=== PATIENT | female | born 1935 | race Caucasian/White ===

== ENCOUNTER 2017-12-02 09:12 | Outpatient (CLI) | payer MEDICARE, OTHER, SELFPAY ==
[2017-12-02 11:06] LABS: Hemoglobin A1C 6.8 % (4.5-6.2)
[2017-12-02 12:35] LABS: ALT 23 U/L (12-78); AST 19 U/L (15-37); Albumin 3.2 g/dL (3.4-5.0); Alkaline Phosphatase 71 U/L (46-116); Anion Gap 9.2 mmol/L (3-11); BUN 17 mg/dL (7-18); Bilirubin, Total 0.3 mg/dL (0.2-1.0); CO2 28.8 mmol/L (21.0-32.0); CREATININE 1.04 mg/dL (0.55-1.02); Calcium 8.6 mg/dL (8.5-10.1); Chloride 105 mmol/L (98-107); Estimated GFR 50.86 (mL/min/1.73m2); Glucose 140 mg/dL (70-100); Potassium 3.8 mmol/L (3.5-5.1); Sodium 143 mmol/L (136-145); Total Protein 6.9 g/dL (6.4-8.2)
== END 2017-12-02 09:32 ==
PROVIDERS: PCP Internal Medicine; Visit Provider Internal Medicine
DX: E11.9 Type 2 diabetes mellitus without complications (principal); I10 Essential (primary) hypertension
CPT/HCPCS: 36415; 80053; 83036

== ENCOUNTER 2020-01-12 02:52 | Outpatient (CLI) | payer MEDICARE, OTHER, SELFPAY ==
[2020-01-12 13:29] LABS: CREATININE 1.27 mg/dL (0.55-1.02); Estimated GFR 40.19 (mL/min/1.73m2); Potassium 4.1 mmol/L (3.5-5.1)
[2020-01-12 13:41] LABS: Hemoglobin A1C 6.8 % (<5.7)
== END 2020-01-12 03:12 ==
PROVIDERS: Internal Medicine; PCP Nurse Practitioner; Visit Provider Nurse Practitioner
DX: E11.9 Type 2 diabetes mellitus without complications (principal); I10 Essential (primary) hypertension
CPT/HCPCS: 82565; 83036; 84132

== ENCOUNTER 2020-02-22 08:15 | Day surgery (SDC) | payer MEDICARE, OTHER, SELFPAY ==
[2020-02-22 08:00] VITALS: BP 143/83; PULSE 67; RESP 24; TEMP 36.1; O2SAT 97
[2020-02-22] MEDS: Tropicam./Phenyleph. (1/2.5%) 5 ML BTL OD ×3 (08:40→08:47)
--- NOTE | 2020-02-22 09:56 | W.PM.DSUDISC ---
Discharge Plan Disposition Patient Disposition: HOME Discharge Details Attending Provider: Ke Chadwick Primary Care Provider: Odalys Summers Home Meds and New Rx's Prescriptions: No Action meclizine 12.5 mg tablet 12.5 - 25 mg PO BID-TID PRN (Reason: dizziness) Qty: 60 RF: 1 (DME) OneTouch Verio test strips Strip 1 ea Miscellaneous DAILY Qty: 90 RF: 3 (DME) lancets [OneTouch UltraSoft Lancets] Misc 1 ea Miscellaneous DAILY Qty: 90 RF: 3 potassium citrate 5 mEq (540 mg) tablet extended release 5 meq PO DAILY Qty: 90 RF: 3 metformin 500 mg tablet 500 mg PO DAILY Qty: 90 RF: 3 aspirin [Aspir-81] 81 MG tablet,delayed release (DR/EC) 1 tab PO DAILY RF: 0 (DME) blood-glucose meter [OneTouch Verio Meter] 1 EACH misc Miscellaneous DAILY Qty: 1 RF: 2 cholecalciferol (vitamin D3) 5,000 UNIT capsule 5,000 unit PO DAILY RF: 0 omega 4-xpd-sdr-fish oil 1 EACH capsule 1 ea PO DAILY RF: 0 atenolol 50 mg tablet 50 mg PO DAILY Qty: 90 RF: 4 hydrochlorothiazide 25 mg tablet 25 mg PO DAILY Qty: 90 RF: 4 Discharge Instructions Stand Alone Forms: Post-op Topical Cataract, Alessandra Rodriguez (DSU) Discharge Orders Discharge Orders: Discharge Order (Routine); Ordered 02/22/20 Ordered By: Ke Chadwick DS: Diagnosis Discharge Diagnosis (1) Nuclear sclerotic cataract of right eye: Status: Resolved (2) Cortical cataract of right eye: Status: Resolved
[2020-02-22] MEDS: Tetracaine 0.5% 4 ML BTL OD (10:07)
[2020-02-22] MEDS: Lidocaine 2% Jelly 6 ML SYR (10:08)
[2020-02-22] MEDS: Povidone-Iodine Ophth 30 ML BTL (10:08)
[2020-02-22] MEDS: Lidocaine 1% Pres-Free 5 ML VIAL (10:12)
[2020-02-22] MEDS: Balanced Salt Soln.-PLUS 500 ML BAG (10:13)
[2020-02-22] MEDS: Duovisc Viscoelastic System EACH 1 EACH (10:14)
[2020-02-22] MEDS: Moxifloxacin-PF 1 MG/ML VIAL (10:16)
--- NOTE | 2020-02-22 10:37 | W.PM.OP ---
Date of service: 02/22/20 Time of Service: 10:37 Operative Note Operative Note DATE OF PROCEDURE: 02/22/20 PRE-OP DIAGNOSIS: Nuclear cataract, right eye POST-OP DIAGNOSIS: same PROCEDURE: Cataract extraction using phacoemulsification with intraocular lens implant, right eye SURGEON: Ke Chadwick ANESTHESIA: MAC and local (sub-tenon's anesthetic infiltration) ESTIMATED BLOOD LOSS: 0 PATHOLOGY: none sent COMPLICATIONS: None Patient was transported to: same day Patient's condition: stable Implants: [employer] / [employer] Tecnis ZCB00 intraocular lens Indications: Progressive decreased vision due to cataract, right eye Procedure Description: CATARACT SURGERY OPERATIVE REPORT PREOPERATIVE DIAGNOSIS: Nuclear cataract, right eye POSTOPERATIVE DIAGNOSIS: Same OPERATION: Cataract extraction using phacoemulsification with posterior chamber intraocular lens implant, right eye. IOL: IOL Mobile Sales Technician/Model: [employer] Vision / ESTELLA Tecnis ZCB00 IOL Power: + 21.50 diopters IOL Serial Number: [id number] Optic Diameter: 6.0mm Haptic/Overall Diameter: 13.0mm PHACO INFO: Estuardo [employer] Vision System with OZil and Active Fluidics Cumulative Dispersed Energy (CDE): 14.58 seconds SURGEON: Nuclear and cortical cataract. The option of cataract surgery was offered to the patient and she felt she was symptomatic enough that she wished to proceed. Ke Chadwick MD, JOLIE ANESTHESIA: Monitored Anesthesia Care (MAC), with local sub-tenon's anesthetic infiltration COMPLICATIONS: None SPECIMENS: None INDICATIONS FOR PROCEDURE: The patient is an 84-year-old lady with history of diminished visual acuity in her right eye. She is noted to have a moderate nuclear and cortical cataract. She felt she was symptomatic enough that she wished to proceed. PROCEDURE: The correct surgical eye was identified and marked as the right eye and the pupil was dilated in the preoperative area using mydriatics and cycloplegics. The dilated pupil size was 7.0 mm. No oral sedation was given. The patient was brought to the operating room where cardiopulmonary monitoring was instituted and surgical time-out was performed, confirming the correct operative eye and IOL power. Topical anesthesia was administered and ophthalmic povidone-iodine 5% was instilled into the conjunctival fornices. Lidocaine gel was applied to the cornea and the rasheed-ocular area was prepped with Betadine 10% solution and draped in the usual sterile fashion for intraocular surgery, including an aperture drape. A Tegaderm transparent film dressing was cut in half and used to cover the lashes and lid margins. Care was taken to sequester the lashes and lid margins under the Tegaderm dressing. A lid speculum was placed between the lids of the operative eye and the Shari-Kris operating microscope was maneuvered into position. Carol scissors were then used to make a conjunctival buttonhole approximately 6mm posterior to the limbus in the inferonasal quadrant. Blunt dissection was carried out to expose bare sclera, and a blunt-tipped sub-tenon?s anesthesia cannula was introduced and passed posteriorly along the globe where non-preserved plain lidocaine was injected into posterior sub-Tenon?s space. A sideport knife was used to make a paracentesis port inferiortemporally. Intraocular phenylephrine/lidocaine was injected into the anterior chamber. The anterior chamber was then filled with viscoelastic. A 2.4mm keratome knife was used to create a half-thickness groove at the limbus and then to construct a three-plane near-clear corneal tunnel extending 2.0mm into clear cornea in the superiortemporal position. . A flap was raised on the anterior capsule and capsulorhexis forceps were used to complete a continuous curvilinear capsulorhexis of 5.0 mm. Balanced salt solution was then used to perform cortical cleaving hydrodissection and nuclear hydrodelineation until the lens could be freely rotated within the capsular bag. The lens nucleus was then disassembled and removed within the capsular bag and iris plane using phacoemulsification. Residual cortical material was removed using the I/A handpiece. The posterior capsule was carefully polished to remove as much residual lens epithelial cells as safely possible. The capsular bag was then inflated and the anterior chamber deepened with viscoelastic. The lens implant described above was inserted into the capsular bag using the ESTELLA [place] Injector. A Kuglen hook was used to dial the IOL into position. Residual viscoelastic was then removed first from posterior to the IOL, then from the anterior chamber using the I/A handpiece. The lens implant was noted to center nicely within the capsular bag. The incisions were stromally hydrated, and the anterior chamber was reformed using BSS. Then 0.5cc of moxifloxacin 1.0mg/ml were injected into the capsular bag and anterior chamber. The incisions were checked with a Weck spear and found to be secure. Several drops of ophthalmic povidone-iodine 5% were then applied to the eye followed by two drops of Imprimis combination prednisolone/moxifloxacin/nepafenac solution. The drapes were removed and a clear plastic protective eye shield was placed over the eye. The patient was then returned to [facility] in stable condition.
== END 2020-02-22 11:06 | disposition home or self-care (01) ==
PROVIDERS: PCP Nurse Practitioner; Visit Provider Ophthalmology
PROC: (CPT 66984; principal; 2020-02-22 09:45)
DX: H25.11 Age-related nuclear cataract, right eye (principal); H25.011 Cortical age-related cataract, right eye; E11.9 Type 2 diabetes mellitus without complications; Z79.84 Long term (current) use of oral hypoglycemic drugs; I10 Essential (primary) hypertension
CPT/HCPCS: 66984; V2632

== ENCOUNTER 2020-03-07 07:30 | Day surgery (SDC) | payer MEDICARE, OTHER, SELFPAY ==
[2020-03-07 07:45] VITALS: BP 160/84; PULSE 67; RESP 18; TEMP 36.2; O2SAT 96
[2020-03-07] MEDS: Tropicam./Phenyleph. (1/2.5%) 5 ML BTL OS ×3 (08:00→08:13)
[2020-03-07] MEDS: Lidocaine 2% Jelly 6 ML SYR (09:05)
[2020-03-07] MEDS: Trypan Blue 0.06% 0.5 ML SYR (09:05)
[2020-03-07] MEDS: Tetracaine 0.5% 4 ML BTL OS (09:05)
[2020-03-07] MEDS: Povidone-Iodine Ophth 30 ML BTL (09:05)
[2020-03-07] MEDS: Lidocaine 1% Pres-Free 5 ML VIAL (09:05)
[2020-03-07] MEDS: Balanced Salt Soln.-PLUS 500 ML BAG (09:05)
--- NOTE | 2020-03-07 09:22 | W.PM.DSUDISC ---
Discharge Plan Disposition Patient Disposition: HOME Condition: Good Discharge Details Attending Provider: Ke Chadwick Primary Care Provider: Odalys Summers Home Meds and New Rx's Prescriptions: No Action meclizine 12.5 mg tablet 12.5 - 25 mg PO BID-TID PRN (Reason: dizziness) Qty: 60 RF: 1 (DME) OneTouch Verio test strips Strip 1 ea Miscellaneous DAILY Qty: 90 RF: 3 (DME) lancets [OneTouch UltraSoft Lancets] Misc 1 ea Miscellaneous DAILY Qty: 90 RF: 3 potassium citrate 5 mEq (540 mg) tablet extended release 5 meq PO DAILY Qty: 90 RF: 3 metformin 500 mg tablet 500 mg PO DAILY Qty: 90 RF: 3 aspirin [Aspir-81] 81 MG tablet,delayed release (DR/EC) 1 tab PO DAILY RF: 0 (DME) blood-glucose meter [OneTouch Verio Meter] 1 EACH misc Miscellaneous DAILY Qty: 1 RF: 2 cholecalciferol (vitamin D3) 5,000 UNIT capsule 5,000 unit PO DAILY RF: 0 omega 7-mnv-ktp-fish oil 1 EACH capsule 1 ea PO DAILY RF: 0 atenolol 50 mg tablet 50 mg PO DAILY Qty: 90 RF: 4 hydrochlorothiazide 25 mg tablet 25 mg PO DAILY Qty: 90 RF: 4 Discharge Instructions Stand Alone Forms: Post-op Block Cataract, Post-op Topical Cataract, Press Ganey (DSU) Discharge Orders Discharge Orders: Discharge Order (Routine); Ordered 03/07/20 Ordered By: Ke Chadwick DS: Diagnosis Discharge Diagnosis (1) Cortical cataract of left eye: Status: Resolved (2) Nuclear sclerotic cataract of left eye: Status: Resolved
--- NOTE | 2020-03-07 09:23 | W.PM.OP ---
Date of service: 03/07/20 Time of Service: 09:23 Operative Note Operative Note DATE OF PROCEDURE: 03/07/20 PRE-OP DIAGNOSIS: Nuclear/cortical cataract, left eye POST-OP DIAGNOSIS: same PROCEDURE: Cataract extraction using phacoemulsification with intraocular lens implant, left eye, using capsular staining with Vision Blue SURGEON: Ke Chadwick ANESTHESIA: MAC (with local sub-tenon's anesthetic injection) COMPLICATIONS: None Patient was transported to: same day Patient's condition: stable Implants: [employer] / [employer] Tecnis [id number] Indications: Progressive decreased vision due to cataract, left eye, with poor red reflex Procedure Description: CATARACT SURGERY OPERATIVE REPORT PREOPERATIVE DIAGNOSIS: 1. Nuclear/cortical cataract, left eye 2. Poor red reflex secondary to #1 POSTOPERATIVE DIAGNOSIS: Same OPERATION: 1. Cataract extraction using phacoemulsification with posterior chamber intraocular lens implant, left eye. 2. Capsular staining with Vision Blue IOL: IOL Bagel Maker/Model: [employer] Abraham / ESTELLA Tecnis ZCB00 IOL Power: + 22.0 diopters IOL Serial Number: [id number] Optic Diameter: 6.0 mm Haptic/Overall Diameter: 13.0 mm PHACO INFO: Estuardo [employer] Vision System with OZil and Active Fluidics Cumulative Dispersed Energy (CDE): 8.21 seconds SURGEON: Ke Chadwick MD, JOLIE [facility]ESTHESIA: [facility] ([facility]), with local sub-tenon's anesthetic infiltration COMPLICATIONS: None SPECIMENS: None INDICATIONS FOR PROCEDURE: The patient is an 84-year-old lady with history of diminished visual acuity in both eyes secondary to the development of bilateral nuclear and cortical cataract. She has already undergone cataract surgery in her right eye and is doing well postoperatively. She now presents for cataract surgery in the left eye. PROCEDURE: The correct surgical eye was identified and marked as the left eye and the pupil was dilated in the preoperative area using mydriatics and cycloplegics. The dilated pupil size was 7.0 mm. The patient elected to proceed without sedation. The patient was brought to the operating room where cardiopulmonary monitoring was instituted and surgical time-out was performed, confirming the correct operative eye and IOL power. Topical anesthesia was administered and ophthalmic povidone-iodine 5% was instilled into the conjunctival fornices. Lidocaine gel was applied to the cornea and the rasheed-ocular area was prepped with Betadine 10% solution and draped in the usual sterile fashion for intraocular surgery, including an aperture drape. A Tegaderm transparent film dressing was cut in half and used to cover the lashes and lid margins. Care was taken to sequester the lashes and lid margins under the Tegaderm dressing. A lid speculum was placed between the lids of the operative eye and the Shari-Kris operating microscope was maneuvered into position. Carol scissors were then used to make a conjunctival buttonhole approximately 6mm posterior to the limbus in the inferonasal quadrant. Blunt dissection was carried out to expose bare sclera, and a blunt-tipped sub-tenon?s anesthesia cannula was introduced and passed posteriorly along the globe where non-preserved plain lidocaine was injected into posterior sub-Tenon?s space. A sideport knife was used to make a paracentesis port superiorly/superiortemporally. Intraocular phenylephrine/lidocaine was injected int the anterior chamber.. Air was then injected into the anterior chamber, followed by Vision Blue, which was painted over the anterior capsule and then irrigated out using BSS. The anterior chamber was filled with viscoelastic. A 2.4mm keratome knife was used to create a half-thickness groove at the limbus and then to construct a three-plane near-clear corneal tunnel extending 2.0mm into clear cornea at the 3:00 position. A flap was raised on the anterior capsule and capsulorhexis forceps were used to complete a continuous curvilinear capsulorhexis of 5.0 mm. Balanced salt solution was then used to perform cortical cleaving hydrodissection and nuclear hydrodelineation until the lens could be freely rotated within the capsular bag. The lens nucleus was then disassembled and removed within the capsular bag and iris plane using phacoemulsification. Residual cortical material was removed using the 45-degree angled silicone I/A tip with 0.3mm port. The posterior capsule was carefully polished to remove as much residual lens epithelial cells as safely possible. The capsular bag was then inflated and the anterior chamber deepened with viscoelastic. The lens implant described above was inserted into the capsular bag using the ESTELLA [place] Injector. A Kuglen hook was used to dial the IOL into position. Residual viscoelastic was then removed first from posterior to the IOL, then from the anterior chamber using the I/A handpiece. The lens implant was noted to center nicely within the capsular bag. The incisions were stromally hydrated, and the anterior chamber was reformed using BSS. Then 0.5cc of moxifloxacin 1.0mg/ml were injected into the capsular bag and anterior chamber. The incisions were checked with a Weck spear and found to be secure. Several drops of ophthalmic povidone-iodine 5% were then applied to the eye followed by two drops of Imprimis combination prednisolone/moxifloxacin/nepafenac solution. The drapes were removed and a clear plastic protective eye shield was placed over the eye. The patient was then returned to Same Day Surgery in stable condition.
== END 2020-03-07 09:53 | disposition home or self-care (01) ==
PROVIDERS: PCP Nurse Practitioner; Visit Provider Ophthalmology
PROC: (CPT 66982; principal; 2020-03-07 09:00)
DX: H25.012 Cortical age-related cataract, left eye (principal); H25.12 Age-related nuclear cataract, left eye; H57.09 Other anomalies of pupillary function; Z98.41 Cataract extraction status, right eye; Z96.1 Presence of intraocular lens; I10 Essential (primary) hypertension; E11.9 Type 2 diabetes mellitus without complications
CPT/HCPCS: 66982; V2632

== ENCOUNTER 2020-04-18 20:08 | Emergency (ER) | payer MEDICARE, OTHER, SELFPAY ==
[2020-04-18] VITALS (36 sets, daily range): BP systolic 128–158; BP diastolic 55–70; PULSE 74–88; RESP 16–30; TEMP 36.2; O2SAT 87–97
--- NOTE | 2020-04-18 19:59 | ED.GENADUL_ITS ---
Discharge Plan Disposition Patient Disposition: HOME Condition: Improving Discharge Details Clinical Impression: Vertigo, Hypomagnesemia, Hypokalemia Primary Care Provider: Odalys Summers ED Provider: Remedios Ogden Home Meds and New Rx's Prescriptions: Continued meclizine 12.5 mg tablet 12.5 - 25 mg PO BID-TID PRN (Reason: dizziness) Qty: 60 RF: 1 (DME) OneTouch Verio test strips Strip 1 ea Miscellaneous DAILY Qty: 90 RF: 3 (DME) lancets [OneTouch UltraSoft Lancets] Misc 1 ea Miscellaneous DAILY Qty: 90 RF: 3 potassium citrate 5 mEq (540 mg) tablet extended release 5 meq PO DAILY Qty: 90 RF: 3 metformin 500 mg tablet 500 mg PO DAILY Qty: 90 RF: 3 aspirin [Aspir-81] 81 MG tablet,delayed release (DR/EC) 1 tab PO DAILY RF: 0 (DME) blood-glucose meter [OneTouch Verio Meter] 1 EACH misc Miscellaneous DAILY Qty: 1 RF: 2 cholecalciferol (vitamin D3) 5,000 UNIT capsule 5,000 unit PO DAILY RF: 0 omega 0-lln-[id number]-fish oil 1 EACH capsule 1 ea PO DAILY RF: 0 atenolol 50 mg tablet 50 mg PO DAILY Qty: 90 RF: 4 hydrochlorothiazide 25 mg tablet 25 mg PO DAILY Qty: 90 RF: 4 Discharge Instructions Instructions: Vertigo (ED), Hypokalemia (ED), Hypomagnesemia (ED) Additional Instructions: Please encourage water intake. You may continue with the meclizine if you have any recurrence of your symptoms. Please contact your primary care tomorrow to schedule follow-up appointment in the next week. If you develop any headaches, fevers, return of symptoms or other new/worsening symptoms please seek care urgently once again. Referrals: Odalys Summers, HEALTH INFORMATION DIRECTOR [Primary Care Provider] - Discharge Data Discharge Date/Time-TO BE ENTERED AT DEPARTURE: 04/19/20 00:10 Medical Decision Making Patient is a pleasant 84-year-old female brought in via EMS with chief complaint of vertigo. Patient's been diagnosed with vertigo historically. She was admitted here in 2016 for the same. States that symptoms began today approximately 2 hours prior to arrival. She reports she was sitting in her chair at the time of the onset. States that typically she is able to manage this at home with her meclizine. However, the vertigo caused nausea or vomiting shortly after the onset today. She is unable to keep down the meclizine. She otherwise feels that is baseline for her vertigo as compared to previous episodes. She denies any headache. No visual change. Denies any chest pain or shortness of breath. Was feeling well prior to the onset of symptoms. On exam, patient does appear uncomfortable and begins dry heaving with small movements of her head. She does have horizontal nystagmus with eyes deviated to the left. This is unilateral. Test of skew shows normal vertical alignment. Head impulse test does show dolls eyes consistent with a peripheral lesion. This also did induce further nausea and vomiting. Neurologic exam otherwise without evidence of weakness or focal abnormality. Cognition is intact. Normal cardiac exam, lungs are clear, pulse of equal in all extremities. Patient's exam is consistent with her history of vertigo. Her exam is not consistent with a central cause. Patient did receive Zofran prior to arrival continues to have episodes of emesis. We will augment this with Reglan. We will also give her meclizine once nausea is under control. Patient is resting comfortably. Hold off on imaging at this time. Is likely not warranted no further movement with only induced more episodes of vomiting. Patient feeling improved. She is able to move her head around, is tolerating sips of fluids. Mild leukocytosis iwth WBC of 12.97, she was elevated when she had vertigo historically. Potassium 3.2, will replenish IV as she will likely not tolerate PO. Anion gap of 13.2, she is likely dehydrated with geovanna vomiting she has had tonight. Creatinine 1.2 whichi s baseline for th epatient.n Glucose is baseline at 223 which is baseline. Mag 1.6, we will replenish while here. Initial troponin <0.05. TSH 5. Spoke with the patient's daughters. They are concerned that this seemed to come on faster than her vertigo has in the past. They are also concerned that her symptoms were stronger. The patient had reported that this feels similar to when she has had vertigo historically. It is also comparable to what she described in 2016. However, with their concerns and patient's age, I do feel that repeat troponin would be appropriate. Free T4 WNL. Repeat ECG reviewed by Dr. Jacobson with no changes from initial. Discussed these findings with the patient. Repeat troponin remains within normal range. Patient says that she is ready for discharge. Her vertigo is completely subsided. She does have meclizine at home that she can use if she has any recurrence of her symptoms. I did encourage the patient to follow-up closely with her primary care. Strict return precautions were discussed. Also questions and concerns were addressed and she is in agreement this plan. HPI General Mode of arrival: EMS . Date/Time Provider Initiated Documentation: 04/18/20 20:17 . Limitations to Documentation: no limitations . Information obtained by: patient, EMS, RN notes reviewed and old records reviewed . History of Present Illness 84 year old F presents to the emergency department with the chief complaint of dizziness and vomiting, described as severe and similar to prior episodes (hx of vertigo), Quality is described as other (denies any pain), Patient started experiencing this hour(s) (2) and it has been constant. Immobilization improves symptom(s), Movement worsens symptoms . Patient notes nausea/vomiting; denies chest pain, cough, diaphoresis, fever/chills, headaches, shortness of breath, syncope and weakness. Patient did receive the following treatments prior to arrival, other (received zofran from EMS) Related Data Home Medications Medication Instructions Recorded Confirmed aspirin [Aspir-81] 1 tab PO DAILY tab-cap 07/18/12 04/18/20 blood-glucose meter [OneTouch #1 10/03/16 04/18/20 Verio Meter] cholecalciferol (vitamin D3) 5,000 unit PO DAILY 06/03/17 04/18/20 omega 6-dxq-xth-fish oil 1 ea PO DAILY 06/03/17 04/18/20 meclizine 12.5 mg tablet 12.5 - 25 mg PO BID-TID PRN #60 tab 09/01/18 04/18/20 atenolol 50 mg tablet 50 mg PO DAILY #90 tab-cap 11/26/19 04/18/20 hydrochlorothiazide 25 mg tablet 25 mg PO DAILY #90 tab-cap 12/03/19 04/18/20 blood sugar diagnostic #90 strip 12/11/19 04/18/20 lancets #90 ea 12/11/19 04/18/20 metformin 500 mg tablet 500 mg PO DAILY #90 tab 12/11/19 04/18/20 potassium citrate 5 mEq (540 mg) 5 meq PO DAILY #90 tab 12/11/19 04/18/20 tablet,extended release Previous Rx's Medication Instructions Recorded meclizine 12.5 mg tablet 12.5 - 25 mg PO BID-TID PRN #60 tab 09/01/18 atenolol 50 mg tablet 50 mg PO DAILY #90 tab-cap 11/26/19 hydrochlorothiazide 25 mg tablet 25 mg PO DAILY #90 tab-cap 12/03/19 blood sugar diagnostic #90 strip 12/11/19 lancets #90 ea 12/11/19 metformin 500 mg tablet 500 mg PO DAILY #90 tab 12/11/19 potassium citrate 5 mEq (540 mg) 5 meq PO DAILY #90 tab 12/11/19 tablet,extended release Allergies Allergy/AdvReac Type Severity Reaction Status Date / Time No Known Allergies Allergy Unverified 04/18/20 20:12 Review of Systems Constitutional Constitutional: Reports as per HPI, Denies chills, Denies fatigue, Denies fever(s), Denies frequent falls, Denies headache(s), Denies snoring and Denies weakness Eyes Eyes: Reports as per HPI, Denies blurry vision and Denies change in vision ENT Ears, Nose, Mouth, and Throat: Reports vertigo, Reports dizziness, Denies otalgia, Denies headache(s) and Denies neck pain Cardiovascular Cardiovascular: Reports as per HPI, Denies chest pain, Denies lightheadedness, Denies radiating jaw, neck or arm pain, Denies dyspnea and Denies dyspnea on exertion Respiratory Respiratory: Reports as per HPI, Denies chest congestion, Denies cough, Denies dyspnea, Denies dyspnea on exertion, Denies snoring, Denies stridor and Denies wheezing Gastrointestinal Gastrointestinal: Reports as per HPI, Denies abdominal pain, Denies change in bowel habits, Reports nausea and Reports vomiting Musculoskeletal Musculoskeletal: Reports as per HPI, Denies back pain, Denies myalgias, Denies muscle cramps, Denies neck pain and Denies numbness Integumentary/Breasts Skin/Breast: Reports as per HPI and Denies rash Neurologic Neurologic: Reports as per HPI, Denies abnormal movements, Denies abnormal speech, Denies behavioral changes, Denies confusion, Reports vertigo, Reports dizziness, Denies frequent falls, Denies headache(s), Denies localized weakness, Denies numbness, Denies sensory deficit and Denies weakness Psychiatric Psychiatric: Denies behavioral changes and Denies confusion Endocrine Endocrine: Denies fatigue Allergic/Immunologic Allergic/Immunologic: Denies wheezing [facility] Medical History Diabetes mellitus (01/23/13) Essential hypertension Osteoarthritis (01/23/13) right knee Surgical History Hx of cataract extraction Family History Mother , age 78 Heart disease Alzheimer disease Father , age 58 Throat cancer Sister Heart disease Brother Alcohol abuse Brother Alcohol abuse Son Heart disease Daughter No problems noted. Daughter No problems noted. Social History Smoking/Tobacco Use Status: Never Smoking risk assessment performed?: Yes Alcohol Intake: never Drug use: Never Substance use type: does not use Do you feel safe at home: Yes Do you feel safe in your relationship?: Yes Exam Const General: cooperative, healthy appearing, uncomfortable, no acute distress, well developed and well groomed Nutritional Appearance: well nourished and obese Orientation: alert, awake and oriented x3 HENMT Head: normal to inspection, no palpable skull fracture, normocephalic and atraumatic Ears: hearing grossly normal bilaterally, external ears normal and TM's normal bilaterally General nose exam: external nose normal Mouth: oral mucosae normal and moist mucous membranes Throat: posterior oropharynx normal Eyes General: appearance normal, both eyes and all related structures Alignment and Position: alignment normal Periorbital: periorbital findings normal Eyelids: eyelids normal Sclera: sclerae normal Cornea: corneas normal Pupils: PERRL EOM: nystagmus (horizontal to the left) Neck Neck: normal visual inspection, full ROM, no lymphadenopathy and no meningeal signs Resp Effort & Inspection: normal respiratory effort, able to speak in complete sentences and no respiratory distress Auscultation: clear to auscultation bilaterally, no rales, no rhonchi and no wheezes Cardio Rate: regular rate Rhythm: regular rhythm Heart Sounds: S1 normal and S2 normal GI Inspection: normal to inspection and non-distended Palpation: soft, no hepatosplenomegaly, not firm, no guarding, not rigid and nontender Percussion: normal to percussion Auscultation: normal bowel sounds Back/Spine/Pelvis Cervical Spine: normal cervical lordosis and cervical ROM normal Skin General skin exam: no rashes or lesions noted Neuro General: patient alert, patient awake and patient oriented x3 Cranial Nerves: CN's II-XI intact bilaterally and nystagmus (horizontal to the left) Cognition: normal cognition Speech: speech normal Motor: muscle tone normal throughout, strength 5/5 throughout, no pronator drift, no movement abnormalities noted and no fasciculations Sensory Exam: no sensory deficits noted Coordination: [id number] test normal Extrem General: normal to inspection, capillary refill normal, no pedal edema and no calf tenderness Psych Appearance: grossly normal and well kempt Mental Status: mental status grossly normal Speech and Movement: speech and movement normal
--- NOTE | 2020-04-18 20:00 | RT.EKG_ITS ---
APPROVED REPORT Exam: Resting ECG Patient Location: E HR:83 bpm ECG Measurements Heart Rate 83 AXIS KS 80 P 0 QRSd 90 QRS -13 QT 398 T 21 QTc 469 Conclusion Sinus rhythm...normal P axis, V-rate 60- 99 I have reviewed and interpreted ECG and agree with software generated interpretation.
[2020-04-18] MEDS: Metoclopramide 10 MG/2 ML VIAL 5 MG IVP (20:28)
[2020-04-18 20:29] LABS: Abs Immature Grans 0.07 10^3/uL (0.0-0.06); Absolute Lymphocyte Count 2.74 10^3/uL (1.2-3.4); Absolute Monocyte Count 0.58 10^3/uL (0.1-0.8); Basophils % 0.5; Eosinophils % 0.8; HCT 39.7 % (36.0-46.0); HGB 12.7 g/dL (11.2-15.7); Immature Grans % 0.5; Lymphocytes % 21.1; MCH 28.6 pg (27.0-33.0); MCV 89.4 fL (80-95); MPV 9.2 fL (8.0-11.0); Monocytes % 4.5; Neutrophils % 72.6; Nucleated RBC 0 %; Platelet Count 364 10^3/uL (130-400); RBC 4.44 10^6/uL (3.93-5.22); RDW 13.5 % (11.7-14.6); RDW-SD 44.5 fL; WBC 12.97 10^3/uL (4.4-10.8)
[2020-04-18 20:31] LABS: Absolute Basophil Count 0.06 10^3/uL (0.0-0.2); Absolute Neutrophil Count 9.42 10^3/uL (1.2-6.7)
[2020-04-18 20:42] LABS: INR 1.1 (0.9-1.1); PTT Activated 21.1 sec (21.0-27.5); Prothrombin Time 10.6 sec (9.3-11.0)
[2020-04-18 20:50] LABS: ALT 17 U/L (14-59); AST 12 U/L (15-37); Albumin 3.3 g/dL (3.4-5.0); Alkaline Phosphatase 75 U/L (46-116); Anion Gap 13.2 mmol/L (3-11); BUN 13 mg/dL (7-18); Bilirubin, Total 0.4 mg/dL (0.2-1.0); CO2 23.8 mmol/L (21.0-32.0); CREATININE 1.2 mg/dL (0.55-1.02); Chloride 102 mmol/L (98-107); Glucose 223 mg/dL (74-106); Magnesium 1.6 mg/dL (1.8-2.4); Potassium 3.2 mmol/L (3.5-5.1); Sodium 139 mmol/L (136-145)
[2020-04-18] MEDS: Meclizine 25 MG TAB PO (20:56)
[2020-04-18 20:57] LABS: Troponin I < 0.05 ng/mL (<0.06)
[2020-04-18 21:25] LABS: FREE T4 1.12 ng/dL (0.76-1.46)
[2020-04-18] MEDS: MAGNESIUM SULFATE 1 GM/100 ML BAG IVPB (21:41)
[2020-04-18] MEDS: Normal Saline 1,000 ML 150 ML IV (21:41)
[2020-04-18] MEDS: POTASSIUM CHLORIDE 20 MEQ/100 ML BAG 50 MEQ IVPB (21:41)
--- NOTE | 2020-04-18 23:00 | RT.EKG_ITS ---
APPROVED REPORT Exam: Resting ECG Patient Location: E HR:85 bpm ECG Measurements Heart Rate 85 AXIS NC 241 P 39 QRSd 80 QRS -9 QT 386 T 24 QTc 459 Conclusion Sinus rhythm...normal P axis, V-rate 60- 99 Prolonged NC interval...NC >220, V-rate 50- 90 Physician: no stemi, no change from prior ekg today. inverted T wave in V1 unchanged. no new st depre ssion
[2020-04-18 23:51] LABS: Troponin I < 0.05 ng/mL (<0.06)
--- NOTE | 2020-04-19 00:08 | NUR.NOTE ---
multiple calls to both daughters listed phone numbers straight to voicemail. Called home phones, got voicemail and 1 disconnected number.
== END 2020-04-19 00:10 | disposition home or self-care (01) ==
PROVIDERS: Emergency Provider Physician Assistant; PCP Nurse Practitioner
DX: E87.6 Hypokalemia (principal); E83.42 Hypomagnesemia; R42 Dizziness and giddiness
CPT/HCPCS: 36415; 36416; 80053; 82962; 93005; 96361; 96365; 96368; 96375; 99285; 83735; 84439; 84443; 84484; 85025; 85610; 85730; 93010; 99284; J2765; J3475; J3480

== ENCOUNTER 2020-12-13 09:09 | Outpatient (CLI) | payer MEDICARE, OTHER, SELFPAY ==
[2020-12-13 13:14] LABS: CREATININE 1.2 mg/dL (0.55-1.02); Potassium 3.9 mmol/L (3.5-5.1)
[2020-12-13 13:26] LABS: Hemoglobin A1C 7.8 % (<5.7)
[2020-12-13 14:03] LABS: COMMENT (LAB VIEW ONLY) 165.99 mg/dL; Microalb ug/mg Crea 58.6 ug/mg Cr
== END 2020-12-13 09:10 | disposition home or self-care (01) ==
LOC: LOS 09:20
PROVIDERS: PCP Nurse Practitioner; Visit Provider Nurse Practitioner
DX: I10 Essential (primary) hypertension (principal); E11.9 Type 2 diabetes mellitus without complications
CPT/HCPCS: 36415; 82043; 82565; 82570; 83036; 84132

== ENCOUNTER 2021-05-11 01:39 | Inpatient (IN) | payer MEDICARE, OTHER, SELFPAY ==
[2021-05-11] VITALS (10 sets, daily range): BP systolic 125–198; BP diastolic 65–95; PULSE 64–89; RESP 14–18; TEMP 36.3–38.6; O2SAT 91–98
--- NOTE | 2021-05-11 02:00 | RT.EKG_ITS ---
APPROVED REPORT Exam: Resting ECG Reason for Exam: epigastric pain Patient Location: E HR:65 bpm ECG Measurements Heart Rate 65 AXIS CA 85 P 31 QRSd 82 QRS -4 QT 424 T 29 QTc 442 Conclusion Sinus rhythm...normal P axis, V-rate 60- 99 Physician: no stemi
--- NOTE | 2021-05-11 02:02 | ED.GENADUL_ITS ---
Discharge Plan Disposition Patient Disposition: [facility] INPATIENT Condition: Stable Discharge Details Clinical Impression: Gallstones, Nausea & vomiting Primary Care Provider: Odalys Summers ED Provider: Frandy Jacobson Home Meds and New Rx's Prescriptions: No Action (DME) OneTouch Verio test strips Strip 1 ea Miscellaneous DAILY Qty: 90 3RF Rx Instructions: daily (DME) lancets [OneTouch UltraSoft Lancets] Misc 1 ea Miscellaneous DAILY Qty: 90 3RF Rx Instructions: Daily magnesium oxide 400 mg (241.3 mg magnesium) tablet 400 mg PO DAILY 0RF lisinopril 10 mg tablet 10 mg PO DAILY Qty: 90 4RF aspirin [Aspir-81] 81 MG tablet,delayed release (DR/EC) 1 tab PO DAILY 0RF (DME) blood-glucose meter [OneTouch Verio Meter] 1 EACH misc Miscellaneous DAILY Qty: 1 2RF cholecalciferol (vitamin D3) 5,000 UNIT capsule 5,000 unit PO DAILY 0RF omega 8-pdv-dcf-fish oil 1 EACH capsule 1 ea PO DAILY 0RF atenolol 50 mg tablet 50 mg PO DAILY Qty: 90 4RF hydrochlorothiazide 25 mg tablet 25 mg PO DAILY Qty: 90 4RF metformin 500 mg tablet 500 mg PO DAILY Qty: 90 3RF potassium citrate 5 mEq (540 mg) tablet extended release 5 meq PO DAILY Qty: 90 3RF Medical Decision Making 85-year-old female with past medical history of diabetes, hypertension, no previous abdominal surgeries presents today for 4 hours of abdominal pressure. Patient states that at about 10 PM she developed what she describes as a ton of bricks in her epigastric region. She has been nauseous and has been vomiting up sputum. She denies any diarrhea. She denies any abdominal pain. She denies any chest pain, arm pain, neck pain or shoulder pain. She denies any fever or chills. She denies having symptoms like this before. She denies any exertional discomfort. She denies any numbness tingling or weakness. She states she ate pork chops for dinner without any abnormality or pain. No other complaints at this time. No other modifying factors. She denies any other sick contacts at home. Physical exam demonstrate mild bloating but no distention. Mild epigastric a chiness but no pain. Differential includes ileus or obstruction, pathology, pancreatitis. Potential gastroenteritis is also on the differential. We will gently rehydrate, give antiemetics, get a CT scan of her abdomen, evaluate for less likely cardiac etiology, monitor closely and reassess. 5:08 AM Laboratory work-up is returned, no significant white count or bandemia. Bilirubin stable, transaminases stable. Troponin and EKG are benign. Urinalysis negative. CAT scan does show evidence of a large 2 x 4 cm gallstone in the gallbladder neck with moderate gallbladder distention. Follow-up ultrasound shows no evidence of gallbladder wall thickening but does demonstrate a large nonmobile stone in the gallbladder neck. Patient does have persistent nausea and vomiting in spite of antiemetics. I do feel this is likely secondary to the gallbladder. Although she does not show any gallbladder wall thickening or symptoms suggestive of acute cholecystitis, I do feel that her persistent biliary colic is likely secondary to the large stone. I do feel that with her age and risk factors she would benefit from continued IV fluids, antiemetics, and admission with surgical evaluation in the morning. Will discuss the case with Dr. Biggs for hospital admission. 6:30 AM Discussed the case with Dr. Biggs, he agrees with the assessment and plan. Patient at this time shows symptoms of biliary colic but no symptoms of acute cholecystitis or ascending cholangitis or choledocholithiasis. No indication for emergent surgical management. However with the stone being large and in the neck of the gallbladder and not mobile I do suspect that she will eventually have problems down the road. I did contact Dr. Vega and discussed the case with her informing her of the nonemergent inpatient consult, as well as the patient's current stable clinical status. Patient will be admitted to the floor. I have extensively reviewed the treatment plan with the patient. I have addressed all patient concerns at this time. I have also discussed the plan with the admitting physician and they agree with the current assessment and plan and have agreed to assume responsibility for the patient. All parties demonstrate verbal understanding and agreement with our assessment and plan at this time. The documentation in this chart was dictated using [employer] dictation software. Please excuse any dictation errors. FINDINGS: Lungs: Streaky and dependent atelectasis at the lung bases. Liver: Normal appearing liver. Gallbladder and bile ducts: Moderate gallbladder distension. 2.2 cm x 3.8 cm gallstone in the gallbladder neck. No biliary dilatation. Pancreas: Grossly unremarkable unenhanced pancreas. Spleen: Grossly unremarkable unenhanced spleen. Adrenal glands: Normal appearing adrenal glands. Kidneys and ureters: Grossly unremarkable unenhanced kidneys. No radiopaque urinary tract stones, hydronephrosis, or evidence of recent stone passage. Stomach and bowel: Stomach moderately distended with ingested material. 2.1 cm x 3.1 cm proximal duodenal diverticulum on image 33 of series 2. No small bowel dilatation to suggest obstruction. Normal-appearing colon. No evidence of diverticulitis or colitis. Normal-appearing rectum, moderately distended with fecal material. Appendix: Normal appendix. Intraperitoneal space: No gross ascites or free air. Vasculature: Normal caliber abdominal aorta. Lymph nodes: No pathologically enlarged mesenteric, retroperitoneal, or pelvic sidewall lymph nodes. Urinary bladder: Normal appearing urinary bladder. Reproductive: Anteverted uterus, normal in size. Small focus of gas in the vagina, nonspecific. Normal-sized ovaries. Suggestion of a 7 mm left ovarian cyst. Bones/joints: No acute fracture seen among the bones of the abdomen or pelvis. Spinal degenerative change with discogenic degeneration, Schmorl's nodes, vacuum disc deformities, anterior osteophytes, and facet arthrosis at several levels. Soft tissues: No significant ventral or inguinal hernia. IMPRESSION: 2.2 cm x 3.8 cm gallstone in the gallbladder neck with moderate gallbladder distention. Clinical correlation is recommended to assess the possibility of acute cholecystitis. No biliary dilatation. Thank you for allowing us to participate in the care of your patient. Dictated and Authenticated by: Rex Nazario MD 05/11/2021 3:46 AM Eastern Time ([place] & [place]) FINDINGS: Limitations: The examination is technically limited. Acoustic penetration is suboptimal. Liver: The liver appears diffusely echogenic suggesting fatty infiltration; however, density measurements on the comparison CT exam argue against fatty infiltration. Correlation with liver function testing is recommended. The liver measures 20 cm oblique craniocaudal dimension in the right lobe on the ultrasound exam; however, the liver measures 15 cm craniocaudal dimension in the midclavicular line on the comparison CT exam arguing against hepatomegaly. Gallbladder: The gallbladder is moderately distended. There is a large nonmobile shadowing echogenic gallstone in the gallbladder neck measuring 1.6 cm x 2.5 cm. There is no gallbladder wall thickening or pericholecystic fluid. The whiskey proof reader reports that Issa's sign was not elicited during scanning. Common bile duct: The common bile duct measures 5.8 mm. Pancreas: No focal abnormality is seen through the visualized portion of the pancreas. The pancreatic head and tail are partially obscured. Right kidney: The right kidney measures 9.0 cm. Within the limits of visualization, no mass or hydronephrosis is demonstrated. Portal venous: Portal venous flow is hepatopetal in the main portal vein is Intraperitoneal space: No right upper quadrant fluid or fluid collection is seen. IMPRESSION: 1. Prominent gallbladder distension. Large nonmobile shadowing echogenic gallstone in the gallbladder neck measuring approximately 1.6 cm x 2.5 cm. No gallbladder wall thickening or pericholecystic fluid. The whiskey proof reader reports that Issa's sign was not el icited during scanning. 2. Please see comments above regarding the liver. Thank you for allowing us to participate in the care of your patient. Dictated and Authenticated by: Rex Nazario MD 05/11/2021 4:45 AM Eastern Time ([place] & [place]) Basilar gallbladder with pretty okay if I catch HPI General Date/Time Provider Initiated Documentation: 05/11/21 01:44 . HPI Narrative: 85-year-old female with past medical history of diabetes, hypertension, no previous abdominal surgeries presents today for 4 hours of abdominal pressure. Patient states that at about 10 PM she developed what she describes as a ton of bricks in her epigastric region. She has been nauseous and has been vomiting up sputum. She denies any diarrhea. She denies any abdominal pain. She denies any chest pain, arm pain, neck pain or shoulder pain. She denies any fever or chills. She denies having symptoms like this before. She denies any exertional discomfort. She denies any numbness tingling or weakness. She states she ate pork chops for dinner without any abnormality or pain. No other complaints at this time. No other modifying factors. She denies any other sick contacts at home. Related Data Home Medications Medication Instructions Recorded Confirmed aspirin 81 mg tablet,delayed 1 tab PO DAILY tab-cap 07/18/12 05/11/21 release (Aspir-) blood-glucose meter ([employer] Beacon SystemsTouch #1 10/03/16 03/23/21 Verio Meter) cholecalciferol (vitamin D3) 125 5,000 unit PO DAILY 06/03/17 05/11/21 mcg (5,000 unit) capsule omega 5-aqn-hgm-fish oil 500 mg 1 ea PO DAILY 06/03/17 05/11/21 (200mg-300mg)-1,000 mg capsule blood sugar diagnostic (OneTouch #90 strip 12/11/19 03/23/21 Verio test strips) lancets (OneTouch UltraSoft #90 ea 12/11/19 03/23/21 Lancets) magnesium oxide 400 mg (241.3 mg 400 mg PO DAILY 06/16/20 05/11/21 magnesium) tablet atenolol 50 mg tablet 50 mg PO DAILY #90 tab-cap 12/23/20 05/11/21 hydrochlorothiazide 25 mg tablet 25 mg PO DAILY #90 tab-cap 12/23/20 05/11/21 metformin 500 mg tablet 500 mg PO DAILY #90 tab 12/23/20 05/11/21 potassium citrate 5 mEq (540 mg) 5 meq PO DAILY #90 tab 12/23/20 05/11/21 tablet,extended release lisinopril 10 mg tablet 10 mg PO DAILY #90 tab 03/23/21 05/11/21 Previous Rx's Medication Instructions Recorded blood sugar diagnostic (OneTouch #90 strip 12/11/19 Verio test strips) lancets (OneTouch UltraSoft #90 ea 12/11/19 Lancets) atenolol 50 mg tablet 50 mg PO DAILY #90 tab-cap 12/23/20 hydrochlorothiazide 25 mg tablet 25 mg PO DAILY #90 tab-cap 12/23/20 metformin 500 mg tablet 500 mg PO DAILY #90 tab 12/23/20 potassium citrate 5 mEq (540 mg) 5 meq PO DAILY #90 tab 12/23/20 tablet,extended release lisinopril 10 mg tablet 10 mg PO DAILY #90 tab 03/23/21 Allergies Allergy/AdvReac Type Severity Reaction Status Date / Time No Known Allergies Allergy Unverified 05/11/21 02:04 General ELSA: 3 Review of Systems All systems reviewed & are unremarkable except as noted in HPI and below PFSH All Active Problems (Updated 05/11/21 @ 05:40 by Chuckie Biggs MD) Cholelithiasis (Acute) Gallstones (Acute) Nausea & vomiting (Acute) Balance problem (Acute) Essential hypertension (Chronic) 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 Daughter No problems noted. Social History Smoking/Tobacco Use Status: Never Second Hand Exposure: Yes Smoking risk assessment performed?: Yes Alcohol Intake: never Drug use: Never Substance use type: does not use Household members: none Do you need help understanding health information?: Never Pets and animals: No Sexually active: No Do you think of yourself as: straight/heterosexual Current gender identity: female What is your relationship status?: How often do you talk on the phone with friends or family?: three or more times per week How often do you get together with friends or relatives?: once per week How often do you attend congregation or church services?: 1-3 times per year Do you belong to any clubs or organized social groups?: no Panel score (0-1 are the most socially isolated patients): 1 Seatbelt use: always Drive intox or ride w/intox local bulk driver: No Do you feel safe at home: Yes Do you feel safe in your relationship?: Yes Exam Narrative Exam Narrative: 1.Const: Well-nourished, Well-developed, appearing stated age 2.Eyes: PERRL, no conjunctival injection, and symmetrical lids. 3.ENT: Atraumatic external nose and ears. Moist MM. Neck: Symmetric, trachea midline, No thyromegaly. 4.CVS: +S1/S2, No murmurs or gallops. Peripheral pulses 2+ and equal in all extremities. Brisk capillary refill in all extremities. 5.RESP: Unlabored respiratory effort. Clear to auscultation bilaterally. No wheezes rales or rhonchi 6.GI: Soft, Nontender/Nondistended, No hepatosplenomegaly. No guarding or rebound. Diminished bowel sounds are noted. No significant epigastric pain, mild epigastric achiness. 7.MSK: Normocephalic/Atraumatic, Extremities w/o deformity or ttp No cyanosis or clubbing, Normal movement of all extremities 8.Skin: Warm, Dry. No rashes or lesions. 9.Neuro: international sales representative II-XII grossly intact. Sensation grossly intact, no focal neurologic deficits. 10.Psych: (AAO) x3. Appropriate mood and affect
[2021-05-11 02:26] LABS: Abs Immature Grans 0.04 10^3/uL (0.0-0.06); Absolute Basophil Count 0.06 10^3/uL (0.0-0.2); Absolute Eosinophil Count 0.11 10^3/uL (0.0-0.7); Absolute Lymphocyte Count 1.86 10^3/uL (1.2-3.4); Absolute Monocyte Count 0.55 10^3/uL (0.1-0.8); Absolute Neutrophil Count 9.08 10^3/uL (1.2-6.7); Basophils % 0.5; Eosinophils % 0.9; HCT 39.6 % (36.0-46.0); HGB 12.6 g/dL (11.2-15.7); Immature Grans % 0.3; Lymphocytes % 15.9; MCH 28.1 pg (27.0-33.0); MCHC 31.8 % (32.0-36.0); MCV 88.4 fL (80-95); MPV 9.1 fL (8.0-11.0); Monocytes % 4.7; Neutrophils % 77.7; Nucleated RBC 0 %; Platelet Count 364 10^3/uL (130-400); RBC 4.48 10^6/uL (3.93-5.22); RDW 13.6 % (11.7-14.6); RDW-SD 44.1 fL; WBC 11.69 10^3/uL (4.4-10.8)
[2021-05-11 02:29] LABS: Lactate 2.3 mmol/L (0.6-1.4)
[2021-05-11] MEDS: Normal Saline 1,000 ML 1000 ML IV (02:33)
[2021-05-11] MEDS: Ondansetron 4 MG/2 ML VIAL IVP (02:33)
[2021-05-11] MEDS: ACETAMINOPHEN 1,000 MG/100 ML BTL 400 MG IVPB ×3 (02:40→23:38)
[2021-05-11 02:44] LABS: ALT 21 U/L (14-59); AST 19 U/L (15-37); Albumin 3.3 g/dL (3.4-5.0); Alkaline Phosphatase 73 U/L (46-116); Anion Gap 11.3 mmol/L (3-11); BUN 17 mg/dL (7-18); Bilirubin, Total 0.3 mg/dL (0.2-1.0); CO2 24.7 mmol/L (21.0-32.0); CREATININE 1.4 mg/dL (0.55-1.02); Calcium 9.2 mg/dL (8.5-10.1); Chloride 101 mmol/L (98-107); Estimated GFR 35.82 (mL/min/1.73m2); Glucose 237 mg/dL (74-106); Lipase 156 U/L (73-393); Potassium 3.7 mmol/L (3.5-5.1); Sodium 137 mmol/L (136-145); Total Protein 7.8 g/dL (6.4-8.2); Troponin I < 50 ng/L (<or=60)
--- NOTE | 2021-05-11 02:45 | DI.CT_ITS ---
Exam(s) CT ABDOMEN PELVIS WO EXAM: CT ABDOMEN PELVIS WO CLINICAL HISTORY: vomiting, epigastric discomfort. TECHNIQUE: Imaging Protocol: Axial computed tomography images with coronal and sagittal reformatted images were created and reviewed CONTRAST MATERIAL: Intravenous: none Oral: None COMPARISON: No exams were available for comparison FINDINGS: VISUALIZED LUNG BASES: There are mild increased markings in the right lung base posterior basal segme nt right lower lobe. There are no pleural effusions.. ABDOMEN: There is no ascites. LIVER: There are no obvious focal hepatic lesions evident of this noninfused study. GALLBLADDER/BILIARY: There is a large gallstone in the gallbladder neck surrounded with sludge and th ere is some distension of the gallbladder lumen. The there is no gallbladder wall edema nor perichol ecystic fluid. CBD is not dilated. PANCREAS: No evidence of pancreatic mass nor dilatation of the pancreatic duct. SPLEEN: Spleen is not enlarged. No obvious intrasplenic lesions. ADRENALS: Small nodular thickening at the genu of the right adrenal gland measuring approximately 1 c m. Possible adenoma. Left adrenal gland is unremarkable. KIDNEYS:No cysts evident. No solid renal masses. No calculi nor hydronephrosis. . ABDOMINAL AORTA: Abdominal aorta is not enlarged. LYMPH NODES: There is no retroperitoneal nor paraaortic adenopathy. ABDOMINAL WALL: No evidence of significant anterior abdominal wall nor inguinal hernia. GI: There is no evidence of bowel obstruction, free air, nor abscess. PELVIS: LYMPH NODES: There is no intrapelvic nor inguinal adenopathy. GI: No evidence of appendicitis.No evidence of sigmoid diverticulitis. URINARY BLADDER: No calculi nor obvious masses evident REPRODUCTIVE: Uterus and adnexal regions unremarkable. OSSEOUS: No significant osseous lesions. IMPRESSION: 1. There is a large calcified gallstone in the gallbladder neck with surrounding sludge. The gallbla dder is somewhat distended but not edematous and there is no pericholecystic fluid. CBD is not dilat ed. 2. There is a small nodule in the right adrenal gland genu which may be a 1 cm adenoma. Opposite-lef t adrenal gland is unremarkable 3. There is no ascites. RADIATION DOSE DELIVERED: 934.05mGy.cm Total DLP DATA REPOSITORY: All CT scans at this facility are submitted to the National Radiology Data Registry (NRDR) Dose Index Registry (DIR) with the [employer] (ACR). RADIATION OPTIMIZATION: All CT scans at this facility use at least one of these dose optimization te chniques: automated exposure control; mA and/or kV adjustment per patient size (includes targeted exa ms where dose is matched to clinical indication); or iterative reconstruction.
--- NOTE | 2021-05-11 03:45 | DI.US_ITS ---
Exam(s) US ABDOMEN LIMITED EXAM: US ABDOMEN LIMITED CLINICAL HISTORY: eval GB for GB wall thickening, cholecystitis TECHNIQUE: Ultrasound abdomen performed using standard protocol. COMPARISON: No exams were available for comparison FINDINGS: There is no ascites evident. LIVER: No focal hepatic lesions. GALLBLADDER/BILIARY: There is a 2.5 cm non mobile calculus in the region of the neck of the gallbladd er. The gallbladder lumen is mildly distended. Gallbladder wall is not edematous and there is no pe richolecystic fluid. The common hepatic duct isnot dilated, measuring 6mm at the level of jasen hepatis. PANCREAS: There is no evidence of pancreatic mass nor dilatation of the pancreatic duct. RIGHT KIDNEY:No evidence of solid mass, calculus, nor hydronephrosis. No cortical cysts evident. IMPRESSION: 1. Cholelithiasis. There is a 2.5 cm gallstone in the gallbladder neck. Gallbladder wall does not appear edematous. CBD is not dilated. 2. No other significant ultrasound findings in the right upper quadrant. 3. There is no ascites. DATA REPOSITORY:
--- NOTE | 2021-05-11 03:47 | DI.VRAD_ITS ---
PROCEDURE INFORMATION: Exam: CT Abdomen And Pelvis Without Contrast Exam date and time: 05/11/2021 2:53 AM Age: 85 years old Clinical indication: Other: Vomiting, epigastric pain TECHNIQUE: Imaging protocol: Computed tomography of the abdomen and pelvis without contrast. Radiation optimization: All CT scans at this facility use at least one of these dose optimization techniques: automated exposure control; mA and/or kV adjustment per patient size (includes targeted exams where dose is matched to clinical indication); or iterative reconstruction. COMPARISON: No relevant prior studies available. FINDINGS: Lungs: Streaky and dependent atelectasis at the lung bases. Liver: Normal appearing liver. Gallbladder and bile ducts: Moderate gallbladder distension. 2.2 cm x 3.8 cm gallstone in the gallbladder neck. No biliary dilatation. Pancreas: Grossly unremarkable unenhanced pancreas. Spleen: Grossly unremarkable unenhanced spleen. Adrenal glands: Normal appearing adrenal glands. Kidneys and ureters: Grossly unremarkable unenhanced kidneys. No radiopaque urinary tract stones, hydronephrosis, or evidence of recent stone passage. Stomach and bowel: Stomach moderately distended with ingested material. 2.1 cm x 3.1 cm proximal duodenal diverticulum on image 33 of series 2. No small bowel dilatation to suggest obstruction. Normal-appearing colon. No evidence of diverticulitis or colitis. Normal-appearing rectum, moderately distended with fecal material. Appendix: Normal appendix. Intraperitoneal space: No gross ascites or free air. Vasculature: Normal caliber abdominal aorta. Lymph nodes: No pathologically enlarged mesenteric, retroperitoneal, or pelvic sidewall lymph nodes. Urinary bladder: Normal appearing urinary bladder. Reproductive: Anteverted uterus, normal in size. Small focus of gas in the vagina, nonspecific. Normal-sized ovaries. Suggestion of a 7 mm left ovarian cyst. Bones/joints: No acute fracture seen among the bones of the abdomen or pelvis. Spinal degenerative change with discogenic degeneration, Schmorl's nodes, vacuum disc deformities, anterior osteophytes, and facet arthrosis at several levels. Soft tissues: No significant ventral or inguinal hernia. IMPRESSION: 2.2 cm x 3.8 cm gallstone in the gallbladder neck with moderate gallbladder distention. Clinical correlation is recommended to assess the possibility of acute cholecystitis. No biliary dilatation. Dictated and Authenticated by: Rex Nazario MD. Ordering:JENNIFER Wise MD
[2021-05-11 03:50] LABS: Bilirubin Negative (Negative); Blood Negative (Negative); Clarity Clear (Clear); Glucose 100 mg/dL (Negative); Ketones Negative (Negative); Leukocyte Esterase Negative (Negative); Nitrite Negative (Negative); Urobilinogen 0.2 EU/dL (Up TO 0.2); pH 7.5 (5-8)
[2021-05-11 04:03] LABS: Bacteria Rare HPF (Negative); C & S Indicated? No; Casts Negative LPF (Negative); Crystals Negative HPF (Negative); Epithelial Cells Rare HPF (Negative); Mucus Negative (Negative); RBC 0-2 HPF (0-2); WBC 0-2 HPF (0-5)
--- NOTE | 2021-05-11 04:46 | DI.VRAD_ITS ---
PROCEDURE INFORMATION: Exam: US Abdomen, Limited; Right Upper Quadrant Exam date and time: 05/11/2021 3:54 AM Age: 85 years old Clinical indication: Other: Eval gb for wall thickening, cholecystitis TECHNIQUE: Imaging protocol: US abdomen. Real time ultrasound with image documentation. Limited exam focused on the right upper quadrant. COMPARISON: CT ABDOMEN PELVIS WO 05/11/2021 3:04 AM FINDINGS: Limitations: The examination is technically limited. Acoustic penetration is suboptimal. Liver: The liver appears diffusely echogenic suggesting fatty infiltration; however, density measurements on the comparison CT exam argue against fatty infiltration. Correlation with liver function testing is recommended. The liver measures 20 cm oblique craniocaudal dimension in the right lobe on the ultrasound exam; however, the liver measures 15 cm craniocaudal dimension in the midclavicular line on the comparison CT exam arguing against hepatomegaly. Gallbladder: The gallbladder is moderately distended. There is a large nonmobile shadowing echogenic gallstone in the gallbladder neck measuring 1.6 cm x 2.5 cm. There is no gallbladder wall thickening or pericholecystic fluid. The director and professor reports that Issa's sign was not elicited during scanning. Common bile duct: The common bile duct measures 5.8 mm. Pancreas: No focal abnormality is seen through the visualized portion of the pancreas. The pancreatic head and tail are partially obscured. Right kidney: The right kidney measures 9.0 cm. Within the limits of visualization, no mass or hydronephrosis is demonstrated. Portal venous: Portal venous flow is hepatopetal in the main portal vein. Intraperitoneal space: No right upper quadrant fluid or fluid collection is seen. IMPRESSION: 1. Prominent gallbladder distension. Large nonmobile shadowing echogenic gallstone in the gallbladder neck measuring approximately 1.6 cm x 2.5 cm. No gallbladder wall thickening or pericholecystic fluid. The director and professor reports that Issa's sign was not elicited during scanning. 2. Please see comments above regarding the liver. Dictated and Authenticated by: Rex Nazario MD. Ordering:JENNIFER Wise MD
[2021-05-11] MEDS: Ondansetron 4 MG/2 ML VIAL (05:01)
--- NOTE | 2021-05-11 05:29 | W.PM.HP.N ---
Date of service: 05/11/21 Time of Service: 05:30 Assessment and Plan Assessment and plan (1) Cholelithiasis: Status: Acute Assessment and plan: Symptomatic cholelithiasis. No signs cholecystitis at present. Will continue supportive measures with IVF and prn antiemetics (will trial Phenergan since Zofran has had only limited effect). Will also trial Toradol for the pain but, as mentioned, this is a lesser component of her symptomatology. Will consult surgery, but does not require urgent intervention at this point. Would mention that consideration was given to possible atypical ACS given symptomatology, but EKG and trop negative and imaging studies are definitive. I am confident this is biliary. Reviewed ADs, requests Full Code, though does not want to be on life support longer term. History of Present Illness History of Present Illness Chief Complaint: abdominal pain, nausea Narrative: 85 female here with fairly sudden onset epigastric discomfort approx 9 hours ago, woke her from sleep. Pain is described as a heavy feeling, non-radiating, along with nausea and vomiting. No diarrhea. No SOB. In ER findings of note for absence of fever; white count 11; normal electrolytes and LFTs; negative troponon and EKG; and CT showing 2.2x3.8 cm stone in neck of gallbladder. CBD non-dilated at 5.8mm. Findings confirmed with U/S, no pericholic fluid and negative sonographic Issa's. I was asked to evaluate for admission. Patient has received IVF and Zofran x2. Reports continued nausea. States pain is not a concern for her, the nausea is what is bothersome. Alludes to possible prior minor such episodes but is quite vague on this point, but nothing sustained or debilitating such as present spell. Review of Systems Narrative: per HPI PFSH All Active Problems (Updated 05/11/21 @ 05:40 by Chuckie Biggs MD) Cholelithiasis (Acute) Gallstones (Acute) Nausea & vomiting (Acute) Balance problem (Acute) Essential hypertension (Chronic) 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 Daughter No problems noted. Social History Smoking/Tobacco Use Status: Never Second Hand Exposure: Yes Smoking risk assessment performed?: Yes Alcohol Intake: never Drug use: Never Substance use type: does not use Household members: none Do you need help understanding health information?: Never Pets and animals: No Sexually active: No Do you think of yourself as: straight/heterosexual Current gender identity: female What is your relationship status?: How often do you talk on the phone with friends or family?: three or more times per week How often do you get together with friends or relatives?: once per week How often do you attend worship or jehovah's witness services?: 1-3 times per year Do you belong to any clubs or organized social groups?: no Panel score (0-1 are the most socially isolated patients): 1 Seatbelt use: always Drive intox or ride w/intox race car driver: No Do you feel safe at home: Yes Do you feel safe in your relationship?: Yes Meds Allergies and Home Medications Allergies Allergy/AdvReac Type Severity Reaction Status Date / Time No Known Allergies Allergy Unverified 05/11/21 02:04 Home Medications Medication Instructions Recorded Confirmed Type aspirin 81 mg tablet,delayed 1 tab PO DAILY tab-cap 07/18/12 05/11/21 History release (Aspir-) blood-glucose meter (OneTouch #1 10/03/16 03/23/21 History Verio Meter) cholecalciferol (vitamin D3) 125 5,000 unit PO DAILY 06/03/17 05/11/21 History mcg (5,000 unit) capsule omega 4-xrj-[id number]-fish oil 500 mg 1 ea PO DAILY 06/03/17 05/11/21 History (200mg-300mg)-1,000 mg capsule blood sugar diagnostic (OneTouch #90 strip 12/11/19 03/23/21 Rx Verio test strips) lancets (OneTouch UltraSoft #90 ea 12/11/19 03/23/21 Rx Lancets) magnesium oxide 400 mg (241.3 mg 400 mg PO DAILY 06/16/20 05/11/21 History magnesium) tablet atenolol 50 mg tablet 50 mg PO DAILY #90 tab-cap 12/23/20 05/11/21 Rx hydrochlorothiazide 25 mg tablet 25 mg PO DAILY #90 tab-cap 12/23/20 05/11/21 Rx metformin 500 mg tablet 500 mg PO DAILY #90 tab 12/23/20 05/11/21 Rx potassium citrate 5 mEq (540 mg) 5 meq PO DAILY #90 tab 12/23/20 05/11/21 Rx tablet,extended release lisinopril 10 mg tablet 10 mg PO DAILY #90 tab 03/23/21 05/11/21 Rx Exam Narrative Exam Narrative: 198/95, 76, 36.3, 18, 98% RA. Retching frequently. HEENT no scleral icterus; neck supple; lungs clear; heart distant but RRR; abdomen +BS, soft, minimal discomfort epigastrum and RUG, negative Issa's; rectal deferred; extremities w/o edema; neuro Ox3, lucid, moves all 4s Results Labs Result diagrams: 05/11/21 02:20 05/11/21 02:20 Labs: Laboratory Results - last 24 hr 05/11/21 05/11/21 05/11/21 02:20 02:20 02:20 WBC 11.69 H RBC 4.48 Hgb 12.6 Hct 39.6 MCV 88.4 MCH 28.1 MCHC 31.8 L RDW 13.6 Plt Count 364 MPV 9.1 Immature Gran % 0.3 Neutrophils % 77.7 Lymphocytes % 15.9 Monocytes % 4.7 Eosinophils % 0.9 Basophils % 0.5 Nucleated RBC % 0 Absolute Neutrophils 9.08 H Absolute Lymphocytes 1.86 Absolute Monocytes 0.55 Absolute Eosinophils 0.11 Absolute Basophils 0.06 VBG Lactate 2.3 H* Sodium 137 Potassium 3.7 Chloride 101 Carbon Dioxide 24.7 Anion Gap 11.3 H BUN 17 Creatinine 1.4 H Estimated GFR/1.73 m2 35.82 Glucose 237 H Calcium 9.2 Total Bilirubin 0.3 AST 19 ALT 21 Alkaline Phosphatase 73 Troponin I < 50 Total Protein 7.8 Albumin 3.3 L Lipase 156 Urine Color Urine Clarity Urine pH Ur Specific [place] Urine Protein Urine Ketones Urine Blood Urine Nitrite Urine Bilirubin Urine Urobilinogen Ur Leukocyte Esterase Urine RBC Urine WBC Ur Epithelial Cells Urine Crystals Urine Bacteria Urine Casts Urine Mucus Ur Culture Indicated? Urine Glucose 05/11/21 03:45 WBC RBC Hgb Hct MCV MCH MCHC RDW Plt Count MPV Immature Gran % Neutrophils % Lymphocytes % Monocytes % Eosinophils % Basophils % Nucleated RBC % Absolute Neutrophils Absolute Lymphocytes Absolute Monocytes Absolute Eosinophils Absolute Basophils VBG Lactate Sodium Potassium Chloride Carbon Dioxide Anion Gap BUN Creatinine Estimated GFR/1.73 m2 Glucose Calcium Total Bilirubin AST ALT Alkaline Phosphatase Troponin I Total Protein Albumin Lipase Urine Color Yellow Urine Clarity Clear Urine pH 7.5 Ur Specific [place] 1.020 Urine Protein Trace H Urine Ketones Negative Urine Blood Negative Urine Nitrite Negative Urine Bilirubin Negative Urine Urobilinogen 0.2 Ur Leukocyte Esterase Negative Urine RBC 0-2 Urine WBC 0-2 Ur Epithelial Cells Rare Urine Crystals Negative Urine Bacteria Rare Urine Casts Negative Urine Mucus Negative Ur Culture Indicated? No Urine Glucose 100 Last Vital Signs Temp 36.3 C L 05/11/21 01:45 Pulse 76 05/11/21 01:45 Resp 18 05/11/21 01:45 BP 198/95 H 05/11/21 01:45 Pulse Ox 98 05/11/21 01:45
[2021-05-11 05:44] LABS: Lactate 2.6 mmol/L (0.6-1.4)
[2021-05-11] MEDS: Normal Saline Flush 10 ML SYR IVP ×5 (07:41→23:42)
[2021-05-11 07:47] LABS: Source Nasal/Nares
[2021-05-11 08:26] LABS: COVID-19 PCR Negative (Negative)
--- NOTE | 2021-05-11 09:31 | W.INDIABCONS ---
Date of service: 05/11/21 Time of Service: 09:31 Diabetes Inpatient Consult Reason for Visit: diabetes DESCRIPTION/ASSESSMENT: 85 year old female admitted with abdominal pain with cholelithiasis with hx of DM. Most recent A1C:(02/24/21) 7.2% indicates excellent glycemic management. Home Dm meds: 500 mg metformin bid. No Dm education needed at this time. Will continue to follow and support as needed. Time Spent in Nutritional Counseling and Treatment: 0
[2021-05-11] MEDS: Aspirin E.C. 81 MG TABEC PO (09:35)
[2021-05-11] MEDS: Enoxaparin 30 MG/0.3 ML SYR SC (09:35)
[2021-05-11] MEDS: Atenolol 50 MG TAB PO (09:35)
[2021-05-11] MEDS: Lisinopril 10 MG TAB PO (09:35)
[2021-05-11] MEDS: Ketorolac 15 MG/ML VIAL 7.5 MG IVP (09:38)
--- NOTE | 2021-05-11 10:17 | PDOC.CMIN ---
- If Service Date Differs Date of service: 05/11/21 Time of Service: 10:17 Care Management Initial Assess REASON FOR HOSPITALIZATION:: Bilary Colic PAST MEDICAL HISTORY/PAST SURGICAL HISTORY:: adenocarcinoma of cecum, hospice care patient, liver metastases, renal cell carcinoma. Cholelithiasis (Acute). Gallstones (Acute). Nausea & vomiting (Acute). Balance problem (Acute). Essential hypertension (Chronic). Osteoarthritis (Chronic 01/23/13). right knee. Diabetes mellitus (Chronic 01/23/13). Surgical History . Hx of cataract extraction PREVIOUS FUNCTIONAL STATUS/SOCIAL/FAMILY SUPPORTS:: Karine resides alone in senior housing in [facility]. She has three adult children who reside locally and are very supportive. CURRENT FUNCTIONAL STATUS:: Karine was visiting with her two daughters, requested updated HIPPA which was completed to add daughter's to document at patient's request. ADVANCE DIRECTIVES:: None on file. Has patient been provided with info about the portal/API?: Yes Did the patient sign up for the portal?: No CODE STATUS:: DNR/DNI INSURANCE COVERAGE / FINANCIAL ISSUES:: [id number]. Medicare CURRENT HOME/COMMUNITY SERVICES/EQUIPMENT:: raised toilet seat, grab bars and an emergency call system in her bed/bathroom, patient is independent with ADLs, does not use any assistive equipment for mobility and does not have any services in place. She does live in a senior housing apartment which is equipped with a raised toilet seat, grab bars, and emergency call system in the bed/bathroom. PRIMARY CARE PHYSICIAN:: Odalys Summers POTENTIAL DISCHARGE NEEDS:: Surgical consult, HIDA scan, DM consult. PATIENT/FAMILY EDUCATION NEEDS:: Review of discharge instructions, discuss Ask Me Three. ANTICIPATED BARRIERS TO DISCHARGE:: None identified. TRANSPORTATION:: Via private vehicle with one of her children. PLAN:: Anticipate Karine will return home when ready per MD. She remains NPO on IVF at this time, awaiting surgical consult to inform treatment plan and discharge needs. CM continues to follow.
--- NOTE | 2021-05-11 11:17 | W.PM.PROGNOT ---
Date of Service Date of service: 05/11/21 Time of Service: 11:17 Assessment and Plan Assessment and plan (1) Cholelithiasis: Status: Acute Assessment and plan: I suspect she has biliary dyskinesia and has gallstones from longstanding problems of biliary dyskinesia. She has no sonographic or CT evidence of acute cholecystitis and no physical findings of an acute cholecystitis. I am awaiting surgical consultation on her. Eventually she may need to have her gallbladder taken out. Present time I will get a HIDA scan to assess patency of her biliary tract and start her on ursodiol. We will continue IV fluids antiemetics and once the HIDA scans obtained and surgery legal adviser I will advance her diet and start her out on clear liquids and advance it as tolerated. (2) Nausea & vomiting: Status: Acute Assessment and plan: Work-up as above. Provide as needed antiemetics. (3) Essential hypertension: Status: Chronic Assessment and plan: Continue her home antihypertensives except hydrochlorothiazide currently on hold (4) Diabetes mellitus: Status: Chronic Assessment and plan: Monitor blood sugars every 6 hours and cover with sliding scale insulin. Transition over to before meals and at bedtime blood sugars once she is taking a p.o. diet Subjective Subjective Interval history since last seen: Patient presented w/ epigastric abdominal pain, nausea and vomiting. She has had no prior abdominal surgeries. Her abdominal pain is more of a pressure feeling rather than pain. CT abdomen demonstrated a large calcified gall stone in the neck of the gallbladder but the CBD was not dilated and she did not have any pericholecystic fluid nor was the GB wall thickened. U.S. of the abdomen confirmed a 2.5 cm stone in the neck of the GB but again no dilatation of the common bile duct and no pericholecystic fluid nor GB wall thickening and she had a sonographically negative Issa sign. Patient was admitted by the lead software development engineer with consult to surgery. She is NPO and suppose to be on iv fluids but I did not see any iv fluids running. She is currently comfortable and pain free w/ no nausea Exam Narrative Exam Narrative: Elderly female lying in the left lateral recumbent position. She is alert and oriented. Lungs are clear to auscultation Heart regular rate and rhythm without murmur rub Abdomen is nondistended with normal bowel sounds soft without guarding or rebound tenderness. She does have tenderness though with deep palpation epigastrium and right upper quadrant but does not have a Issa sign with inspiration. Objective Last Vital Signs Temp 37 C 05/11/21 10:14 Pulse 89 05/11/21 10:14 Resp 14 05/11/21 10:14 BP 131/74 05/11/21 10:14 Pulse Ox 95 05/11/21 10:14 Laboratory Results - last 24 hr 05/11/21 05/11/21 05/11/21 02:20 02:20 02:20 WBC 11.69 H RBC 4.48 Hgb 12.6 Hct 39.6 MCV 88.4 MCH 28.1 MCHC 31.8 L RDW 13.6 Plt Count 364 MPV 9.1 Immature Gran % 0.3 Neutrophils % 77.7 Lymphocytes % 15.9 Monocytes % 4.7 Eosinophils % 0.9 Basophils % 0.5 Nucleated RBC % 0 Absolute Neutrophils 9.08 H Absolute Lymphocytes 1.86 Absolute Monocytes 0.55 Absolute Eosinophils 0.11 Absolute Basophils 0.06 VBG Lactate 2.3 H* Sodium 137 Potassium 3.7 Chloride 101 Carbon Dioxide 24.7 Anion Gap 11.3 H BUN 17 Creatinine 1.4 H Estimated GFR/1.73 m2 35.82 Glucose 237 H Calcium 9.2 Total Bilirubin 0.3 AST 19 ALT 21 Alkaline Phosphatase 73 Troponin I < 50 Total Protein 7.8 Albumin 3.3 L Lipase 156 Urine Color Urine Clarity Urine pH Ur Specific [place] Urine Protein Urine Ketones Urine Blood Urine Nitrite Urine Bilirubin Urine Urobilinogen Ur Leukocyte Esterase Urine RBC Urine WBC Ur Epithelial Cells Urine Crystals Urine Bacteria Urine Casts Urine Mucus Ur Culture Indicated? Urine Glucose COVID-19 Source SARS-CoV-2 (PCR) 05/11/21 05/11/21 05/11/21 03:45 05:40 07:40 WBC RBC Hgb Hct MCV MCH MCHC RDW Plt Count MPV Immature Gran % Neutrophils % Lymphocytes % Monocytes % Eosinophils % Basophils % Nucleated RBC % Absolute Neutrophils Absolute Lymphocytes Absolute Monocytes Absolute Eosinophils Absolute Basophils VBG Lactate 2.6 H* Sodium Potassium Chloride Carbon Dioxide Anion Gap BUN Creatinine Estimated GFR/1.73 m2 Glucose Calcium Total Bilirubin AST ALT Alkaline Phosphatase Troponin I Total Protein Albumin Lipase Urine Color Yellow Urine Clarity Clear Urine pH 7.5 Ur Specific [place] 1.020 Urine Protein Trace H Urine Ketones Negative Urine Blood Negative Urine Nitrite Negative Urine Bilirubin Negative Urine Urobilinogen 0.2 Ur Leukocyte Esterase Negative Urine RBC 0-2 Urine WBC 0-2 Ur Epithelial Cells Rare Urine Crystals Negative Urine Bacteria Rare Urine Casts Negative Urine Mucus Negative Ur Culture Indicated? No Urine Glucose 100 COVID-19 Source Nasal/Nares SARS-CoV-2 (PCR) Negative
[2021-05-11] MEDS: Lactated Ringers 1,000 ML 125 ML IV ×2 (11:26→20:54)
[2021-05-11 11:34] LABS: Lactate 2.7 mmol/L (0.6-1.4)
--- NOTE | 2021-05-11 12:51 | DI.US_ITS ---
APPROVED REPORT EXAM: Comprehensive 2D, Doppler, and color-flow Echocardiogram Patient Location: In-Patient Room/Bed: 212 Adjunct Professor: Clover Harrington RDCS (AE) Indications: Pre op gallbladder surgery Other Information Study Quality: Adequate. Technically limited study due to body habitus, inability to position patient exam done supine bedside. Conclusion Left ventricular wall thickness and chamber size. Estimated ejection fraction is 65%. Wall motion i s normal Normal right ventricular size and systolic function Both atria are normal in size Aortic valve is sclerotic without stenosis or regurgitation Mild mitral annular calcification. Mild mitral regurgitation Normal tricuspid valve with trace regurgitation. Estimated right ventricular systolic pressure is no rmal at 22 mmHg Borderline dilated ascending aorta measuring 3.35 cm Wall motion Left Ventricle The left ventricle is normal size. The left ventricular systolic function is normal. The left ventric ular ejection fraction is within the normal range. There is normal left ventricular wall thickness. T here is normal LV segmental wall motion. There is no ventricular septal defect visualized. Left ventr icular thrombus is present. Left ventricular thrombus appears mobile. No left ventricular thrombus no sohail. LVEF is 60-65%. Right Ventricle The right ventricle is normal size. The right ventricular systolic function is normal. The RVSP is 22 .4 mmHg. Atria The left atrium size is normal. The right atrium size is normal. The interatrial septum is intact wit h no evidence for an atrial septal defect. Aortic Valve The Aortic valve is sclerotic. There is no aortic valvular stenosis. No aortic regurgitation is prese nt. Mitral Valve Mild mitral annular calcification. No evidence of mitral valve stenosis. Mild mitral regurgitation. Tricuspid Valve The tricuspid valve is normal in structure. There is no tricuspid valve stenosis. Trace tricuspid reg urgitation. Pulmonic Valve Pulmonic valve is not well visualized. There is no pulmonic valvular stenosis. There is no pulmonic v alvular regurgitation. Great Vessels The aortic root is normal in size. The ascending aorta is mildly dilated. Aortic arch is not well vis ualized. IVC is normal in size and collapses >50% with inspiration. Pericardium There is no pericardial effusion. 2D Dimensions IVSD d PLAX 0.98 cm F: 0.6-1.0 LV Vol A2C d MOD 85.4 mL LVPW d PLAX 0.99 cm F: 0.6 - 1.0 LV Vol A4C d MOD 81.1 mL LVID d PLAX 4.32 cm F: 3.8 - 5.2 LA vol/ BSA A2C s A-L 17.2 mL/m2 LVDs 2.85 cm F: 2.2 - 3.5 LA vol/ BSA A4C s A-L 14.3 mL/m2 Ao Root d 2.73 cm F: 2.7 - 3.3 LA Vol/ BSA Biplane s A-L 15.7 mL/m2 RA Area A4C 9.20 cm2 LA Area A4C s MOD 12.35 cm2 RA Vol/ BSA A4C s A-L 10.2 mL/m2 LA Area A2C s MOD 13.54 cm2 Ao Asc Diam d 3.35 cm F: 2.3 - 3.1 LV EF A4C MOD 65.7 % LV EF Teichholz 62.6 % LV EF A2C MOD 65.3 % LVEF (Bailey's) 65.59 % F: 54 - 74 LV EF Biplane MOD 65.6 % LV Volume 69.05 mL F: 46 - 106 SV 58.50 mL LV Volume Index 37.93 mL/m2 F: 29 - 61 SV Index 32.09 mL/m2 LV Vol Biplane MOD 89.2 mL FS 33.55 % M-Mode TAPSE 1.80 cm (M/F) >1.7 LV Diastology MV E' medial 0.081 (>0.07 m/s) E/A Ratio 0.8 LV E/e MED 10.20 (<14) MV E Vmax 0.82 (0.4-1.3 m/s) MV E' lateral 0.050 (>0.1 m/s) MV A Vmax 1.00 (0.4-1.3 m/s) LV E/e LAT 16.40 (<14) MV E/A Ratio 0.82 MV E/E' medial 10.21 MV E/E' lateral 16.43 Aortic Valve LVOT Area 2.91 cm2 AoV Area Vmax 2.45 cm2 LVOT Vmax 1.32 m/s AoV Area/ BSA (Vmax) 1.35 cm2/m2 LVOT Mean Bon. 0.80 m/s ELYSE Mean Bon. 2.20 cm2 LVOT Peak Grad 7.0 mmHg ELYSE Mean Bon. Index 1.21 cm2/m2 LVOT Mean Grad 3.1 mmHg LVOT VTI 0.280 m LVOT Diam s 1.90 cm AoV Vmax 1.56 m/s Velocity Ratio 0.84 AoV Mean Bon. 1.06 m/s AoV Peak Grad 9.8 mmHg LVOT SV 81.50 mL AoV Mean Grad 5.1 mmHg AoV VTI 0.306 m AoV Area VTI 2.66 cm2 AoV Area/ BSA (VTI) 1.46 cm/m2 Mitral Valve MV DT 258 (160-240 msec) MV PHT 75 msec MV Area PHT 2.94 cm2 MV VTI 0.366 m MV Area VTI 2.23 (4.0-6.0 cm2) Pulmonary Valve PV Vmax 0.93 (0.5-1.5 m/s) RVOT Peak Gr. 1.33 mmHg PV Peak Grad 3.5 mmHg RVOT Mean Gr. 0.75 mmHg PV Mean Grad 2.2 mmHg RVOT VTI 0.132 m PV VTI 0.184 m RVOT Vmax 0.58 m/s Tricuspid Valve TR Peak Grad 19.3 mmHg TR Vmax 2.20 m/s RA Pressure 3.00 mmHg RVSP (TR) 22.4 mmHg
--- NOTE | 2021-05-11 14:21 | PHA.REVIEW ---
Pharmacy Admission Review - Admission Clinical Review (Last Reviewed 05/11/21 @ 05:37 by Chuckie Biggs MD) Cholelithiasis (Acute) Gallstones (Acute) Nausea & vomiting (Acute) No Known Allergies Allergy (Unverified 05/11/21 02:04) Resuscitation Status Full Code Height 5 ft 1 in Weight 83.6 kg - Renal Dosing Renal Dosing: BUN 17 mg/dL (7-18) 05/11/21 02:20 Creatinine 1.4 mg/dL (0.55-1.02) H 05/11/21 02:20 Medications needing adjustments: Intervened (Crcl ~29.3 mL/min using adjusted body weight, enoxparin and ketorolac renally adjusted.) - Anticoagulation Anticoagulation: Hgb 12.6 g/dL (11.2-15.7) 05/11/21 02:20 Hct 39.6 % (36.0-46.0) 05/11/21 02:20 Plt Count 364 10^3/uL (130-400) 05/11/21 02:20 Creatinine 1.4 mg/dL (0.55-1.02) H 05/11/21 02:20 DVT Prophylaxis: Reviewed Medications: Enoxaparin Therapeutic Anticoagulation: N/A - Opiate Usage Evaluate Pain Scale/Pains Meds: N/A - Relevant Labs Sodium 137 mmol/L (136-145) 05/11/21 02:20 Potassium 3.7 mmol/L (3.5-5.1) 05/11/21 02:20 Chloride 101 mmol/L (98-107) 05/11/21 02:20 Electrolytes, C-Reactive P, ESR: Reviewed - DM Control DM Control: Glucose 237 mg/dL (74-106) H 05/11/21 02:20 Finger Stick Blood Glucose 146 Finger Stick Blood Glucose 146 Finger Stick Blood Glucose 182 Finger Stick Blood Glucose 182 Insulin Dosing: Reviewed (sliding scale aspart ordered) - Heart Failure/ND Heart Failure/ND: Troponin I < 50 ng/L (<or=60) 05/11/21 02:20 EF%, SHERICE's, B-Blockers, Diuretics: Reviewed - BP Control BP Control: Blood Pressure 131/74 Blood Pressure 156/76 Blood Pressure 156/80 If elevated: Reviewed (BP elevated on admission, has lisinopril and atenolol ordered) - Qtc Review If Elevated: N/A (QTc 442 on admission) - IV to PO Switch IV Medications: Reviewed - Home Meds Home Med List reviewed: Reviewed Relevent Home Meds Not ordered & why?: cholecalciferol, hydrochlorothiazide, magnesium oxide, metformin, omega-3, potassium - Current meds Current Medication Order Review: Reviewed - Comments Comments/Follow Ups: Watch BP, BG, SCr, labs and for med changes (possible renal dose adjustments, home meds).
--- NOTE | 2021-05-11 15:22 | CCONE_ITS ---
Date of service: 05/11/21 Time of Service: 15:22 Assessment and Plan Assessment and plan (1) Gallstones: Status: Acute (2) Essential hypertension: Status: Chronic (3) Preoperative cardiovascular examination: Status: Acute Assessment and plan: Patient would appear to be at average risk for the proposed gallbladder surgery, presumably a laparoscopic cholecystectomy She has no cardiac history. She describes fairly good exercise tolerance for age without symptoms concerning for angina Her EKG is normal. Her echo shows normal LV function, no valvular disease Postoperatively she will need incentive spirometry and encouragement to get out of bed to fully expand her lungs I see no indication for any additional preoperative cardiac testing Please do not hesitate to contact me if additional questions or concerns remain about her suitability for surgery History of Present Illness History of Present Illness Chief Complaint: Right upper quadrant pain Narrative: Cardiac evaluation is requested in this 85-year-old woman who has been admitted with right upper quadrant pain, found to have gallstones patient has a history of diabetes and hypertension. She does not relate any past cardiac history. Current testing includes an electrocardiogram which is within normal limits, and an echocardiogram which shows normal left ventricular systolic function, no valvular disease She reports that she is able to climb 6 stairs regularly to get into her apartment. She does routine activities of daily living, minor housekeeping. She does not experience any chest discomfort or difficulty breathing. She is not dizzy or lightheaded Consults Consult date: 05/11/21 Requesting physician: Sammy Argueta Review of Systems Cardiovascular Cardiovascular: Reports as per HPI, Denies chest pain, Denies chest pain at rest, Denies syncope, Denies irregular heart rhythm, Denies claudication, Denies leg edema, Denies palpitations, Denies dyspnea, Denies dyspnea on exertion and Denies orthopnea Respiratory Respiratory: Denies dyspnea and Denies dyspnea on exertion Neurologic Neurologic: Denies syncope Endocrine Endocrine: Denies palpitations PFSH All Active Problems (Updated 05/11/21 @ 15:26 by Antonia Angelo MD) Preoperative cardiovascular examination (Acute) Cholelithiasis (Acute) Gallstones (Acute) Nausea & vomiting (Acute) Balance problem (Acute) Essential hypertension (Chronic) 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 Daughter No problems noted. Social History Smoking/Tobacco Use Status: Never Second Hand Exposure: Yes Smoking risk assessment performed?: Yes Alcohol Intake: never Drug use: Never Substance use type: does not use Household members: none Do you need help understanding health information?: Never Pets and animals: No Sexually active: No Do you think of yourself as: straight/heterosexual Current gender identity: female What is your relationship status?: How often do you talk on the phone with friends or family?: three or more times per week How often do you get together with friends or relatives?: once per week How often do you attend presybeterian or sabianism services?: 1-3 times per year Do you belong to any clubs or organized social groups?: no Panel score (0-1 are the most socially isolated patients): 1 Seatbelt use: always Drive 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 Do you feel safe at home: Yes Do you feel safe in your relationship?: Yes Exam Const Other: Short obese woman no acute distress, elderly Neck Other: Unable to assess JVP normal carotid upstrokes no bruits Resp Other: Decreased breath sounds and fine crackles at the bases Cardio Other: Heart is regular normal S1-S2 physiologically split brief systolic ejection quality murmur GI Other: Abdomen was not examined Skin Other: Warm and dry Extrem Other: No significant edema Results Last Vital Signs Temp 37 C 05/11/21 10:14 Pulse 89 05/11/21 10:14 Resp 14 05/11/21 10:14 BP 131/74 05/11/21 10:14 Pulse Ox 95 05/11/21 11:45 Labs Result diagrams: 05/11/21 02:20 05/11/21 02:20 Labs: Laboratory Results - last 24 hr 05/11/21 05/11/21 05/11/21 02:20 02:20 02:20 WBC 11.69 H RBC 4.48 Hgb 12.6 Hct 39.6 MCV 88.4 MCH 28.1 MCHC 31.8 L RDW 13.6 Plt Count 364 MPV 9.1 Immature Gran % 0.3 Neutrophils % 77.7 Lymphocytes % 15.9 Monocytes % 4.7 Eosinophils % 0.9 Basophils % 0.5 Nucleated RBC % 0 Absolute Neutrophils 9.08 H Absolute Lymphocytes 1.86 Absolute Monocytes 0.55 Absolute Eosinophils 0.11 Absolute Basophils 0.06 VBG Lactate 2.3 H* Sodium 137 Potassium 3.7 Chloride 101 Carbon Dioxide 24.7 Anion Gap 11.3 H BUN 17 Creatinine 1.4 H Estimated GFR/1.73 m2 35.82 Glucose 237 H Calcium 9.2 Total Bilirubin 0.3 AST 19 ALT 21 Alkaline Phosphatase 73 Troponin I < 50 Total Protein 7.8 Albumin 3.3 L Lipase 156 Urine Color Urine Clarity Urine pH Ur Specific [place] Urine Protein Urine Ketones Urine Blood Urine Nitrite Urine Bilirubin Urine Urobilinogen Ur Leukocyte Esterase Urine RBC Urine WBC Ur Epithelial Cells Urine Crystals Urine Bacteria Urine Casts Urine Mucus Ur Culture Indicated? Urine Glucose COVID-19 Source SARS-CoV-2 (PCR) 05/11/21 05/11/21 05/11/21 03:45 05:40 07:40 WBC RBC Hgb Hct MCV MCH MCHC RDW Plt Count MPV Immature Gran % Neutrophils % Lymphocytes % Monocytes % Eosinophils % Basophils % Nucleated RBC % Absolute Neutrophils Absolute Lymphocytes Absolute Monocytes Absolute Eosinophils Absolute Basophils VBG Lactate 2.6 H* Sodium Potassium Chloride Carbon Dioxide Anion Gap BUN Creatinine Estimated GFR/1.73 m2 Glucose Calcium Total Bilirubin AST ALT Alkaline Phosphatase Troponin I Total Protein Albumin Lipase Urine Color Yellow Urine Clarity Clear Urine pH 7.5 Ur Specific [place] 1.020 Urine Protein Trace H Urine Ketones Negative Urine Blood Negative Urine Nitrite Negative Urine Bilirubin Negative Urine Urobilinogen 0.2 Ur Leukocyte Esterase Negative Urine RBC 0-2 Urine WBC 0-2 Ur Epithelial Cells Rare Urine Crystals Negative Urine Bacteria Rare Urine Casts Negative Urine Mucus Negative Ur Culture Indicated? No Urine Glucose 100 COVID-19 Source Nasal/Nares SARS-CoV-2 (PCR) Negative 05/11/21 11:26 WBC RBC Hgb Hct MCV MCH MCHC RDW Plt Count MPV Immature Gran % Neutrophils % Lymphocytes % Monocytes % Eosinophils % Basophils % Nucleated RBC % Absolute Neutrophils Absolute Lymphocytes Absolute Monocytes Absolute Eosinophils Absolute Basophils VBG Lactate 2.7 H* Sodium Potassium Chloride Carbon Dioxide Anion Gap BUN Creatinine Estimated GFR/1.73 m2 Glucose Calcium Total Bilirubin AST ALT Alkaline Phosphatase Troponin I Total Protein Albumin Lipase Urine Color Urine Clarity Urine pH Ur Specific [place] Urine Protein Urine Ketones Urine Blood Urine Nitrite Urine Bilirubin Urine Urobilinogen Ur Leukocyte Esterase Urine RBC Urine WBC Ur Epithelial Cells Urine Crystals Urine Bacteria Urine Casts Urine Mucus Ur Culture Indicated? Urine Glucose COVID-19 Source SARS-CoV-2 (PCR) EKG interpretations EKG EKG results cardiology: WNL
--- NOTE | 2021-05-11 16:05 | W.SURGCON ---
Date of service: 05/11/21 Time of Service: 16:05 Assessment and Plan Assessment and plan (1) Cholelithiasis: Status: Acute Assessment and plan: -There are no signs of acute cholecystitis at this point. And do not think antibiotics are required -She does have a very large gallstone and is still quite nauseous and uncomfortable. I did discuss surgery with her daughters and the patient. Dr. Angelo feels she is acceptable risk for surgery. Her echo was favorable. We reviewed risks versus benefits of surgery (2) Gallstones: Status: Acute Assessment and plan: or in am I d/w pt and daughters : The patient will be scheduled for laparoscopic cholecystectomy. The alternatives to surgery, risks, complications, and the possible need to convert to open cholecystectomy were discussed. Also bleeding, infection, pneumonia, blood clots, complications of anesthesia, damage to bowel, bladder, blood vessels, or bile ducts, liver, need for blood transfusions. Also: chronic pain, chronic diarrhea, reoccurrence of signs and symptoms, port site hernias, adhesions. All questions were answered and the patient elected to proceed with surgery The patient will be scheduled for laparoscopic cholecystectomy. The alternatives to surgery, risks, complications, and the possible need to convert to open cholecystectomy were discussed. Also bleeding, infection, pneumonia, blood clots, complications of anesthesia, damage to bowel, bladder, blood vessels, or bile ducts, liver, need for blood transfusions. Also: chronic pain, chronic diarrhea, reoccurrence of signs and symptoms, port site hernias, adhesions. All questions were answered and the patient elected to proceed with surgery. Also d/w pt dietary restrictions. We would keep her overnight after surgery. And see how she does. Barring no unusual findings or complications she should be able to go home Saturday. I do recommend family stay with her through the weekend. And provided no other problems she should make a good recovery she should follow a low-fat diet for a month to allow her body to adjust to not having the gallbladder in place. And no lifting over 5 to 10 pounds for 2 weeks. We will plan on surgery in a.m. 60 minutes spent with the patient and her family today in consultation and arranging surger/coordinating care. lap dimitry in am - afternoon. (3) Nausea & vomiting: Status: Acute (4) Essential hypertension: Status: Chronic (5) Diabetes mellitus: Status: Chronic History of Present Illness Narrative: from ED: 85-year-old female with past medical history of diabetes, hypertension, no previous abdominal surgeries presents today for 4 hours of abdominal pressure.? Patient states that at about 10 PM she developed what she describes as a ton of bricks in her epigastric region.? She has been nauseous and has been vomiting up sputum.? She denies any diarrhea.? She denies any abdominal pain.? She denies any chest pain, arm pain, neck pain or shoulder pain.? She denies any fever or chills.? She denies having symptoms like this before.? She denies any exertional discomfort.? She denies any numbness tingling or weakness.? She states she ate pork chops for dinner without any abnormality or pain.? No other complaints at this time.? No other modifying factors.? She denies any other sick contacts at home. Patient is seen and examined. Her daughters are at the bedside. Patient denies problems prior to this episode. She is does not think she gets a lot of heartburn or indigestion. She denies back or shoulder pain. She does also have chronic problems with back pain. She does not think she normally has a lot of problems with indigestion. She did eat pork last night and continued to have significant nausea and pain. Patient is back in her room from ultrasound did show a 2.5 cm stone impacted in the neck of the gallbladder. Her echo looks very favorable and her cardiac status seems to have been preserved. She had 2 sips of mateo matias and is now complaining of significant nausea and fatigue. She has mild pain in the right upper quadrant site. She has problems with significant arthritis in both her knees. This limits her mobility/she has not been walking much lately. She has been having nausea pain and diarrhea in the past 24 hours. She is still having nausea late this afternoon as I am seeing her and she cannot eat. She is extremely fatigued. Review of Systems All systems reviewed & are unremarkable except as noted in HPI and below PFSH All Active Problems Preoperative cardiovascular examination (Acute) Cholelithiasis (Acute) Gallstones (Acute) Nausea & vomiting (Acute) Balance problem (Acute) Essential hypertension (Chronic) 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 Daughter No problems noted. Social History Smoking/Tobacco Use Status: Never Second Hand Exposure: Yes Smoking risk assessment performed?: Yes Alcohol Intake: never Drug use: Never Substance use type: does not use Household members: none Do you need help understanding health information?: Never Pets and animals: No Sexually active: No Do you think of yourself as: straight/heterosexual Current gender identity: female What is your relationship status?: How often do you talk on the phone with friends or family?: three or more times per week How often do you get together with friends or relatives?: once per week How often do you attend mu-ism or church services?: 1-3 times per year Do you belong to any clubs or organized social groups?: no Panel score (0-1 are the most socially isolated patients): 1 Seatbelt use: always Drive 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 She has had multiple dental extractions in the past. Mucous membranes are moist. Heart is regular rate and rhythm Lungs are clear to auscultation bilaterally Abdomen is soft. Minimal tenderness in the right upper quadrant. Decreased bowel sounds. No hernias noted Lower extremities show some mild varicosities. There is obvious osteo in her knees. No clubbing cyanosis or edema Results Last Vital Signs Temp 37.9 C H 05/11/21 15:40 Pulse 66 05/11/21 15:40 Resp 17 05/11/21 15:40 BP 164/90 H 05/11/21 15:40 Pulse Ox 95 05/11/21 15:40 Labs Result diagrams: 05/11/21 02:20 05/11/21 02:20 Labs: Laboratory Results - last 24 hr 05/11/21 05/11/21 05/11/21 02:20 02:20 02:20 WBC 11.69 H RBC 4.48 Hgb 12.6 Hct 39.6 MCV 88.4 MCH 28.1 MCHC 31.8 L RDW 13.6 Plt Count 364 MPV 9.1 Immature Gran % 0.3 Neutrophils % 77.7 Lymphocytes % 15.9 Monocytes % 4.7 Eosinophils % 0.9 Basophils % 0.5 Nucleated RBC % 0 Absolute Neutrophils 9.08 H Absolute Lymphocytes 1.86 Absolute Monocytes 0.55 Absolute Eosinophils 0.11 Absolute Basophils 0.06 VBG Lactate 2.3 H* Sodium 137 Potassium 3.7 Chloride 101 Carbon Dioxide 24.7 Anion Gap 11.3 H BUN 17 Creatinine 1.4 H Estimated GFR/1.73 m2 35.82 Glucose 237 H Calcium 9.2 Total Bilirubin 0.3 AST 19 ALT 21 Alkaline Phosphatase 73 Troponin I < 50 Total Protein 7.8 Albumin 3.3 L Lipase 156 Urine Color Urine Clarity Urine pH Ur Specific [place] Urine Protein Urine Ketones Urine Blood Urine Nitrite Urine Bilirubin Urine Urobilinogen Ur Leukocyte Esterase Urine RBC Urine WBC Ur Epithelial Cells Urine Crystals Urine Bacteria Urine Casts Urine Mucus Ur Culture Indicated? Urine Glucose COVID-19 Source SARS-CoV-2 (PCR) 05/11/21 05/11/21 05/11/21 03:45 05:40 07:40 WBC RBC Hgb Hct MCV MCH MCHC RDW Plt Count MPV Immature Gran % Neutrophils % Lymphocytes % Monocytes % Eosinophils % Basophils % Nucleated RBC % Absolute Neutrophils Absolute Lymphocytes Absolute Monocytes Absolute Eosinophils Absolute Basophils VBG Lactate 2.6 H* Sodium Potassium Chloride Carbon Dioxide Anion Gap BUN Creatinine Estimated GFR/1.73 m2 Glucose Calcium Total Bilirubin AST ALT Alkaline Phosphatase Troponin I Total Protein Albumin Lipase Urine Color Yellow Urine Clarity Clear Urine pH 7.5 Ur Specific [place] 1.020 Urine Protein Trace H Urine Ketones Negative Urine Blood Negative Urine Nitrite Negative Urine Bilirubin Negative Urine Urobilinogen 0.2 Ur Leukocyte Esterase Negative Urine RBC 0-2 Urine WBC 0-2 Ur Epithelial Cells Rare Urine Crystals Negative Urine Bacteria Rare Urine Casts Negative Urine Mucus Negative Ur Culture Indicated? No Urine Glucose 100 COVID-19 Source Nasal/Nares SARS-CoV-2 (PCR) Negative 05/11/21 11:26 WBC RBC Hgb Hct MCV MCH MCHC RDW Plt Count MPV Immature Gran % Neutrophils % Lymphocytes % Monocytes % Eosinophils % Basophils % Nucleated RBC % Absolute Neutrophils Absolute Lymphocytes Absolute Monocytes Absolute Eosinophils Absolute Basophils VBG Lactate 2.7 H* Sodium Potassium Chloride Carbon Dioxide Anion Gap BUN Creatinine Estimated GFR/1.73 m2 Glucose Calcium Total Bilirubin AST ALT Alkaline Phosphatase Troponin I Total Protein Albumin Lipase Urine Color Urine Clarity Urine pH Ur Specific [place] Urine Protein Urine Ketones Urine Blood Urine Nitrite Urine Bilirubin Urine Urobilinogen Ur Leukocyte Esterase Urine RBC Urine WBC Ur Epithelial Cells Urine Crystals Urine Bacteria Urine Casts Urine Mucus Ur Culture Indicated? Urine Glucose COVID-19 Source SARS-CoV-2 (PCR)
[2021-05-12] VITALS (14 sets, daily range): BP systolic 112–172; BP diastolic 60–80; PULSE 65–86; RESP 14–34; TEMP 36.2–37.9; O2SAT 92–97; BMI 34.8
--- NOTE | 2021-05-12 00:13 | SUR.PHASEII ---
Pt's temperature noted to be 38.6. Charge nurse and hospitalist made aware. Scheduled IV Tylenol given. Plan to draw blood cultures and start Zosyn.
[2021-05-12] MEDS: Normal Saline Flush 10 ML SYR IVP ×2 (02:14→06:28)
[2021-05-12] MEDS: PIPERACILLIN/TAZO 3.375 GM in Normal Saline 50 ML IVPB ×4 (02:14→18:25)
[2021-05-12 07:08] LABS: Abs Immature Grans 0.17 10^3/uL (0.0-0.06); Absolute Basophil Count 0.04 10^3/uL (0.0-0.2); Absolute Eosinophil Count 0.11 10^3/uL (0.0-0.7); Absolute Monocyte Count 1.47 10^3/uL (0.1-0.8); Basophils % 0.2; Eosinophils % 0.6; HCT 36.2 % (36.0-46.0); HGB 11.5 g/dL (11.2-15.7); Lymphocytes % 9.4; MCH 28.1 pg (27.0-33.0); MCHC 31.8 % (32.0-36.0); MCV 88.5 fL (80-95); MPV 9.5 fL (8.0-11.0); Monocytes % 8.3; Neutrophils % 80.5; Nucleated RBC 0 %; Platelet Count 311 10^3/uL (130-400); RBC 4.09 10^6/uL (3.93-5.22); RDW 13.8 % (11.7-14.6); RDW-SD 44.9 fL
[2021-05-12 07:12] LABS: Absolute Lymphocyte Count 1.66 10^3/uL (1.2-3.4); Absolute Neutrophil Count 14.25 10^3/uL (1.2-6.7)
[2021-05-12 07:25] LABS: ALT 15 U/L (14-59); AST 12 U/L (15-37); Albumin 2.6 g/dL (3.4-5.0); Alkaline Phosphatase 62 U/L (46-116); Anion Gap 8.7 mmol/L (3-11); BUN 18 mg/dL (7-18); Bilirubin, Total 0.8 mg/dL (0.2-1.0); C-Reactive Protein 12.71 mg/dL (0.0-0.3); CO2 28.3 mmol/L (21.0-32.0); CREATININE 1.3 mg/dL (0.55-1.02); Calcium 8.5 mg/dL (8.5-10.1); Chloride 100 mmol/L (98-107); Estimated GFR 39.02 (mL/min/1.73m2); Glucose 194 mg/dL (74-106); Potassium 3.5 mmol/L (3.5-5.1); Sodium 137 mmol/L (136-145); Total Protein 6.8 g/dL (6.4-8.2)
[2021-05-12] MEDS: ACETAMINOPHEN 1,000 MG/100 ML BTL 400 MG IVPB ×2 (07:46→16:40)
[2021-05-12] MEDS: Atenolol 50 MG TAB PO (07:47)
--- NOTE | 2021-05-12 09:16 | CMPROGNOTE_ITS ---
- If Service Date Differs Date of service: 05/12/21 Time of Service: 09:16 Care Management Progress Note S/O:Karine was sitting up in bed when CM met with her. She was very pleasant in interaction and agreeable to conversation. Karine is scheduled to have a laparoscopic cholecystectomy this afternoon. She informed CM that she will be glad to have this behind her. When asked, she admitted that she has been having discomfort for some time. CM discussed the likely discharge plan with her. If all goes well, she will remain at [facility] overnight and be discharged home tomorrow. If it becomes necessary to do an open dimitry, then additional hospitalization may be needed. A: Karine is an 85 year old woman admitted on 05/11/21 with gallstones P:Anticipate Karine will return home when ready per MD. Depending on the extent of surgery (laparoscopic vs open cholecystectomy) she may need new home health services. Karine will follow up with her community providers and plan of care and transport with family. CM will continue to support Karine and assess for ongoing discharge concerns.
--- NOTE | 2021-05-12 09:18 | W.PM.PROGNOT ---
Date of Service Date of service: 05/12/21 Time of Service: 09:18 Assessment and Plan Assessment and plan (1) Cholelithiasis: Status: Acute Assessment and plan: cont. Zosyn; proceed w/ lap choly as planned. She is medically optimized for surgery and has avg risks for her age for perioperative CV complications (2) Nausea & vomiting: Status: Resolved Assessment and plan: no further vomiting and no abdominal pain. source is symptomatic gall stone (3) Essential hypertension: Status: Chronic Assessment and plan: continue her lopressor; hold HCTZ; I would hold her lisinopril preoperative to reduce risk of HERNANDEZ perioperatively. (4) Diabetes mellitus: Status: Chronic Assessment and plan: monitor fingerstick glucose q6h while NPO and cover w/ sliding scale postoperatively. once she is able to take po then resume AC/HS coverage Subjective Subjective Interval history since last seen: Patient denies any nausea or vomiting or abdominal pain. She spiked a fever last night up to 38.6. Blood cultures were obtained and she was started on Zosyn. Patient is supposed to go to the operating room this afternoon for laparoscopic cholecystectomy to treat her symptomatic cholelithiasis. Patient denies any chest pain or pressure or dyspnea. Patient had a cardiology evaluation yesterday by Dr. Angelo who indicated that the patient is has average risk of cardiovascular complications from her surgery. Perioperatively I would put her on IV Lopressor until she can go back on her home dose of atenolol and I would put her on telemetry perioperatively. she had her atenolol this morning so she should not need any iv lopressor preop. Exam Narrative Exam Narrative: Elderly female lying in her bed alert and oriented person place time circumstance in no discomfort. Lungs are clear to auscultation Heart regular rate and rhythm with no appreciable murmur rub Abdomen soft nondistended normal bowel sounds nontender to palpation Objective Last Vital Signs Temp 37.6 C H 05/12/21 07:46 Pulse 72 05/12/21 07:17 Resp 18 05/12/21 07:17 BP 112/60 05/12/21 07:17 Pulse Ox 92 05/12/21 07:17 Laboratory Results - last 24 hr 05/11/21 05/12/21 05/12/21 11:26 06:40 06:40 WBC 17.70 H RBC 4.09 Hgb 11.5 Hct 36.2 MCV 88.5 MCH 28.1 MCHC 31.8 L RDW 13.8 Plt Count 311 MPV 9.5 Immature Gran % 1.0 Neutrophils % 80.5 Lymphocytes % 9.4 Monocytes % 8.3 Eosinophils % 0.6 Basophils % 0.2 Nucleated RBC % 0 Absolute Neutrophils 14.25 H Absolute Lymphocytes 1.66 Absolute Monocytes 1.47 H Absolute Eosinophils 0.11 Absolute Basophils 0.04 VBG Lactate 2.7 H* Sodium 137 Potassium 3.5 Chloride 100 Carbon Dioxide 28.3 Anion Gap 8.7 BUN 18 Creatinine 1.3 H Estimated GFR/1.73 m2 39.02 Glucose 194 H Calcium 8.5 Total Bilirubin 0.8 AST 12 L ALT 15 Alkaline Phosphatase 62 C-Reactive Protein 12.71 H Total Protein 6.8 Albumin 2.6 L
[2021-05-12] MEDS: Lactated Ringers 1,000 ML 125 ML IV (09:25)
--- NOTE | 2021-05-12 11:31 | ANES.PREOP_ITS ---
General Info Date of Service Date Performed: 05/12/21 Height: 5 ft 1 in Weight: 83.6 kg Body Mass Index (BMI): 34.8 Surgical Procedure: Operation Date: 05/12/21 11:55 Proposed Procedure Side Surgeon p Cholecystectomy Laparoscopic Pricila Morfin DO Meds Allergies and Home Medications Allergies Allergy/AdvReac Type Severity Reaction Status Date / Time No Known Allergies Allergy Unverified 05/11/21 02:04 Home Medication Medication Instructions Recorded aspirin 81 mg tablet,delayed 1 tab PO DAILY tab-cap 07/18/12 release (Aspir-) blood-glucose meter (OneTouch #1 10/03/16 Verio Meter) cholecalciferol (vitamin D3) 125 5,000 unit PO DAILY 06/03/17 mcg (5,000 unit) capsule omega 4-wql-wiv-fish oil 500 mg 1 ea PO DAILY 06/03/17 (200mg-300mg)-1,000 mg capsule blood sugar diagnostic (OneTouch #90 strip 12/11/19 Verio test strips) lancets (OneTouch UltraSoft #90 ea 12/11/19 Lancets) magnesium oxide 400 mg (241.3 mg 400 mg PO DAILY 06/16/20 magnesium) tablet atenolol 50 mg tablet 50 mg PO DAILY #90 tab-cap 12/23/20 hydrochlorothiazide 25 mg tablet 25 mg PO DAILY #90 tab-cap 12/23/20 metformin 500 mg tablet 500 mg PO DAILY #90 tab 12/23/20 potassium citrate 5 mEq (540 mg) 5 meq PO DAILY #90 tab 12/23/20 tablet,extended release lisinopril 10 mg tablet 10 mg PO DAILY #90 tab 03/23/21 Current Visit Medications: Current Medications Generic Name Dose Route Start Last Admin Trade Name Freq PRN Reason Stop Dose Admin Atenolol 50 mg 05/11/21 08:30 05/12/21 07:47 Atenolol 50 Mg Tab PO 50 mg DAILY ALIZA Administration Dextrose 0 gm 05/11/21 05:57 Glucose 40% Oral Solution 15 Gm/37.5 Gm Tube PO DIRECTED PRN Dextrose/Water 0 gm 05/11/21 05:57 Dextrose 50%-Water 25 Gm/50 Ml Syr IVP DIRECTED PRN Dimethicone/Zinc Oxide 0 gm 05/11/21 05:50 Diallo Protect Cream 142 Gm Tube TP PRN PRN Ringer's Solution 1,000 mls @ 125 mls/hr 05/11/21 06:00 05/12/21 09:25 IV 125 mls/hr INFUSION ALIZA Administration Promethazine HCl 25 mg/ Sodium 51 mls @ 200 mls/hr 05/11/21 05:52 05/11/21 07:46 Chloride IVPB Infused Q6H PRN PRN Infusion Acetaminophen 1,000 mg in 100 mls @ 400 mls/hr 05/11/21 16:00 05/12/21 11:00 Ofirmev IVPB Infused Q8H ALIZA Infusion Piperacillin Sod/Tazobactam 50 mls @ 100 mls/hr 05/12/21 00:00 05/12/21 07:53 Sod 3.375 gm/ Sodium Chloride IVPB Infused Q6H ALIZA Infusion Protocol Insulin Aspart 0 units 05/11/21 08:00 05/12/21 07:54 Insulin Aspart 300 Units/3 Ml Pen SC Not Given 0800,1200,1700 [facility] Protocol Lisinopril 10 mg 05/11/21 08:30 05/11/21 09:35 Lisinopril 10 Mg Tab PO 10 mg DAILY ALIZA Administration Metoprolol Tartrate 2.5 mg 05/12/21 09:26 Metoprolol 5 Mg/5 Ml Vial IVP Q6H PRN PRN tachycardia Ondansetron HCl 4 mg 05/11/21 05:52 Ondansetron 4 Mg/2 Ml Vial IVP Q4H PRN PRN Sodium Chloride 0 ml 05/11/21 07:40 05/12/21 06:28 Normal Saline Flush 10 Ml Syr IVP 10 ml PRN PRN Administration PFSH Active Problems Active Problems: Problem Status Onset Code Preoperative cardiovascular examination Z01.810 Cholelithiasis K80.20 Gallstones K80.20 Nausea & vomiting R11.2 Balance problem R26.89 Essential hypertension I10 Osteoarthritis 01/23/13 M19.90 Diabetes mellitus 01/23/13 E11.9 Surgical History Surgical History Hx of cataract extraction Tobacco Smoking/Tobacco Use Status: Never Passive smoking exposure: Yes Second hand exposure: Yes Alcohol Alcohol Intake: never Substance Use Substance use: Never Substance use type: does not use Vital Signs and Lab Results Vital Signs Most Recent Vital Signs in EMR: Most Recent Vital Signs Temp Pulse Resp BP Pulse Ox 37.5 C 86 14 116/62 97 05/12/21 10:57 05/12/21 10:57 05/12/21 10:57 05/12/21 10:57 05/12/21 10:57 Point of Care Results Point of Care Results: Finger Stick Blood Glucose 192 05/12/21 03:03 Lab Results Result Diagrams: 05/12/21 06:40 05/12/21 06:40 Blood Type / Crossmatch: No Data to Display Complete Blood Count: White Blood Count 17.70 10^3/uL (4.4-10.8) H 05/12/21 06:40 05/12/21 Red Blood Count 4.09 10^6/uL (3.93-5.22) 05/12/21 06:40 05/12/21 Hemoglobin 11.5 g/dL (11.2-15.7) 05/12/21 06:40 05/12/21 Hematocrit 36.2 % (36.0-46.0) 05/12/21 06:40 05/12/21 Platelet Count 311 10^3/uL (130-400) 05/12/21 06:40 05/12/21 Venous Blood Lactate 2.7 mmol/L (0.6-1.4) H* 05/11/21 11:26 05/11/21 Complete Metabolic Panel: Sodium Level 137 mmol/L (136-145) 05/12/21 06:40 05/12/21 Potassium Level 3.5 mmol/L (3.5-5.1) 05/12/21 06:40 05/12/21 Chloride Level 100 mmol/L (98-107) 05/12/21 06:40 05/12/21 Carbon Dioxide Level 28.3 mmol/L (21.0-32.0) 05/12/21 06:40 05/12/21 Blood Urea Nitrogen 18 mg/dL (7-18) 05/12/21 06:40 05/12/21 Creatinine 1.3 mg/dL (0.55-1.02) H 05/12/21 06:40 05/12/21 Estimated GFR/1.73 m2 39.02 (mL/min/1.73m2) 05/12/21 06:40 05/12/21 Calcium Level 8.5 mg/dL (8.5-10.1) 05/12/21 06:40 05/12/21 Albumin 2.6 g/dL (3.4-5.0) L 05/12/21 06:40 05/12/21 Glucose Level 194 mg/dL (74-106) H 05/12/21 06:40 05/12/21 C-Reactive Protein 12.71 mg/dL (0.0-0.3) H 05/12/21 06:40 05/12/21 Liver Function Panel: Alanine Aminotransferase (ALT/SGPT) 15 U/L (14-59) 05/12/21 06:40 05/12/21 Aspartate Amino Transf (AST/SGOT) 12 U/L (15-37) L 05/12/21 06:40 05/12/21 Coagulation Panel: No Data to Display Cardiac Panel: Troponin I < 50 ng/L (<or=60) 05/11/21 Arterial Blood Gas: No Data to Display Venous Blood Gas: No Data to Display Pancreas Panel: Lipase 156 U/L (73-393) 05/11/21 02:20 05/11/21 Thyroid Panel: No Data to Display Infectious Disease: Coronavirus (COVID-19)(PCR) Negative (Negative) 05/11/21 07:40 05/11/21 Coronavirus 2019 Source Nasal/Nares 05/11/21 07:40 05/11/21 Blood Cultures: No Data to Display Toxicology Panel: No Data to Display Imaging and Studies Imaging and Studies Study information below may be from another EMR and interpreted by another provider. Please see original notes in EMR for more complete details. EKG Summary: DATE/TIME OF SERVICE: 05/11/21 0359 : 1935PERFORMING LOCATION: [place] APPROVED REPORT Exam: Resting ECG Reason for Exam: epigastric pain Patient Location: E HR:65 bpm ECG Measurements Heart Rate 65 AXIS AR 85 P 31 QRSd 82 QRS -4 QT 424 T29 QTc 442 Conclusion Sinus rhythm...normal P axis, V-rate 60- 99 Echocardiogram Summary: Date of Exam: 05/11/21Sex: F Admission Date: 05/11/21 : 1935 Age: 85 APPROVED REPORT EXAM: Comprehensive 2D, Doppler, and color-flow Echocardiogram Patient Location: In-Patient Room/Bed: [address] Worker: Clover Harrington RDCS (AE) Indications: Pre op gallbladder surgery Other Information Study Quality: Adequate. Technically limited study due to body habitus, inability to position patient exam done supine bedside. Conclusion Left ventricular wall thickness and chamber size. Estimated ejection fraction is 65%. Wall motion is normal Normal right ventricular size and systolic function Both atria are normal in size Aortic valve is sclerotic without stenosis or regurgitation Mild mitral annular calcification. Mild mitral regurgitation Normal tricuspid valve with trace regurgitation. Estimated right ventricular systolic pressure is normal at 22 mmHg Borderline dilated ascending aorta measuring 3.35 cm Anesthesia Assessment and Plan Anesthesia History Personal History: No History of Anesthesia Complications Family History: No Family History of Anesthesia Complications Exercise Tolerance Exercise Tolerance: Metabolic Equivalents>4 Pertinent Negatives Pertinent Negatives: No Symptoms of GERD, No Major Cardiovascular Symptoms or Complaints and No Major Pulmonary Symptoms or Complaints Cardiac & Pulmonary Exam Cardiac Exam: Normal S1/S2 Heart Sounds Pulmonary Exam: Clear Bilateral Breath Sounds Implantable Cardiac Device Does patient have a Pacemaker or an ICD?: No Airway Exam Known Difficult Airway: No Mallampati Class: 2 Mouth Opening: Normal (> 3cm) Thyromental Distance: Greater than 3 cm Neck Range of Motion: Full ROM Neck Circumference: Normal Teeth Condition: Edentulous ASA Classification ASA Score: ASA 2 Emergency Case?: No NPO Status NPO Status: NPO Clears >2 hours, Solids >8 hours Anesthesia Plan Resuscitation Status: Full Code Anesthesia Technique: General Anesthesia Airway Planned: Endotracheal Tube Monitors Used: Standard Monitors
[2021-05-12] MEDS: Bupivacaine 0.25% Pres-Free 30 ML VIAL (12:57)
--- NOTE | 2021-05-12 14:55 | GB_PTH ---
PATIENT: Karine Castaneda LOC: U#:[id number] AGE/SX: 85/F ROOM: 212 RE05/11/[address]: Chuckie Biggs : 1935 BED: A DIS: 05/15/2021 SPEC #: [id number] RECD: 05/12/21 16:21 STATUS: RADHA REQ #: [id number] TSERING: 05/12/21 14:[address]: Chuckie Biggs DEPT: Surgical Specimen RECD BY: Cathy Vega ENTERED: 05/12/21 16:22 SP TYPE: GB OTHR DR: MACHO Wilson PA Anthony Campbell Cole,MD Omid Thomas, DO MD Nay Jenkins, HIS Donte Stokes, DO Odalys Summers, PhD MELITON Cardoso,MD Chai Stephens,Dee Hernandez, MD Vega,Lovely Morfin, DO Tissues: 1 - GALLBLADDER Procedures: GROSS AND MICRO LEVEL 3 Comments: [id number]
--- NOTE | 2021-05-12 15:19 | W.PM.OP ---
Date of service: 05/12/21 Time of Service: 15:19 Operative Note Operative Note DATE OF PROCEDURE: 05/12/21 PRE-OP DIAGNOSIS: Biliary colic POST-OP DIAGNOSIS: other Gangrenous cholecystitis PROCEDURE: Laparoscopic Cholecystectomy SURGEON: Pricila Morfin ANESTHESIA TYPE: Local By Surgeon and General LMA/ETT Refer to Anesthesia Record ESTIMATED BLOOD LOSS: 100 PATHOLOGY: other (gallbladder and bile for culture) COMPLICATIONS: None Patient was transported to: PACU Patient's condition: stable Implants: 10F ABBY drain in the gallbladder fossa Indications: Patient with large gallstone within neck of gallbladder Findings: Fibrinous exudate surrounding gallbladder, gallbladder wall very indurated, bile drained with pus from gallbladder Procedure Description: Patient was met in the holding area and properly identified. Informed consent previously obtained ensuring all risks, benefits and alternatives were discussed with the patient and all of her questions were answered to her satisfaction. Patient was taken to the operating room and placed on the operating room table in supine position. After adequate induction of general anesthesia, the patients dependent areas were padded. She was prepped and draped in the standard sterile fashion and had received a dose of IV Zosyn just prior to the procedure so no additional antibiotics were given. Local anesthesia consisting of 0.25% Marcaine and Exparel were injected into the supraumbilical tissues.Using a #11 blade scaplel an incision was made, dissection was carried down to the fascia hemostatically using bovie electrocautery. The fascia was grasped with a dallin and the abdomen was entered sharply. A 12mm port was placed and the abdomen subsequently insufflated to 15mmHg. Inspection of the abdominal cavity revealed normal appearing anatomy without adhesions to the anterior abdominal wall. Three 5mm ports were placed in the right upper quadrant under direct visualization. The gallbladder wall was incredibly edematous and due to the distention impossible to grasp. The gallbladder was therefore drained at which point pus was seen exiting the gallbladder. This was sent for culture. The gallbladder was now less distended and easier to grasp. It was lifted up revealing the neck of the gallbladder. Once the cystic duct and artery were carefully dissected out and our critical view obtained, the cystic duct was clipped and transected followed by the cystic artery. Two additional clips were placed on an area of bleeding just superior to the lymph node. Using the hook, electrocautery was used to dissect the gallbladder off of the liver bed. The gallbladder was quite large and intrahepatic. The liver bed was cauterized as the gallbladder was removed and placed into an endocatch bag. Due to the friability of the surrounding tissues floseal was placed into the gallbladder fossa for further reinforcement. A 10F ABBY drain was also tucked into the subhepatic space to drain any remaining fluid that may collect there. The lateral port site was used as the drain site. The suction electrical fitter was used to suction out any remaining pus or blood products. Each 5mm port was removed under direct visualization and appeared to be hemostatic. The 12mm port was removed and the abdomen was desufflated. The gallbladder which was subsequently placed into an endocatch bag was removed from the supraumbilical port site in entirety. The supraumbilical fascia was closed in a figure of eight fashion using 0-Vicryl followed by running subcuticular 4-0 Monocryl. The drain was sutured into place with a 2-0 Nylon. Each 5mm port site was closed with a single interrupted 4-0 Monocryl. The incisions were covered with skin glue. All needle, sponge and instrument counts were correct x2 at the end of the procedure. The patient tolerated the procedure well, was subsequently awakened and transferred to PACU in stable condition.
--- NOTE | 2021-05-12 16:42 | W.ANESPOSTOP ---
Postoperative Evaluation Date, Time and Location Date Performed: 05/12/21 Time Performed: 16:15 Patient Location: PACU Vital Signs Most Recent Imported Vital Signs: Most Recent Vital Signs Temp Pulse Resp BP Pulse Ox 36.3 C L 72 33 H 172/75 H 96 05/12/21 16:09 05/12/21 16:09 05/12/21 16:09 05/12/21 16:09 05/12/21 16:09 Pain Score Most Recent Pain Score: Most Recent Pain Score Pain Level 0 05/12/21 10:57 Assessment Mental Status: Awake (Alert & Oriented to Patient Baseline) Airway and Respiratory Function: Patent airway with normal (patient baseline) respiratory exam Cardiovascular Function: Hemodynamically Stable Hydration Status: Adequately Hydrated Nausea & Vomiting: No Nausea or Vomiting Pain: Pt. Denies Any Pain Peripheral Nerve Block: Patient did not receive a nerve block
[2021-05-12] MEDS: Insulin Aspart 300 UNITS/3 ML PEN SC (17:03)
[2021-05-13] VITALS (8 sets, daily range): BP systolic 123–158; BP diastolic 70–87; PULSE 64–78; RESP 14–18; TEMP 36–37.7; O2SAT 87–98
[2021-05-13] MEDS: ACETAMINOPHEN 1,000 MG/100 ML BTL 400 MG IVPB ×2 (00:33→09:08)
[2021-05-13] MEDS: PIPERACILLIN/TAZO 3.375 GM in Normal Saline 50 ML IVPB ×4 (00:35→21:30)
[2021-05-13 07:58] LABS: Abs Immature Grans 0.12 10^3/uL (0.0-0.06); Absolute Basophil Count 0.03 10^3/uL (0.0-0.2); Absolute Eosinophil Count 0.03 10^3/uL (0.0-0.7); Absolute Monocyte Count 0.94 10^3/uL (0.1-0.8); Absolute Neutrophil Count 13.02 10^3/uL (1.2-6.7); Basophils % 0.2; Eosinophils % 0.2; HCT 35.1 % (36.0-46.0); Immature Grans % 0.7; Lymphocytes % 12.7; MCH 27.6 pg (27.0-33.0); MCHC 31.3 % (32.0-36.0); MCV 88.2 fL (80-95); MPV 9.8 fL (8.0-11.0); Monocytes % 5.8; Neutrophils % 80.4; Nucleated RBC 0 %; Platelet Count 291 10^3/uL (130-400); RBC 3.98 10^6/uL (3.93-5.22); RDW-SD 45.5 fL; WBC 16.19 10^3/uL (4.4-10.8)
[2021-05-13 08:02] LABS: Absolute Lymphocyte Count 2.06 10^3/uL (1.2-3.4)
[2021-05-13 08:17] LABS: ALT 77 U/L (14-59); AST 75 U/L (15-37); Albumin 2.1 g/dL (3.4-5.0); Alkaline Phosphatase 57 U/L (46-116); Anion Gap 8.6 mmol/L (3-11); BUN 17 mg/dL (7-18); Bilirubin, Direct 0.2 mg/dL (0.0-0.2); Bilirubin, Total 0.4 mg/dL (0.2-1.0); CO2 27.4 mmol/L (21.0-32.0); CREATININE 1.2 mg/dL (0.55-1.02); Calcium 8.3 mg/dL (8.5-10.1); Chloride 102 mmol/L (98-107); Glucose 144 mg/dL (74-106); Potassium 3.5 mmol/L (3.5-5.1); Sodium 138 mmol/L (136-145); Total Protein 6.4 g/dL (6.4-8.2)
[2021-05-13] MEDS: Normal Saline Flush 10 ML SYR IVP (09:15)
--- NOTE | 2021-05-13 12:17 | W.PM.PROGNOT ---
Date of Service Date of service: 05/13/21 Time of Service: 12:18 Assessment and Plan Assessment and plan (1) Cholelithiasis: Status: Acute Assessment and plan: Post op day #1. Stable. Pain controlled. (2) Essential hypertension: Status: Chronic Assessment and plan: continue her lopressor; hold HCTZ. Restart lisinopril in the AM (3) Diabetes mellitus: Status: Chronic Assessment and plan: Now on clear liquid diet. Monitor glucose QAC and HS SS insulin correction dosing. Restart metformin when diet is advanced. (4) CKD (chronic kidney disease) stage 3, GFR 30-59 ml/min: Status: Acute Assessment and plan: Creatinine at baseline. Avoid hypotension and nephrotoxic agents. Monitor. Subjective Subjective Patient reports: no new complaints, feels better, tolerating liquids well and afebrile; denies shortness of breath Exam Narrative Exam Narrative: Elderly female sitting in chair. Const General: cooperative and no acute distress Nutritional Appearance: obese Orientation: alert and oriented x3 Resp Effort & Inspection: normal respiratory effort Auscultation: clear to auscultation bilaterally Cardio Rate: regular rate Rhythm: regular rhythm Heart Sounds: S1 normal and S2 normal GI Palpation: soft, no guarding and tender (appropriate mild tenderness at laproscopic insertion sites.) Skin General skin exam: no rashes or lesions noted Extrem General: no pedal edema Objective Last Vital Signs Temp 36.0 C L 05/13/21 07:01 Pulse 66 05/13/21 07:01 Resp 16 05/13/21 07:01 BP 123/77 05/13/21 07:01 Pulse Ox 93 05/13/21 07:01 Laboratory Results - last 24 hr 05/13/21 05/13/21 07:25 07:25 WBC 16.19 H RBC 3.98 Hgb 11.0 L Hct 35.1 L MCV 88.2 MCH 27.6 MCHC 31.3 L RDW 14.0 Plt Count 291 MPV 9.8 Immature Gran % 0.7 Neutrophils % 80.4 Lymphocytes % 12.7 Monocytes % 5.8 Eosinophils % 0.2 Basophils % 0.2 Nucleated RBC % 0 Absolute Neutrophils 13.02 H Absolute Lymphocytes 2.06 Absolute Monocytes 0.94 H Absolute Eosinophils 0.03 Absolute Basophils 0.03 Sodium 138 Potassium 3.5 Chloride 102 Carbon Dioxide 27.4 Anion Gap 8.6 BUN 17 Creatinine 1.2 H Estimated GFR/1.73 m2 42.80 Glucose 144 H Calcium 8.3 L Total Bilirubin 0.4 Conjugated Bilirubin 0.2 AST 75 H ALT 77 H Alkaline Phosphatase 57 Total Protein 6.4 Albumin 2.1 L
--- NOTE | 2021-05-13 12:20 | W.PM.PROGNOT ---
Date of Service Date of service: 05/13/21 Time of Service: 12:21 Assessment and Plan Assessment and plan (1) Gangrenous cholecystitis: Status: Acute Assessment and plan: POD#1 s/p laparoscopic cholecystectomy -Continue IV Zosyn, cultures from bile pending, pathology pending -ABBY drain care as written -Advance diet as tolerated -PRN analgesia as written, currently on IV tylenol -Ambulation and incentive spirometer use encouraged (2) Cholelithiasis: Status: Acute (3) CKD (chronic kidney disease) stage 3, GFR 30-59 ml/min: Status: Acute (4) Essential hypertension: Status: Chronic Exam Const General: cooperative, healthy appearing, comfortable and no acute distress Resp Effort & Inspection: normal respiratory effort, no cough and no respiratory distress Cardio Rate: regular rate Rhythm: regular rhythm GI Inspection: non-distended and incision (intact with skin glue, ABBY drain in place with minimal output) Palpation: soft and tender (appropriate post operative ) Percussion: normal to percussion Skin General skin exam: no rashes or lesions noted Objective Last Vital Signs Temp 96.8 F L 05/13/21 07:01 Pulse 66 05/13/21 07:01 Resp 16 05/13/21 07:01 BP 123/77 05/13/21 07:01 Pulse Ox 93 05/13/21 07:01 Laboratory Results - last 24 hr 05/13/21 05/13/21 07:25 07:25 WBC 16.19 H RBC 3.98 Hgb 11.0 L Hct 35.1 L MCV 88.2 MCH 27.6 MCHC 31.3 L RDW 14.0 Plt Count 291 MPV 9.8 Immature Gran % 0.7 Neutrophils % 80.4 Lymphocytes % 12.7 Monocytes % 5.8 Eosinophils % 0.2 Basophils % 0.2 Nucleated RBC % 0 Absolute Neutrophils 13.02 H Absolute Lymphocytes 2.06 Absolute Monocytes 0.94 H Absolute Eosinophils 0.03 Absolute Basophils 0.03 Sodium 138 Potassium 3.5 Chloride 102 Carbon Dioxide 27.4 Anion Gap 8.6 BUN 17 Creatinine 1.2 H Estimated GFR/1.73 m2 42.80 Glucose 144 H Calcium 8.3 L Total Bilirubin 0.4 Conjugated Bilirubin 0.2 AST 75 H ALT 77 H Alkaline Phosphatase 57 Total Protein 6.4 Albumin 2.1 L
[2021-05-13] MEDS: Insulin Aspart 300 UNITS/3 ML PEN SC ×2 (12:26→17:37)
[2021-05-13] MEDS: Lactated Ringers 1,000 ML 125 ML IV (14:43)
[2021-05-14] VITALS (8 sets, daily range): BP systolic 126–155; BP diastolic 70–92; PULSE 68–81; RESP 18–20; TEMP 36.4–37.6; O2SAT 92–98
[2021-05-14] MEDS: ACETAMINOPHEN 1,000 MG/100 ML BTL 400 MG IVPB ×2 (00:31→12:14)
[2021-05-14] MEDS: PIPERACILLIN/TAZO 3.375 GM in Normal Saline 50 ML IVPB ×4 (03:27→20:00)
[2021-05-14 07:46] LABS: Absolute Eosinophil Count 0.27 10^3/uL (0.0-0.7); Absolute Lymphocyte Count 1.53 10^3/uL (1.2-3.4); Absolute Monocyte Count 0.88 10^3/uL (0.1-0.8); Basophils % 0.2; Eosinophils % 2.2; HCT 33.6 % (36.0-46.0); HGB 10.5 g/dL (11.2-15.7); Immature Grans % 0.8; Lymphocytes % 12.3; MCH 27.9 pg (27.0-33.0); MCHC 31.3 % (32.0-36.0); MCV 89.1 fL (80-95); MPV 9.9 fL (8.0-11.0); Monocytes % 7.1; Neutrophils % 77.4; Nucleated RBC 0 %; Platelet Count 303 10^3/uL (130-400); RBC 3.77 10^6/uL (3.93-5.22); RDW 14.3 % (11.7-14.6); RDW-SD 46.4 fL
[2021-05-14 07:53] LABS: Absolute Basophil Count 0.02 10^3/uL (0.0-0.2)
[2021-05-14 08:05] LABS: Anion Gap 9.5 mmol/L (3-11); BUN 18 mg/dL (7-18); CO2 26.5 mmol/L (21.0-32.0); CREATININE 1.1 mg/dL (0.55-1.02); Calcium 8.6 mg/dL (8.5-10.1); Chloride 103 mmol/L (98-107); Estimated GFR 47.32 (mL/min/1.73m2); Glucose 137 mg/dL (74-106); Potassium 3.4 mmol/L (3.5-5.1); Sodium 139 mmol/L (136-145)
[2021-05-14 08:11] LABS: ALT 57 U/L (14-59); AST 43 U/L (15-37); Alkaline Phosphatase 69 U/L (46-116); Bilirubin, Direct 0.2 mg/dL (0.0-0.2); Bilirubin, Total 0.5 mg/dL (0.2-1.0); Total Protein 6.6 g/dL (6.4-8.2)
[2021-05-14] MEDS: Normal Saline Flush 10 ML SYR IVP (08:47)
[2021-05-14] MEDS: Insulin Aspart 300 UNITS/3 ML PEN SC ×3 (08:47→18:15)
[2021-05-14] MEDS: Lisinopril 10 MG TAB PO (08:48)
--- NOTE | 2021-05-14 09:34 | W.PM.PROGNOT ---
Date of Service Date of service: 05/14/21 Time of Service: 09:34 Assessment and Plan Assessment and plan (1) Gangrenous cholecystitis: Status: Acute Assessment and plan: POD#2 s/p laparoscopic cholecystectomy -Continue IV Zosyn, cultures from bile with 3 GNR species, pathology pending; would DC home with drain on PO abx x 5 days -ABBY drain care as written -Advance diet as tolerated -PRN analgesia as written, currently on IV tylenol -Recommend Miralax BID to assist with bowel movements -Ambulation and incentive spirometer use encouraged (2) CKD (chronic kidney disease) stage 3, GFR 30-59 ml/min: Status: Acute (3) Preoperative cardiovascular examination: Status: Acute (4) Cholelithiasis: Status: Acute (5) Essential hypertension: Status: Chronic (6) Diabetes mellitus: Status: Chronic Subjective Subjective Patient reports: no new complaints, feels better, no bowel movement and afebrile; denies nausea or vomiting Exam Const General: cooperative, healthy appearing, comfortable and no acute distress Resp Effort & Inspection: normal respiratory effort, able to speak in complete sentences, no audible wheezes and no respiratory distress Cardio Rate: regular rate Rhythm: regular rhythm GI Inspection: normal to inspection, non-distended, incision (intact with skin glue) and other (ABBY drain in place, stripped, serosanguineous output) Palpation: soft, no guarding and tender (appropriate post op) Percussion: dullness to percussion Skin General skin exam: no rashes or lesions noted Neuro General: patient alert, patient awake and patient oriented x3 Objective Last Vital Signs Temp 98.4 F 05/14/21 07:45 Pulse 74 05/14/21 07:45 Resp 18 05/14/21 07:45 BP 155/87 H 05/14/21 07:45 Pulse Ox 95 05/14/21 07:45 Laboratory Results - last 24 hr 05/14/21 05/14/21 05/14/21 07:24 07:24 07:24 WBC 12.40 H RBC 3.77 L Hgb 10.5 L Hct 33.6 L MCV 89.1 MCH 27.9 MCHC 31.3 L RDW 14.3 Plt Count 303 MPV 9.9 Immature Gran % 0.8 Neutrophils % 77.4 Lymphocytes % 12.3 Monocytes % 7.1 Eosinophils % 2.2 Basophils % 0.2 Nucleated RBC % 0 Absolute Neutrophils 9.60 H Absolute Lymphocytes 1.53 Absolute Monocytes 0.88 H Absolute Eosinophils 0.27 Absolute Basophils 0.02 Sodium 139 Potassium 3.4 L Chloride 103 Carbon Dioxide 26.5 Anion Gap 9.5 BUN 18 Creatinine 1.1 H Estimated GFR/1.73 m2 47.32 Glucose 137 H Calcium 8.6 Total Bilirubin 0.5 Conjugated Bilirubin 0.2 AST 43 H ALT 57 Alkaline Phosphatase 69 Total Protein 6.6 Albumin 2.0 L
[2021-05-14] MEDS: Magnesium Citrate 300 ML BTL 150 ML PO (11:54)
--- NOTE | 2021-05-14 15:33 | W.PM.PROGNOT ---
Date of Service Date of service: 05/14/21 Time of Service: 15:37 Assessment and Plan Assessment and plan (1) Cholelithiasis: Status: Acute Assessment and plan: Post op day #2. Stable. Pain controlled. Surgery recommends continuing hospitalization tonight with likely d/c tomorrow. (2) Essential hypertension: Status: Chronic Assessment and plan: continue her lopressor; hold HCTZ. Restart lisinopril in the AM (3) Diabetes mellitus: Status: Chronic Assessment and plan: Now on clear liquid diet. Monitor glucose QAC and HS SS insulin correction dosing. Restart metformin. (4) CKD (chronic kidney disease) stage 3, GFR 30-59 ml/min: Status: Acute Assessment and plan: Creatinine at baseline. Avoid hypotension and nephrotoxic agents. Monitor. (5) Constipation: Status: Acute Assessment and plan: MgCitrate 150ml given. Start scheduled miralax. Subjective Subjective Patient reports: no new complaints, tolerating a regular diet, no bowel movement and afebrile; denies nausea, vomiting or shortness of breath Exam Narrative Exam Narrative: Elderly female sitting in chair. Const General: cooperative and no acute distress Nutritional Appearance: obese Orientation: alert and oriented x3 Resp Effort & Inspection: normal respiratory effort Auscultation: clear to auscultation bilaterally Cardio Rate: regular rate Rhythm: regular rhythm Heart Sounds: S1 normal and S2 normal GI Palpation: soft, no guarding and tender (appropriate mild tenderness at laproscopic insertion sites.) Skin General skin exam: no rashes or lesions noted Extrem General: no pedal edema Objective Last Vital Signs Temp 37.1 C 05/14/21 15:16 Pulse 77 05/14/21 15:16 Resp 18 05/14/21 15:16 BP 126/70 05/14/21 15:16 Pulse Ox 92 05/14/21 15:16 Laboratory Results - last 24 hr 05/14/21 05/14/21 05/14/21 07:24 07:24 07:24 WBC 12.40 H RBC 3.77 L Hgb 10.5 L Hct 33.6 L MCV 89.1 MCH 27.9 MCHC 31.3 L RDW 14.3 Plt Count 303 MPV 9.9 Immature Gran % 0.8 Neutrophils % 77.4 Lymphocytes % 12.3 Monocytes % 7.1 Eosinophils % 2.2 Basophils % 0.2 Nucleated RBC % 0 Absolute Neutrophils 9.60 H Absolute Lymphocytes 1.53 Absolute Monocytes 0.88 H Absolute Eosinophils 0.27 Absolute Basophils 0.02 Sodium 139 Potassium 3.4 L Chloride 103 Carbon Dioxide 26.5 Anion Gap 9.5 BUN 18 Creatinine 1.1 H Estimated GFR/1.73 m2 47.32 Glucose 137 H Calcium 8.6 Total Bilirubin 0.5 Conjugated Bilirubin 0.2 AST 43 H ALT 57 Alkaline Phosphatase 69 Total Protein 6.6 Albumin 2.0 L
[2021-05-14] MEDS: Polyethylene Glycol 3350 17 GM PACKET PO (15:55)
[2021-05-15 00:04] VITALS: BP 158/98; PULSE 73; RESP 18; TEMP 36.6; O2SAT 96
[2021-05-15] MEDS: ACETAMINOPHEN 1,000 MG/100 ML BTL 400 MG IVPB (00:08)
[2021-05-15] MEDS: PIPERACILLIN/TAZO 3.375 GM in Normal Saline 50 ML IVPB ×2 (02:27→08:38)
[2021-05-15 07:00] LABS: Absolute Basophil Count 0.05 10^3/uL (0.0-0.2); Absolute Eosinophil Count 0.49 10^3/uL (0.0-0.7); Absolute Lymphocyte Count 1.78 10^3/uL (1.2-3.4); Absolute Monocyte Count 0.83 10^3/uL (0.1-0.8); Absolute Neutrophil Count 6.24 10^3/uL (1.2-6.7); Basophils % 0.5; Eosinophils % 5.2; HCT 31.7 % (36.0-46.0); Immature Grans % 1.1; Lymphocytes % 18.8; MCH 28.1 pg (27.0-33.0); MCHC 31.5 % (32.0-36.0); MPV 9.7 fL (8.0-11.0); Monocytes % 8.7; Neutrophils % 65.7; Nucleated RBC 0 %; Platelet Count 327 10^3/uL (130-400); RBC 3.56 10^6/uL (3.93-5.22); RDW 14.1 % (11.7-14.6); RDW-SD 46.1 fL; WBC 9.49 10^3/uL (4.4-10.8)
[2021-05-15 07:23] LABS: ALT 43 U/L (14-59); AST 22 U/L (15-37); Albumin 1.9 g/dL (3.4-5.0); Alkaline Phosphatase 67 U/L (46-116); Anion Gap 9.2 mmol/L (3-11); BUN 19 mg/dL (7-18); Bilirubin, Direct 0.2 mg/dL (0.0-0.2); Bilirubin, Total 0.3 mg/dL (0.2-1.0); CO2 27.8 mmol/L (21.0-32.0); CREATININE 1.1 mg/dL (0.55-1.02); Calcium 8.3 mg/dL (8.5-10.1); Chloride 102 mmol/L (98-107); Estimated GFR 47.32 (mL/min/1.73m2); Glucose 116 mg/dL (74-106); Potassium 3.2 mmol/L (3.5-5.1); Sodium 139 mmol/L (136-145); Total Protein 6.4 g/dL (6.4-8.2)
[2021-05-15 07:53] VITALS: BP 167/84; PULSE 72; RESP 17; TEMP 36.7; O2SAT 93
[2021-05-15] MEDS: metFORMIN 500 MG TAB PO (08:30)
[2021-05-15] MEDS: Lisinopril 10 MG TAB PO (08:30)
[2021-05-15] MEDS: Normal Saline Flush 10 ML SYR IVP (08:38)
--- NOTE | 2021-05-15 09:28 | DSE_ITS ---
Date of service: 05/15/21 Time of Service: 09:29 DS: Diagnosis Discharge Diagnosis (1) Gangrenous cholecystitis: Status: Acute (2) CKD (chronic kidney disease) stage 3, GFR 30-59 ml/min: Status: Acute (3) Preoperative cardiovascular examination: Status: Acute (4) Cholelithiasis: Status: Acute (5) Essential hypertension: Status: Chronic (6) Diabetes mellitus: Status: Chronic (7) Constipation: Status: Acute Discharge Plan Disposition Patient Disposition: HOME W/HOME HEALTH SERVICE Condition: Fair Discharge Details Reason For Visit: Gangrenous cholecystitis Admit Date/Time: 05/11/21 05:50 Admit Provider: Chuckie Biggs Attending Provider: Chuckie Biggs [facility] Hospital Course: This is an 85 yo female with a PMH of HTN, DM2 that presented to the ED with fairly sudden onset epigastric discomfort (approx 9 hours prior) that woke her from sleep. Pain described as a heavy feeling, non-radiating, along with nausea and vomiting. No diarrhea. No SOB. In ER findings of note for absence of fever; white count 11; normal electrolytes and LFTs; negative troponon and EKG; and CT showing 2.2x3.8 cm stone in neck of gallbladder. CBD non-dilated at 5.8mm. Findings confirmed with U/S, no pericholic fluid and negative sonographic Issa's. I was asked to evaluate for admission. Patient received IVF and Zofran x2. Reports continued nausea. States pain is not a concern for her, the nausea is what is bothersome. Alludes to possible prior minor such episodes but is quite vague on this point, but nothing sustained or debilitating such as present spell. Surgery and cardiology consulted. Pre-op cardiology indicated average risk; no cardiac history. She underwent laproscopic cholecystectomy on 05/12/21. The intraoperative findings were a fibrinous exudate surrounding the GB with GB wall very indurated and pus noted in the bile. Placed on Zosyn. Post-operative course was unremarkable. Her diet was increased to her regular diabetic diet and she tolerated it well. She will continue antibiotic coverage with Augmentin for 5 days. Follow up with surgery per their recommendations Follow up with PCP in 1-2 weeks. Home Health nursing. Home Meds and New Rx's Prescriptions: New polyethylene glycol 3350 17 gram Powder In Packet 17 g PO BID Qty: 0 0RF amoxicillin-pot clavulanate 875-125 mg tablet 1 tab PO BID Qty: 10 0RF acetaminophen 500 mg capsule 500 mg PO Q6H PRNQty: 30 0RF Continued magnesium oxide 400 mg (241.3 mg magnesium) tablet 400 mg PO DAILY 0RF lisinopril 10 mg tablet 10 mg PO DAILY Qty: 90 4RF aspirin [Aspir-81] 81 MG tablet,delayed release (DR/EC) 1 tab PO DAILY 0RF cholecalciferol (vitamin D3) 5,000 UNIT capsule 5,000 unit PO DAILY 0RF omega 3-kfw-bsl-fish oil 1 EACH capsule 1 ea PO DAILY 0RF atenolol 50 mg tablet 50 mg PO DAILY Qty: 90 4RF hydrochlorothiazide 25 mg tablet 25 mg PO DAILY Qty: 90 4RF metformin 500 mg tablet 500 mg PO DAILY Qty: 90 3RF potassium citrate 5 mEq (540 mg) tablet extended release 5 meq PO DAILY Qty: 90 3RF No Action (DME) OneTouch Verio test strips Strip 1 ea Miscellaneous DAILY Qty: 90 3RF Rx Instructions: daily (DME) lancets [OneTouch UltraSoft Lancets] Misc 1 ea Miscellaneous DAILY Qty: 90 3RF Rx Instructions: Daily (DME) blood-glucose meter [OneTouch Verio Meter] 1 EACH misc Miscellaneous DAILY Qty: 1 2RF Discharge Instructions Additional Instructions: -continue using the incentive spirometer every 2 hours while awake. -Miralax twice daily to avoid constipation. -No lifting, pushing, pulling more than 20 lbs for 4 weeks. Stand Alone Forms: Nursing Discharge Form Referrals: Odalys Summers NP [Primary Care Provider] - 05/30/21 8:00 am (Please call if this appointment does not work for you.) Vandana Hicks MD [ [facility] STAFF PHYSICIAN] - (We will call you with appointment time and date.) Activity:: Activity as Tolerated Equipment/Supplies:: No Equipment Needed Diet:: Diabetic diet, Low Na Discharge Orders Discharge Orders: Discharge Order (Routine); Ordered 05/15/21 Ordered By: Ke Garcia DS: Summary Time Spent with Patient providing and/or coordinating discharge services: Greater than 30 minutes Status at Discharge Functional status at discharge: independent ambulation Overall status at discharge: patient is progressing back to baseline Mental Status: mental status grossly normal Speech and Movement: speech and movement normal Mood: congruent mood Affect: normal affect Exam Narrative Exam Narrative: Elderly female sitting in chair. Const General: cooperative and no acute distress Nutritional Appearance: obese Orientation: alert and oriented x3 Resp Effort & Inspection: normal respiratory effort Auscultation: clear to auscultation bilaterally Cardio Rate: regular rate Rhythm: regular rhythm Heart Sounds: S1 normal and S2 normal GI Palpation: soft, no guarding and tender (appropriate mild tenderness at laproscopic insertion sites.) Skin General skin exam: no rashes or lesions noted Extrem General: no pedal edema Psych Mental Status: mental status grossly normal Speech and Movement: speech and movement normal Mood: congruent mood Affect: normal affect DS: Data Vitals/I&O Vitals and I&O: Vital Signs Temperature 36.7 C 05/15/21 07:53 Temperature Source Tympanic 05/15/21 07:53 Pulse 72 05/15/21 07:53 Pulse Rhythm Regular 05/15/21 03:06 Respiratory Rate 17 05/15/21 07:53 Respiratory Effort Non-Labored 05/15/21 03:06 Respiratory Depth Normal 05/15/21 03:06 Respiratory Pattern Normal 05/15/21 03:06 Blood Pressure 167/84 H 05/15/21 07:53 Blood Pressure Mean 95 05/11/21 04:01 Blood Pressure Position Supine 05/11/21 01:45 Pulse Oximetry 93 05/15/21 07:53 Respiratory End-tidal CO2 31 05/12/21 16:09 Oxygen Delivery Method Room Air 05/15/21 07:53 Oxygen Flow Rate 0 05/15/21 07:53 Pain Level 0 05/15/21 07:53 Comment 05/14/21 19:20 Intake & Output 05/14/21 05/14/21 05/15/21 11:59 23:59 11:59 Intake Total 700 / 1700 1000 / 1700 510 / 510 Output Total 405 / 835 430 / 835 500 / 500 Balance 295 / 865 570 / 865 Intake: IV 300 / 500 200 / 500 150 / 150 Oral 400 / 1200 800 / 1200 360 / 360 Output: Drainage 5 / 35 30 / 35 Abdomen 5 / 35 30 / 35 Urine 400 / 800 400 / 800 500 / 500 Other: Urine Color Dark Yamilet Yellow Yellow Urine Appearance Clear Clear Urine Odor Normal Normal Comment pT refused to use toilet at this time Stool Size Copious Small Stool Characteristics Soft Soft Liquid Voiding Methods Toilet Toilet Data Completed and Pending Labs on day of discharge: Labs from last 24 hours 05/15/21 05/15/21 06:10 06:10 WBC 9.49 RBC 3.56 L Hgb 10.0 L Hct 31.7 L MCV 89.0 MCH 28.1 MCHC 31.5 L RDW 14.1 Plt Count 327 MPV 9.7 Immature Gran % 1.1 Neutrophils % 65.7 Lymphocytes % 18.8 Monocytes % 8.7 Eosinophils % 5.2 Basophils % 0.5 Nucleated RBC % 0 Absolute Neutrophils 6.24 Absolute Lymphocytes 1.78 Absolute Monocytes 0.83 H Absolute Eosinophils 0.49 Absolute Basophils 0.05 Sodium 139 Potassium 3.2 L Chloride 102 Carbon Dioxide 27.8 Anion Gap 9.2 BUN 19 H Creatinine 1.1 H Estimated GFR/1.73 m2 47.32 Glucose 116 H Calcium 8.3 L Total Bilirubin 0.3 Conjugated Bilirubin 0.2 AST 22 ALT 43 Alkaline Phosphatase 67 Total Protein 6.4 Albumin 1.9 L 05/12/21 13:20 Gallbladder - Bile Anaerobic Culture - Pending Preliminary micro results at discharge 05/12/21 13:20 Surgical Culture - Preliminary Gallbladder - Bile Gram Negative Davon Gram Negative Davon#2 Gram Negative Davon#3 05/12/21 00:35 Blood Culture - Preliminary Blood NO GROWTH 72 HOURS 05/12/21 00:25 Blood Culture - Preliminary Blood NO GROWTH 72 HOURS 05/12/21 13:20 Anaerobic Culture - Pending Gallbladder - Bile PFSH All Active Problems Constipation (Acute) Gangrenous cholecystitis (Acute) CKD (chronic kidney disease) stage 3, GFR 30-59 ml/min (Acute) Preoperative cardiovascular examination (Acute) Cholelithiasis (Acute) Gallstones (Acute) Balance problem (Acute) Essential hypertension (Chronic) 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 Daughter No problems noted. Social History Smoking/Tobacco Use Status: Never Second Hand Exposure: Yes Smoking risk assessment performed?: Yes Alcohol Intake: never Drug use: Never Substance use type: does not use Household members: none Do you need help understanding health information?: Never Pets and animals: No Sexually active: No Do you think of yourself as: straight/heterosexual Current gender identity: female What is your relationship status?: How often do you talk on the phone with friends or family?: three or more times per week How often do you get together with friends or relatives?: once per week How often do you attend nondenominational or pentecostalism services?: 1-3 times per year Do you belong to any clubs or organized social groups?: no Panel score (0-1 are the most socially isolated patients): 1 Seatbelt use: always Drive intox or ride w/intox 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
[2021-05-15] MEDS: Potassium Chloride 20 MEQ TABCR PO (10:03)
--- NOTE | 2021-05-15 10:15 | PDOC.HHF2F_ITS ---
Home Health Certification Home Health Certification: 1. Encounter Date and Reason I certify that Karine Castaneda was seen by Ke Garcia MD on 05/15/21 and that I had a [id number] encounter with this patient that meets the physician face to face encounter requirements. 2. Clinical Findings Supporting Skilled Need and Homebound Status I certify that home health services are medically necessary, include either intermittent residential and/or physical/speech therapy, and that this patient is homebound in that absences from the home require considerable and taxing effort and are infrequent or of short duration, or are attributable to the need to receive medical care. [X] (a) Attached documentation from encounter provides clinical findings supporting skilled need and homebound status (including what assistance patient requires to leave the home). The encounter with the patient was in whole, or in part, for the following medical condition, which is the primary reason for home health care: Gangrenous cholecystitis Assisted: Post-op cholecystectomy. Monitor GI system. Monitor for signs/symptoms of infection. Monitor medications. Physical Therapy: Speech Therapy: Homebound: Post-op from cholecystectomy. 3. Certification and Authentication I certify that I composed the above information based on my clinical judgement relating to this patient's medical condition and, if applicable, clinical findings communicated to me by the NPP or inpatient physician who performed the Home Health Referral. All further orders will be obtained through Odalys Summers (Community Based Physician - PCP)
--- NOTE | 2021-05-15 10:21 | CMDISCH_ITS ---
- If Service Date Differs Date of service: 05/15/21 Time of Service: 10:22 LACE Index Scoring Tool - Questions: Length of Stay (in days): 4 - 6 Acuity (Admit via E.D.?): Yes Comorbidities: Diabetes w/o Complication E.D. Visits: 2 - Answers: Total Score: 10 Risk of Readmission: High Risk Care Management Discharge Reason for Hospitalization: Bilary Colic Discharge Plan: Karine will return home when ready per MD with new RN home health services. Karine will follow up with her community providers and plan of care and transport with family. Patient/Family Education Needs: Review discharge instructions, discuss Ask Me T hree.
[2021-05-15] MEDS: Atenolol 50 MG TAB PO (10:31)
[2021-05-15 11:23] VITALS: BP 136/85; PULSE 77; RESP 17; TEMP 37.3; O2SAT 98
[2021-05-15 11:52] VITALS: PULSE 78
[2021-05-15 12:36] VITALS: PULSE 79; PULSE 99; RESP 14; RESP 20; O2SAT 92; O2SAT 94
== END 2021-05-15 12:40 | disposition home health service (06) | DRG 419 ==
LOC: ER 06:40 → MS 07:47
PROVIDERS: Family Medicine; Internal Medicine; Surgery; Admitting Provider General Practice; Emergency Provider Student in an Organized Health Care Education/Training Program; PCP Nurse Practitioner; Visit Provider General Practice
PROC: 0FT44ZZ Resection of Gallbladder, Percutaneous Endoscopic Approach (ICD-10-PCS; CPT 47562; principal; 2021-05-12 11:45)
DX: K80.00 Calculus of gallbladder with acute cholecystitis without obstruction (principal); E11.22 Type 2 diabetes mellitus with diabetic chronic kidney disease; K82.A1 Gangrene of gallbladder in cholecystitis; N18.30 Chronic kidney disease, stage 3 unspecified; I12.9 Hypertensive chronic kidney disease with stage 1 through stage 4 chronic kidney disease, or unspecified chronic kidney disease; M17.11 Unilateral primary osteoarthritis, right knee; Z79.4 Long term (current) use of insulin; K59.00 Constipation, unspecified
CPT/HCPCS: 47562; 36410; 36415; 51701; 80048; 80053; 80076; 83690; 85027; 87040; 87077; 87635; 93005; 93306; 94618; 96361; 96374; 96375; 96376; 99222; 99223; 99285; 74176; 76705; 81003; 81015; 83605; 84484; 85025; 86140; 87070; 87075; 87186; 87205; 88304; 93010; 99232; 99233; 99239; 99356; 99357; J0131; J0360; J1100; J1650; J1885; J2001; J2405; J2543; J2704

== ENCOUNTER → 2021-05-18 10:05 | Outpatient (BNVA) | payer MEDICARE, SELFPAY | PROVIDERS: PCP Nurse Practitioner; Referring Provider Nurse Practitioner; Visit Provider Surgery | DX: Z48.815 Encounter for surgical aftercare following surgery on the digestive system (principal); Z90.49 Acquired absence of other specified parts of digestive tract ==

== ENCOUNTER → 2021-05-25 13:00 | Outpatient (BNVA) | payer MEDICARE, SELFPAY | PROVIDERS: PCP Nurse Practitioner; Referring Provider Nurse Practitioner; Visit Provider Surgery | DX: Z48.815 Encounter for surgical aftercare following surgery on the digestive system (principal); Z90.49 Acquired absence of other specified parts of digestive tract ==

== ENCOUNTER 2021-09-11 03:52 | Outpatient (CLI) | payer MEDICARE, OTHER, SELFPAY ==
[2021-09-11 13:14] LABS: BUN 27 mg/dL (7-18); CREATININE 1.2 mg/dL (0.55-1.02); Chloride 103 mmol/L (98-107); Glucose 141 mg/dL (74-106); Potassium 4.2 mmol/L (3.5-5.1); Sodium 140 mmol/L (136-145)
== END 2021-09-11 03:53 | disposition home or self-care (01) ==
LOC: LOS 03:52
PROVIDERS: PCP Nurse Practitioner; Visit Provider Nurse Practitioner
DX: I10 Essential (primary) hypertension (principal); E11.9 Type 2 diabetes mellitus without complications
CPT/HCPCS: 36415; 80048

== ENCOUNTER 2021-09-15 13:13 | Outpatient (REF) | payer MEDICARE, OTHER, SELFPAY ==
[2021-09-15 14:39] LABS: COMMENT (LAB VIEW ONLY) 123.51 mg/dL; Microalb ug/mg Crea 41.9 ug/mg Cr
== END 2021-09-15 13:14 | disposition home or self-care (01) ==
LOC: LBN 13:13
PROVIDERS: PCP Nurse Practitioner; Visit Provider Nurse Practitioner
DX: N18.30 Chronic kidney disease, stage 3 unspecified (principal); E11.9 Type 2 diabetes mellitus without complications
CPT/HCPCS: 82043; 82570

== ENCOUNTER 2022-09-04 03:23 | Outpatient (CLI) | payer MEDICARE, OTHER, SELFPAY ==
[2022-09-04 12:19] LABS: HCT 39.8 % (36.0-46.0); HGB 12.8 g/dL (11.2-15.7); MCH 28.6 pg (27.0-33.0); MCHC 32.2 % (32.0-36.0); MCV 89 fL (80-95); MPV 9.7 fL (8.0-11.0); Platelet Count 423 10^3/uL (130-400); RBC 4.48 10^6/uL (3.93-5.22); RDW 13.8 % (11.7-14.6); RDW-SD 44.8 fL; WBC 11.47 10^3/uL (4.4-10.8)
[2022-09-04 12:33] LABS: Anion Gap 10.1 mmol/L (3-11); BUN 17 mg/dL (7-18); CO2 26.9 mmol/L (21.0-32.0); CREATININE 1.3 mg/dL (0.55-1.02); Calculated LDL 137 mg/dL (<100); Chloride 104 mmol/L (98-107); Cholesterol 213 mg/dL (<200); Glucose 154 mg/dL (74-106); HDL Cholesterol 41 mg/dL (40-60); Sodium 141 mmol/L (136-145); Triglyceride 176 mg/dL (<150)
[2022-09-04 12:53] LABS: Calcium 9.4 mg/dL (8.5-10.1)
[2022-09-04 13:01] LABS: Hemoglobin A1C 7.5 % (<5.7)
== END 2022-09-04 03:24 | disposition home or self-care (01) ==
LOC: LOS 03:23
PROVIDERS: PCP Nurse Practitioner Family; Visit Provider Nurse Practitioner Family
DX: I10 Essential (primary) hypertension (principal); E11.9 Type 2 diabetes mellitus without complications; N18.30 Chronic kidney disease, stage 3 unspecified; R26.89 Other abnormalities of gait and mobility
CPT/HCPCS: 36415; 80048; 80061; 85027; 83036

== ENCOUNTER 2023-02-11 14:57 | Outpatient (CLI) | payer MEDICARE, OTHER, SELFPAY ==
--- NOTE | 2023-02-11 10:15 | DI.RAD_ITS ---
Exam(s) XR KNEE LT 3V AP,LAT,NADYA EXAM: XR KNEE LT 3V AP,LAT,NADYA CLINICAL HISTORY: LEFT KNEE PAIN. TECHNIQUE: 2D digital imaging was performed of the left knee. Three images were obtained. AP, late ral and PA tunnel views were obtained. COMPARISON: No exams were available for comparison FINDINGS: BONES: No acute fracture is present. No bony destructive lesion is seen. JOINTS: There are marked degenerative changes in the knee characterized by joint space narrowing and osteophytes. The findings affect all 3 joint compartments. There is [id number] in the lateral fem oral tibial joint. No joint effusion is seen. No loose body. SOFT TISSUE: Normal. IMPRESSION: Marked osteoarthritis of the left knee. DATA REPOSITORY: RADIATION DOSE DELIVERED:
== END 2023-02-11 14:58 | disposition home or self-care (01) ==
LOC: DIORS 14:57
PROVIDERS: PCP Nurse Practitioner Family; Referring Provider Nurse Practitioner Family; Visit Provider Physician Assistant
DX: M17.12 Unilateral primary osteoarthritis, left knee
CPT/HCPCS: 73562; 99213

== ENCOUNTER → 2023-03-14 08:57 | Outpatient (BNVA) | payer MEDICARE, OTHER, SELFPAY | PROVIDERS: PCP Nurse Practitioner Family; Referring Provider Nurse Practitioner Family | DX: M17.12 Unilateral primary osteoarthritis, left knee (principal) | CPT/HCPCS: 99213 ==

== ENCOUNTER 2023-03-21 08:47 | Outpatient (CLI) | payer MEDICARE, OTHER, SELFPAY ==
--- NOTE | 2023-03-21 08:45 | RT.EKG_ITS ---
APPROVED REPORT Exam: Resting ECG Reason for Exam: Pre-Op Patient Location: O HR:67 bpm ECG Measurements Heart Rate 67 AXIS WV 222 P 46 QRSd 84 QRS -4 QT 420 T 39 QTc 444 Conclusion Sinus rhythm...normal P axis, V-rate 50- 99 Prolonged WV interval...WV >220, V-rate 50- 90 Abnormal R-wave progression, early transition...QRS area>0 in V2 I have reviewed and interpreted ECG and agree with software generated interpretation.
== END 2023-03-21 08:48 | disposition home or self-care (01) ==
LOC: DI.CM 08:48
PROVIDERS: PCP Nurse Practitioner Family; Visit Provider Nurse Practitioner Family
DX: Z01.818 Encounter for other preprocedural examination (principal)
CPT/HCPCS: 93010

== ENCOUNTER 2023-03-29 04:25 | Outpatient (CLI) | payer MEDICARE, OTHER, SELFPAY ==
[2023-03-29 11:10] LABS: HCT 43.3 % (36.0-46.0); HGB 13.6 g/dL (11.2-15.7); MCH 27.5 pg (27.0-33.0); MCHC 31.4 % (32.0-36.0); MCV 88 fL (80-95); Platelet Count 379 10^3/uL (130-400); RBC 4.94 10^6/uL (3.93-5.22); RDW 13.5 % (11.7-14.6); RDW-SD 43.4 fL; WBC 9.76 10^3/uL (4.4-10.8)
[2023-03-29 11:32] LABS: Anion Gap 10.5 mmol/L (3-11); BUN 19 mg/dL (7-18); CO2 28.5 mmol/L (21.0-32.0); CREATININE 1.5 mg/dL (0.55-1.02); Chloride 102 mmol/L (98-107); Estimated GFR 33.73 (mL/min/1.73m2); Glucose 128 mg/dL (74-106); Potassium 3.8 mmol/L (3.5-5.1); Sodium 141 mmol/L (136-145)
[2023-04-01 15:22] LABS: Fructosamine 257 mcmol/L (200 - 285)
== END 2023-03-29 04:26 | disposition home or self-care (01) ==
LOC: LBO 04:25
PROVIDERS: PCP Nurse Practitioner Family; Visit Provider Student in an Organized Health Care Education/Training Program
DX: M17.12 Unilateral primary osteoarthritis, left knee (principal); Z01.818 Encounter for other preprocedural examination
CPT/HCPCS: 36415; 80048; 85027; 99214; 77073; 82985

== ENCOUNTER 2023-03-29 10:47 | Outpatient (CLI) | payer MEDICARE, OTHER, SELFPAY ==
--- NOTE | 2023-03-29 10:00 | DI.RAD_ITS ---
Exam(s) XR STANDING ALIGNMENT EXAM: XR STANDING ALIGNMENT CLINICAL HISTORY: LEFT KNEE DJD. TECHNIQUE: 2D digital imaging was performed. Four images were obtained. COMPARISON: CR XR KNEE LT 3V AP,LAT,NADYA from 02/11/2023 FINDINGS: BONES: The hips are well maintained. There are marked degenerative changes again seen in the right k nee with joint space narrowing and osteophytes present. There also marked degenerative changes seen in the left knee particularly in the lateral femoral tibial joint. There is near complete loss of th e joint space and deformity of the articular surfaces. The ankles are well maintained.There is no si gnificant leg length discrepancy. SOFT TISSUE: Vascular calcifications are present. IMPRESSION: Marked osteoarthritis of the knees bilaterally. DATA REPOSITORY: RADIATION DOSE DELIVERED:
== END 2023-03-29 10:48 | disposition home or self-care (01) ==
LOC: DIORS 10:48
PROVIDERS: PCP Nurse Practitioner Family; Referring Provider Nurse Practitioner Family; Visit Provider Physician Assistant
DX: M17.12 Unilateral primary osteoarthritis, left knee (principal)
CPT/HCPCS: 77073

== ENCOUNTER 2023-04-09 11:20 | Observation (INO) | payer MEDICARE, OTHER, SELFPAY ==
[2023-04-09] VITALS (17 sets, daily range): BP systolic 127–182; BP diastolic 70–107; PULSE 68–81; RESP 15–20; TEMP 35.2–36.6; O2SAT 92–97; BMI 34.9
--- NOTE | 2023-04-09 06:52 | W.ANESPRE ---
General Info Date of Service Date Performed: 04/09/23 Height: 5 ft 1 in Weight: 84 kg Body Mass Index (BMI): 34.9 Surgical Procedure: Operation Date: 04/09/23 13:10 Proposed Procedure Side Surgeon p Knee Total Arthroplasty w/OrthAlign & Cemented CR Left Agustin Mark MD Meds Allergies and Home Medications Allergies Allergy/AdvReac Type Severity Reaction Status Date / Time No Known Allergies Allergy Verified 04/09/23 12:23 Home Medication Medication Instructions Recorded blood-glucose meter (OneTouch ##1 10/03/16 Verio Meter) cholecalciferol (vitamin D3) 125 5,000 unit PO DAILY 06/03/17 mcg (5,000 unit) capsule omega 8-pdn-alt-fish oil 500 mg 1 ea PO DAILY 06/03/17 (200mg-300mg)-1,000 mg capsule blood sugar diagnostic (OneTouch #90 strips 12/11/19 Verio test strips) lancets (BoostSuiteTouch UltraSoft #90 ea 12/11/19 Lancets) magnesium oxide 400 mg (241.3 mg 400 mg PO DAILY 06/16/20 magnesium) tablet atenolol 50 mg tablet 50 mg PO DAILY #90 tab-caps 08/28/22 hydrochlorothiazide 25 mg tablet 25 mg PO DAILY #90 tab-caps 08/28/22 potassium citrate 5 mEq (540 mg) 5 meq PO DAILY #90 tabs 08/28/22 tablet,extended release lisinopril 30 mg tablet 30 mg PO DAILY #90 tabs 02/26/23 metformin 500 mg tablet 1,000 mg (2 x 500 mg) PO BID #360 03/21/23 tabs acetaminophen 500 mg tablet 1,000 mg (2 x 500 mg) PO Q8H PRN 04/09/23 pain #90 tabs aspirin 81 mg tablet,delayed 81 mg PO BID 30 days #60 tabs 04/09/23 release celecoxib 200 mg capsule (Celebrex) 200 mg PO BID PRN #60 caps 04/09/23 docusate sodium 100 mg capsule 100 mg PO BID #30 caps 04/09/23 (Colace) gabapentin 300 mg capsule 300 mg PO QHS #14 caps 04/09/23 pantoprazole 40 mg tablet,delayed 40 mg PO DAILY #14 tabs 04/09/23 release tramadol 50 mg tablet 50 mg PO Q4H PRN severe 04/09/23 postoperative pain #18 tabs Current Visit Medications: Current Medications Generic Name Dose Route Start Last Admin Trade Name Diane PRN Reason Stop Dose Admin Acetaminophen 1,000 mg 04/09/23 06:00 Acetaminophen 500 Mg Tab PO 04/09/23 16:00 PREOP ALIZA Celecoxib 400 mg 04/09/23 06:00 Celecoxib 200 Mg Cap PO 04/09/23 16:00 PREOP [facility] Gabapentin 300 mg 04/09/23 06:00 Gabapentin 300 Mg Cap PO 04/09/23 16:00 PREOP [facility] Tranexamic Acid 1,000 mg/ 60 mls @ 360 mls/hr 04/09/23 06:00 Sodium Chloride IVPB 04/09/23 16:00 PREOP [facility] Ringer's Solution 1,000 mls @ 80 mls/hr 04/09/23 06:00 IV 04/09/23 23:59 INFUSION [facility] Cefazolin Sodium/Dextrose 2 gm in 50 mls @ 100 mls/hr 04/09/23 06:00 Ancef Duplex IVPB 04/09/23 23:59 PREOP [facility] IV Miscellaneous Supplies 1 each 04/09/23 06:00 Iv Access IV 04/09/23 23:59 DIRECTED ALIZA Sodium Chloride 0 ml 04/09/23 06:00 Normal Saline Flush 10 Ml Syr IV 04/09/23 23:59 PRN PRN Sodium Chloride 0 ml 04/09/23 06:00 Normal Saline 10 Ml Vial IJ 04/09/23 23:59 DIRECTED PRN Sterile Water 0 ml 04/09/23 06:00 Water,Injection,Sterile 10 Ml Vial IJ 04/09/23 23:59 DIRECTED PRN PFSH Active Problems Active Problems: Problem Status Onset Code Left knee DJD M17.12 Onychomycosis B35.1 Edema R60.9 Venous (peripheral) insufficiency I87.2 Toe pain, right M79.674 Toe pain, left M79.675 Type 2 diabetes mellitus with diabetic polyneuropathy E11.42 Neuropathy G62.9 Nail dystrophy L60.3 CKD (chronic kidney disease) stage 3, GFR 30-59 ml/min N18.30 Balance problem R26.89 Essential hypertension I10 Osteoarthritis 01/23/13 M19.90 Diabetes mellitus 11/08/13 E11.9 Medical History Medical History Cholecystitis with gangrene of gallbladder Surgical History Surgical History Hx laparoscopic cholecystectomy 2021 Hx of cataract extraction Tobacco Smoking/Tobacco Use Status: Never Passive smoking exposure: Yes Second hand exposure: Yes Alcohol Alcohol Intake: never Substance Use Substance use: Never Substance use type: does not use Vital Signs and Lab Results Vital Signs Most Recent Vital Signs in EMR: Temp Pulse Resp BP Pulse Ox 36.4 C L 68 16 134/95 H 97 04/09/23 12:31 04/09/23 12:31 04/09/23 12:31 04/09/23 12:31 04/09/23 12:31 Lab Results Blood Type / Crossmatch: No Data to Display Complete Blood Count: White Blood Count 9.76 10^3/uL (4.4-10.8) 03/29/23 11:07 Red Blood Count 4.94 10^6/uL (3.93-5.22) 03/29/23 11:07 Hemoglobin 13.6 g/dL (11.2-15.7) 03/29/23 11:07 Hematocrit 43.3 % (36.0-46.0) 03/29/23 11:07 Platelet Count 379 10^3/uL (130-400) 03/29/23 11:07 Complete Metabolic Panel: Sodium 141 mmol/L (136-145) 03/29/23 11:07 Potassium 3.8 mmol/L (3.5-5.1) 03/29/23 11:07 Chloride 102 mmol/L (98-107) 03/29/23 11:07 Carbon Dioxide 28.5 mmol/L (21.0-32.0) 03/29/23 11:07 BUN 19 mg/dL (7-18) H 03/29/23 11:07 Creatinine 1.5 mg/dL (0.55-1.02) H 03/29/23 11:07 Est GFR (CKD-EPI 2020) 33.73 (mL/min/1.73m2) 03/29/23 11:07 Calcium 10.0 mg/dL (8.5-10.1) 03/29/23 11:07 Glucose 128 mg/dL (74-106) H 03/29/23 11:07 Hemoglobin A1c 7.3 % (4.5-5.7) H 03/21/23 09:21 Liver Function Panel: No Data to Display Coagulation Panel: No Data to Display Cardiac Panel: No Data to Display Arterial Blood Gas: No Data to Display Venous Blood Gas: No Data to Display Pancreas Panel: No Data to Display Thyroid Panel: No Data to Display Infectious Disease: No Data to Display Blood Cultures: No Data to Display Toxicology Panel: No Data to Display Imaging and Studies Imaging and Studies Study information below may be from another EMR and interpreted by another provider. Please see original notes in EMR for more complete details. EKG Summary: 04/10: sinus, IA 220 Echocardiogram Summary: Date of Exam: 05/11/21Sex: F Admission Date: 05/11/21 : 1935 Age: 85 APPROVED REPORT EXAM: Comprehensive 2D, Doppler, and color-flow Echocardiogram Patient Location: In-Patient Room/Bed: [facility] [place] Stripper: Clover Harrington RDCS (AE) Indications: Pre op gallbladder surgery Other Information Study Quality: Adequate. Technically limited study due to body habitus, inability to position patient exam done supine bedside. Conclusion Left ventricular wall thickness and chamber size. Estimated ejection fraction is 65%. Wall motion is normal Normal right ventricular size and systolic function Both atria are normal in size Aortic valve is sclerotic without stenosis or regurgitation Mild mitral annular calcification. Mild mitral regurgitation Normal tricuspid valve with trace regurgitation. Estimated right ventricular systolic pressure is normal at 22 mmHg Borderline dilated ascending aorta measuring 3.35 cm Anesthesia Assessment and Plan Anesthesia History Personal History: No History of Anesthesia Complications Family History: No Family History of Anesthesia Complications Exercise Tolerance Exercise Tolerance: Metabolic Equivalents>4 Pertinent Negatives Pertinent Negatives: No Symptoms of GERD Cardiac & Pulmonary Exam Cardiac Exam: Normal S1/S2 Heart Sounds Pulmonary Exam: Clear Bilateral Breath Sounds Implantable Cardiac Device Does patient have a Pacemaker or an ICD?: No Airway Exam Known Difficult Airway: No Mallampati Class: 3 Mouth Opening: Normal (> 3cm) Thyromental Distance: Greater than 3 cm Neck Range of Motion: Full ROM Neck Circumference: Thick Teeth Condition: Normal Dentition and Edentulous ASA Classification ASA Score: ASA 3 Emergency Case?: No NPO Status NPO Status: NPO Clears >2 hours, Solids >8 hours Anesthesia Plan Resuscitation Status: Full Code Anesthesia Technique: Spinal Anesthesia Airway Planned: Natural Airway Pain Management: Surgeon and patient request nerve block Monitors Used: Standard Monitors Preoperative Comments:: 87 yo female for TKA. Sig PMHx: HTN, CKDIII, DM (last a1c 7.3, metformin), neuropathy. never smoker. Previous Anes: - lap dimitry, glide 3 grade 1, ? IV infiltration during case.
[2023-04-09] MEDS: Lactated Ringers 1,000 ML 80 ML IV ×2 (12:40→17:53)
[2023-04-09] MEDS: Acetaminophen 500 MG TAB 1000 MG PO ×2 (12:48→21:02)
[2023-04-09] MEDS: Gabapentin 300 MG CAP PO ×2 (12:48→22:27)
[2023-04-09] MEDS: Celecoxib 200 MG CAP 400 MG PO (12:49)
[2023-04-09] MEDS: ceFAZolin 2 GM/50 ML BAG IVPB (13:32)
--- NOTE | 2023-04-09 14:14 | W.ANESNERVE ---
Nerve Block Single Injection Procedure Date and Time Date Performed: 04/09/23 Procedure Start: 13:23 Location Where Procedure Performed Procedure Location: Day Surgery Unit Reason Performed: Postoperative Analgesia Requesting Provider: Agustin Mark Timeout Performed Timeout Performed: Yes Monitoring Used ECG, Blood Pressure, SpO2, ETCO2 and See EMR for corresponding vital signs Sterility Sterility: Hand Hygiene, Surgical Cap, Surgical Mask, Sterile Gloves, Eye Protection and Chlorhexidine Sedation Given During Procedure Sedation Given (Indicate Dose Given): Versed IV Dose:: 1mg IVP Patient Mental Status Patient Mental Status: Sedate with meaningful communication Nerve Block 1st Nerve Block: Laterality: Left Block Type: Adductor Canal Ultrasound Image Saved?: Yes Needle / Catheter Used: 100mm SonoPlex II Local Anesthetic Bolus (Indicate Dose Given): Lidocaine used for local infiltration of skin, Injected in 3-5ml increments after negative blood aspiration and Ropivacaine 0.5% Dose:: 0.5%/25cc (125mg) Additives (Indicate Dose Given): Epinephrine to make 1:200,000 (5mcg/ml) Dose:: 125mcg (1:200,000) Ultrasound: Sterile probe cover and gel used Nerve Stimulator: Not Used Paresthesia: None Procedure Tolerated: No Complications and Patient tolerated well Procedure Outcome: Successful Performed By: Huy Palmer
[2023-04-09] MEDS: fentaNYL 100 MCG/2 ML VIAL IVP (16:14)
--- NOTE | 2023-04-09 17:28 | W.ANESPOSTOP ---
Postoperative Evaluation Date, Time and Location Date Performed: 04/09/23 Time Performed: 16:30 Patient Location: PACU Vital Signs Most Recent Imported Vital Signs: Most Recent Vital Signs Temp Pulse Resp BP Pulse Ox 36.0 C L 74 19 142/93 H 92 04/09/23 17:15 04/09/23 17:15 04/09/23 17:15 04/09/23 17:15 04/09/23 17:15 Pain Score Most Recent Pain Score: Most Recent Pain Score Pain Level 0 04/09/23 16:45 Assessment Mental Status: Awake (Alert & Oriented to Patient Baseline) Airway and Respiratory Function: Patent airway with normal (patient baseline) respiratory exam Cardiovascular Function: Hemodynamically Stable Hydration Status: Adequately Hydrated Nausea & Vomiting: No Nausea or Vomiting Pain: Pain is tolerable per patient Peripheral Nerve Block: Regional nerve block not resolved at time of post operative discharge
--- NOTE | 2023-04-09 17:49 | IN_ITS ---
PT Notes Visit Reasons: Left knee DJD Physical Therapy Inpatient Initial Evaluation Date: 04/10/2023 Referring Doctor: MACHO Almendarez PT Orders: PT CONSULT: S/P Ortho Surgery Precautions: Fall. Standard. Activity as tolerated. Patient Profile/Admitting Diagnosis: Karine is a an 87-year-old female with degenerative joint disease of the left knee and status post left total knee arthroplasty on postoperative 0. 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 Daughters take care of grocery shopping. She has a lady who comes in 2 hours each weak for laundry and chores. Equipment Owned/DME: [facility] Subjective: Has not had anything to eat since last night. Awaiting supper delivery which Nurse Iverson followed up with the dietary staff about. PT provided patient with saltines and Amarjit cracker in the meantime. Complained of dizziness and nausea but no vomiting throughout session. Family indicated that she has had 1 fall in the past year. Agreeable to transferring to a more comfortable recliner that PT found for patient. Okay with doing seated leg exercises while waiting for supper. Reported 1/10 pain in the L knee at rest and with weight bearing. Objective: General Observation: Seated on bedside chair. Daughters present in room thro ughout session. SHERICE wraps to L LE. Cryocuff to L knee. Mental Status: Alert and oriented as to person, place, time, and purpose. Able to pay attention, focus, and respond appropriately. Pain: As above Vital Signs: Closely monitored by Nurse Iverson ROM: Right Lower Extremity: Hip flexion WFL. Hip abduction WFL. Knee flexion WFL. Ankle dorsiflexion WFL. Ankle plantarflexion WFL. Left Lower Extremity: Hip flexion WFL. Hip abduction WFL. Knee flexion 20 degrees to 100 degrees. Knee extension -20 degrees. Ankle dorsiflexion WFL. Ankle plantarflexion WFL. Strength: Right Lower Extremity: Hip flexors 5/5. Hip abductors 5/5. Knee flexors 5/5. Knee extensors 5/5. Ankle dorsiflexors 5/5. Ankle plantarflexors 5/5. Left Lower Extremity: Hip flexors 4-/5. Hip abductors 4-/5. Knee flexors 3-/5. Knee extensors 3-/5. Ankle dorsiflexors 4-/5. Ankle plantarflexors 4-/5. Bed Mobility/Transfers: Minimal cueing provided for use of B hands as needed for support, movement sequence, AD management, and posture to reduce fall risk and minimize pain report Stand to sit with contact guard assist using FWW Bed to reclining contact guard assist using FWW Gait: Covered a distance of about 8 steps from edge of bed to bedside chair with nursing staff and another 8 steps from bedside chair to bedside recliner that PT forun for patient. deferred further walking as patient has not had anything to eat and has increasing lightheadedness. No vomitting. Stairs: Deferred Balance: Static Sitting: Normal Dynamic Sitting: Normal Static Standing: Fair Dynamic Standing: Fair Special Tests: Mobility Limitations Standardized Measure [facility] AM-PAC 6 clicks Basic Mobility Inpatient Short Form: Raw Score: 18 CMS Score: 47% deficit Informed Consent/Education: Patient was instructed in purpose of PT consult and plan of care. Agreeable to proceed with established PT POC to achieve personal goals. Trained patient with correct performance of exercises below to maximize motor control, joint flexibility, soft tissue extensibility of the L knee musculature: Access Code: [email or web address] URL: [email or web address] Date: 04/10/2022 Prepared by: Aubree Zhong Exercises - Supine Quad Set - 1 x daily - 7 x weekly - 1 sets - 10 reps - 5 hold - Supine Heel Slide - 1 x daily - 7 x weekly - 1 sets - 10 reps - 5 hold - Supine Ankle Pumps - 1 x daily - 7 x weekly - 1 sets - 10 reps - 5 hold - Small Range Straight Leg Raise - 1 x daily - 7 x weekly - 1 sets - 10 reps - 5 hold - Seated March - 1 x daily - 7 x weekly - 1 sets - 10 reps - 5 hold Assessment: Patient's mobility performance limited by report of lightheadedness. Further mobility assessment deferred as patient has not had anything to eat since NPO status the night prior. Patient presents with clinical signs and symptoms consistent with current/admitting diagnoses that have resulted to mobility limitations, gait instability, generalized weakness, and overall ADL decline as demonstrated by the following impairment level findings: 1. Decreased strength to L knee major muscle groups 2. Impaired sitting/standing balance 3. Impaired activity tolerance 4. Limitation of joint range of motion in L knee 5. Lightheadedness Impairments are contributing to the following functional limitations: 1. Decline in bed mobility skills 2. Decline in transfer skills 3. Difficulty with ambulation without assistive device and physical assistance 4. Increased completion time for mobility ADL performance 5. Increased risk for falls 6. Difficulty with managing steps alone safely Patient is assessed as a 87304 moderate complexity based on the following: History: 87-year-old female with past medical history as indicated above Examination: Demonstrable impairment in strength, balance, and mobility level with underlying impairments and functional limitations as exhibited above as well as deficit score of 47% utilizing the [facility] Mobility Inpatient Short Form Presentation: Evolving Decision Makin moderate complexity Goals: Goals X1 week 1. Supine-Sit independent 2. Sit-Supine independent 3. Sit-Stand independent 4. Stand-Sit independent with FWW 5. Bed-Chair independent with FWW 6. Chair-Bed independent with FWW 7. Independent gait on level surface with use of FWW for at least 150 feet without report of pain nor dyspnea 8. Independent stair negotiation while holding onto B rails for at least 7 steps without report of pain nor dyspnea 9. Independent with home exercise program 10. Good static and dynamic standing balance/tolerance Plan of Care/Treatment Plan: 1-2x/day, 7 days/week x 1 week. Plan of care has been reviewed with the [employer] SPECIALIST providing the service under Physical Therapy direction. Initiate Physical Therapy intervention for pain management as needed, strengthening, bed mobility, transfers, gait, stairs, balance training, and use of assistive device. DISCHARGE RECOMMENDATIONS: [] Home with no services [] [] Home with services [specify] [] Home with outpatient PT [] [] SNF for continued rehabilitation [] [] Staff Nurse Anesthetist Care [] [] SNF versus LTC based on ability to participate and progress [] [X] PT vs SNF based on progress towards goals. TREATMENT CODE/TIME: 24297 x 20 minutes for 1 unit, 99661 x 15 minutes for 1 unit beginning at 17:49 PM. Thank you for the opportunity to participate in the care of this patient. Aubree Zhong PT, DPT, CLT [facility] [place], [place]
[2023-04-09] MEDS: Normal Saline Flush 10 ML SYR IV (17:53)
--- NOTE | 2023-04-09 18:01 | ROE_ITS ---
Date of service: 04/09/23 Time of Service: 14:00 Operative Note Operative Note DATE OF PROCEDURE: 04/09/23 PRE-OP DIAGNOSIS: Left knee arthritis with valgus deformity POST-OP DIAGNOSIS: same PROCEDURE: Left Total Knee Arthroplasty with Intraoperative Navigation SURGEON: gAustin Mark SHEET METAL DUCT INSTALLER HELPER: Yaneth Castro ANESTHESIA TYPE: Spinal Refer to Anesthesia Record ESTIMATED BLOOD LOSS: 100 PATHOLOGY: none sent COMPLICATIONS: None Patient was transported to: PACU Patient's condition: stable Implants: 1. Depuy Attune Cruciate Retaining Femoral Component, Size 5 2. Depuy Attune Fixed Bearing Tibial Component, Size 5 3. Depuy Attune 5x12 CR, FB Poly 4. Depuy Attune Patellar Component, Size 32 Indications: I have seen Karine in clinic for symptoms of knee arthritis, confirmed with radiographic findings. SHe has exhausted nonoperative methods and was having significant limitations in daily function and desired better function and less pain. I discussed the technical details of a knee replacement. I explained the risks of the procedure to include, but not limited to, bleeding, infection, pain, stiffness, fracture, damage to nerves and vessels, damage to muscles and tendons, loosening, need for repeat procedure, blood clot and cardiopulmonary demise. Despite these risks, Karine elected to proceed. Findings: There was significant signs of arthritis throughout the knee involving all 3 compartments. Procedure Description: Karine was greeted in the preoperative holding area where the correct side was identified and marked. The consent was reviewed with the patient and signed. The history and physical was updated. All questions were answered. Preoperative mediacations were administered: Acetaminophen 1000mg, Celebrex 400mg, Gabapentin 300mg. An adductor canal block was then administered by the anesthesia team in the PACU. Karine was taken back to the operating room. A spinal anesthestic was then administered. The patient was placed into the supine position on the operating room table. A nonsterile tourniquet was placed high onto the leg but only used for cementing. Posts were placed for positioning during the procedure. All bony prominences were well padded. Prophylactic antibiotics in the form of Cefazolin were administered. 1g of Tranxemic Acid was given intravenously within 30 minutes of incision. The left leg was then prepped with Chloraprep and draped in a standard fashion with impervious stockinette and extremity drape with Iodine impregnated skin protection. A timeout to confirm correct identity, side and site, procedure, allergies, anesthesia, and medical concerns was performed. With the knee in some flexion, a midline incision was made overlying the knee. Full thickness skin flaps were raised once the extensor mechanism was encountered. These were raised medially and laterally. Any bleeding was controlled with electrocautery. Once the extensor mechanism was fully exposed, a medial parapatellar arthrotomy was performed in a flexed position. All bleeding from the arthrotomy and the geniculate arteries was coagulated. A medial subperiosteal peel was performed with electrocautery to the midcoronal plane. The fat pad was removed while keeping the patellar tendon protected. The anterior distal femur synovium was removed for later visualization. The ACL and PCL were resected and the anterior horn of the lateral meniscus was transected. The knee was then flexed with the patella everted. Large osteophytes from the tibia were removed. Large osteophytes from the femur were removed. A single starting pin was then placed 1cm anterior to the PCL insertion and the notch in the direction of the femoral head. The OrthoAlign device was applied over the pin. It was oriented to be in line with the epicondylar axis and the trochlear groove. It was then pinned into place. The navigation computer was then turned on and calibrated. The distal femur cut was set at 0.5 degrees va lgus and 4 degrees flexion. The distal femur cutting guide then was positioned for a 9mm cut. The distal femur was cut with an oscillating saw while protecting the soft tissues. The tibia was then addressed. The OrthoAlign device was placed over the tibial tubercle and medial tibia and secured into position. Once again, OrthoAlign was calibrated and then set for a 1 degree varus cut and 5.5 degrees of posterior slope. With this locked into position, the cut thickness stylus was used to assess cut thickness. The lateral side, most involved side, was set for a 5mm cut, corresponding to 8mm medially. This was then held in position and pinned into place with 2 additional pins and a cross pin for stability. The medial and lateral collateral ligaments were protected and the cut was performed. With this completed, it was assessed and noted to be of appropriate dimensions. The guide and OrthoAlign was removed. A spacer block was inserted and the knee was brought into extension. The 10mm spacer block provided full extension, without hyperextension and with stability of both the medial and lateral collateral ligaments was assessed. The pins from the femur and the tibia were then removed. The distal femur was then sized. The anterior stylus was placed onto the lateral ridge of the anterior femur. This indicated a size 5 femur. The external rotation of the guide was adjusted to 5 degrees to match the epicondylar axis, perpendicular to Janeth?s line. The 4-in-1 cutting guide was the placed. The posterior medial femur cut was evaluated and appeared of good thickness. The spacer block was inserted underneath the cutting guide and stability was confirmed in 90 degrees of flexion. An redd wing was used to confirm appropriate position of the anterior cut to avoid notching. This cutting guide was ensured to be flush on the cut surface and then pinned into place with headed pins. While protecting the soft tissues, quad tendon, and collateral ligaments, the anterior and posterior cuts were performed with a saw. The central two pins were removed and the posterior and anterior chamfers were cut next. The notch-cutting guide was placed. This was pinned to lateralize the femoral component as much as possible while keeping it flush on the cut surface. This was then pinned into position. A reciprocating saw was used to make the notch cut. A rasp smoothed the cut surfaces. A trial posterior stabilized femoral component was then inserted, impacted down to the cut surfaces, and the lug holes were drilled. A provisional trial tibial component was placed and the knee was brought through range of motion. The polyethylene was trialed until there was good flexion and extension with excellent stability to the medial and lateral collaterals. The patella was tracking without thumbs. The tibial cut surface was fully exposed. The medial and lateral menisci were removed. The tibia was then sized as a 5. The tibia had been previously marked during trialing to correspond to the center of the tibial component to help with rotation. The trial was aligned to this ector, approximately rotated to the medial 1/3rd of the tibial tubercle. The trial was pinned into place. The tibia was prepared with a reamer and a keel punch. The knee was then brought into extension and the patella was measured as 23mm. Using the patellar clamp and cut guide, this was resected to a flat surface with at least 13mm of thickness remaining. The size 32 patella fit the best. This was oriented and then clamped into position. The lugs were drilled. The trial components were removed. The final components, except for the polyethylene were opened on the back table. The periosteal and capsular tissues, especially posteriorly, around the knee were then systematically injected with a periarticular cocktail consisting of 246mg of Ropivacaine, 0.5mg of Epinephrine, 0.08mg of Clonidine, and 30mg of Ketorolac, diluted to 100cc. The tourniquet was then inflated to 275mmHg. The knee was thoroughly irrigated with a pulse lavage and dried. On the back table, with the implants opened, the cement was mixed. 2 batches of antibiotic laden cement were prepared with vacuum assistance. After the cement was ready a small amount was placed on to the back side of the tibial component at the keel. A small amount was placed onto the posterior flange of the femur. Cement was manual pressurized and impregnated into the cut surface of the tibia. The tibial component was then inserted into the cut surface and impacted into position. Excess cement was removed and the component was reimpacted. Again, excess cement was removed and our attention was then turned to the femur. The femoral cut surface was once again dried and cement was manually impacted into the cut surface. The femoral component was lined with the lug holes and impacted. Excess cement was removed. It was ensured to be down against the cut surface. The trial polyethylene was then inserted and the leg was brought out into full extension for the duration of the cement curing process, approximately 15min. Cement was lastly manually impacted into the cut surface of the patella and the patellar button was clamped into position and held. During this process attention was turned to the gutters of the knee and for all interfaces for any excess cement. The knee was then thoroughly irrigated with Surgiphor Betadine solution. It was allowed to sit in the knee for 3 minutes before being irrigated out with saline. After the cement had finally cured, approximately 15min, the clamp was removed from the patella and the knee was taken through range of motion. A size 12mm polyethylene component provided the best range of motion and stability with less than 2mm gapping with medial and lateral stress and full extension without significant hyperextension. The patella was tracking with a no-thumbs technique. The trial poly was removed and once again the knee was checked for any loose, excess, or errant cement. The poly component was then inserted into position after cleaning and drying the tibial tray. The capsule was then reapproximated with a No. 1 Vicryl at multiple locations. The capsule was finally closed with a No. 2 Stratafix, barbed suture. The tourniquet was then released and the arthrotomy appeared watertight without significant bleeding. The second dosing of 1g TXA was started. Deep tissues were then reapproximated with 0 Vicryl and 2-0 Vicryl. The skin was closed with a running 3-0 Monocryl in a subcuticular fashion. This was reinforced with skin glue. A Mepilex silver dressing was applied along with a [id number] SHERICE wrap. A CryoCuff was applied. Karine was transferred to the hospital bed without difficulty an suffering no apparent complication. Karine has a good prognosis. Physical therapy will start today and without restrictions, weight-bearing as tolerated. Aspirin 81mg BID will be used for DVT prophylaxis.
[2023-04-09] MEDS: Insulin Aspart 300 UNITS/3 ML PEN SC (18:23)
[2023-04-09] MEDS: ceFAZolin 1 GM/50 ML BAG IVPB (21:01)
[2023-04-09] MEDS: Aspirin E.C. 81 MG TABEC PO (21:01)
[2023-04-09] MEDS: Celecoxib 200 MG CAP PO (21:01)
[2023-04-10] MEDS: ceFAZolin 1 GM/50 ML BAG IVPB ×2 (03:25→13:00)
[2023-04-10 03:27] VITALS: BP 112/76; PULSE 86; RESP 18; TEMP 35.6; O2SAT 94
[2023-04-10] MEDS: Ondansetron 4 MG/2 ML VIAL IVP ×2 (04:02→09:23)
[2023-04-10 07:44] VITALS: BP 131/77; PULSE 63; RESP 16; TEMP 35.8; O2SAT 94
--- NOTE | 2023-04-10 07:57 | DSE_ITS ---
Date of service: 04/10/23 Time of Service: 07:55 DS: Diagnosis Discharge Diagnosis (1) Left knee DJD: Status: Chronic Discharge Plan Disposition Patient Disposition: Home Condition: Good Discharge Details Reason For Visit: Left knee DJD Admit Date/Time: 04/09/23 12:04 Admit Provider: Agustin Mark Attending Provider: Agustin Mark Primary Care Provider: [facility] Course Hospital Course: Patient was admitted to the medical/surgical floor following the procedure. The surgery was tolerated well without any notable medical, surgical, or anesthetic complications. Mobilization began postoperatively. She was voiding spontaneously. Vitals were stable. Physical therapy worked with the patient and was cleared for discharge home. No acute medical issues. Pain was controlled on oral regimen. Home Meds and New Rx's Prescriptions: New celecoxib [Celebrex] 200 mg capsule 200 mg PO BID PRNQty: 60 0RF Rx Instructions: Take one tablet twice daily for pain and inflammation aspirin 81 mg tablet,delayed release (DR/EC) 81 mg PO BID 30 Days Qty: 60 0RF tramadol 50 mg tablet 50 mg PO Q4H PRN (Reason: severe postoperative pain) Qty: 18 0RF Rx Instructions: Take one tablet up to every 4 hours as needed for severe pain acetaminophen 500 mg tablet 1,000 mg PO Q8H PRN Qty: 90 0RF Rx Instructions: Take two tablets up to every 8 hours as needed for pain pantoprazole 40 mg tablet,delayed release (DR/EC) 40 mg PO DAILY Qty: 14 0RF docusate sodium [Colace] 100 mg capsule 100 mg PO BID Qty: 30 0RF gabapentin 300 mg capsule 300 mg PO QHS Qty: 14 0RF Rx Instructions: Take one tablet at bedtime Continued (DME) OneTouch Verio test strips Strip 1 ea Miscellaneous DAILY Qty: 90 3RF Rx Instructions: daily (DME) lancets [OneTouch UltraSoft Lancets] Misc 1 ea Miscellaneous DAILY Qty: 90 3RF Rx Instructions: Daily magnesium oxide 400 mg (241.3 mg magnesium) tablet 400 mg PO DAILY lisinopril 30 mg tablet 30 mg PO DAILY Qty: 90 3RF atenolol 50 mg tablet 50 mg PO DAILY Qty: 90 4RF hydrochlorothiazide 25 mg tablet 25 mg PO DAILY Qty: 90 4RF potassium citrate 5 mEq (540 mg) tablet extended release 5 meq PO DAILY Qty: 90 3RF metformin 500 mg tablet 1,000 mg PO BID Qty: 360 3RF (DME) blood-glucose meter [OneTouch Verio Meter] 1 EACH misc Miscellaneous DAILY Qty: 1 cholecalciferol (vitamin D3) 5,000 UNIT capsule 5,000 unit PO DAILY omega 0-xrh-qvu-fish oil 1 EACH capsule 1 ea PO DAILY Discontinued acetaminophen 500 mg capsule 500 mg PO Q6H PRNQty: 30 0RF Discharge Instructions Additional Instructions: Total Knee Discharge Instructions Activity: The most important activity is to walk and to work on gentle motion (both flexion and extension). You should try to take short walks a few times a day. It is important that when resting you work on keeping the knee straight. Avoid putting a pillow behind the knee as this will encourage flexion. Work on range of motion exercises as provided by Physical Therapy. - Start outpatient physical therapy within 2 weeks. - You should wear the YANCY hose on both legs for 2 weeks. You may remove these at night. You may also use any compression sock in place of the YANCY hose. - Utilize [employer] to review exercises, see videos on exercises and obtain basic information pertaining to your surgery and your recovery. Dressing: Remove the Alexis wrap by 2 days after your surgery and put on the YANCY stocking given to you from the hospital. Keep the surgical dressing (underneath the ALEXIS wrap) in place for at least one week. After the first week it may be removed and replaced with light gauze and tape or nothing. The wound and dressing may get wet after 3 days but avoid soaking the dressing or otherwise it will need to be changed. Many people prefer covering the dressing with cling wrap (saran wrap) to minimize it from getting soaked. If it gets wet, just pat dry. If it starts to peel off then it will need to be changed. Medications: - You should take Tylenol and anti-inflammatory Celebrex as your primary pain control medications. If the Celebrex is too expensive or not covered, please call the office for another alternative (Advil/Ibuprofen or Naproxen/Aleve) - You have been prescribed a stronger pain medication Tramadol for breakthrough pain, take as needed as prescribed. - You have also been prescribed a stomach acid reduction agent Pantoprozole to help reduce stomach acid and reflux. - You have been prescribed Gabapentin to take at night for restlessness and nerve pain. - You will be taking Aspirin 81mg twice a day for DVT prevention unless instructed otherwise. - If you have constipation you should take Colace (which has been prescribed) or Miralax (which is available [id number]). It takes most people 3-4 days to have a bowel movement. Follow-up: 2 weeks If you have any acute concerns or questions, please do not hesitate to contact the office at [phone]. You may contact Dr. Mark with any questions after hours through the hospital at [phone] or on his cell phone at [phone]. Referrals: Agustin Mark MD [ [facility] STAFF PHYSICIAN] - Activity:: Activity as Tolerated Equipment/Supplies:: Walker Diet:: As Tolerated Discharge Orders Discharge Orders: Discharge Order (Routine); Ordered 04/10/23 Ordered By: Agustin Mark DS: Summary Time Spent with Patient providing and/or coordinating discharge services: Less than 30 minutes Status at Discharge Functional status at discharge: uses cane/walker Overall status at discharge: patient is progressing back to baseline Mental Status: mental status grossly normal Speech and Movement: speech and movement normal Mood: congruent mood Affect: normal affect Quality:SDOH Health Related Social Needs: No Data to Display Exam Narrative Exam Narrative: Resting comfortably in the bed. No acute distress. Alert and orient x 3. Evaluation the left leg shows no drainage. The Alexis wrap is in place. She is able to straight leg raise. She is able to demonstrate active ankle dorsiflexion, plantarflexion, EHL, FHL. Initial range of motion 0 to 90 degrees without limitation. 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 (04/10/23) Long standing history of viscosupplementation injections at [place] for 8+ years Last orthovisc injection: 09/27/22 Last steroid injection: 12/13/22 Onychomycosis (Acute) Edema (Acute) Venous (peripheral) insufficiency (Acute) Toe pain, right (Acute) Toe pain, left (Acute) Type 2 diabetes mellitus with diabetic polyneuropathy (Acute) Neuropathy (Acute) Nail dystrophy (Acute) CKD (chronic kidney disease) stage 3, GFR 30-59 ml/min (Acute) Balance problem (Acute) Essential hypertension (Chronic) Osteoarthritis (Chronic 01/23/13) right knee Diabetes mellitus (Chronic 01/23/13) Medical History Cholecystitis with gangrene of gallbladder Surgical History Hx laparoscopic cholecystectomy 2021 Hx of cataract extraction Family History Mother , age 78 Heart disease Alzheimer disease Father , age 58 Throat cancer Sister Heart disease Brother Alcohol abuse Brother Alcohol abuse Son Heart disease Daughter No problems noted. Daughter No problems noted. Social History Smoking/Tobacco Use Status: Never Second Hand Exposure: Yes Smoking risk assessment performed?: Yes Alcohol Intake: never Drug use: Never Substance use type: does not use Household members: none Housing: apartment Do you need help understanding health information?: Never Pets and animals: No Sexually active: No Do you think of yourself as: straight/heterosexual Current gender identity: female What is your relationship status?: How often do you talk on the phone with friends or family?: three or more times per week How often do you get together with friends or relatives?: once per week How often do you attend alevism or scientology services?: 1-3 times per year Do you belong to any clubs or organized social groups?: no Panel score (0-1 are the most socially isolated patients): 1 Seatbelt use: always Drive intox or ride w/intox explosives truck driver: No Do you feel safe at home: Yes Do you feel safe in your relationship?: Yes
[2023-04-10] MEDS: Insulin Aspart 300 UNITS/3 ML PEN SC ×3 (08:23→17:15)
--- NOTE | 2023-04-10 09:50 | PDOC.CMIN ---
Date of service: 04/10/23 Time of Service: 09:51 Care Management Initial Assmt Initial Assessment REASON FOR HOSPITALIZATION:: DJD PREVIOUS FUNCTIONAL STATUS/SOCIAL/FAMILY SUPPORTS:: Karine lives alone at [facility] in [place]. She has 3 children, 2 daughters and a son, several grandchildren and 6 great grandchildren. They live in the area and are close and supportive. Karine is independent at baseline and does not receive any community services. She no longer drives but has friends and family who transport her as needed. CURRENT FUNCTIONAL STATUS:: Karine was sitting up in bed visiting with her daughter when CM met with her. She was polite but not very talkative. The original plan was to discharge Karine home today but she developed nausea and vomiting, so will remain hospitalized one more day. ADVANCE DIRECTIVES:: on file. Vanessa Rodriguez and Belle Gil co-agents (daughters) Has patient been provided with info about the portal/API?: Yes Did the patient sign up for the portal?: No CODE STATUS:: Full Code INSURANCE COVERAGE / FINANCIAL ISSUES:: Medicare [employer] PRIMARY CARE PHYSICIAN:: Allie Rodrigues POTENTIAL DISCHARGE NEEDS:: follow up with surgeon and plan of care PATIENT/FAMILY EDUCATION NEEDS:: Review of discharge instructions, activity, limitations, follow up plan, discuss Ask Me Three TRANSPORTATION:: via private vehicle with family PLAN:: Anticipate Karine will be discharged home, possibly with new home health services for PT. She will follow up with her surgeon and plan of care and transport with family. CM will follow and support discharge planning needs. 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 (04/10/23) Long standing history of viscosupplementation injections at [place] for 8+ years Last orthovisc injection: 09/27/22 Last steroid injection: 12/13/22 Onychomycosis (Acute) Edema (Acute) Venous (peripheral) insufficiency (Acute) Toe pain, right (Acute) Toe pain, left (Acute) Type 2 diabetes mellitus with diabetic polyneuropathy (Acute) Neuropathy (Acute) Nail dystrophy (Acute) CKD (chronic kidney disease) stage 3, GFR 30-59 ml/min (Acute) Balance problem (Acute) Essential hypertension (Chronic) Osteoarthritis (Chronic 01/23/13) right knee Diabetes mellitus (Chronic 01/23/13) Medical History Cholecystitis with gangrene of gallbladder Surgical History Hx laparoscopic cholecystectomy 2021 Hx of cataract extraction Family History Mother , age 78 Heart disease Alzheimer disease Father , age 58 Throat cancer Sister Heart disease Brother Alcohol abuse Brother Alcohol abuse Son Heart disease Daughter No problems noted. Daughter No problems noted. Social History Smoking/Tobacco Use Status: Never Second Hand Exposure: Yes Smoking risk assessment performed?: Yes Alcohol Intake: never Drug use: Never Substance use type: does not use Household members: none Housing: apartment Do you need help understanding health information?: Never Pets and animals: No Sexually active: No Do you think of yourself as: straight/heterosexual Current gender identity: female What is your relationship status?: How often do you talk on the phone with friends or family?: three or more times per week How often do you get together with friends or relatives?: once per week How often do you attend restoration or alevism services?: 1-3 times per year Do you belong to any clubs or organized social groups?: no Panel score (0-1 are the most socially isolated patients): 1 Seatbelt use: always Drive intox or ride w/intox limousine driver: No Do you feel safe at home: Yes Do you feel safe in your relationship?: Yes
--- NOTE | 2023-04-10 10:13 | PT.INTREAT ---
Date of service: 04/10/23 Time of Service: 08:54 PT Notes Visit Reasons: Left knee DJD Inpatient Physical Therapy Treatment Note [facility] Date: 04/10/23 PRECAUTIONS: Fall, standard, activity as tolerated. WBAT RLE WITH AD. SUBJECTIVE: Approached patient for therapy at 8:54, patient reports being too nauseous / dizzy to participate. Reapproached patient at 9:52, approximately 30 minutes after receiving a dose of Zofran. Patient reports feeling a little better, willing to try therapy. AFTERNOON: Patient feels better, agreeable to attempt ambulation. OBJECTIVE: Patient sitting in Goddard's pose in bed, 2 family members present. Cryo cuff in place. IV in place RUE. Agreeable to therapy. ? PAIN: None reported, however patient is largely overwhelmed by dizziness and nausea. Pain may increase once nausea is controlled. VITALS: monitored by nursing staff. Therapeutic Activities (54576n1): Direct one-on-one instruction in dynamic activities to improve functional performance. ? BED MOBILITY/TRANSFERS? Rolling L/R: not assessed Supine-sit: modified independent with elevated HOB, bilateral side rails.? Sit-supine: modified independent with elevated HOB, bilateral side rails.? Sit-stand: CGA ? Stand-sit: CGA ? Bed-Chair: CGA ? Chair-bed: CGA Patient practiced static sitting x5 minutes, standing x30 seconds in the morning and after this experienced an episode of vomiting. Further therapy held until patient's nausea is better controlled. Provided skilled cues and instruction on performance and technique throughout. Gait Training ([id number]): Direct one-on-one instruction and skilled instruction in: [x] employing an assistive device [x] modified weight-bearing status [x] movement sequencing [] turning and movement with proper form [x] Provided verbal cues for equipment management and technique [x] Provided instruction in gait pattern [x] Patient education regarding pacing and breathing techniques to maximize activity tolerance? GAIT? Assistive Device: FWW ? Weight bearing: WBAT LLE Assist: CGA to min assist? Distance:? 100 feet x2 ? Deviation: Patient demonstrates some stiffness in the LLE, taking short antalgic steps. Most remarkable about ambulation with this patient this date is the nausea, which causes LOB x2 as patient turns her head quickly to retch. ? STAIRS: Ascends and descends 2 six inch stairs and 3 four inch stairs with CGA, assist managing IV pole. Patient reports dizziness, nausea, experiences another episodes of retching after completing stairs. ? ASSESSMENT:? Patient will benefit from more time to get nausea under control. Dr Jas CM as well as manager quality improvement notified. PLAN: Continue gait training, HEP training per plan of care until patient is safe to discharge home. TREATMENT CODE/TIME: 19 minutes beginning at 9:52 and 24 minutes beginning at 13:24 for a total of 43 minutes today.
[2023-04-10] MEDS: Acetaminophen 500 MG TAB 1000 MG PO ×3 (11:06→20:08)
[2023-04-10] MEDS: Pantoprazole 40 MG TABCR PO (11:07)
[2023-04-10] MEDS: Aspirin E.C. 81 MG TABEC PO ×2 (11:07→20:09)
[2023-04-10] MEDS: Celecoxib 200 MG CAP PO ×2 (11:08→20:09)
[2023-04-10] MEDS: Normal Saline Flush 10 ML SYR (11:16)
[2023-04-10 11:56] VITALS: BP 131/78; PULSE 64; RESP 14; TEMP 36.4; O2SAT 94
[2023-04-10] MEDS: Meclizine 12.5 MG TAB PO (12:22)
[2023-04-10] MEDS: Lactated Ringers 500 ML 1000 ML IV (12:23)
--- NOTE | 2023-04-10 14:23 | W.PM.PROGNOT ---
Date of Service Date of service: 04/10/23 Time of Service: 14:23 Assessment and Plan Assessment and plan (1) Postoperative nausea and vomiting: Status: Acute Assessment and plan: Zofran has helped out but only for short period of time. We can also try promethazine if nausea persist. Given history of vertigo I also prescribed meclizine. I will add on some maintenance fluids given her ongoing nausea and lack of p.o. intake. (2) Left knee DJD: Status: Chronic Assessment and plan: Status post left knee replacement. Weightbearing as tolerated. Continue to work with nursing and with PT to mobilize in anticipation of discharge to home once her nausea and vomiting improves. No restrictions. Alexis wrap to come down on postop day #2. Continue with regular postoperative medications including acetaminophen, Celebrex. Aspirin for DVT prophylaxis. Subjective Subjective Interval history since last seen: Karine is 1 day status post left knee replacement. She has no complaints about the left knee. Unfortunate she has been limited mostly by nausea and vomiting. She had dry heaving every time she tries to stand up. She was able to ambulate with physical therapy but also had an episode of vomiting. She has had Zofran and meclizine. She has a history of vertigo which has responded to fluid and medications in the past. No other acute issues. No cough. No fever. No chills. No chest pain or shortness of breath. Exam Narrative Exam Narrative: Laying in the hospital bed. Damp cloth across her forehead. No acute distress. Alert and orient x 3. Dressings clean dry and intact about the left leg. She is able demonstrate active ankle dorsiflexion and plantarflexion as well as great toe extension. Sensation intact to light touch over the deep and superficial peroneal nerve and tibial nerve. She does have intact straight leg raise. Objective Last Vital Signs Temp 36.4 C L 04/10/23 11:56 Pulse 64 04/10/23 11:56 Resp 14 04/10/23 11:56 BP 131/78 04/10/23 11:56 Pulse Ox 94 04/10/23 11:56 Time Spent with Patient Time Spent with Patient: 25-34 minutes Time was spent: preparing to see the patient(eg.review tests), obtaining and/or reviewing separately otained hiistory, ordering medications,tests, procedures, indepentently interpreting results and counseling the patient
[2023-04-10 14:51] LABS: HCT 31.7 % (36.0-46.0); HGB 10.4 g/dL (11.2-15.7); MCH 28.4 pg (27.0-33.0); MCHC 32.8 % (32.0-36.0); MCV 87 fL (80-95); MPV 9.2 fL (8.0-11.0); Platelet Count 258 10^3/uL (130-400); RBC 3.66 10^6/uL (3.93-5.22); RDW 13.1 % (11.7-14.6); RDW-SD 41.5 fL; WBC 10.77 10^3/uL (4.4-10.8)
[2023-04-10 15:20] LABS: Anion Gap 8.7 mmol/L (3-11); BUN 24 mg/dL (7-18); CO2 28.3 mmol/L (21.0-32.0); CREATININE 1.5 mg/dL (0.55-1.02); Calcium 8.2 mg/dL (8.5-10.1); Chloride 96 mmol/L (98-107); Estimated GFR 33.73 (mL/min/1.73m2); Glucose 154 mg/dL (74-106); Potassium 3.6 mmol/L (3.5-5.1); Sodium 133 mmol/L (136-145)
[2023-04-10 15:27] VITALS: BP 127/71; PULSE 61; RESP 18; TEMP 35.9; O2SAT 93
--- NOTE | 2023-04-10 15:30 | CHAPLAIN ---
Karine was resting in bed when I visited. Her two daughters were with her. She had knee surgery yesterday. I introduced myself, explained my role and offered support.
[2023-04-10 19:41] VITALS: BP 104/66; PULSE 65; RESP 16; TEMP 36.4; O2SAT 95
[2023-04-10] MEDS: Gabapentin 300 MG CAP PO (20:09)
[2023-04-10] MEDS: Normal Saline 1,000 ML 80 ML IV (20:55)
[2023-04-10 23:20] VITALS: BP 108/64; PULSE 59; RESP 19; TEMP 36.3; O2SAT 91
[2023-04-11 03:27] VITALS: BP 113/70; PULSE 63; RESP 17; TEMP 36.1; O2SAT 93
[2023-04-11 07:57] VITALS: BP 127/74; PULSE 64; RESP 18; TEMP 35.8; O2SAT 92
[2023-04-11] MEDS: traMADol 50 MG TAB PO (07:58)
[2023-04-11] MEDS: Insulin Aspart 300 UNITS/3 ML PEN SC (08:12)
[2023-04-11] MEDS: Pantoprazole 40 MG TABCR PO (08:19)
[2023-04-11 08:28] VITALS: BP 135/84; PULSE 65
[2023-04-11] MEDS: Normal Saline Flush 10 ML SYR IVP (08:37)
[2023-04-11] MEDS: Meclizine 12.5 MG TAB PO (08:58)
[2023-04-11] MEDS: Celecoxib 200 MG CAP PO (09:33)
[2023-04-11] MEDS: Aspirin E.C. 81 MG TABEC PO (09:34)
[2023-04-11] MEDS: Acetaminophen 500 MG TAB 1000 MG PO (09:34)
[2023-04-11 11:21] VITALS: BP 122/72; PULSE 60; RESP 18; TEMP 36.8; O2SAT 93
--- NOTE | 2023-04-11 11:55 | PTTR_ITS ---
Date of service: 04/11/23 Time of Service: 09:37 PT Notes Visit Reasons: Left knee DJD Inpatient Physical Therapy Treatment Note [facility] Date: 04/11/23 PRECAUTIONS: Fall, standard, activity as tolerated. WBAT RLE with AD. SUBJECTIVE: Patient initially reports still feeling quite woozy. RN alerted, anti-nausea medication provided, and about an hour later patient is agreeable to therapy. OBJECTIVE: Patient is returning from the bathroom with RN when this therapist arrives. Daughter present. Patient appears to be in good spirits, reports that her head is still fuzzy. Explains it as more like fatigue than nausea or dizziness. ? VITALS: monitored by nursing staff. ? BED MOBILITY/TRANSFERS? Rolling L/R: not assessed Supine-sit: modified independent with HOB slightly elevated ? Sit-supine: modified independent with HOB slightly elevate ? Sit-stand: CGA ? Stand-sit: CGA ? Bed-Chair: CGA ? Chair-bed: CGA Gait Training ([id number]): Direct one-on-one instruction and skilled instruction in: [x] employing an assistive device [] modified weight-bearing status [] movement sequencing [x] turning and movement with proper form [x] Provided verbal cues for equipment management and technique [x] Provided instruction in gait pattern [] Patient education regarding pacing and breathing techniques to maximize activity tolerance? GAIT? Assistive Device: FWW ? Weight bearing: WBAT Assist: CGA, wheelchair follow? Distance:?200 feet ? Deviation: antalgic gait pattern with reduced stance time right leg, good step height. ? STAIRS: Patient ascends and descends 2 six inch stairs and 3 four inch stairs with bilateral railings and CGA.? Therapeutic Exercises ([id number]): Direct one-on-one instruction in therapeutic exercises to develop strength, endurance, range of motion and flexibility. ? Exercises: Dispensed and reveiwed HEP as follows, created by DPAlona Zhong * ankle pumps 3x10 * heel slides 3x10 * Quad sets 3x10 with 3 second hold, 3 second rest. Patient requires multiple verbal and tactile cues to achieve good isometric contraction on the non- operative side as well as the operative side. * LAQ's 3x10 * Seated may 3x10 * SLR 3x10 Provided skilled instruction in proper exercise performance Provided skilled manual cues to facilitate proper muscle recruitment and/or form. ASSESSMENT:? Cryo-cuff refilled with ice, patient provided with hot tea. Patient tolerates therapy well, no nausea or episodes of vomiting. PLAN: Continue global strengthening per plan of care until patient is medically cleared for discharge. TREATMENT CODE/TIME: 33 minutes beginning at 9:37
--- NOTE | 2023-04-11 13:03 | W.PM.DS.N ---
Date of service: 04/11/23 Time of Service: 12:20 DS: Diagnosis Discharge Diagnosis (1) Postoperative nausea and vomiting: Status: Acute (2) Left knee DJD: Status: Chronic Discharge Plan Disposition Patient Disposition: Home Condition: Good Discharge Details Reason For Visit: Left knee DJD Admit Date/Time: 04/09/23 11:19 Admit Provider: Agustin Mark Attending Provider: Agustin Mark [facility]: Patient was admitted to the medical/surgical floor following the procedure due to post-operative nausea and vomiting. The surgery was tolerated well without any notable medical, surgical, or anesthetic complications. However, she continued to have some nausea and occasional emesis with attempted mobilization. Hydration and Meclizine were successful and then mobilization began with succss. She was voiding spontaneously and tolerating a regular diet. Vitals were stable. Physical therapy worked with the patient and was cleared for discharge home. No acute medical issues. Pain was controlled on oral regimen. Home Meds and New Rx's Prescriptions: New celecoxib [Celebrex] 200 mg capsule 200 mg PO BID PRNQty: 60 0RF Rx Instructions: Take one tablet twice daily for pain and inflammation aspirin 81 mg tablet,delayed release (DR/EC) 81 mg PO BID 30 Days Qty: 60 0RF tramadol 50 mg tablet 50 mg PO Q4H PRN (Reason: severe postoperative pain) Qty: 18 0RF Rx Instructions: Take one tablet up to every 4 hours as needed for severe pain acetaminophen 500 mg tablet 1,000 mg PO Q8H PRN Qty: 90 0RF Rx Instructions: Take two tablets up to every 8 hours as needed for pain pantoprazole 40 mg tablet,delayed release (DR/EC) 40 mg PO DAILY Qty: 14 0RF docusate sodium [Colace] 100 mg capsule 100 mg PO BID Qty: 30 0RF gabapentin 300 mg capsule 300 mg PO QHS Qty: 14 0RF Rx Instructions: Take one tablet at bedtime meclizine 12.5 mg tablet 12.5 mg PO TID PRN (Reason: dizziness and nausea) Qty: 20 0RF Continued (DME) OneTouch Verio test strips Strip 1 ea Miscellaneous DAILY Qty: 90 3RF Rx Instructions: daily (DME) lancets [OneTouch UltraSoft Lancets] Misc 1 ea Miscellaneous DAILY Qty: 90 3RF Rx Instructions: Daily magnesium oxide 400 mg (241.3 mg magnesium) tablet 400 mg PO DAILY lisinopril 30 mg tablet 30 mg PO DAILY Qty: 90 3RF atenolol 50 mg tablet 50 mg PO DAILY Qty: 90 4RF hydrochlorothiazide 25 mg tablet 25 mg PO DAILY Qty: 90 4RF potassium citrate 5 mEq (540 mg) tablet extended release 5 meq PO DAILY Qty: 90 3RF metformin 500 mg tablet 1,000 mg PO BID Qty: 360 3RF (DME) blood-glucose meter [OneTouch Verio Meter] 1 EACH misc Miscellaneous DAILY Qty: 1 cholecalciferol (vitamin D3) 5,000 UNIT capsule 5,000 unit PO DAILY omega 7-mof-qht-fish oil 1 EACH capsule 1 ea PO DAILY Discontinued acetaminophen 500 mg capsule 500 mg PO Q6H PRNQty: 30 0RF Discharge Instructions Additional Instructions: Total Knee Discharge Instructions Activity: The most important activity is to walk and to work on gentle motion (both flexion and extension). You should try to take short walks a few times a day. It is important that when resting you work on keeping the knee straight. Avoid putting a pillow behind the knee as this will encourage flexion. Work on range of motion exercises as provided by Physical Therapy. - Start outpatient physical therapy within 2 weeks. - You should wear the YANCY hose on both legs for 2 weeks. You may remove these at night. You may also use any compression sock in place of the YANCY hose. - Utilize [employer] to review exercises, see videos on exercises and obtain basic information pertaining to your surgery and your recovery. Dressing: Remove the Alexis wrap by 2 days after your surgery and put on the YANCY stocking given to you from the hospital. Keep the surgical dressing (underneath the ALEXIS wrap) in place for at least one week. After the first week it may be removed and replaced with light gauze and tape or nothing. The wound and dressing may get wet after 3 days but avoid soaking the dressing or otherwise it will need to be changed. Many people prefer covering the dressing with cling wrap (saran wrap) to minimize it from getting soaked. If it gets wet, just pat dry. If it starts to peel off then it will need to be changed. Medications: - You should take Tylenol and anti-inflammatory Celebrex as your primary pain control medications. If the Celebrex is too expensive or not covered, please call the office for another alternative (Advil/Ibuprofen or Naproxen/Aleve) - You have been prescribed a stronger pain medication Tramadol for breakthrough pain, take as needed as prescribed. - You have also been prescribed a stomach acid reduction agent Pantoprozole to help reduce stomach acid and reflux. - You have been prescribed Gabapentin to take at night for restlessness and nerve pain. - You also have Meclizine for any dizziness/vertigo or nausea. - You will be taking Aspirin 81mg twice a day for DVT prevention unless instructed otherwise. - If you have constipation you should take Colace (which has been prescribed) or Miralax (which is available [id number]). It takes most people 3-4 days to have a bowel movement. Follow-up: 2 weeks If you have any acute concerns or questions, please do not hesitate to contact the office at [phone]. You may contact Dr. Mark with any questions after hours through the hospital at [phone] or on his cell phone at [phone]. Stand Alone Forms: Nursing Discharge Form Referrals: Agustin Mark MD [ [facility] STAFF PHYSICIAN] - 04/22/23 11:15 am Activity:: Activity as Tolerated Equipment/Supplies:: Walker Diet:: As Tolerated Discharge Orders Discharge Orders: Discharge Order (Routine); Ordered 04/11/23 Ordered By: Agustin Mark DS: Summary Time Spent with Patient providing and/or coordinating discharge services: Less than 30 minutes Status at Discharge Functional status at discharge: uses cane/walker Overall status at discharge: patient is progressing back to baseline Mental Status: mental status grossly normal Speech and Movement: speech and movement normal Mood: congruent mood Affect: normal affect Quality:SDOH Health Related Social Needs: No Data to Display Exam Narrative Exam Narrative: Sitting up eat lunch. NAD. AAOx3. LLE dressing c/d/i. Mild hyperemia. No instability. +SLR. +DP/PT. +ADF/APF/EHL/FHL. SILT DP/SP/Tib. Psych Mental Status: mental status grossly normal Speech and Movement: speech and movement normal Mood: congruent mood Affect: normal affect DS: Data Vitals/I&O Vitals and I&O: Vital Signs Temperature 36.8 C 04/11/23 11:21 Temperature Source Tympanic 04/11/23 11:21 Pulse 60 04/11/23 11:21 Pulse Rhythm Regular 04/11/23 08:42 Respiratory Rate 18 04/11/23 11:21 Respiratory Effort Normal, Non-Labored 04/11/23 08:42 Respiratory Depth Normal 04/11/23 08:42 Respiratory Pattern Normal 04/11/23 08:42 Blood Pressure 122/72 04/11/23 11:21 Blood Pressure Mean 96 04/09/23 13:16 Blood Pressure Position Supine 04/09/23 13:16 Pulse Oximetry 93 04/11/23 11:21 Respiratory End-tidal CO2 33 04/09/23 16:29 Oxygen Delivery Method Room Air 04/11/23 11:21 Oxygen Flow Rate 0 04/11/23 11:21 Pain Level 0 04/11/23 11:21 Comment pt had episode of feeling woozy while up in chair. Legs elevated, BP WNL, pt reports symptoms are improving. dehydrogenation supervisor notified 04/11/23 08:28 Intake & Output 04/10/23 04/11/23 04/11/23 23:59 11:59 23:59 Intake Total 790 / 1080 10 / 10 Output Total 200 / 900 750 / 750 Balance 590 / 180 -740 / -740 Intake: IV 550 / 600 10 / 10 Oral 240 / 480 Output: Urine 200 / 900 750 / 750 Stool 0 / 0 Other: Urine Color Yellow Yellow Urine Appearance Clear Urine Odor None Voiding Methods Toilet Data Completed and Pending Labs on day of discharge: Labs from last 24 hours 04/10/23 14:38 WBC 10.77 RBC 3.66 L Hgb 10.4 L Hct 31.7 L MCV 87 MCH 28.4 MCHC 32.8 RDW 13.1 Plt Count 258 MPV 9.2 Sodium 133 L Potassium 3.6 Chloride 96 L Carbon Dioxide 28.3 Anion Gap 8.7 BUN 24 H Creatinine 1.5 H Est GFR (CKD-EPI 2020) 33.73 Glucose 154 H Calcium 8.2 L Magnesium 2.0 PFSH All Active Problems Postoperative nausea and vomiting (Acute) 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 (04/10/23) Long standing history of viscosupplementation injections at [facility] for 8+ years Last orthovisc injection: 09/27/22 Last steroid injection: 12/13/22 Onychomycosis (Acute) Edema (Acute) Venous (peripheral) insufficiency (Acute) Toe pain, right (Acute) Toe pain, left (Acute) Type 2 diabetes mellitus with diabetic polyneuropathy (Acute) Neuropathy (Acute) Nail dystrophy (Acute) CKD (chronic kidney disease) stage 3, GFR 30-59 ml/min (Acute) Balance problem (Acute) Essential hypertension (Chronic) Osteoarthritis (Chronic 01/23/13) right knee Diabetes mellitus (Chronic 01/23/13) Medical History Cholecystitis with gangrene of gallbladder Surgical History Hx laparoscopic cholecystectomy 2021 Hx of cataract extraction Family History Mother , age 78 Heart disease Alzheimer disease Father , age 58 Throat cancer Sister Heart disease Brother Alcohol abuse Brother Alcohol abuse Son Heart disease Daughter No problems noted. Daughter No problems noted. Social History Smoking/Tobacco Use Status: Never Second Hand Exposure: Yes Smoking risk assessment performed?: Yes Alcohol Intake: never Drug use: Never Substance use type: does not use Household members: none Housing: apartment Do you need help understanding health information?: Never Pets and animals: No Sexually active: No Do you think of yourself as: straight/heterosexual Current gender identity: female What is your relationship status?: How often do you talk on the phone with friends or family?: three or more times per week How often do you get together with friends or relatives?: once per week How often do you attend anglican or congregation services?: 1-3 times per year Do you belong to any clubs or organized social groups?: no Panel score (0-1 are the most socially isolated patients): 1 Seatbelt use: always Drive intox or ride w/intox 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
--- NOTE | 2023-04-11 17:56 | PDOC.CMDIS ---
Date of service: 04/11/23 Time of Service: 17:57 LACE Index Scoring Tool Questions: Length of Stay (in days): 2 Was the patient admitted via the E.D.?: No Comorbidities: Diabetes w/o Complication and Liver or Renal Disease E.D. Visits: 0 Answers: Total Score: 7 Risk of Readmission: Low Risk Care Management Discharge Plan Reason for Hospitalization: DJD Discharge Plan: Karine will be discharged home, when ready per MD. She will follow up with her surgeon and plan of care and transport with family. Patient/Family Education Needs: Review discharge instructions, discuss Ask Me Three. SDOH Health Related Social Needs: No Data to Display
== END 2023-04-11 13:54 | disposition home or self-care (01) ==
LOC: MS 04-10 08:09 → DSU 04-11 15:09 → MS 04-11 15:10
PROVIDERS: Admitting Provider Student in an Organized Health Care Education/Training Program; PCP Nurse Practitioner Family; Visit Provider Student in an Organized Health Care Education/Training Program
PROC: (CPT 27447; principal; 2023-04-09 13:00)
DX: M17.12 Unilateral primary osteoarthritis, left knee (principal); M21.062 Valgus deformity, not elsewhere classified, left knee; E11.42 Type 2 diabetes mellitus with diabetic polyneuropathy; E11.22 Type 2 diabetes mellitus with diabetic chronic kidney disease; N18.30 Chronic kidney disease, stage 3 unspecified; I12.9 Hypertensive chronic kidney disease with stage 1 through stage 4 chronic kidney disease, or unspecified chronic kidney disease; R11.2 Nausea with vomiting, unspecified; R42 Dizziness and giddiness; I87.2 Venous insufficiency (chronic) (peripheral)
CPT/HCPCS: 27447; 20985; C1776; 36415; 76942; 80048; 85027; 97110; 97116; 97162; 97530; 83735; G0378; J0665; J0690; J1100; J1815; J2250; J2371; J2401; J2405; J2704; J3010

== ENCOUNTER 2023-04-22 14:07 | Outpatient (CLI) | payer MEDICARE, OTHER, SELFPAY ==
--- NOTE | 2023-04-22 11:15 | DI.RAD_ITS ---
Exam(s) XR KNEE LT 1V XR STANDING ALIGNMENT EXAM: XR STANDING ALIGNMENT CLINICAL HISTORY: 1ST POST OP L TKA. TECHNIQUE: 2D digital imaging was performed. Standing AP views were performed from the pelvis throu gh the ankles. Lateral view left knee COMPARISON: CR XR STANDING ALIGNMENT from 03/29/2023 CR XR KNEE LT 1V from 04/22/2023 FINDINGS: BONES: No acute fracture is present. No bony destructive lesion is seen. Leg length discrepancy: Nearly 3 cm overall leg length discrepancy, with the left femoral head projec ting superior to the right. JOINTS: Knees: High left total knee prosthesis has been placed since the prior exam. Alignment appea rs satisfactory.There are severe degenerative changes of the right knee greater at the lateral femora l tibial joint space The ankle joints are unremarkable. The hip joints are unremarkable. SOFT TISSUE: Normal. IMPRESSION: Severe degenerative changes right knee. Unremarkable left total knee prosthesis.. Significant leg length discrepancy. DATA REPOSITORY: RADIATION DOSE DELIVERED:
== END 2023-04-22 14:08 | disposition home or self-care (01) ==
LOC: DIORS 14:07
PROVIDERS: PCP Nurse Practitioner Family; Referring Provider Nurse Practitioner Family; Visit Provider Student in an Organized Health Care Education/Training Program
DX: Z96.652 Presence of left artificial knee joint (principal); Z47.1 Aftercare following joint replacement surgery
CPT/HCPCS: 73560; 77073

== ENCOUNTER → 2023-05-20 10:45 | Outpatient (BNVA) | payer MEDICARE, OTHER, SELFPAY | PROVIDERS: PCP Nurse Practitioner Family; Referring Provider Nurse Practitioner Family; Visit Provider Student in an Organized Health Care Education/Training Program | DX: Z47.1 Aftercare following joint replacement surgery (principal); Z96.652 Presence of left artificial knee joint ==

== ENCOUNTER → 2023-07-01 09:03 | Outpatient (BNVA) | payer MEDICARE, OTHER, SELFPAY | PROVIDERS: PCP Nurse Practitioner Family; Referring Provider Nurse Practitioner Family; Visit Provider Student in an Organized Health Care Education/Training Program | DX: Z47.1 Aftercare following joint replacement surgery (principal); Z96.652 Presence of left artificial knee joint ==

== ENCOUNTER 2023-07-23 05:49 | Outpatient (CLI) | payer MEDICARE, OTHER, SELFPAY ==
[2023-07-23 12:14] LABS: HCT 39.4 % (36.0-46.0); HGB 12.1 g/dL (11.2-15.7); MCH 28.2 pg (27.0-33.0); MCHC 30.7 % (32.0-36.0); MCV 92 fL (80-95); MPV 9.6 fL (8.0-11.0); Platelet Count 359 10^3/uL (130-400); RBC 4.29 10^6/uL (3.93-5.22); RDW 13.6 % (11.7-14.6); RDW-SD 45.7 fL; WBC 8.39 10^3/uL (4.4-10.8)
[2023-07-23 12:25] LABS: Anion Gap 10.9 mmol/L (3-11); BUN 14 mg/dL (7-18); CO2 27.1 mmol/L (21.0-32.0); CREATININE 1.2 mg/dL (0.55-1.02); Calcium 9.5 mg/dL (8.5-10.1); Chloride 105 mmol/L (98-107); Estimated GFR 44.08 (mL/min/1.73m2); Glucose 123 mg/dL (74-106); Potassium 3.7 mmol/L (3.5-5.1); Sodium 143 mmol/L (136-145)
[2023-07-23 13:14] LABS: Hemoglobin A1C 6.6 % (<5.7)
== END 2023-07-23 05:50 | disposition home or self-care (01) ==
LOC: LOS 05:49
PROVIDERS: PCP Nurse Practitioner Family; Visit Provider Nurse Practitioner Family
DX: E11.9 Type 2 diabetes mellitus without complications (principal); I10 Essential (primary) hypertension; M19.90 Unspecified osteoarthritis, unspecified site
CPT/HCPCS: 36415; 80048; 85027; 83036

== ENCOUNTER 2023-09-03 10:31 | Outpatient (CLI) | payer MEDICARE, OTHER, SELFPAY ==
[2023-09-04 10:37] LABS: Hepatitis C Ab w Rflx HCV PCR Negative (Negative)
== END 2023-09-03 10:32 | disposition home or self-care (01) ==
LOC: LOS 10:32
PROVIDERS: PCP Nurse Practitioner Family; Referring Provider Nurse Practitioner Family; Visit Provider Nurse Practitioner Family
DX: I10 Essential (primary) hypertension (principal); E11.9 Type 2 diabetes mellitus without complications; N18.30 Chronic kidney disease, stage 3 unspecified; R26.89 Other abnormalities of gait and mobility; Z11.59 Encounter for screening for other viral diseases
CPT/HCPCS: 36415; 86803

== ENCOUNTER → 2023-10-23 08:21 | Outpatient (BNVA) | payer MEDICARE, OTHER, SELFPAY | PROVIDERS: PCP Nurse Practitioner Family; Referring Provider Nurse Practitioner Family; Visit Provider Podiatrist | DX: E11.42 Type 2 diabetes mellitus with diabetic polyneuropathy (principal); L60.3 Nail dystrophy; I87.2 Venous insufficiency (chronic) (peripheral); R60.0 Localized edema; B35.1 Tinea unguium | CPT/HCPCS: 11721 ==

== ENCOUNTER 2023-11-07 17:06 | Inpatient (IN) | payer MEDICARE, OTHER, SELFPAY ==
[2023-11-07] VITALS (40 sets, daily range): BP systolic 133–210; BP diastolic 45–105; PULSE 71–80; RESP 10–26; TEMP 36.2–36.5; O2SAT 82–96
--- NOTE | 2023-11-07 17:00 | RT.EKG_ITS ---
APPROVED REPORT Exam: Resting ECG Reason for Exam: dizziness Patient Location: E HR:75 bpm ECG Measurements Heart Rate 75 AXIS IN 209 P 46 QRSd 86 QRS -10 QT 404 T 42 QTc 451 Conclusion Sinus rhythm...normal P axis, V-rate 60- 99 Anteroseptal infarct, age indeterminate...Q >35mS, T neg, V1-V2 Physician: no stemi
--- NOTE | 2023-11-07 17:30 | DI.CT_ITS ---
Exam(s) CT BRAIN NECK CTA EXAM: CT BRAIN NECK CTA CLINICAL HISTORY: vertigo, vomiting. TECHNIQUE: Imaging Protocol: Axial CT angiography was performed with multi-slice acquisition and mu lti-planar and/or 3D reconstructions. CONTRAST MATERIAL: Intravenous: Omnipaque 350 contrast volume:70 mL COMPARISON: CT HEAD WITHOUT CONTRAST from 10/05/2015 FINDINGS: CT Head W/O and W: Ventricles and Extra axial spaces: Normal in size and morphology for the patient's age. Hemorrhage: None. Cerebral parenchyma: There are areas of decreased attenuation in the white matter most consistent wit h chronic microvascular ischemic disease. No evidence of an acute territorial infarct. No mass effe ct. Midline shift: None. Brainstem/Cerebellum: Normal. Calvarium: Normal. Visualized Paranasal sinuses/Mastoids: Clear. Soft Tissues: Unremarkable. Enhancement: Unremarkable. CTA Neck W: Common Carotid: Right: No dissection, occlusion or significant stenosis. Mild atherosclerotic calcification in the c arotid bulb but no significant stenosis. Left: No dissection, occlusion or significant stenosis. External Carotid: Right: No occlusion or significant stenosis. Left: No occlusion or significant stenosis. Internal Carotid: Right: No dissection, occlusion or significant stenosis. Left: No dissection, occlusion or significant stenosis. Vertebral Artery: Right: No dissection, occlusion or significant stenosis. Mild atherosclerotic calcification in the d istal right vertebral artery but no significant stenosis. Left: No dissection or occlusion. There is marked stenosis seen at the origin of the left vertebral artery (greater than 90 percent. Lung Apices: Normal. Bones: Within normal limits for the patient's age. Age-appropriate degenerative changes are seen in t he cervical spine. There is straightening of the normal cervical lordosis. Soft Tissues: Normal. Thyroid gland: There is a less than 1 cm left thyroid nodule. No follow-up is recommended. CTA Brain W: Internal Carotid Arteries: The sclerotic calcification is seen in the internal carotid artery but no significant stenosis. No aneurysm or occlusion is identified. Anterior Cerebral Arteries: Right: No aneurysm, occlusion or significant stenosis. Left: No aneurysm, occlusion or significant stenosis. Middle Cerebral Arteries: Right: No aneurysm, occlusion or significant stenosis. Left: No aneurysm, occlusion or significant stenosis. Posterior Cerebral Arteries: Right: No aneurysm, occlusion or significant stenosis. Left: No aneurysm, occlusion or significant stenosis. Vertebral Arteries: Right: No aneurysm, occlusion or significant stenosis. Left: No aneurysm, occlusion or significant stenosis. The left [employer] appears to arise from the posteri or communicating artery which is a normal variant. Basilar Artery: No aneurysm, occlusion or significant stenosis. IMPRESSION: 1. No large vessel occlusion or significant stenosis on the CT angiography of the head. 2. No acute intracranial process. 3. 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 RADIATION DOSE DELIVERED: Total DLP DATA REPOSITORY: All CT scans at this facility are submitted to the National Radiology Data Registry (NRDR) Dose Index Registry (DIR) with the [employer] (ACR). RADIATION OPTIMIZATION: All CT scans at this facility use at least one of these dose optimization te chniques: automated exposure control; mA and/or kV adjustment per patient size (includes targeted exa ms where dose is matched to clinical indication); or iterative reconstruction.
--- NOTE | 2023-11-07 17:40 | W.ED.GENAD ---
Discharge Plan Discharge Details Chief Complaint: Dizzy/Sync Primary Care Provider: Allie Rodrigues ED Provider: Annette Santos Home Meds and New Rx's Prescriptions: No Action (DME) lancets [OneTouch UltraSoft Lancets] Misc 1 ea Miscellaneous DAILY Qty: 90 3RF Rx Instructions: Daily magnesium oxide 400 mg (241.3 mg magnesium) tablet 400 mg PO DAILY lisinopril 30 mg tablet 30 mg PO DAILY Qty: 90 3RF meclizine 12.5 mg tablet 12.5 mg PO TID PRN (Reason: dizziness and nausea) Qty: 20 0RF metformin 500 mg tablet 1,000 mg PO BID Qty: 360 3RF (DME) blood-glucose meter [OneTouch Verio Meter] 1 EACH misc Miscellaneous DAILY Qty: 1 cholecalciferol (vitamin D3) 5,000 UNIT capsule 5,000 unit PO DAILY omega 7-yub-ums-fish oil 1 EACH capsule 1 ea PO DAILY (DME) OneTouch Verio test strips Strip 1 ea Miscellaneous DAILY Qty: 90 3RF Rx Instructions: daily atenolol 50 mg tablet 50 mg PO DAILY Qty: 90 4RF hydrochlorothiazide 25 mg tablet 25 mg PO DAILY Qty: 90 4RF potassium citrate 5 mEq (540 mg) tablet extended release 5 meq PO DAILY Qty: 90 3RF acetaminophen 500 mg tablet 1,000 mg PO Q8H PRN Qty: 90 0RF Rx Instructions: Take two tablets up to every 8 hours as needed for pain HPI General Date/Time Provider Initiated Documentation: 11/07/23 17:12. HPI Narrative: Karine is an 87-year-old female with history of hypertension, T2DM, and vertigo who presents to the emergency department today for evaluation of sudden onset of vertigo with intractable vomiting starting at 2 PM today. She reports that she was sitting in her chair when all of a sudden the vertigo hit, she took a meclizine 25 mg with some improvement of symptoms but she continues to have vomiting and dizziness whenever she moves her head in either direction or if she stands/sits up. She has vomited multiple times, says she has now only vomiting bile. She does report a mild headache that is described as all over. She denies recent fever/chills, vision changes, ear pain/tinnitus, congestion, sore throat, cough, chest pain, shortness of breath, abdominal pain, change in bowel or bladder function, extremity weakness or numbness. She has had workups for vertigo in the past, including hospitalization in 2016. Unclear etiology of vertigo. She says that today's episode is worse than previous episodes she has had and that is why she called the ambulance. Physical exam reassuring. Patient does report significant dizziness when she sits up, appears slightly off balance. PERRL, EOMs intact. No nystagmus. Cranial nerves II through XII intact as tested. Normal finger finger. 5 out of 5 muscle strength upper and lower extremities. Moving all extremities equally. Easy work of breathing, lung sounds clear bilaterally. Normal heart sounds. DDx includes was not limited to: Posterior CVA, vertigo, dehydration, electrolyte imbalance, occult infection such as pneumonia or UTI I independently interpreted the following tests: EKG reassuring, NSR with rate 75, no changes c/w acute ischemia. CBC, CMP reassuring. Mild hypomagnesemia 1.5 noted as well as mild hypokalemia 3.2 noted. CTA reassuring, no acute intracranial pathology noted. While in the emergency department Karine received Valium 2 mg IV and ondansetron 4 mg IV with moderate improvement in symptoms, though she did continue to have dry heaving with movement. Magnesium and potassium supplements given. Overall workup today reassuring, consistent with vertigo of unknown etiology. Hypomagnesemia and hypokalemia likely due to extensive vomiting. [address] Carbajal, pt to be admitted for observation and mgmt of vertigo. Patient is agreeable with plan of care. Related Data Home Medications ?Medication ?Instructions ?Recorded ?Confirmed blood-glucose meter ([facility] ##1 10/03/16 10/30/23 Verio Meter) cholecalciferol (vitamin D3) 125 5,000 unit PO DAILY 06/03/17 10/30/23 mcg (5,000 unit) capsule omega 1-bgf-uud-fish oil 500 mg 1 ea PO DAILY 06/03/17 10/30/23 (200mg-300mg)-1,000 mg capsule lancets ([employer] UltraSoft #90 ea 12/11/19 10/30/23 Lancets) magnesium oxide 400 mg (241.3 mg 400 mg PO DAILY 06/16/20 10/30/23 magnesium) tablet lisinopril 30 mg tablet 30 mg PO DAILY #90 tabs 02/26/23 10/30/23 metformin 500 mg tablet 1,000 mg (2 x 500 mg) PO BID #360 03/21/23 10/30/23 tabs acetaminophen 500 mg tablet 1,000 mg (2 x 500 mg) PO Q8H PRN 04/09/23 10/30/23 pain #90 tabs blood sugar diagnostic (OneTouch #90 strips 04/12/23 10/30/23 Verio test strips) meclizine 12.5 mg tablet 12.5 mg PO TID PRN dizziness and 09/03/23 10/30/23 nausea #20 tabs atenolol 50 mg tablet 50 mg PO DAILY #90 tab-caps 10/07/23 10/30/23 hydrochlorothiazide 25 mg tablet 25 mg PO DAILY #90 tab-caps 10/07/23 10/30/23 potassium citrate 5 mEq (540 mg) 5 meq PO DAILY #90 tabs 10/09/23 10/30/23 tablet,extended release Previous Rx's ?Medication ?Instructions ?Recorded lancets (OneTouch UltraSoft #90 ea 12/11/19 Lancets) lisinopril 30 mg tablet 30 mg PO DAILY #90 tabs 02/26/23 metformin 500 mg tablet 1,000 mg (2 x 500 mg) PO BID #360 03/21/23 tabs acetaminophen 500 mg tablet 1,000 mg (2 x 500 mg) PO Q8H PRN 04/09/23 pain #90 tabs blood sugar diagnostic (OneTouch #90 strips 04/12/23 Verio test strips) meclizine 12.5 mg tablet 12.5 mg PO TID PRN dizziness and 09/03/23 nausea #20 tabs atenolol 50 mg tablet 50 mg PO DAILY #90 tab-caps 10/07/23 hydrochlorothiazide 25 mg tablet 25 mg PO DAILY #90 tab-caps 10/07/23 potassium citrate 5 mEq (540 mg) 5 meq PO DAILY #90 tabs 10/09/23 tablet,extended release Allergies Allergy/AdvReac Type Severity Reaction Status Date / Time No Known Allergies Allergy Verified 10/23/23 16:17 General Stated Complaint: Dizzy/Sync ELSA: 3 Review of Systems Narrative: see HPI Exam Const General: cooperative and anxious Nutritional Appearance: average body habitus Orientation: alert and oriented x3 HENMT Head: normal to inspection Ears: hearing grossly normal bilaterally General nose exam: external nose normal Face and sinus: normal facial exam Mouth: oral mucosae normal Resp Effort & Inspection: normal respiratory effort and able to speak in complete sentences Auscultation: clear to auscultation bilaterally Cardio Rate: regular rate Rhythm: regular rhythm Neuro General: patient alert, patient oriented x3 and no focal motor deficits Cranial Nerves: CN's II-XI intact bilaterally, PERRL, EOM intact bilaterally, no nystagmus, facial strength normal and hearing normal Cognition: normal cognition Speech: speech normal Motor: muscle tone normal throughout and strength 5/5 throughout Sensory Exam: no sensory deficits noted Course Vital Signs Vital signs: Vital Signs Temperature 36.2 C L 11/07/23 17:07 Pulse 77 11/07/23 17:07 Respiratory Rate 10 L 11/07/23 17:07 Blood Pressure 181/75 H 11/07/23 17:07 Pulse Oximetry 93 11/07/23 17:07 Temperature 36.2 C L 11/07/23 17:07 Temperature Source Skin 11/07/23 17:07 Pulse 77 11/07/23 17:07 Respiratory Rate 10 L 11/07/23 17:07 Respiratory Effort Normal, Non-Labored 11/07/23 17:17 Respiratory Depth Normal 11/07/23 17:17 Respiratory Pattern Normal 11/07/23 17:17 Blood Pressure 181/75 H 11/07/23 17:07 Blood Pressure Position Supine 11/07/23 17:07 Pulse Oximetry 93 11/07/23 17:07 Oxygen Delivery Method Room Air 11/07/23 17:07 Oxygen Flow Rate 0 11/07/23 17:07 Pain Level 0 11/07/23 17:07 Medical Decision Making Imaging Data Radiologic Study: Radiologist's impression: Exam(s) CT BRAIN NECK CTA EXAM: CT BRAIN NECK CTA CLINICAL HISTORY: vertigo, vomiting. TECHNIQUE: Imaging Protocol: Axial CT angiography was performed with multi-slice acquisition and multi-planar and/or 3D reconstructions. CONTRAST MATERIAL: Intravenous: Omnipaque 350 contrast volume:70 mL COMPARISON: CT HEAD WITHOUT CONTRAST from 10/05/2015 FINDINGS: CT Head W/O and W: Ventricles and Extra axial spaces: Normal in size and morphology for the patient's age. Hemorrhage: None. Cerebral parenchyma: There are areas of decreased attenuation in the white matter most consistent with chronic microvascular ischemic disease. No evidence of an acute territorial infarct. No mass effect. Midline shift: None. Brainstem/Cerebellum: Normal. Calvarium: Normal. Visualized Paranasal sinuses/Mastoids: Clear. Soft Tissues: Unremarkable. Enhancement: Unremarkable. CTA Neck W: Common Carotid: Right: No dissection, occlusion or significant stenosis. Mild atherosclerotic calcification in the carotid bulb but no significant stenosis. Left: No dissection, occlusion or significant stenosis. External Carotid: Right: No occlusion or significant stenosis. Left: No occlusion or significant stenosis. Internal Carotid: Right: No dissection, occlusion or significant stenosis. Left: No dissection, occlusion or significant stenosis. Vertebral Artery: Right: No dissection, occlusion or significant stenosis. Mild atherosclerotic calcification in the distal right vertebral artery but no significant stenosis. Left: No dissection or occlusion. There is marked stenosis seen at the origin of the left vertebral artery (greater than 90 percent. Lung Apices: Normal. Bones: Within normal limits for the patient's age. Age-appropriate degenerative changes are seen in the cervical spine. There is straightening of the normal cervical lordosis. Soft Tissues: Normal. Thyroid gland: There is a less than 1 cm left thyroid nodule. No follow-up is recommended. CTA Brain W: Internal Carotid Arteries: The sclerotic calcification is seen in the internal carotid artery but no significant stenosis. No aneurysm or occlusion is identified. Anterior Cerebral Arteries: Right: No aneurysm, occlusion or significant stenosis. Left: No aneurysm, occlusion or significant stenosis. Middle Cerebral Arteries: Right: No aneurysm, occlusion or significant stenosis. Left: No aneurysm, occlusion or significant stenosis. Posterior Cerebral Arteries: Right: No aneurysm, occlusion or significant stenosis. Left: No aneurysm, occlusion or significant stenosis. Vertebral Arteries: Right: No aneurysm, occlusion or significant stenosis. Left: No aneurysm, occlusion or significant stenosis. The left [employer]ACILITY [employer]IST appears to arise from the posterior communicating artery which is a normal variant. Basilar Artery: No aneurysm, occlusion or significant stenosis. IMPRESSION: 1. No large vessel occlusion or significant stenosis on the CT angiography of the head. 2. No acute intracranial process. 3. 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 Quality:SDOH Health Related Social Needs: No Data to Display [facility] All Active Problems (Updated 11/07/23 @ 21:24 by Chuckie Carbajal) Right lower lobe pneumonia (Acute) Hypokalemia (Acute) Hypomagnesemia (Acute) 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) Intractable nausea and vomiting (Acute) History of total left knee replacement (Acute 04/09/23) Postoperative nausea and vomiting (Acute) Onychomycosis (Acute) Edema (Acute) Venous (peripheral) insufficiency (Acute) Toe pain, right (Acute) Toe pain, left (Acute) Type 2 diabetes mellitus with diabetic polyneuropathy (Chronic) Neuropathy (Acute) Nail dystrophy (Acute) CKD (chronic kidney disease) stage 3, GFR 30-59 ml/min (Chronic) Balance problem (Acute) Essential hypertension (Chronic) Osteoarthritis (Chronic 01/23/13) right knee Diabetes mellitus (Chronic 01/23/13) Medical History Cholecystitis with gangrene of gallbladder Surgical History Hx laparoscopic cholecystectomy 2021 Hx of cataract extraction Family History Mother , age 78 Heart disease Alzheimer disease Father , age 58 Throat cancer Sister Heart disease Brother Alcohol abuse Brother Alcohol abuse Son Heart disease Daughter No problems noted. Daughter No problems noted. Social History Smoking/Tobacco Use Status: Never Second Hand Exposure: Yes Smoking risk assessment performed?: Yes Alcohol Intake: never Drug use: Never Substance use type: does not use Adopted: No Caregiver/Support person: No Household members: none Housing: apartment Number of Children: 5 number of grandchildren: 12 Do you need help understanding health information?: Never Pets and animals: No Sexually active: No Do you think of yourself as: straight/heterosexual Current gender identity: female What is your relationship status?: How often do you talk on the phone with friends or family?: three or more times per week How often do you get together with friends or relatives?: three or more times per week How often do you attend temple or episcopalian services?: 1-3 times per year Do you belong to any clubs or organized social groups?: no Panel score (0-1 are the most socially isolated patients): 1 What type of physical activity do you participate in: none Frequency: does not exercise Sue/Oriental Orthodox: [employer] Special sue needs: No Seatbelt use: sometimes Drive intox or ride w/intox tow car driver: No Firearms in home: No Do you feel safe at home: Yes Do you feel safe in your relationship?: No Victim of physical abuse: No Victim of emotional abuse: No Victim of sexual abuse: No Would you like helpful sources: No
[2023-11-07] MEDS: Normal Saline - Diluent 50 ML VIAL IJ (17:42)
[2023-11-07] MEDS: Omnipaque 350 MG/ML 100 ML BTL 70 ML IJ (17:43)
[2023-11-07 17:52] LABS: Abs Immature Grans 0.04 10^3/uL (0.0-0.06); Absolute Basophil Count 0.05 10^3/uL (0.0-0.2); Absolute Eosinophil Count 0.11 10^3/uL (0.0-0.7); Absolute Lymphocyte Count 1.98 10^3/uL (1.2-3.4); Absolute Monocyte Count 0.42 10^3/uL (0.1-0.8); Absolute Neutrophil Count 7.83 10^3/uL (1.2-6.7); Basophils % 0.5 %; Eosinophils % 1.1 %; HCT 37.8 % (36.0-46.0); HGB 12.1 g/dL (11.2-15.7); Immature Grans % 0.4 %; MCH 28.6 pg (27.0-33.0); MCV 89 fL (80-95); MPV 9.4 fL (8.0-11.0); Platelet Count 349 10^3/uL (130-400); RBC 4.23 10^6/uL (3.93-5.22); RDW 13.7 % (11.7-14.6); RDW-SD 44.7 fL; WBC 10.43 10^3/uL (4.4-10.8)
[2023-11-07] MEDS: diazePAM 10 MG/2 ML SYR 2 MG IVP (17:53)
[2023-11-07] MEDS: Ondansetron 4 MG/2 ML VIAL IVP (17:54)
--- NOTE | 2023-11-07 17:55 | DI.RAD_ITS ---
Exam(s) XR PORTABLE CHEST AP EXAM: XR PORTABLE CHEST AP CLINICAL HISTORY: dizziness, r/o PNA TECHNIQUE: 2D digital imaging was performed. COMPARISON: No exams were available for comparison FINDINGS: LUNGS: Increased densities are present inferior to the right hilum suspicious for pneumonia. The lef t lung appears clear. Question of tiny pleural effusions. HEART: Normal size. AORTA: Normal diameter. BONES: Prominent scoliosis. Soft tissues: Unremarkable. IMPRESSION: Right basilar infiltrate. DATA REPOSITORY: RADIATION DOSE DELIVERED:
[2023-11-07 18:02] LABS: Lipase 54 U/L (16-77)
[2023-11-07 18:20] LABS: ALT 14 U/L (14-59); AST 13 U/L (15-37); Albumin 3.4 g/dL (3.4-5.0); Alkaline Phosphatase 63 U/L (46-116); Anion Gap 10.7 mmol/L (3-11); BUN 23 mg/dL (7-18); Bilirubin, Total 0.28 mg/dL (0.2-1.0); CO2 27.3 mmol/L (21.0-32.0); CREATININE 1.3 mg/dL (0.55-1.02); Calcium 9.9 mg/dL (8.5-10.1); Chloride 101 mmol/L (98-107); Estimated GFR 40.05 (mL/min/1.73m2); Glucose 189 mg/dL (74-106); Magnesium 1.5 mg/dL (1.8-2.4); Potassium 3.2 mmol/L (3.5-5.1); Sodium 139 mmol/L (136-145); Total Protein 7.6 g/dL (6.4-8.2); Troponin I < 50 ng/L (< or =60)
--- NOTE | 2023-11-07 19:16 | NUR.NOTE ---
Nursing Note: introduced self to patient and family. pt still having nausea/dry heaves from the vertigo. Got pt changed and placed periwick to continuous wall suction. call santos in reach
[2023-11-07 19:48] LABS: Lab Add On Test DONE
--- NOTE | 2023-11-07 19:58 | DI.VRAD_ITS ---
PROCEDURE INFORMATION: Exam: XR Chest Exam date and time: 11/07/2023 7:24 PM Age: 87 years old Clinical indication: Other: R/O pna TECHNIQUE: Imaging protocol: Radiologic exam of the chest. Views: 1 view. COMPARISON: CT BRAIN NECK CTA 11/07/2023 6:34 PM FINDINGS: Lungs: Hyperinflation suggesting underlying emphysema/COPD. Mild consolidative features of the right lung base may represent atelectasis or subsegmental infiltrate. Pleural spaces: Blunting of the right costophrenic angle suggesting a mild right pleural effusion. Heart/Mediastinum: Normal heart size. No mediastinal widening. Bones/joints: Degenerative thoracic spine features and shoulder joint changes. Spinal scoliosis. IMPRESSION: 1. Minor right basilar consolidation suggesting atelectasis or subsegmental basal infiltrate. 2. Blunted right costophrenic angle suggesting a minor pleural effusion. 3. Degenerative skeletal features. 4. Hyperinflation suggesting emphysema/COPD. Dictated and Authenticated by: Nino Ordonez MD. Ordering:SALONI Bryant MD
[2023-11-07 20:05] LABS: FREE T4 1.17 ng/dL (0.76-1.46)
--- NOTE | 2023-11-07 20:07 | NUR.NOTE ---
Nursing Note: gave pt some ice chips to PO challenge pt prior to giving meds.
--- NOTE | 2023-11-07 20:22 | W.PM.HP.N ---
Date of service: 11/07/23 Time of Service: 20:22 Assessment and Plan Assessment and plan (1) Intractable nausea and vomiting: Start date: 11/07/23 Status: Acute Assessment and plan: This is an 87-year-old lady who has very rare occurrences of sudden onset of nausea and vomiting which is intractable. She does have a history of vertigo and is on meclizine but only takes it when needed. Her last episode of this incident was about 1 year ago. She lives alone but is supervised by her daughters. She had sudden onset of nausea and vomiting just prior to admission but this is resolved and patient appears comfortable. Clear fluids. CTA was positive for severe stenosis in the left vertebral artery and she will have follow-up imaging with MRI of the brain and further evaluation as if this is a TIA with posterior circulation manifestation. She will be initiated on aspirin with loading dose and daily aspirin 81 mg. Echocardiogram with bubble study will be ordered as well. She should be seen by PT and OT. She does plan to return home to self-care with supervision by her daughters. She is a DNR/DNI. (2) Stenosis of left vertebral artery: Start date: 11/07/23 Status: Acute Assessment and plan: This is not mentioned as a new or old lesion and there is some discrepancy between the impression and description in the text of the CTA of the head and neck. Cardiology should review. MRI of the brain will still be performed. If this was a discrepancy in patient's MRI of the brain is normal, we could consider stopping aspirin which was stopped on this patient years ago by her PCP. (3) Right lower lobe pneumonia: Start date: 11/07/23 Status: Acute Assessment and plan: Questionable overlying the patient asymptomatic with no fever or elevated WBC. Because of recent vomiting and possible aspiration, she will be covered with IV Rocephin and follow-up clinically. Consider continuation of outpatient oral antibiotic therapy for completion. Qualifiers: Aspiration pneumonia type: due to vomit Pneumonia type: aspiration pneumonia Qualified Code(s): J69.0 - Pneumonitis due to inhalation of food and vomit (4) Hypokalemia: Start date: 11/07/23 Status: Acute Assessment and plan: IV repletion and trend labs. This may be a consequence of chronic hydrochlorothiazide. She may need to increase her oral potassium supplement at home. (5) Hypomagnesemia: Start date: 11/07/23 Status: Acute Assessment and plan: IV repletion and trend labs with possible increase of oral supplementation at home. (6) Chronic vertigo: Status: Chronic Assessment and plan: Patient has a history of chronic intermittent vertigo which is positional on this presentation as well. Continue meclizine and consider follow-up neurology consultation with evaluation of possible TIA and posterior circulation issues as above. (7) Essential hypertension: Status: Chronic Assessment and plan: Continue outpatient medical therapy with some permissive hypertension and adjustment of her medical therapy to accomplish this goal. Hydrochlorothiazide will be held for now. 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 Hold outpatient metformin. Qualifiers: Diabetes mellitus intermediate insulin use: without intermediate use Qualified Code(s): E11.42 - Type 2 diabetes mellitus with diabetic polyneuropathy (9) CKD (chronic kidney disease) stage 3, GFR 30-59 ml/min: Status: Chronic Assessment and plan: Stable with trending labs. Qualifiers: Chronic kidney disease stage 3 subtype: stage 3b (GFR 30-44) Qualified Code(s): N18.32 - Chronic kidney disease, stage 3b History of Present Illness History of Present Illness Chief Complaint: Sudden onset nausea and vomiting with movement of the head. Narrative: This is an 87-year-old female patient presents with sudden onset of intractable nausea and vomiting and now dry retching just after noon on the day of presentation. She has had a problem with vertigo in the past but no previous CVA documented. She was dehydrated with low potassium and magnesium chronically on hydrochlorothiazide. This may be secondary to chronic diuretic use with acute loss. She will be repleted with IV potassium and magnesium and is requiring IV hydration with lactated Ringer's. Imaging did reveal severe stenosis of the left vertebral artery which does not appear to have been a previous problem and no previous imaging revealing this problem and she also has microvascular disease but no acute stroke or bleed. Because of her symptoms possibly being the posterior circulation issue, he was initiated on aspirin loading dose and then baby aspirin daily will be on DVT prophylaxis cautiously with heparin rather than Lovenox. There is a question of patient having TIA presentation with sudden onset of symptoms despite history of vertigo because of CTA findings. There is a discrepancy between the impression and description of findings pertaining to the left vertebral artery. This should be reread in the morning by radiology. ED did not have teleneurology consultation but this should be considered if patient has persisting symptoms. MRI of the brain will be performed along with echocardiogram with bubble study. There is a question of some fluid overload and BNP will be checked with IV hydration to be continued overnight because of GI loss from vomiting but with caution especially with the urine specific gravity not being markedly elevated. Her BNP was only slightly elevated and IV hydration will continue until morning reevaluate. Patient also may have a right lower lobe infiltrate versus atelectasis and with recent vomiting, we need to cover for aspiration with IV Rocephin to be initiated. She does not have a fever or elevated WBC at this time. Patient is a DNR/DNI. Review of Systems Narrative: 13 point review of systems otherwise unrevealing or stable. PFSH All Active Problems Dizziness (Acute) Right lower lobe pneumonia (Acute) Hypokalemia (Acute) Hypomagnesemia (Acute) 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) Intractable nausea and vomiting (Acute) History of total left knee replacement (Acute 04/09/23) Postoperative nausea and vomiting (Acute) Onychomycosis (Acute) Edema (Acute) Venous (peripheral) insufficiency (Acute) Toe pain, right (Acute) Toe pain, left (Acute) Type 2 diabetes mellitus with diabetic polyneuropathy (Chronic) Neuropathy (Acute) Nail dystrophy (Acute) CKD (chronic kidney disease) stage 3, GFR 30-59 ml/min (Chronic) Balance problem (Acute) Essential hypertension (Chronic) Osteoarthritis (Chronic 01/23/13) right knee Diabetes mellitus (Chronic 01/23/13) Medical History Cholecystitis with gangrene of gallbladder Surgical History Hx laparoscopic cholecystectomy 2021 Hx of cataract extraction Family History Mother , age 78 Heart disease Alzheimer disease Father , age 58 Throat cancer Sister Heart disease Brother Alcohol abuse Brother Alcohol abuse Son Heart disease Daughter No problems noted. Daughter No problems noted. Social History Smoking/Tobacco Use Status: Never Second Hand Exposure: Yes Smoking risk assessment performed?: Yes Alcohol Intake: never Drug use: Never Substance use type: does not use Adopted: No Caregiver/Support person: No Household members: none Housing: apartment Number of Children: 5 number of grandchildren: 12 Do you need help understanding health information?: Never Pets and animals: No Sexually active: No Do you think of yourself as: straight/heterosexual Current gender identity: female What is your relationship status?: How often do you talk on the phone with friends or family?: three or more times per week How often do you get together with friends or relatives?: three or more times per week How often do you attend nondenominational or jehovah's witness services?: 1-3 times per year Do you belong to any clubs or organized social groups?: no Panel score (0-1 are the most socially isolated patients): 1 What type of physical activity do you participate in: none Frequency: does not exercise Sue/Judaism: Orthodox Special sue needs: No Seatbelt use: sometimes Drive intox or ride w/intox electric train driver: No Firearms in home: No Do you feel safe at home: Yes Do you feel safe in your relationship?: No Victim of physical abuse: No Victim of emotional abuse: No Victim of sexual abuse: No Would you like helpful sources: No Meds Allergies and Home Medications Allergies Allergy/AdvReac Type Severity Reaction Status Date / Time No Known Allergies Allergy Verified 10/23/23 16:17 Home Medications ?Medication ?Instructions ?Recorded ?Confirmed ?Type blood-glucose meter (OneTouch ##1 10/03/16 10/30/23 History Verio Meter) cholecalciferol (vitamin D3) 125 5,000 unit PO DAILY 06/03/17 10/30/23 History mcg (5,000 unit) capsule omega 4-rgf-irr-fish oil 500 mg 1 ea PO DAILY 06/03/17 10/30/23 History (200mg-300mg)-1,000 mg capsule lancets (OneTouch UltraSoft #90 ea 12/11/19 10/30/23 Rx Lancets) magnesium oxide 400 mg (241.3 mg 400 mg PO DAILY 06/16/20 10/30/23 History magnesium) tablet lisinopril 30 mg tablet 30 mg PO DAILY #90 tabs 02/26/23 10/30/23 Rx metformin 500 mg tablet 1,000 mg (2 x 500 mg) PO BID #360 03/21/23 11/07/23 Rx tabs acetaminophen 500 mg tablet 1,000 mg (2 x 500 mg) PO Q8H PRN 04/09/23 10/30/23 Rx pain #90 tabs blood sugar diagnostic (OneTouch #90 strips 04/12/23 10/30/23 Rx Verio test strips) meclizine 12.5 mg tablet 12.5 mg PO TID PRN dizziness and 09/03/23 10/30/23 Rx nausea #20 tabs atenolol 50 mg tablet 50 mg PO DAILY #90 tab-caps 10/07/23 10/30/23 Rx hydrochlorothiazide 25 mg tablet 25 mg PO DAILY #90 tab-caps 10/07/23 10/30/23 Rx potassium citrate 5 mEq (540 mg) 5 meq PO DAILY #90 tabs 10/09/23 10/30/23 Rx tablet,extended release Exam Narrative Exam Narrative: General: Patient appears appropriate age, alert and oriented x 3 and in no acute distress. She is soft-spoken but has good eye contact with normal affect. She is in no acute distress. Moderately obese. HEENT: Normocephalic, eyes with pupils equal and reactive to light symmetrically, extraocular movement And sclera anicteric. There is no nystagmus. Oropharynx with point because and fair dentition. Neck: Supple without JVD or auscultated carotid bruits. Back: Slightly kyphotic without CVA tenderness. Lungs: Bronchovesicular breath sounds diffusely with coarse crackles sparsely without focalizing, no increased expiratory phase or expiratory wheeze. Breast: Exam deferred. Heart: Regular rate and rhythm with no murmurs gallops appreciated. Abdomen: No obese contour, soft nontender to palpation with no palpable hepatosplenomegaly. Bowel sounds positive all quadrants. Genitalia/rectal: Exam deferred. Extremities: Without clubbing, cyanosis or pitting edema. Fair capillary refill. Neuro: Cranial nerves II through XII gross intact, no focalizing motor deficits. No tremor. Negative Babinski. DTR's are soft and symmetrical. No rigidity. Psych: Normal affect and mood. Remote and recent memory appear to be grossly intact. No abnormal thought processes. Results Imaging Imaging Studies: EXAM: CT BRAIN NECK CTA CLINICAL HISTORY: vertigo, vomiting. TECHNIQUE: Imaging Protocol: Axial CT angiography was performed with multi-slice acquisition and multi-planar and/or 3D reconstructions. CONTRAST MATERIAL: Intravenous: Omnipaque 350 contrast volume:70 mL COMPARISON: CT HEAD WITHOUT CONTRAST from 10/05/2015 FINDINGS: CT Head W/O and W: Ventricles and Extra axial spaces: Normal in size and morphology for the patient's age. Hemorrhage: None. Cerebral parenchyma: There are areas of decreased attenuation in the white matter most consistent with chronic microvascular ischemic disease. No evidence of an acute territorial infarct. No mass effect. Midline shift: None. Brainstem/Cerebellum: Normal. Calvarium: Normal. Visualized Paranasal sinuses/Mastoids: Clear. Soft Tissues: Unremarkable. Enhancement: Unremarkable. CTA Neck W: Common Carotid: Right: No dissection, occlusion or significant stenosis. Mild atherosclerotic calcification in the carotid bulb but no significant stenosis. Left: No dissection, occlusion or significant stenosis. External Carotid: Right: No occlusion or significant stenosis. Left: No occlusion or significant stenosis. Internal Carotid: Right: No dissection, occlusion or significant stenosis. Left: No dissection, occlusion or significant stenosis. Vertebral Artery: Right: No dissection, occlusion or significant stenosis. Mild atherosclerotic calcification in the distal right vertebral artery but no significant stenosis. Left: No dissection or occlusion. There is marked stenosis seen at the origin of the left vertebral artery (greater than 90 percent. Lung Apices: Normal. Bones: Within normal limits for the patient's age. Age-appropriate degenerative changes are seen in the cervical spine. There is straightening of the normal cervical lordosis. Soft Tissues: Normal. Thyroid gland: There is a less than 1 cm left thyroid nodule. No follow-up is recommended. CTA Brain W: Internal Carotid Arteries: The sclerotic calcification is seen in the internal carotid artery but no significant stenosis. No aneurysm or occlusion is identified. Anterior Cerebral Arteries: Right: No aneurysm, occlusion or significant stenosis. Left: No aneurysm, occlusion or significant stenosis. Middle Cerebral Arteries: Right: No aneurysm, occlusion or significant stenosis. Left: No aneurysm, occlusion or significant stenosis. Posterior Cerebral Arteries: Right: No aneurysm, occlusion or significant stenosis. Left: No aneurysm, occlusion or significant stenosis. Vertebral Arteries: Right: No aneurysm, occlusion or significant stenosis. Left: No aneurysm, occlusion or significant stenosis. The left PRE ASSEMBLY WIRER appears to arise from the posterior communicating artery which is a normal variant. Basilar Artery: No aneurysm, occlusion or significant stenosis. IMPRESSION: 1. No large vessel occlusion or significant stenosis on the CT angiography of the head. 2. No acute intracranial process. 3. 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 Labs 11/07/23 17:40 11/07/23 17:40 Labs: Laboratory Results - last 24 hr 11/07/23 11/07/23 17:40 19:34 WBC 10.43 RBC 4.23 Hgb 12.1 Hct 37.8 MCV 89 MCH 28.6 MCHC 32.0 RDW 13.7 Plt Count 349 MPV 9.4 Immature Gran % 0.4 Neutrophils % 75.0 Lymphocytes % 19.0 Monocytes % 4.0 Eosinophils % 1.1 Basophils % 0.5 Nucleated RBC % 0.0 Absolute Neutrophils 7.83 H Absolute Lymphocytes 1.98 Absolute Monocytes 0.42 Absolute Eosinophils 0.11 Absolute Basophils 0.05 Sodium 139 Potassium 3.2 L Chloride 101 Carbon Dioxide 27.3 Anion Gap 10.7 BUN 23 H Creatinine 1.3 H Est GFR (CKD-EPI 2020) 40.05 Glucose 189 H Calcium 9.9 Magnesium 1.5 L Total Bilirubin 0.28 AST 13 L ALT 14 Alkaline Phosphatase 63 Troponin I < 50 Total Protein 7.6 Albumin 3.4 Lipase 54 TSH 4.90 H Free T4 1.17 Add-On Test Request DONE Last Vital Signs Temp 36.2 C L 11/07/23 17:07 Pulse 75 11/07/23 18:46 Resp 10 L 11/07/23 17:07 BP 172/70 H 11/07/23 18:46 Pulse Ox 94 11/07/23 18:46 Time Spent Time spent with Patient: >75 minutes Time was spent: preparing to see the patient(eg.review tests), obtaining and/or reviewing separately otained hiistory, ordering medications,tests, procedures, referring, communicating with other health career development manager, indepentently interpreting results, counseling the patient and care coordination
[2023-11-07] MEDS: Potassium Bicarbonate/Cit AC 25 MEQ TABLET.EFF PO (20:46)
[2023-11-07] MEDS: Magnesium Oxide 400 MG TAB PO (20:46)
[2023-11-07 21:32] LABS: Bilirubin Negative (Negative); Blood Negative (Negative); Clarity Clear (Clear); Glucose Negative (Negative); Ketones Negative (Negative); Leukocyte Esterase Trace (Negative); Nitrite Negative (Negative); Urobilinogen 0.2 mg/dL (Up to 0.2); pH 7.5 (5-8)
[2023-11-07 21:40] LABS: Troponin I < 50 ng/L (< or =60)
[2023-11-07 21:45] LABS: Bacteria Many HPF (Negative); C & S Indicated? Yes; Casts Negative LPF (Negative); Crystals Negative HPF (Negative); Epithelial Cells Rare HPF (Negative); Mucus Negative (Negative); RBC Negative HPF (0-2)
[2023-11-07 21:50] LABS: *AMPHETAMINES SCREEN URINE Negative (Negative); *BARBITURATES SCREEN URINE Negative (Negative); *BENZODIAZEPINES SCREEN URINE Negative (Negative); Cannabinoids THC Negative (Negative); Cocaine Screen,Urine Negative (Negative); METHADONE URINE SCREEN Negative (Negative); OPIATES URINE SCREEN Negative (Negative); Tricyclic Antidepressants Negative (Negative)
[2023-11-07] MEDS: Normal Saline Flush 10 ML SYR IVP (22:20)
[2023-11-07] MEDS: Lactated Ringers 1,000 ML 125 ML IV (22:20)
--- NOTE | 2023-11-07 22:32 | W.PC.ACHO ---
Registration Status: Primary Language: Preferred Language: ED Information & Data Chief Complaint Dizzy/Sync 11/07/23 17:53 Triage Note patient had sudden onset of 11/07/23 17:07 dizziness, took a meclizine but that did not help. Denies any pain. Medical / Surgical History (Last Reviewed 11/07/23 @ 20:22 by Chuckie Carbajal) Cholecystitis with gangrene of gallbladder (Last Reviewed 11/07/23 @ 20:22 by Chuckie Carbajal) Hx laparoscopic cholecystectomy Hx of cataract extraction Most Recent Vital Signs Temperature 36.5 C 11/07/23 22:08 Temperature Source Tympanic 11/07/23 22:08 Pulse 71 11/07/23 22:08 Pulse 77 11/07/23 21:46 Respiratory Rate 18 11/07/23 22:08 Respiratory Effort Normal, Non-Labored 11/07/23 17:17 Respiratory Depth Normal 11/07/23 17:17 Respiratory Pattern Normal 11/07/23 17:17 Blood Pressure 133/83 11/07/23 22:08 Blood Pressure Mean 100 11/07/23 21:46 Blood Pressure Position Supine 11/07/23 17:07 Pulse Oximetry 96 11/07/23 22:08 Oxygen Delivery Method Room Air 11/07/23 22:08 Oxygen Flow Rate 0 11/07/23 22:08 Pain Level 0 11/07/23 22:08 Allergies No Known Allergies Allergy (Verified 10/23/23 16:17) Active Medications Generic Name Dose Route Start Last Admin Trade Name Freq PRN Reason Stop Dose Admin Ringer's Solution 1,000 mls @ 125 mls/hr 11/07/23 20:15 11/07/23 22:20 IV 125 mls/hr INFUSION ALIZA Administration Iohexol 70 ml 11/07/23 17:45 11/07/23 17:43 Omnipaque 350 Mg/Ml 100 Ml Btl IJ 12/07/23 23:59 70 ml DIRECTED ALIZA Administration Sodium Chloride 0 ml 11/07/23 20:00 11/07/23 22:20 Normal Saline Flush 10 Ml Syr IVP 10 ml BID ALIZA Administration Sodium Chloride 50 ml 11/07/23 17:45 11/07/23 17:42 Normal Saline - Diluent 50 Ml Vial IJ 50 ml .FOR DI USE ALIZA Administration IV IV Catheter Type [Right Peripheral IV Antecubital] Diet Orders Category Date Time Status Diabetes Consistent CHO/Heart Healthy [DIET] Nutrition 11/08/23 Breakfast Ordered Diagnostics 11/07/23 11/07/23 11/07/23 Range/Units 22:23 21:14 20:55 WBC (4.4-10.8) 10^3/uL RBC (3.93-5.22) 10^6/uL Hgb (11.2-15.7) g/dL Hct (36.0-46.0) % MCV (80-95) fL MCH (27.0-33.0) pg MCHC (32.0-36.0) % RDW (11.7-14.6) % Plt Count (130-400) 10^3/uL MPV (8.0-11.0) fL Immature Gran % % Neutrophils % % Lymphocytes % % Monocytes % % Eosinophils % % Basophils % % Nucleated RBC % (0.0-0.3) % Absolute Neutrophils (1.2-6.7) 10^3/uL Absolute Lymphocytes (1.2-3.4) 10^3/uL Absolute Monocytes (0.1-0.8) 10^3/uL Absolute Eosinophils (0.0-0.7) 10^3/uL Absolute Basophils (0.0-0.2) 10^3/uL Sodium (136-145) mmol/L Potassium (3.5-5.1) mmol/L Chloride (98-107) mmol/L Carbon Dioxide (21.0-32.0) mmol/L Anion Gap (3-11) mmol/L BUN (7-18) mg/dL Creatinine (0.55-1.02) mg/dL Est GFR (CKD-EPI 2020) (mL/min/1.73m2) Glucose (74-106) mg/dL Calcium (8.5-10.1) mg/dL Magnesium (1.8-2.4) mg/dL Total Bilirubin (0.2-1.0) mg/dL AST (15-37) U/L ALT (14-59) U/L Alkaline Phosphatase (46-116) U/L Troponin I < 50 (< or =60) ng/L NT-Pro-B Natriuret Pep Pending Total Protein (6.4-8.2) g/dL Albumin (3.4-5.0) g/dL Lipase (16-77) U/L TSH (0.36-3.74) uIU/Ml Free T4 (0.76-1.46) ng/dL Urine Color (Yellow) Urine Clarity (Clear) Urine pH (5-8) Ur Specific [place] (1.005-1.025) Urine Protein (Neg-Trace) mg/dL Urine Ketones (Negative) mg/dL Urine Blood (Negative) Urine Nitrite (Negative) Urine Bilirubin (Negative) Urine Urobilinogen (Up to 0.2) mg/dL Ur Leukocyte Esterase (Negative) Urine RBC (0-2) HPF Urine WBC (0-5) HPF Ur Epithelial Cells (Negative) HPF Urine Crystals (Negative) HPF Urine Bacteria (Negative) HPF Urine Casts (Negative) LPF Urine Mucus (Negative) Ur Culture Indicated? Urine Glucose (Negative) mg/dL Urine Opiates Screen (Negative) Urine Methadone Screen (Negative) Ur Barbiturates Screen (Negative) Ur Tricyclics Screen (Negative) Ur Amphetamines Screen (Negative) U Benzodiazepines Scrn (Negative) Urine Cocaine Screen (Negative) Ur THC Screen (Negative) COVID-19 Source Pending SARS-CoV-2 (PCR) Pending Influenza Type A (PCR) Pending Influenza Type B (PCR) Pending RSV (PCR) Pending Add-On Test Request 11/07/23 11/07/23 11/07/23 Range/Units 19:34 19:02 17:40 WBC 10.43 (4.4-10.8) 10^3/uL RBC 4.23 (3.93-5.22) 10^6/uL Hgb 12.1 (11.2-15.7) g/dL Hct 37.8 (36.0-46.0) % MCV 89 (80-95) fL MCH 28.6 (27.0-33.0) pg MCHC 32.0 (32.0-36.0) % RDW 13.7 (11.7-14.6) % Plt Count 349 (130-400) 10^3/uL MPV 9.4 (8.0-11.0) fL Immature Gran % 0.4 % Neutrophils % 75.0 % Lymphocytes % 19.0 % Monocytes % 4.0 % Eosinophils % 1.1 % Basophils % 0.5 % Nucleated RBC % 0.0 (0.0-0.3) % Absolute Neutrophils 7.83 H (1.2-6.7) 10^3/uL Absolute Lymphocytes 1.98 (1.2-3.4) 10^3/uL Absolute Monocytes 0.42 (0.1-0.8) 10^3/uL Absolute Eosinophils 0.11 (0.0-0.7) 10^3/uL Absolute Basophils 0.05 (0.0-0.2) 10^3/uL Sodium 139 (136-145) mmol/L Potassium 3.2 L (3.5-5.1) mmol/L Chloride 101 (98-107) mmol/L Carbon Dioxide 27.3 (21.0-32.0) mmol/L Anion Gap 10.7 (3-11) mmol/L BUN 23 H (7-18) mg/dL Creatinine 1.3 H (0.55-1.02) mg/dL Est GFR (CKD-EPI 2020) 40.05 (mL/min/1.73m2) Glucose 189 H (74-106) mg/dL Calcium 9.9 (8.5-10.1) mg/dL Magnesium 1.5 L (1.8-2.4) mg/dL Total Bilirubin 0.28 (0.2-1.0) mg/dL AST 13 L (15-37) U/L ALT 14 (14-59) U/L Alkaline Phosphatase 63 (46-116) U/L Troponin I < 50 (< or =60) ng/L NT-Pro-B Natriuret Pep Total Protein 7.6 (6.4-8.2) g/dL Albumin 3.4 (3.4-5.0) g/dL Lipase 54 (16-77) U/L TSH 4.90 H (0.36-3.74) uIU/Ml Free T4 1.17 (0.76-1.46) ng/dL Urine Color Yellow (Yellow) Urine Clarity Clear (Clear) Urine pH 7.5 (5-8) Ur Specific [place] 1.020 (1.005-1.025) Urine Protein Negative (Neg-Trace) mg/dL Urine Ketones Negative (Negative) mg/dL Urine Blood Negative (Negative) Urine Nitrite Negative (Negative) Urine Bilirubin Negative (Negative) Urine Urobilinogen 0.2 (Up to 0.2) mg/dL Ur Leukocyte Esterase Trace H (Negative) Urine RBC Negative (0-2) HPF Urine WBC 10-20 H (0-5) HPF Ur Epithelial Cells Rare (Negative) HPF Urine Crystals Negative (Negative) HPF Urine Bacteria Many (Negative) HPF Urine Casts Negative (Negative) LPF Urine Mucus Negative (Negative) Ur Culture Indicated? Yes Urine Glucose Negative (Negative) mg/dL Urine Opiates Screen Negative (Negative) Urine Methadone Screen Negative (Negative) Ur Barbiturates Screen Negative (Negative) Ur Tricyclics Screen Negative (Negative) Ur Amphetamines Screen Negative (Negative) U Benzodiazepines Scrn Negative (Negative) Urine Cocaine Screen Negative (Negative) Ur THC Screen Negative (Negative) COVID-19 Source SARS-CoV-2 (PCR) Influenza Type A (PCR) Influenza Type B (PCR) RSV (PCR) Add-On Test Request DONE 11/07/23 19:02 Urine Culture - Pending Urine - Reflex from [facility] Fingerstick Glucose Start: 11/07/23 21:25 Freq: .ACHS Status: Active Protocol: Activity Type Activity Date Activity User E-sign Co-sign Detail Recorded Client Recorded Date Recorded By Document 11/07/23 22:29 TONEY DALAKIAON(3) [id number] 11/07/23 22:29 JEREMIAHG DAEMON(4) Intake and Output - 24 Hour Total 11/07/23 16:58 thru 11/07/23 17:07 Weight 78.471 kg Falls Risk Assessment History of Falls No History 11/07/23 17:19 Contributing Factors Unstable 11/07/23 17:19 Ambulatory Aids Uses ambulatory device 11/07/23 17:19 Tubes/Lines None 11/07/23 17:19 Gait Evaluation No gait disturbance 11/07/23 17:19 Cognition No cognitive impairment 11/07/23 17:19 Fall Total Score 18 11/07/23 17:19 Level of Risk Standard/Low Risk 11/07/23 17:19 Problems (Last Reviewed 11/07/23 @ 20:22 by Chuckie Carbajal) Dizziness (Acute) Right lower lobe pneumonia (Acute) Hypokalemia (Acute) Hypomagnesemia (Acute) 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) Intractable nausea and vomiting (Acute) Type 2 diabetes mellitus with diabetic polyneuropathy (Chronic) CKD (chronic kidney disease) stage 3, GFR 30-59 ml/min (Chronic) Essential hypertension (Chronic) Notes 11/07/23 20:07 Nursing Notes by Meagan Balderrama Nursing Note: gave pt some ice chips to PO challenge pt prior to giving meds. Initialized on 11/07/23 20:07 - END OF NOTE 11/07/23 19:16 Nursing Notes by Meagan Balderrama Nursing Note: introduced self to patient and family. pt still having nausea/dry heaves from the vertigo. Got pt changed and placed periwick to continuous wall suction. call santos in reach Initialized on 11/07/23 19:16 - END OF NOTE v v v v v v v v v Sending and/or Receiving Nurses: Please use comment section below to note any information pertinent to the patient hand-off not included above. Information / Comments: Report received from: chaya
[2023-11-07] MEDS: Acetaminophen 325 MG TAB PO (23:12)
[2023-11-07] MEDS: Aspirin 325 MG TAB PO (23:12)
[2023-11-07] MEDS: MAGNESIUM SULFATE 2 GM/50 ML BAG IVINF (23:16)
[2023-11-07 23:31] LABS: NT-proBNP 644 pg/mL (<300)
[2023-11-08] VITALS (7 sets, daily range): BP systolic 116–155; BP diastolic 60–88; PULSE 60–73; RESP 15–18; TEMP 36.3–36.6; O2SAT 92–95
[2023-11-08] MEDS: POTASSIUM CHLORIDE 10 MEQ/100 ML BAG 100 MEQ IVINF (00:01)
[2023-11-08 00:20] LABS: COVID-19 PCR Negative (Negative); Influenza A PCR Negative (Negative); Influenza B PCR Negative (Negative); RSV PCR Negative (Negative); Source NASOPHARYNX
[2023-11-08] MEDS: cefTRIAXone 1 GM/50 ML BAG IVPB ×2 (01:22→23:22)
[2023-11-08] MEDS: Heparin 5,000 UNITS/ML VIAL 5000 UNITS SC ×3 (05:09→21:40)
[2023-11-08 06:46] LABS: HCT 32.7 % (36.0-46.0); HGB 10.6 g/dL (11.2-15.7); MCH 28.6 pg (27.0-33.0); MCHC 32.4 % (32.0-36.0); MCV 88 fL (80-95); MPV 9.4 fL (8.0-11.0); Platelet Count 308 10^3/uL (130-400); RBC 3.71 10^6/uL (3.93-5.22); RDW 13.8 % (11.7-14.6); RDW-SD 44.5 fL; WBC 9.31 10^3/uL (4.4-10.8)
[2023-11-08 07:14] LABS: ALT 9 U/L (14-59); AST 11 U/L (15-37); Albumin 2.8 g/dL (3.4-5.0); Alkaline Phosphatase 53 U/L (46-116); Anion Gap 8.5 mmol/L (3-11); BUN 21 mg/dL (7-18); CO2 28.5 mmol/L (21.0-32.0); CREATININE 1.3 mg/dL (0.55-1.02); Calcium 9.3 mg/dL (8.5-10.1); Chloride 102 mmol/L (98-107); Estimated GFR 40.05 (mL/min/1.73m2); Glucose 97 mg/dL (74-106); Magnesium 2.4 mg/dL (1.8-2.4); Potassium 3.6 mmol/L (3.5-5.1); Sodium 139 mmol/L (136-145); Total Protein 6.4 g/dL (6.4-8.2)
--- NOTE | 2023-11-08 08:00 | DI.MRI_ITS ---
Exam(s) MR BRAIN WO EXAM: MR BRAIN WO CLINICAL HISTORY: Left vertebral artery stenosis, intractable N/V TECHNIQUE: Multiplanar multisequence MRI of the brain was performed. COMPARISON: CT CT BRAIN NECK CTA from 11/07/2023 FINDINGS: VENTRICLES AND EXTRA AXIAL SPACES: Normal in size and morphology for the patient's age. MIDLINE SHIFT: None. CEREBRAL PARENCHYMA: No focus of restricted diffusion to suggest acute infarct. No space-occupying le harsh identified. Mild atrophy consistent with the patient's age. Moderate scattered foci of high sig nal in the white matter consistent with sequela of chronic microvascular disease. Prominent perivasc ular spaces. HEMORRHAGE: No acute hemorrhage. Tiny signal blooming artifact in the left thalamus consistent with old petechial microhemorrhage. BRAINSTEM/CEREBELLUM: Normal. VISUALIZED PARANASAL SINUSES/MASTOIDS:Clear. Vasculature: Normal flow void. PITUITARY GLAND: Unremarkable. ORBITS: Unremarkable. IMPRESSION: No acute intracranial abnormality. DATA REPOSITORY:
[2023-11-08] MEDS: Potassium Citrate 1080 MG TABCR 540 MG PO (08:42)
[2023-11-08] MEDS: Cholecalciferol (Vitamin D3) 1,000 UNIT TAB 5000 UNITS PO (08:43)
[2023-11-08] MEDS: Atenolol 50 MG TAB PO (08:44)
[2023-11-08] MEDS: Magnesium Oxide 400 MG TAB PO (08:44)
[2023-11-08] MEDS: Lisinopril 10 MG TAB PO (08:44)
[2023-11-08] MEDS: Aspirin 81 MG CHEW PO (08:45)
[2023-11-08] MEDS: Lactated Ringers 1,000 ML 125 ML IV (08:46)
--- NOTE | 2023-11-08 09:16 | IN_ITS ---
PT Notes Visit Reasons: Intractable Vomiting,Chronic Vertigo,Vertebral Art Physical Therapy Inpatient Initial Evaluation Date: 11/08/2023 Referring Doctor: Chuckie Carbajal MD PT Orders: PT CONSULT: Exacerbation Chronic C Rivas is nd Precautions: Fall. Standard. Activity as tolerated. Patient Profile/Admitting Diagnosis: 87-year-old female who presented to the ED on 11/07/2023 due to sudden onset , intractable vomiting, headache, and dry heaving with movement. Patient is admitted for management of intractable nausea and vomiting, stenosis of left vertebral artery, right lower lobe pneumonia, hypokalemia, hypomagnesemia, chronic vertigo with work up being done to rule out CVA/TIA essential hypertension, type 2 diabetes mellitus, and CKD., PMHX: All Active Problems Dizziness (Acute) Right lower lobe pneumonia (Acute) Hypokalemia (Acute) Hypomagnesemia (Acute) 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) Intractable nausea and vomiting (Acute) History of total left knee replacement (Acute 04/09/23) Postoperative nausea and vomiting (Acute) Onychomycosis (Acute) Edema (Acute) Venous (peripheral) insufficiency (Acute) Toe pain, right (Acute) Toe pain, left (Acute) Type 2 diabetes mellitus with diabetic polyneuropathy (Chronic) Neuropathy (Acute) Nail dystrophy (Acute) CKD (chronic kidney disease) stage 3, GFR 30-59 ml/min (Chronic) Balance problem (Acute) Essential hypertension (Chronic) Osteoarthritis (Chronic 01/23/13) right knee Diabetes mellitus (Chronic 01/23/13) Medical History Cholecystitis with gangrene of gallbladder Surgical History Hx laparoscopic cholecystectomy 2021 Hx of cataract extraction Social History/Home Situation: Patient has her own apartment at [facility] with 7 steps to enter. Daughters take care of grocery shopping. She has a lady who comes in 2 hours each weak for laundry and chores. Equipment Owned/DME: [employer] Subjective: Onset: ?11/07/2023 Quality: dizzy with changing positions, head turning Duration: ?On and off since Saturday morning; subsided Previous Episodes: Second episiode for thi syear but way more severe Exacerbating Factors: Positional change, worse with supine<>sit as well as with head rotation/flexion/extension/lateral bending Headache: None Neck ache: Yes Nausea/Vomitting: repeatedly since admission up to 10 Pm last night leading to hospitalization Hearing Loss: None Tinnitus: None Fullness in Ear: None Imbalance: Mild, needed hand held assist of 2 to transfer from bed to stretcher for MRI testing Red Flags: ? Visual changes: None ? Dysphagia or Dysarthria: None ? Facial Weakness: None ? Incoordination: MIidly impaired Objective: Posture: At baseline, trunk somewhat erect General Observation: Resting in bed. Movements very guarded. Daughters present in room throughout session. Mental Status: Alert and oriented as to person, place, time, and purpose. Able to pay attention, focus, and respond appropriately. Pain: None Vital Signs: Closely monitored by Nurse Iverson ROM: Right Lower Extremity: Hip flexion WFL. Hip abduction WFL. Knee flexion WFL. Ankle dorsiflexion WFL. Ankle plantarflexion WFL. Left Lower Extremity: Hip flexion WFL. Hip abduction WFL. Knee flexion WFL. Knee extension WFL. Ankle dorsiflexion WFL. Ankle plantarflexion WFL. Cervical ROM: R head rotation about 45 degrees, L less than 30 degrees. R lateral flexion less than 10 degrees, L lateral rotation more than 10 degrees. Strength: Right Lower Extremity: Hip flexors 5/5. Hip abductors 5/5. Knee flexors 5/5. Knee extensors 5/5. Ankle dorsiflexors 5/5. Ankle plantarflexors 5/5. Left Lower Extremity: Hip flexors 4-/5. Hip abductors 4-/5. Knee flexors 4-/5. Knee extensors 4-/5. Ankle dorsiflexors 4-/5. Ankle plantarflexors 4-/5. Cervical muscle strength: 3-/5 Bed Mobility/Transfers: Minimal cueing provided for use of B hands as needed for support, movement sequence, AD management, and posture to reduce fall risk and minimize pain report Supine to sit minimal assist Sit to supine minimal assist Sit to stand minimal assist Stand to sit with contact guard assist using FWW Bed to reclining contact guard assist using FWW Gait: Covered a distance of about 8 steps from edge of bed to stretcher to be sent down to testing for MRI downstairs. DIAGRAMMER Shanell and assited for safety. Brittni significantly decreased. Walking very cautious. Dizzy and nauseous while moving but no vomiting. Stairs: Deferred Balance: Static Sitting: Normal Dynamic Sitting: Normal Static Standing: Fair Dynamic Standing: Fair Special Tests: Mobility Limitations Standardized Measure [facility] AM-PAC 6 clicks Basic Mobility Inpatient Short Form: Raw Score: 21 CMS Score: 29% deficit ? [place]: Unable to test due to dry heaving ? Coordination: Impaired for rapid alternating movement ? Fine Motor: Intact ? Visual Tracking: Intact ? Head Thrust: Negative ? [place]-Halpike: Down beating rotational nystagmus <2 minutes with increased nausea and sensation of dizziness with R [place] Hallpike ? Supine Roll Test: Negative Informed Consent/Education: Patient was instructed in purpose of PT consult and plan of care. Agreeable to proceed with established PT POC to achieve personal goals. Assessment: R downbeating/torsional nystagmus and increased symptom of dizziness <2 minutes with R [place]-Hallpike maneuver signifying R anterior canal BPPV and will benefit from PT for vestibular rehab. Patient presents with clinical signs and symptoms consistent with current/admi tting diagnoses that have resulted to mobility limitations, gait instability, generalized weakness, and overall ADL decline as demonstrated by the following impairment level findings: 1. Decreased strength to B LE 2. Impaired sitting/standing balance 3. Impaired activity tolerance 4. Limitation of joint range of motion in L knee 5. Dizziness and nausea 6. R anterior canal BPPV Impairments are contributing to the following functional limitations: 1. Decline in bed mobility skills 2. Decline in transfer skills 3. Difficulty with ambulation without assistive device and physical assistance 4. Increased completion time for mobility ADL performance 5. Increased risk for falls 6. Difficulty with managing steps alone safely Patient is assessed as a 56349 moderate complexity based on the following: History: 87-year-old female with past medical history as indicated above Examination: Demonstrable impairment in strength, balance, and mobility level with underlying impairments and functional limitations as exhibited above as well as deficit score of 29% utilizing the [facility] Mobility Inpatient Short Form Presentation: Evolving Decision Makin moderate complexity Goals: Goals X1 week 1. Supine-Sit independent 2. Sit-Supine independent 3. Sit-Stand independent 4. Stand-Sit independent with FWW 5. Bed-Chair independent with FWW 6. Chair-Bed independent with FWW 7. Independent gait on level surface with use of FWW for at least 150 feet without report of pain nor dyspnea 8. Independent stair negotiation while holding onto B rails for at least 7 steps without report of pain nor dyspnea 9. Independent with home exercise program 10. Good static and dynamic standing balance/tolerance Plan of Care/Treatment Plan: 1-2x/day, 7 days/week x 1 week. Plan of care has been reviewed with the EMERGENCY MEDICAL TECHNICIAN/DRIVER providing the service under Physical Therapy direction. Initiate Physical Therapy intervention for pain management as needed, strengthening, bed mobility, transfers, gait, stairs, balance training, and use of assistive device. DISCHARGE RECOMMENDATIONS: [] Home with no services [] [X] Home with services. Patient will benefit from home health PT services in order to progress mobility level using least restrictive assistive ambulatory device, assess home safety, identify additional equipment needs, and establish a functional maintenance program that will increase ability of patient to remain at home. [] Home with outpatient PT [] [] SNF for continued rehabilitation [] [] Skilled Nursing Care [] [] SNF versus LTC based on ability to participate and progress [] TREATMENT CODE/TIME: 51787 x 20 minutes for 1 unit, 77886 x 21 minutes for 1 unit (9:16-9:57). Thank you for the opportunity to participate in the care of this patient. Aubree Zhong PT, DPT, CLT [facility] [place], [place]
[2023-11-08] MEDS: Insulin Aspart 300 UNITS/3 ML PEN SC (11:44)
--- NOTE | 2023-11-08 14:04 | W.PM.PROGNOT ---
Date of Service Date of service: 11/08/23 Time of Service: 14:04 Assessment and Plan Assessment and plan (1) Intractable nausea and vomiting: Status: Acute Assessment and plan: Pt consultation pending continue antiemetic IV fluids advance diet as tolerated (2) Stenosis of left vertebral artery: Status: Acute Assessment and plan: not mentioned as a new or old lesion and there is some discrepancy between the impression and description in the text of the CTA of the head and neck. Cardiology should review. MRI of the brain will still be performed. If this was a discrepancy in patient's MRI of the brain is normal, we could consider stopping aspirin which was stopped on this patient years ago by her PCP. (3) Right lower lobe pneumonia: Status: Acute Assessment and plan: Questionable overlying the patient asymptomatic with no fever or elevated WBC. Because of recent vomiting and possible aspiration, she will be covered with IV Rocephin and follow-up clinically. outpatient oral antibiotic therapy for completion of course at discharge. Qualifiers: Aspiration pneumonia type: due to vomit Pneumonia type: aspiration pneumonia Qualified Code(s): J69.0 - Pneumonitis due to inhalation of food and vomit (4) Hypokalemia: Status: Acute Assessment and plan: IV repletion and trend labs. Most likely d/t GI losses, but also may be a consequence of chronic hydrochlorothiazide. She may need to increase her oral potassium supplement at home. potassium 3.6 today (5) Hypomagnesemia: Status: Acute Assessment and plan: IV repletion now with magnesium level of 2.4 (6) Chronic vertigo: Status: Chronic Assessment and plan: Patient has a history of chronic intermittent vertigo which is positional on this presentation as well. Continue meclizine and consider follow-up neurology consultation with evaluation of possible TIA and posterior circulation issues as above. (7) Essential hypertension: Status: Chronic Assessment and plan: Continue outpatient medical therapy with some permissive hypertension and adjustment of her medical therapy to accomplish this goal. Hydrochlorothiazide will be held for now. 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 Hold outpatient metformin. Qualifiers: Diabetes mellitus intermediate card tender insulin use: without intermediate card tender use Qualified Code(s): E11.42 - Type 2 diabetes mellitus with diabetic polyneuropathy (9) CKD (chronic kidney disease) stage 3, GFR 30-59 ml/min: Status: Chronic Assessment and plan: Stable with trending labs. discussed with DR Argueta. Qualifiers: Chronic kidney disease stage 3 subtype: stage 3b (GFR 30-44) Qualified Code(s): N18.32 - Chronic kidney disease, stage 3b Subjective Subjective Interval history since last seen: still dizzy with nausea, no vomiting, not orthostatic. Exam Const General: cooperative, comfortable, no acute distress and frail appearing Nutritional Appearance: overweight Orientation: alert, awake and oriented x3 HENMT Head: normal to inspection, normocephalic and atraumatic Ears: hearing grossly normal bilaterally General nose exam: external nose normal Face and sinus: normal facial exam Mouth: oral mucosae normal Neck Neck: normal visual inspection, full ROM and no JVD Resp Effort & Inspection: normal respiratory effort Cardio Rate: regular rate Rhythm: regular rhythm GI Inspection: normal to inspection Palpation: soft Auscultation: normal bowel sounds Skin General skin exam: no rashes or lesions noted Neuro General: patient alert, patient awake and patient oriented x3 Extrem General: normal to inspection, full ROM and no pedal edema Objective Last Vital Signs Temp 36.3 C L 11/08/23 11:38 Pulse 65 11/08/23 11:38 Resp 15 11/08/23 11:38 BP 134/69 11/08/23 11:38 Pulse Ox 92 11/08/23 11:38 Laboratory Results - last 24 hr 11/07/23 11/07/23 11/07/23 17:40 19:02 19:34 WBC 10.43 RBC 4.23 Hgb 12.1 Hct 37.8 MCV 89 MCH 28.6 MCHC 32.0 RDW 13.7 Plt Count 349 MPV 9.4 Immature Gran % 0.4 Neutrophils % 75.0 Lymphocytes % 19.0 Monocytes % 4.0 Eosinophils % 1.1 Basophils % 0.5 Nucleated RBC % 0.0 Absolute Neutrophils 7.83 H Absolute Lymphocytes 1.98 Absolute Monocytes 0.42 Absolute Eosinophils 0.11 Absolute Basophils 0.05 Sodium 139 Potassium 3.2 L Chloride 101 Carbon Dioxide 27.3 Anion Gap 10.7 BUN 23 H Creatinine 1.3 H Est GFR (CKD-EPI 2020) 40.05 Glucose 189 H Calcium 9.9 Magnesium 1.5 L Total Bilirubin 0.28 AST 13 L ALT 14 Alkaline Phosphatase 63 Troponin I < 50 NT-Pro-B Natriuret Pep 644 H Total Protein 7.6 Albumin 3.4 Lipase 54 TSH 4.90 H Free T4 1.17 Urine Color Yellow Urine Clarity Clear Urine pH 7.5 Ur Specific Jackson 1.020 Urine Protein Negative Urine Ketones Negative Urine Blood Negative Urine Nitrite Negative Urine Bilirubin Negative Urine Urobilinogen 0.2 Ur Leukocyte Esterase Trace H Urine RBC Negative Urine WBC 10-20 H Ur Epithelial Cells Rare Urine Crystals Negative Urine Bacteria Many Urine Casts Negative Urine Mucus Negative Ur Culture Indicated? Yes Urine Glucose Negative Urine Opiates Screen Negative Urine Methadone Screen Negative Ur Barbiturates Screen Negative Ur Tricyclics Screen Negative Ur Amphetamines Screen Negative U Benzodiazepines Scrn Negative Urine Cocaine Screen Negative Ur THC Screen Negative COVID-19 Source SARS-CoV-2 (PCR) Influenza Type A (PCR) Influenza Type B (PCR) RSV (PCR) Add-On Test Request DONE 11/07/23 11/07/23 11/08/23 21:14 23:20 06:30 WBC 9.31 RBC 3.71 L Hgb 10.6 L Hct 32.7 L MCV 88 MCH 28.6 MCHC 32.4 RDW 13.8 Plt Count 308 MPV 9.4 Immature Gran % Neutrophils % Lymphocytes % Monocytes % Eosinophils % Basophils % Nucleated RBC % Absolute Neutrophils Absolute Lymphocytes Absolute Monocytes Absolute Eosinophils Absolute Basophils Sodium 139 Potassium 3.6 Chloride 102 Carbon Dioxide 28.5 Anion Gap 8.5 BUN 21 H Creatinine 1.3 H Est GFR (CKD-EPI 2020) 40.05 Glucose 97 Calcium 9.3 Magnesium 2.4 Total Bilirubin 0.20 AST 11 L ALT 9 L Alkaline Phosphatase 53 Troponin I < 50 NT-Pro-B Natriuret Pep Total Protein 6.4 Albumin 2.8 L Lipase TSH Free T4 Urine Color Urine Clarity Urine pH Ur Specific Jackson Urine Protein Urine Ketones Urine Blood Urine Nitrite Urine Bilirubin Urine Urobilinogen Ur Leukocyte Esterase Urine RBC Urine WBC Ur Epithelial Cells Urine Crystals Urine Bacteria Urine Casts Urine Mucus Ur Culture Indicated? Urine Glucose Urine Opiates Screen Urine Methadone Screen Ur Barbiturates Screen Ur Tricyclics Screen Ur Amphetamines Screen U Benzodiazepines Scrn Urine Cocaine Screen Ur THC Screen COVID-19 Source NASOPHARYNX SARS-CoV-2 (PCR) Negative Influenza Type A (PCR) Negative Influenza Type B (PCR) Negative RSV (PCR) Negative Add-On Test Request Time Spent with Patient Time Spent with Patient: 35-49 minutes Time was spent: preparing to see the patient(eg.review tests), obtaining and/or reviewing separately otained hiistory, ordering medications,tests, procedures, indepentently interpreting results and counseling the patient
--- NOTE | 2023-11-08 15:08 | PTTR_ITS ---
PT Notes Visit Reasons: Intractable Vomiting,Chronic Vertigo,Vertebral Art Physical Therapy Inpatient Physical Therapy Treatment Date: 11/08/2023 Precautions: Fall. Standard. Activity as tolerated. Subjective: Onset: ?11/07/2023 Quality: dizzy with changing positions, head turning Duration: ?On and off since Saturday morning; subsided Previous Episodes: Second episode for this year but more severe Exacerbating Factors: Positional change, worse with supine<>sit as well as with head rotation/flexion/extension/lateral bending Headache: None Neck ache: Yes Nausea/Vomiting: repeatedly since admission up to 10M last night leading to hospitalization Hearing Loss: None Tinnitus: None Fullness in Ear: None Imbalance: Mild, needed hand held assist of 2 to transfer from bed to stretcher for MRI testing Red Flags: ? Visual changes: None ? Dysphagia or Dysarthria: None ? Facial Weakness: None ? Incoordination: MIidly impaired Objective: Posture: At baseline, trunk somewhat erect General Observation: Resting in bed. Movements very guarded. Daughters present in room throughout session. Mental Status: Alert and oriented as to person, place, time, and purpose. Able to pay attention, focus, and respond appropriately. Pain: None Vital Signs: Closely monitored by Nurse Iverson Bed Mobility/Transfers: Minimal cueing provided for use of B hands as needed for support, movement sequence, AD management, and posture to reduce fall risk and minimize pain report Supine to sit contact guard assist Sit to supine contact guard assist Sit to stand contact guard assist Stand to sit with contact guard assist using FWW Bed to reclining contact guard assist using FWW Gait: Covered a distance of about 40 using FWW with contact guard assist. Steps cautious and small. Stairs: Deferred Balance: Static Sitting: Normal Dynamic Sitting: Normal Static Standing: Fair Dynamic Standing: Fair NEURO-RE-ED: R Ann-Marie maneuver x 2 done with patient today with mild symptom provocation but no vomiting. Patient was able to walk after testing to about 40 feet usinf FWW. Assessment: R downbeating/torsional nystagmus and increased symptom of dizziness <2 minutes with R [place]-Hallpike maneuver signifying R anterior canal BPPV and will benefit f [facility] PT for vestibular rehab. Vomited after going back to bed x 1. Patient presents with clinical signs and symptoms consistent with current/admitting diagnoses that have resulted to mobility limitations, gait instability, generalized weakness, and overall ADL decline as demonstrated by the following impairment level findings: 1. Decreased strength to B LE 2. Impaired sitting/standing balance 3. Impaired activity tolerance 4. Limitation of joint range of motion in L knee 5. Dizziness and nausea 6. R anterior canal BPPV Impairments are contributing to the following functional limitations: 1. Decline in bed mobility skills 2. Decline in transfer skills 3. Difficulty with ambulation without assistive device and physical assistance 4. Increased completion time for mobility ADL performance 5. Increased risk for falls 6. Difficulty with managing steps alone safely Goals: Goals X1 week 1. Supine-Sit independent 2. Sit-Supine independent 3. Sit-Stand independent 4. Stand-Sit independent with FWW 5. Bed-Chair independent with FWW 6. Chair-Bed independent with FWW 7. Independent gait on level surface with use of FWW for at least 150 feet without report of pain nor dyspnea 8. Independent stair negotiation while holding onto B rails for at least 7 steps without report of pain nor dyspnea 9. Independent with home exercise program 10. Good static and dynamic standing balance/tolerance Plan of Care/Treatment Plan: Will see patient for one more session of R Ann-Marie maneuver along with functional mobility training using FWW. DISCHARGE RECOMMENDATIONS: [] Home with no services [] [X] Home with services. Patient will benefit from home health PT services in order to progress mobility level using least restrictive assistive ambulatory device, assess home safety, identify additional equipment needs, and establish a functional maintenance program that will increase ability of patient to remain at home. [] Home with outpatient PT [] [] SNF for continued rehabilitation [] [] [facility] [] [] SNF versus LTC based on ability to participate and progress [] TREATMENT CODE/TIME: 95113 x 38 minutes for 3 units (15:08-15:48).
--- NOTE | 2023-11-08 15:15 | PDOC.CMIN ---
Date of service: 11/08/23 Time of Service: 15:15 Care Management Initial Assmt Initial Assessment Reason for Hospitalization: intractable nausea and vomiting Functional Status/Living Situation Patient Presentation: Karine was sitting up on the side of the bed when CM met with her. She was pleasant in interaction and engaged easily with CM. Karine was admitted with intractable nausea and vomiting secondary to her vertigo. By this morning some of her symptoms had cleared and she informed CM that she is feeling somewhat better. Karine has not vomited today nor has she required any prn antiemetics. She is undergoing a workup to rule out a CVA. Karine has worked with PT twice today to evaluate her level of functioning and receive a session of R Ann-Marie maneuver for the vertigo. Town of Residence: [place] Resides with: Alone Significant Other/Family: Local (3 children all local and supportive) Employment Status: Retired Instrumental Activities of Daily Living (ADLs): Independent Medications Medication Management: No Issues/Barriers identified Advance Directives Advance Directives: Do you have an Advance Directive: Y 03/17/20 13:33 AD On File at [facility]: Y 03/17/20 13:33 Date Asked 04/27/14 03/17/20 13:33 AD Date Reviewed 11/07/23 11/07/23 17:14 COLST On File at [facility] Yes 05/11/21 06:04 COLST Date Scanned 02/24/21 05/25/21 13:01 Code Status Resuscitation Status DNR/DNI Portal Pt does not currently have a portal and education provided: No Insurance Coverage/Financial Issues Insurance: Medicare [employer] Care Team Visit Care Team Role Provider Type Allie Rodrigues NP Primary Care Provider NURSE PRACTITIONER Rosalinda Vargas Other Providers REG OCCUPATIONAL THERAPIST Karin Cox Other Providers DEBURRING TECHNICIAN Xochitl Olivo Other Providers DEBURRING TECHNICIAN Ce Bowden Other Providers DEBURRING TECHNICIAN Lisbet Alston Other Providers OTHER Aleida Temple RN Other Providers DEBURRING TECHNICIAN Mireille Rizo Other Providers CURRICULUM FACILITATOR Annette Galicia Emergency Provider NURSE PRACTITIONER Chuckie Carbajal Admit Provider NON-[facility] STAFF PHYSICIAN Attending Provider Discharge Potential Discharge Needs: PT Evaluation and PCP F/U Appt Anticipated Barriers to Discharge: None Identified Patient/Family Education Needs: Review discharge instructions, discuss Ask Me Three Transportation: Private vehicle Plan: Anticipate Karine will be discharged home, possibly with new home health services for PT as recommended by PT, when medically cleared. She will follow up with her community providers and plan of care and transport with family. CM will follow and continue to assess for discharge needs. PFSH All Active Problems Dizziness (Acute) Right lower lobe pneumonia (Acute) Hypokalemia (Acute) Hypomagnesemia (Acute) 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) Intractable nausea and vomiting (Acute) History of total left knee replacement (Acute 04/09/23) Postoperative nausea and vomiting (Acute) Onychomycosis (Acute) Edema (Acute) Venous (peripheral) insufficiency (Acute) Toe pain, right (Acute) Toe pain, left (Acute) Type 2 diabetes mellitus with diabetic polyneuropathy (Chronic) Neuropathy (Acute) Nail dystrophy (Acute) CKD (chronic kidney disease) stage 3, GFR 30-59 ml/min (Chronic) Balance problem (Acute) Essential hypertension (Chronic) Osteoarthritis (Chronic 01/23/13) right knee Diabetes mellitus (Chronic 01/23/13) Medical History Cholecystitis with gangrene of gallbladder Surgical History Hx laparoscopic cholecystectomy 2021 Hx of cataract extraction Family History Mother , age 78 Heart disease Alzheimer disease Father , age 58 Throat cancer Sister Heart disease Brother Alcohol abuse Brother Alcohol abuse Son Heart disease Daughter No problems noted. Daughter No problems noted. Social History Smoking/Tobacco Use Status: Never Second Hand Exposure: Yes Smoking risk assessment performed?: Yes Alcohol Intake: never Drug use: Never Substance use type: does not use Adopted: No Caregiver/Support person: No Household members: none Housing: apartment Number of Children: 5 number of grandchildren: 12 Do you need help understanding health information?: Never Pets and animals: No Sexually active: No Do you think of yourself as: straight/heterosexual Current gender identity: female What is your relationship status?: How often do you talk on the phone with friends or family?: three or more times per week How often do you get together with friends or relatives?: three or more times per week How often do you attend evangelical or christianity services?: 1-3 times per year Do you belong to any clubs or organized social groups?: no Panel score (0-1 are the most socially isolated patients): 1 What type of physical activity do you participate in: none Frequency: does not exercise Sue/Hinduism: Mormonism Special sue needs: No Seatbelt use: sometimes Drive intox or ride w/intox commercial driver: No Firearms in home: No Do you feel safe at home: Yes Do you feel safe in your relationship?: No Victim of physical abuse: No Victim of emotional abuse: No Victim of sexual abuse: No Would you like helpful sources: No SDOH(Care Management) Screening Will the Patient Participate in the Screening?: Yes Do you worry about having a steady place to live?: no Problems where you live: no known problems In the past 12 months, have you had to go without electric, gas, oil or water in your home?: no Have you or anyone in your house had to go without enough food to eat?: no Has lack of transportation kept you from medical appointments or from doing things needed for daily living?: yes Has anyone in your support network made you feel unsafe for any reason?: no Social Determinants of Health Comments(SDOH Details): Transportation Health Related Social Needs Health related social needs: transportation insecurity(Z59.82)
[2023-11-08] MEDS: Normal Saline Flush 10 ML SYR IVP (21:40)
[2023-11-09] MEDS: Normal Saline Flush 10 ML SYR IVP ×3 (00:09→23:47)
[2023-11-09 03:14] VITALS: BP 127/52; PULSE 64; RESP 15; TEMP 36.7; O2SAT 95
[2023-11-09] MEDS: Heparin 5,000 UNITS/ML VIAL 5000 UNITS SC ×3 (06:07→21:31)
[2023-11-09] MEDS: Potassium Citrate 1080 MG TABCR 540 MG PO (07:59)
[2023-11-09] MEDS: Magnesium Oxide 400 MG TAB PO (08:00)
[2023-11-09] MEDS: Cholecalciferol (Vitamin D3) 1,000 UNIT TAB 5000 UNITS PO (08:00)
[2023-11-09] MEDS: Lisinopril 10 MG TAB PO (08:00)
[2023-11-09] MEDS: Aspirin 81 MG CHEW PO (08:00)
[2023-11-09] MEDS: Atenolol 50 MG TAB PO (08:00)
[2023-11-09 08:09] VITALS: BP 134/43; PULSE 61; RESP 15; TEMP 36.1; O2SAT 93
--- NOTE | 2023-11-09 10:07 | W.PM.DS.N ---
Date of service: 11/09/23 Time of Service: 10:07 DS: Diagnosis Discharge Diagnosis (1) Intractable nausea and vomiting: Status: Acute (2) Stenosis of left vertebral artery: Status: Acute (3) Right lower lobe pneumonia: Status: Acute (4) Hypokalemia: Status: Acute (5) Hypomagnesemia: Status: Acute (6) Chronic vertigo: Status: Chronic (7) Essential hypertension: Status: Chronic (8) Type 2 diabetes mellitus with diabetic polyneuropathy: Status: Chronic (9) CKD (chronic kidney disease) stage 3, GFR 30-59 ml/min: Status: Chronic Discharge Plan Disposition Patient Disposition: Home Condition: Stable Discharge Details Reason For Visit: Intractable Vomiting,Chronic Vertigo,Vertebral Art Admit Date/Time: 11/07/23 20:42 Admit Provider: Chuckie Carbajal Attending Provider: Chuckie Carbajal Primary Care Provider: Allie Rodrigues Home Meds and New Rx's Prescriptions: New ondansetron 4 mg tablet,disintegrating 4 mg PO Q6H PRNQty: 20 0RF Continued (DME) lancets [OneTouch UltraSoft Lancets] Misc 1 ea Miscellaneous DAILY Qty: 90 3RF Rx Instructions: Daily magnesium oxide 400 mg (241.3 mg magnesium) tablet 400 mg PO DAILY lisinopril 30 mg tablet 30 mg PO DAILY Qty: 90 3RF metformin 500 mg tablet 1,000 mg PO BID Qty: 360 3RF (DME) blood-glucose meter [OneTouch Verio Meter] 1 EACH misc Miscellaneous DAILY Qty: 1 cholecalciferol (vitamin D3) 5,000 UNIT capsule 5,000 unit PO DAILY omega [id number]-fish oil 1 EACH capsule 1 ea PO DAILY (DME) OneTouch Verio test strips Strip 1 ea Miscellaneous DAILY Qty: 90 3RF Rx Instructions: daily atenolol 50 mg tablet 50 mg PO DAILY Qty: 90 4RF hydrochlorothiazide 25 mg tablet 25 mg PO DAILY Qty: 90 4RF potassium citrate 5 mEq (540 mg) tablet extended release 5 meq PO DAILY Qty: 90 3RF acetaminophen 500 mg tablet 1,000 mg PO Q8H PRN Qty: 90 0RF Rx Instructions: Take two tablets up to every 8 hours as needed for pain meclizine 12.5 mg tablet 12.5 mg PO TID PRN (Reason: dizziness and nausea) Qty: 20 0RF Discharge Instructions Instructions: Vertigo (a type of dizziness) Additional Instructions: take meclizine 12.5 mg three times daily until symptoms resolve, then take as needed can use ondansetron 4 mg every 6 hours if needed for ongoing nausea or vomiting clear liquids, 6-8 glasses or more daily to stay well hydrated. change positions slowly to avoid falls or injury Referrals: Allie Rodrigues NP [Primary Care Provider] - Activity:: Activity as Tolerated Equipment/Supplies:: Blood Glucose Monitor Diet:: As Tolerated DS: Summary Quality:SDOH Health Related Social Needs: Health related social needs transpo insecurity DS: Data Vitals/I&O Vitals and I&O: Vital Signs Temperature 36.1 C L 11/09/23 08:09 Temperature Source Skin 11/09/23 08:09 Pulse 61 11/09/23 08:09 Pulse Rhythm Regular 11/09/23 08:50 Pulse 77 11/07/23 21:46 Respiratory Rate 15 11/09/23 08:09 Respiratory Effort Normal, Non-Labored 11/09/23 08:50 Respiratory Depth Normal 11/09/23 08:50 Respiratory Pattern Normal 11/09/23 08:50 Blood Pressure 134/43 L 11/09/23 08:09 Blood Pressure Mean 100 11/07/23 21:46 Blood Pressure Position Supine 11/07/23 17:07 Pulse Oximetry 93 11/09/23 08:09 Oxygen Delivery Method Room Air 11/09/23 08:09 Oxygen Flow Rate 0 11/09/23 08:09 Pain Level 0 11/09/23 08:09 Comment see mar 11/07/23 22:32 Intake & Output 11/08/23 11/08/23 11/09/23 11:59 23:59 11:59 Intake Total 1810 / 2737.083 927.083 / 2737.083 50 / 50 Output Total 350 / 350 600 / 600 Balance 1460 / 2387.083 927.083 / 2387.083 -550 / -550 Intake: IV 1200 / 2127.083 927.083 / 2127.083 50 / 50 Oral 610 / 610 Output: Urine 350 / 350 600 / 600 Other: Urine Color Yellow Yellow Urine Appearance Clear Clear Clear Urine Odor None Voiding Methods Bedside Commode Data Completed and Pending Labs on day of discharge: Preliminary micro results at discharge 11/07/23 19:02 Urine Culture - Preliminary Urine - Reflex from Ua Gram Negative Davon PFSH All Active Problems Dizziness (Acute) Right lower lobe pneumonia (Acute) Hypokalemia (Acute) Hypomagnesemia (Acute) 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) Intractable nausea and vomiting (Acute) History of total left knee replacement (Acute 04/09/23) Postoperative nausea and vomiting (Acute) Onychomycosis (Acute) Edema (Acute) Venous (peripheral) insufficiency (Acute) Toe pain, right (Acute) Toe pain, left (Acute) Type 2 diabetes mellitus with diabetic polyneuropathy (Chronic) Neuropathy (Acute) Nail dystrophy (Acute) CKD (chronic kidney disease) stage 3, GFR 30-59 ml/min (Chronic) Balance problem (Acute) Essential hypertension (Chronic) Osteoarthritis (Chronic 01/23/13) right knee Diabetes mellitus (Chronic 01/23/13) Medical History Cholecystitis with gangrene of gallbladder Surgical History Hx laparoscopic cholecystectomy 2021 Hx of cataract extraction Family History Mother , age 78 Heart disease Alzheimer disease Father , age 58 Throat cancer Sister Heart disease Brother Alcohol abuse Brother Alcohol abuse Son Heart disease Daughter No problems noted. Daughter No problems noted. Social History Smoking/Tobacco Use Status: Never Second Hand Exposure: Yes Smoking risk assessment performed?: Yes Alcohol Intake: never Drug use: Never Substance use type: does not use Adopted: No Caregiver/Support person: No Household members: none Housing: apartment Number of Children: 5 number of grandchildren: 12 Do you need help understanding health information?: Never Pets and animals: No Sexually active: No Do you think of yourself as: straight/heterosexual Current gender identity: female What is your relationship status?: How often do you talk on the phone with friends or family?: three or more times per week How often do you get together with friends or relatives?: three or more times per week How often do you attend mandaen or taoism services?: 1-3 times per year Do you belong to any clubs or organized social groups?: no Panel score (0-1 are the most socially isolated patients): 1 What type of physical activity do you participate in: none Frequency: does not exercise Sue/Cheondoism: Latter Day Special sue needs: No Seatbelt use: sometimes Drive intox or ride w/intox straddle truck driver: No Firearms in home: No Do you feel safe at home: Yes Do you feel safe in your relationship?: No Victim of physical abuse: No Victim of emotional abuse: No Victim of sexual abuse: No Would you like helpful sources: No
[2023-11-09] MEDS: Meclizine 12.5 MG TAB PO ×3 (10:21→21:31)
[2023-11-09] MEDS: Ondansetron 4 MG/2 ML VIAL IVP (10:42)
[2023-11-09 11:47] VITALS: BP 171/74; PULSE 62; RESP 15; TEMP 36.1; O2SAT 92
--- NOTE | 2023-11-09 12:22 | NUR.NOTE ---
Nursing Note: Pt has some dizziness s/p meclizine, improved since med administration. Pt also reports no nausea s/p ondansetron. Pt's blood pressure elevated 171/74 HR 62. No other complaints. Provider notified.
--- NOTE | 2023-11-09 12:36 | PT.INTREAT ---
PT Notes Visit Reasons: Intractable Vomiting,Chronic Vertigo,Vertebral Art Date: 11/09/23 PRECAUTIONS: Fall. Standard. Activity as tolerated. SUBJECTIVE: Pt reports she was feeling nauseous this morning after transferring from her bed to the recliner, pt back in bed when approached for therapy this morning, agreed to participating with therapy session this morning OBJECTIVE: pt supine in bed. Pain: Denies VITALS: monitored by nursing staff. ? BED MOBILITY/TRANSFERS? Rolling L/R: supervision Supine-sit: CGA? Sit-supine: CGA? Sit-stand: CGA ? Stand-sit: CGA ? Bed-Chair: CGA ? Chair-bed: CGA Gait Training 20072: Direct one-on-one instruction and skilled instruction in: [x] employing an assistive device [] modified weight-bearing status [] movement sequencing [x] turning and movement with proper form [x] Provided verbal cues for equipment management and technique [x] Provided instruction in gait pattern [] Patient education regarding pacing and breathing techniques to maximize activity tolerance? GAIT? Assistive Device: FWW ? Weight bearing: WBAT Assist: CGA, ? Distance:?60 feet ? Deviation: Slow harjit, WBOS, low step height and low step length ? Neuro Re-education 35234: to improve balance, coordination, kinesthetic and proprioceptive sensations. ? Treatment: -Eply maneuver performed for right anterior canal BPPV. ASSESSMENT:? Pt reports feeling dizzy after gait training which subsided after pt was able to rest at side of bed for awhile. PLAN: Continue global strengthening per plan of care until patient is medically cleared for discharge. TREATMENT CODE/TIME: [id number] 30minutes (9:25-9:55am)
--- NOTE | 2023-11-09 15:06 | PGE_ITS ---
Date of Service Date of service: 11/09/23 Time of Service: 15:06 Assessment and Plan Assessment and plan (1) Intractable nausea and vomiting: Status: Acute Assessment and plan: PT following, for right anterior canal BPPV and weakness/gait training continue antiemetic IV fluids advance diet as tolerated (2) Stenosis of left vertebral artery: Status: Acute Assessment and plan: not mentioned as a new or old lesion and there is some discrepancy between the impression and description in the text of the CTA of the head and neck. Cardiology should review. MRI of the brain will still be performed. If this was a discrepancy in patient's MRI of the brain is normal, we could consider stopping aspirin which was stopped on this patient years ago by her PCP. (3) Right lower lobe pneumonia: Status: Acute Assessment and plan: Questionable overlying the patient asymptomatic with no fever or elevated WBC. Because of recent vomiting and possible aspiration, she will be covered with IV Rocephin and follow-up clinically. outpatient oral antibiotic therapy for completion of course at discharge. Qualifiers: Aspiration pneumonia type: due to vomit Pneumonia type: aspiration pneumonia Qualified Code(s): J69.0 - Pneumonitis due to inhalation of food and vomit (4) Hypokalemia: Status: Acute Assessment and plan: normalized, replete and follow (5) Hypomagnesemia: Status: Acute Assessment and plan: IV repletion now with magnesium level of 2.4 (6) Chronic vertigo: Status: Chronic Assessment and plan: Patient has a history of chronic intermittent vertigo which is positional on this presentation as well. Continue scheduled meclizine add prn zofran (7) Essential hypertension: Status: Chronic Assessment and plan: Continue outpatient medical therapy with some permissive hypertension and adjustment of her medical therapy to accomplish this goal. Hydrochlorothiazide will be held for now. 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 Hold outpatient metformin. Qualifiers: Diabetes mellitus sales development coordinator insulin use: without shelter use Qualified Code(s): E11.42 - Type 2 diabetes mellitus with diabetic polyneuropathy (9) CKD (chronic kidney disease) stage 3, GFR 30-59 ml/min: Status: Chronic Assessment and plan: Stable with trending labs. discussed with DR Argueta. Qualifiers: Chronic kidney disease stage 3 subtype: stage 3b (GFR 30-44) Qualified Code(s): N18.32 - Chronic kidney disease, stage 3b Subjective Subjective Interval history since last seen: still feeling dizzy with movement Exam Const General: cooperative, comfortable, no acute distress and frail appearing Nutritional Appearance: overweight Orientation: alert, awake and oriented x3 HENMT Head: normal to inspection, normocephalic and atraumatic Ears: hearing grossly normal bilaterally General nose exam: external nose normal Face and sinus: normal facial exam Mouth: oral mucosae normal Neck Neck: normal visual inspection, full ROM and no JVD Resp Effort & Inspection: normal respiratory effort Cardio Rate: regular rate Rhythm: regular rhythm GI Inspection: normal to inspection Palpation: soft Auscultation: normal bowel sounds Skin General skin exam: no rashes or lesions noted Neuro General: patient alert, patient awake and patient oriented x3 Extrem General: normal to inspection, full ROM and no pedal edema Objective Last Vital Signs Temp 36.1 C L 11/09/23 11:47 Pulse 62 11/09/23 11:47 Resp 15 11/09/23 11:47 BP 171/74 H 11/09/23 11:47 Pulse Ox 92 11/09/23 11:47 Time Spent with Patient Time Spent with Patient: 35-49 minutes Time was spent: preparing to see the patient(eg.review tests), obtaining and/or reviewing separately otained hiistory, ordering medications,tests, procedures, indepentently interpreting results and counseling the patient
[2023-11-09 16:06] VITALS: BP 164/74; PULSE 63; RESP 16; TEMP 35.8; O2SAT 94
[2023-11-09 19:59] VITALS: BP 149/76; PULSE 56; RESP 16; TEMP 36; O2SAT 94
[2023-11-09] MEDS: cefTRIAXone 1 GM/50 ML BAG IVPB (23:45)
[2023-11-10 00:01] VITALS: BP 161/66; PULSE 57; RESP 16; TEMP 36; O2SAT 93
[2023-11-10 03:37] VITALS: BP 166/86; PULSE 61; RESP 16; TEMP 36; O2SAT 94
[2023-11-10 06:44] LABS: Abs Immature Grans 0.02 10^3/uL (0.0-0.06); Absolute Basophil Count 0.02 10^3/uL (0.0-0.2); Absolute Monocyte Count 0.61 10^3/uL (0.1-0.8); Basophils % 0.3 %; Eosinophils % 7.7 %; HCT 36.9 % (36.0-46.0); HGB 11.7 g/dL (11.2-15.7); Immature Grans % 0.3 %; Lymphocytes % 21.9 %; MCH 28.8 pg (27.0-33.0); MCHC 31.7 % (32.0-36.0); MCV 91 fL (80-95); MPV 9.1 fL (8.0-11.0); Monocytes % 7.9 %; Neutrophils % 61.9 %; Platelet Count 295 10^3/uL (130-400); RBC 4.06 10^6/uL (3.93-5.22); RDW 13.8 % (11.7-14.6); WBC 7.75 10^3/uL (4.4-10.8)
[2023-11-10 07:05] LABS: BUN 13 mg/dL (7-18); CREATININE 1.3 mg/dL (0.55-1.02); Calcium 8.9 mg/dL (8.5-10.1); Chloride 106 mmol/L (98-107); Estimated GFR 40.05 (mL/min/1.73m2); Glucose 102 mg/dL (74-106); Potassium 3.6 mmol/L (3.5-5.1); Sodium 143 mmol/L (136-145)
[2023-11-10 07:33] VITALS: BP 151/65; PULSE 63; RESP 17; TEMP 36.6; O2SAT 92
[2023-11-10] MEDS: Normal Saline Flush 10 ML SYR IVP (07:59)
[2023-11-10] MEDS: Potassium Citrate 1080 MG TABCR 540 MG PO (07:59)
[2023-11-10] MEDS: Magnesium Oxide 400 MG TAB PO (08:00)
[2023-11-10] MEDS: Lisinopril 10 MG TAB PO (08:00)
[2023-11-10] MEDS: Atenolol 50 MG TAB PO (08:00)
[2023-11-10] MEDS: Aspirin 81 MG CHEW PO (08:01)
[2023-11-10] MEDS: Cholecalciferol (Vitamin D3) 1,000 UNIT TAB 5000 UNITS PO (08:01)
[2023-11-10] MEDS: Meclizine 12.5 MG TAB PO (08:01)
[2023-11-10] MEDS: Heparin 5,000 UNITS/ML VIAL 5000 UNITS SC (09:08)
--- NOTE | 2023-11-10 10:50 | DSE_ITS ---
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 (9) CKD (chronic kidney disease) stage 3, GFR 30-59 ml/min: Status: Chronic (10) Urticaria: Status: Acute Discharge Plan Disposition Patient Disposition: Home W/Home Health Services Condition: Stable Discharge Details Reason For Visit: Intractable Vomiting,Chronic Vertigo,Vertebral Art Admit Date/Time: 11/07/23 20:42 Admit Provider: Chuckie Carbajal Attending Provider: Chuckie Carbajal [facility] Course: This is an 87-year-old female patient past medical history significant for left vertebral artery stenosis total hip replacement type 2 diabetes mellitus osteoarthritis chronic kidney disease presented to the emergency department with intractable nausea and vomiting. She does have a known history of vertigo and does take meclizine as needed this episode was more severe than previous episodes. She was admitted under hospitalist services for CVA rule out. Her MRI was unremarkable. She did undergo an echocardiogram which also was unremarkable please see attached reports. She was seen by physical therapy and was positive on the Chano-Hallpike for right anterior canal BPPV. She did undergo Ann-Marie maneuver. She was scheduled meclizine and provided antiemetics with slow improvement in her symptoms. Today she is tolerating a regular diet reports that her vertigo has markedly improved. Prescriptions for ondansetron and meclizine have been sent to her pharmacy. While reviewing her discharge paperwork she did noted hives on her upper torso. She was provided loratadine which will also be prescribed at discharge. She denied any other symptoms no sore throat shortness of breath cough wheezing. She has taken both meclizine and ondansetron in the past so unclear etiology. She will continue to monitor closely outpatient for source of urticaria. Patient is being discharged to home with new home health services including physical therapy and Occupational Therapy. She should undergo routine evaluation and treatment and continue treatment for BPPV. Discharge discussed with Dr. Argueta Freedom Meds and New Rx's Prescriptions: New ondansetron 4 mg tablet,disintegrating 4 mg PO Q6H PRNQty: 20 0RF loratadine 10 mg capsule 10 mg PO DAILY Qty: 60 0RF Rx Instructions: can increase to twice daily if needed. Continued (DME) lancets [OneTouch UltraSoft Lancets] Misc 1 ea Miscellaneous DAILY Qty: 90 3RF Rx Instructions: Daily magnesium oxide 400 mg (241.3 mg magnesium) tablet 400 mg PO DAILY lisinopril 30 mg tablet 30 mg PO DAILY Qty: 90 3RF metformin 500 mg tablet 1,000 mg PO BID Qty: 360 3RF (DME) blood-glucose meter [OneTouch Verio Meter] 1 EACH misc Miscellaneous DAILY Qty: 1 cholecalciferol (vitamin D3) 5,000 UNIT capsule 5,000 unit PO DAILY omega [id number]-fish oil 1 EACH capsule 1 ea PO DAILY (DME) OneTouch Verio test strips Strip 1 ea Miscellaneous DAILY Qty: 90 3RF Rx Instructions: daily atenolol 50 mg tablet 50 mg PO DAILY Qty: 90 4RF hydrochlorothiazide 25 mg tablet 25 mg PO DAILY Qty: 90 4RF potassium citrate 5 mEq (540 mg) tablet extended release 5 meq PO DAILY Qty: 90 3RF acetaminophen 500 mg tablet 1,000 mg PO Q8H PRN Qty: 90 0RF Rx Instructions: Take two tablets up to every 8 hours as needed for pain meclizine 12.5 mg tablet 12.5 mg PO TID PRN (Reason: dizziness and nausea) Qty: 20 0RF Discharge Instructions Instructions: Vertigo (a type of dizziness) Additional Instructions: take meclizine 12.5 mg three times daily until symptoms resolve, then take as needed can use ondansetron 4 mg every 6 hours if needed for ongoing nausea or vomiting clear liquids, 6-8 glasses or more daily to stay well hydrated. change positions slowly to avoid falls or injury Stand Alone Forms: Nursing Discharge Form Referrals: Allie Rodrigues NP [Primary Care Provider] - (Please call the office in the morning to set up a hospital follow up within 7-10 days ) Activity:: Activity as Tolerated Equipment/Supplies:: Blood Glucose Monitor Diet:: As Tolerated Discharge Orders Discharge Orders: Discharge Order (Routine); Ordered 11/10/23 Ordered By: Michelle Somers Discharge Data Discharge Date/Time-TO BE ENTERED AT DEPARTURE: 11/10/23 12:26 DS: Summary Time Spent with Patient providing and/or coordinating discharge services: Greater than 30 minutes Status at Discharge Functional status at discharge: uses cane/walker Overall status at discharge: patient is progressing back to baseline Mental Status: mental status grossly normal Speech and Movement: speech and movement normal Mood: congruent mood Affect: normal affect Quality:SDOH Health Related Social Needs: Health related social needs transpo insecurity Exam Const General: cooperative, comfortable and no acute distress Nutritional Appearance: overweight Orientation: alert, awake and oriented x3 HENMT Head: normal to inspection, normocephalic and atraumatic Ears: hearing grossly normal bilaterally General nose exam: external nose normal Face and sinus: normal facial exam Mouth: oral mucosae normal Neck Neck: normal visual inspection, full ROM and no JVD Resp Effort & Inspection: normal respiratory effort Cardio Rate: regular rate Rhythm: regular rhythm GI Inspection: normal to inspection Palpation: soft Auscultation: normal bowel sounds Skin Lesions: no lesions Rashes: rashes noted (Hives torso anterior and posterior) Neuro General: patient alert, patient awake and patient oriented x3 Extrem General: normal to inspection, full ROM and no pedal edema Psych Mental Status: mental status grossly normal Speech and Movement: speech and movement normal Mood: congruent mood Affect: normal affect DS: Data Vitals/I&O Vitals and I&O: Vital Signs Temperature 36.6 C 11/10/23 07:33 Temperature Source Tympanic 11/10/23 07:33 Pulse 63 11/10/23 07:33 Pulse Rhythm Regular 11/10/23 03:50 Pulse 77 11/07/23 21:46 Respiratory Rate 17 11/10/23 07:33 Respiratory Effort Normal, Non-Labored 11/10/23 03:50 Respiratory Depth Normal 11/10/23 03:50 Respiratory Pattern Normal 11/10/23 03:50 Blood Pressure 151/65 H 11/10/23 07:33 Blood Pressure Mean 100 11/07/23 21:46 Blood Pressure Position Supine 11/07/23 17:07 Pulse Oximetry 92 11/10/23 07:33 Oxygen Delivery Method Room Air 11/10/23 07:33 Oxygen Flow Rate 0 11/10/23 07:33 Pain Level 0 11/10/23 07:33 Comment RN Notified 11/10/23 03:37 Intake & Output 11/09/23 11/09/23 11/10/23 11:59 23:59 11:59 Intake Total 50 / 50 60 / 60 Output Total 600 / 910 310 / 910 200 / 200 Balance -550 / -860 -310 / -860 -140 / -140 Intake: IV 50 / 50 60 / 60 Output: Urine 600 / 910 310 / 910 200 / 200 Other: Urine Color Yellow Pale Yellow Yellow Urine Appearance Clear Clear Clear Urine Odor None Normal Voiding Methods Bedside Commode Bedside Commode Bedside Commode Data Completed and Pending Completed studies during hospitalization [Text1]: MR BRAIN WO Echocardiogram Labs on day of discharge: Labs from last 24 hours 11/10/23 06:35 WBC 7.75 RBC 4.06 Hgb 11.7 Hct 36.9 MCV 91 MCH 28.8 MCHC 31.7 L RDW 13.8 Plt Count 295 MPV 9.1 Immature Gran % 0.3 Neutrophils % 61.9 Lymphocytes % 21.9 Monocytes % 7.9 Eosinophils % 7.7 Basophils % 0.3 Nucleated RBC % 0.0 Absolute Neutrophils 4.80 Absolute Lymphocytes 1.70 Absolute Monocytes 0.61 Absolute Eosinophils 0.60 Absolute Basophils 0.02 Sodium 143 Potassium 3.6 Chloride 106 Carbon Dioxide 30.0 Anion Gap 7.0 BUN 13 Creatinine 1.3 H Est GFR (CKD-EPI 2020) 40.05 Glucose 102 Calcium 8.9 Imaging MRI - head: Radiologist's impression: EXAM: MR BRAIN WO CLINICAL HISTORY: Left vertebral artery stenosis, intractable N/V TECHNIQUE: Multiplanar multisequence MRI of the brain was performed. COMPARISON: CT CT BRAIN NECK CTA from 11/07/2023 FINDINGS: VENTRICLES AND EXTRA AXIAL SPACES: Normal in size and morphology for the patient's age. MIDLINE SHIFT: None. CEREBRAL PARENCHYMA: No focus of restricted diffusion to suggest acute infarct. No space-occupying lesion identified. Mild atrophy consistent with the patient's age. Moderate scattered foci of high signal in the white matter consistent with sequela of chronic microvascular disease. Prominent perivascular spaces. HEMORRHAGE: No acute hemorrhage. Tiny signal blooming artifact in the left thalamus consistent with old petechial microhemorrhage. BRAINSTEM/CEREBELLUM: Normal. VISUALIZED PARANASAL SINUSES/MASTOIDS:Clear. Vasculature: Normal flow void. PITUITARY GLAND: Unremarkable. ORBITS: Unremarkable. IMPRESSION: No acute intracranial abnormality. Lab and Radiology Reports: Laboratory Results WBC 7.75 10^3/uL (4.4-10.8) 11/10/23 06:35 RBC 4.06 10^6/uL (3.93-5.22) 11/10/23 06:35 Hgb 11.7 g/dL (11.2-15.7) 11/10/23 06:35 Hct 36.9 % (36.0-46.0) 11/10/23 06:35 MCV 91 fL (80-95) 11/10/23 06:35 MCH 28.8 pg (27.0-33.0) 11/10/23 06:35 MCHC 31.7 % (32.0-36.0) L 11/10/23 06:35 RDW 13.8 % (11.7-14.6) 11/10/23 06:35 Plt Count 295 10^3/uL (130-400) 11/10/23 06:35 MPV 9.1 fL (8.0-11.0) 11/10/23 06:35 Immature Gran % 0.3 % 11/10/23 06:35 Neutrophils % 61.9 % 11/10/23 06:35 Lymphocytes % 21.9 % 11/10/23 06:35 Monocytes % 7.9 % 11/10/23 06:35 Eosinophils % 7.7 % 11/10/23 06:35 Basophils % 0.3 % 11/10/23 06:35 Nucleated RBC % 0.0 % (0.0-0.3) 11/10/23 06:35 Absolute Neutrophils 4.80 10^3/uL (1.2-6.7) 11/10/23 06:35 Absolute Lymphocytes 1.70 10^3/uL (1.2-3.4) 11/10/23 06:35 Absolute Monocytes 0.61 10^3/uL (0.1-0.8) 11/10/23 06:35 Absolute Eosinophils 0.60 10^3/uL (0.0-0.7) 11/10/23 06:35 Absolute Basophils 0.02 10^3/uL (0.0-0.2) 11/10/23 06:35 Sodium 143 mmol/L (136-145) 11/10/23 06:35 Potassium 3.6 mmol/L (3.5-5.1) 11/10/23 06:35 Chloride 106 mmol/L (98-107) 11/10/23 06:35 Carbon Dioxide 30.0 mmol/L (21.0-32.0) 11/10/23 06:35 Anion Gap 7.0 mmol/L (3-11) 11/10/23 06:35 BUN 13 mg/dL (7-18) 11/10/23 06:35 Creatinine 1.3 mg/dL (0.55-1.02) H 11/10/23 06:35 Est GFR (CKD-EPI 2020) 40.05 (mL/min/1.73m2) 11/10/23 06:35 Glucose 102 mg/dL (74-106) 11/10/23 06:35 Calcium 8.9 mg/dL (8.5-10.1) 11/10/23 06:35 Magnesium 2.4 mg/dL (1.8-2.4) 11/08/23 06:30 Total Bilirubin 0.20 mg/dL (0.2-1.0) 11/08/23 06:30 AST 11 U/L (15-37) L 11/08/23 06:30 ALT 9 U/L (14-59) L 11/08/23 06:30 Alkaline Phosphatase 53 U/L (46-116) 11/08/23 06:30 Troponin I < 50 ng/L (< or =60) 11/07/23 21:14 NT-Pro-B Natriuret Pep 644 pg/mL (<300) H 11/07/23 17:40 Total Protein 6.4 g/dL (6.4-8.2) 11/08/23 06:30 Albumin 2.8 g/dL (3.4-5.0) L 11/08/23 06:30 Lipase 54 U/L (16-77) 11/07/23 17:40 TSH 4.90 uIU/Ml (0.36-3.74) H 11/07/23 17:40 Free T4 1.17 ng/dL (0.76-1.46) 11/07/23 17:40 Urine Color Yellow (Yellow) 11/07/23 19:02 Urine Clarity Clear (Clear) 11/07/23 19:02 Urine pH 7.5 (5-8) 11/07/23 19:02 Ur Specific Cope 1.020 (1.005-1.025) 11/07/23 19:02 Urine Protein Negative mg/dL (Neg-Trace) 11/07/23 19:02 Urine Ketones Negative mg/dL (Negative) 11/07/23 19:02 Urine Blood Negative (Negative) 11/07/23 19:02 Urine Nitrite Negative (Negative) 11/07/23 19:02 Urine Bilirubin Negative (Negative) 11/07/23 19:02 Urine Urobilinogen 0.2 mg/dL (Up to 0.2) 11/07/23 19:02 Ur Leukocyte Esterase Trace (Negative) H 11/07/23 19:02 Urine RBC Negative HPF (0-2) 11/07/23 19:02 Urine WBC 10-20 HPF (0-5) H 11/07/23 19:02 Ur Epithelial Cells Rare HPF (Negative) 11/07/23 19:02 Urine Crystals Negative HPF (Negative) 11/07/23 19:02 Urine Bacteria Many HPF (Negative) 11/07/23 19:02 Urine Casts Negative LPF (Negative) 11/07/23 19:02 Urine Mucus Negative (Negative) 11/07/23 19:02 Ur Culture Indicated? Yes 11/07/23 19:02 Urine Glucose Negative mg/dL (Negative) 11/07/23 19:02 Urine Opiates Screen Negative (Negative) 11/07/23 19:02 Urine Methadone Screen Negative (Negative) 11/07/23 19:02 Ur Barbiturates Screen Negative (Negative) 11/07/23 19:02 Ur Tricyclics Screen Negative (Negative) 11/07/23 19:02 Ur Amphetamines Screen Negative (Negative) 11/07/23 19:02 U Benzodiazepines Scrn Negative (Negative) 11/07/23 19:02 Urine Cocaine Screen Negative (Negative) 11/07/23 19:02 Ur THC Screen Negative (Negative) 11/07/23 19:02 COVID-19 Source NASOPHARYNX 11/07/23 23:20 SARS-CoV-2 (PCR) Negative (Negative) 11/07/23 23:20 Influenza Type A (PCR) Negative (Negative) 11/07/23 23:20 Influenza Type B (PCR) Negative (Negative) 11/07/23 23:20 RSV (PCR) Negative (Negative) 11/07/23 23:20 Add-On Test Request DONE 11/07/23 19:34 Additional Comments Additional comments: Echocardiogram Left ventricular systolic function is normal. Left ventricular ejection fraction 60 to 65%. There is no segmental wall motion abnormalities. The right ventricle is normal size. Right ventricle systolic function is normal. Left atrium is dilated. There is no evidence of a patent foramen ovale visualized with agitated saline. There is mild mitral regurgitation. PFSH All Active Problems (Updated 11/10/23 @ 16:13 by Michelle Somers NP) Urticaria (Acute) Dizziness (Acute) Right lower lobe pneumonia (Acute) Hypokalemia (Acute) Hypomagnesemia (Acute) 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) Intractable nausea and vomiting (Acute) History of total left knee replacement (Acute 04/09/23) Postoperative nausea and vomiting (Acute) Onychomycosis (Acute) Edema (Acute) Venous (peripheral) insufficiency (Acute) Toe pain, right (Acute) Toe pain, left (Acute) Type 2 diabetes mellitus with diabetic polyneuropathy (Chronic) Neuropathy (Acute) Nail dystrophy (Acute) CKD (chronic kidney disease) stage 3, GFR 30-59 ml/min (Chronic) Balance problem (Acute) Essential hypertension (Chronic) Osteoarthritis (Chronic 01/23/13) right knee Diabetes mellitus (Chronic 01/23/13) Medical History Cholecystitis with gangrene of gallbladder Surgical History Hx laparoscopic cholecystectomy 2021 Hx of cataract extraction Family History Mother , age 78 Heart disease Alzheimer disease Father , age 58 Throat cancer Sister Heart disease Brother Alcohol abuse Brother Alcohol abuse Son Heart disease Daughter No problems noted. Daughter No problems noted. Social History Smoking/Tobacco Use Status: Never Second Hand Exposure: Yes Smoking risk assessment performed?: Yes Alcohol Intake: never Drug use: Never Substance use type: does not use Adopted: No Caregiver/Support person: No Household members: none Housing: apartment Number of Children: 5 number of grandchildren: 12 Do you need help understanding health information?: Never Pets and animals: No Sexually active: No Do you think of yourself as: straight/heterosexual Current gender identity: female What is your relationship status?: How often do you talk on the phone with friends or family?: three or more times per week How often do you get together with friends or relatives?: three or more times per week How often do you attend evangelical or roman catholic services?: 1-3 times per year Do you belong to any clubs or organized social groups?: no Panel score (0-1 are the most socially isolated patients): 1 What type of physical activity do you participate in: none Frequency: does not exercise Sue/Amish: Sabianist Special sue needs: No Seatbelt use: sometimes Drive intox or ride w/intox 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
--- NOTE | 2023-11-10 12:05 | PDOC.HHF2F ---
Home Health Referral Home Health Orders Clinical synopsis of why skilled professionals are needed: intractable vertigo, right anterior canal BPPV Medical diagnosis necessitation home health referral: BPPV Physical Therapist: Check all that apply Increase strength & endurance for safe mobility at home: Ordered To design/establish home maintenance program: Ordered Fall reduction therapy program for patient with history of frequent falls: Ordered Home safety evaluation and teaching/gait training including stair management (if applicable): Ordered Other: BPPV Occupational Therapist: Evaluate and treat for patient unable to perform ADL/IADL/self-care: Ordered Upper extremity strengthening, range and motion: Ordered Encounter Date and Reason: I certify that a FTF encounter for this patient was performed on November 10, 2023 and that such encounter was related to the primary reason the patient requires home health services. The encounter was conducted in the following manner: By me as the certifying physician, POLICY ISSUE CLERK, PA or By an inpatient physician, POLICY ISSUE CLERK or PA during an inpatient stay who communicated findings to me, Certification And Authentication I certify that I composed the above information based on my clinical judgment relating to this patient's medical condition and, if applicable, clinical findings communicated to me by the NPP or inpatient physician who performed the FTF encounter. Name of Provider that will be monitoring home health services: Allie Rodrigues
--- NOTE | 2023-11-10 12:05 | PT.INTREAT ---
PT Notes Visit Reasons: Intractable Vomiting,Chronic Vertigo,Vertebral Art Date: 11/10/23 PRECAUTIONS: Fall. Standard. Activity as tolerated. SUBJECTIVE: Pt reports she is feeling much better, hopeful that she could go home today. Has not been having dizziness recently. OBJECTIVE: pt supine in bed. Pain: Denies VITALS: monitored by nursing staff. ? BED MOBILITY/TRANSFERS? Rolling L/R: supervision Supine-sit: supervision? Sit-supine: supervision? Sit-stand: supervision ? Stand-sit: supervision? Bed-Chair: supervision ? Chair-bed: supervision Gait Training 48732: Direct one-on-one instruction and skilled instruction in: [x] employing an assistive device [x] modified weight-bearing status [x] movement sequencing [x] turning and movement with proper form [x] Provided verbal cues for equipment management and technique [x] Provided instruction in gait pattern [x] Patient education regarding pacing and breathing techniques to maximize activity tolerance? GAIT? Assistive Device: FWW ? Weight bearing: WBAT Assist: CGA, ? Distance:?200' feet ? Deviation: Slow harjit, WBOS, low step height and low step length ? Neuro Re-education 37503: to improve balance, coordination, kinesthetic and proprioceptive sensations. ? Treatment: -Eply maneuver performed for right anterior canal BPPV. ASSESSMENT:?pt did not report feeling dizy this time after doing eply, and did not required seated rest break prior to doing gait training. PLAN: Continue global strengthening per plan of care until patient is medically cleared for discharge. TREATMENT CODE/TIME: [id number] 15minutes (10:45-11:00am)
[2023-11-10] MEDS: Loratidine 10 MG TAB PO (12:24)
--- NOTE | 2023-11-10 12:40 | PDOC.CMDIS ---
Date of service: 11/10/23 Time of Service: 12:40 LACE Index Scoring Tool Questions: Length of Stay (in days): 3 Was the patient admitted via the E.D.?: Yes Comorbidities: Diabetes w/o Complication and Liver or Renal Disease E.D. Visits: 1 Answers: Total Score: 12 Risk of Readmission: High Risk Care Management Discharge Plan Reason for Hospitalization: nausea and vomiting with vertigo Discharge Plan: Karine will be discharged home with new home health services for PT. She will follow up with her PCP and plan of care and transport with family. Patient/Family Education Needs: Review discharge instructions, activity, limitations, follow up plan and discuss Ask Me Three Services Needed at Discharge: Home Health Care Services SDOH Health Related Social Needs: Health related social needs transpo insecurity Health related social needs: transportation insecurity(Z59.82)
== END 2023-11-10 12:26 | disposition home health service (06) | DRG 149 ==
LOC: ER 21:32 → MS 22:00
PROVIDERS: Internal Medicine; Nurse Practitioner Acute Care; Admitting Provider Family Medicine; Emergency Provider Nurse Practitioner Family; PCP Nurse Practitioner Family; Visit Provider Family Medicine
DX: H81.11 Benign paroxysmal vertigo, right ear (principal); J69.0 Pneumonitis due to inhalation of food and vomit; I67.89 Other cerebrovascular disease; R11.2 Nausea with vomiting, unspecified; I65.02 Occlusion and stenosis of left vertebral artery; E83.42 Hypomagnesemia; R53.1 Weakness; E87.6 Hypokalemia; I12.9 Hypertensive chronic kidney disease with stage 1 through stage 4 chronic kidney disease, or unspecified chronic kidney disease; E11.42 Type 2 diabetes mellitus with diabetic polyneuropathy; E11.22 Type 2 diabetes mellitus with diabetic chronic kidney disease; N18.32 Chronic kidney disease, stage 3b; L50.9 Urticaria, unspecified; E86.0 Dehydration; Z96.652 Presence of left artificial knee joint; I87.2 Venous insufficiency (chronic) (peripheral); M17.11 Unilateral primary osteoarthritis, right knee; Z79.899 Other long term (current) drug therapy; Z79.84 Long term (current) use of oral hypoglycemic drugs
CPT/HCPCS: 00123; 36415; 70496; 70498; 80048; 80053; 80307; 83690; 85027; 87077; 87637; 93005; 96374; 96375; 97112; 97162; 97530; 99285; 70551; 71045; 81003; 81015; 83735; 83880; 84439; 84443; 84484; 85025; 87086; 87186; 93010; 93306; 99223; 99232; 99239; J0696; J1644; J1815; J2405; J3360; J3475; J3480; J3490

== ENCOUNTER 2023-11-14 17:27 | Outpatient (CLI) | payer MEDICARE, OTHER, SELFPAY ==
--- NOTE | 2023-11-14 18:00 | DI.RAD_ITS ---
Exam(s) XR CHEST 2V PA LATERAL EXAM: XR CHEST 2V PA LATERAL CLINICAL HISTORY: followup for recent right infiltrate ? resolution. TECHNIQUE: 2D digital imaging was performed. COMPARISON: CR,XR XR PORTABLE CHEST AP from 11/07/2023 FINDINGS: 2 views: Heart size is normal. The mediastinum is not widened. Left lung remains clear. There appears to be almost complete resolution of the previously described right lung base infiltrate. There are no pleural effusions. IMPRESSION: Almost complete resolution of the right lower lobe infiltrate. No new areas of infiltrate and no ple ural effusions. DATA REPOSITORY: RADIATION DOSE DELIVERED:
--- NOTE | 2023-11-14 18:35 | DI.VRAD_ITS ---
PROCEDURE INFORMATION: Exam: XR Chest Exam date and time: 11/14/2023 6:09 PM Age: 87 years old Clinical indication: Other: Followup for recent right infiltrate ? resolution TECHNIQUE: Imaging protocol: Radiologic exam of the chest. Views: 2 views. COMPARISON: CR XR PORTABLE CHEST AP 11/07/2023 7:24 PM FINDINGS: Lungs: There has been interval near-complete clearing of previously described right lower lobe consolidation. Minimal stranding parenchymal opacity persists in the right lower lung. There is mild left basilar atelectasis. Left lung is otherwise clear Pleural spaces: Unremarkable. No pleural effusion. No pneumothorax. Heart/Mediastinum: Unremarkable. No cardiomegaly. Bones/joints: Moderate degenerative changes noted in the spine and shoulders. No acute fracture. IMPRESSION: Near-complete interval resolution of right lower lobe infiltrate Dictated and Authenticated by: Tommy Elliott MD. Ordering:MARIE Encinas MD
== END 2023-11-14 17:47 ==
PROVIDERS: PCP Nurse Practitioner Family; Visit Provider Physician Assistant
DX: J69.0 Pneumonitis due to inhalation of food and vomit (principal)
CPT/HCPCS: 71046

== ENCOUNTER → 2024-02-19 09:16 | Outpatient (BNVA) | payer MEDICARE, OTHER, SELFPAY | PROVIDERS: PCP Nurse Practitioner Family; Referring Provider Nurse Practitioner Family; Visit Provider Podiatrist | DX: L60.3 Nail dystrophy (principal); E11.42 Type 2 diabetes mellitus with diabetic polyneuropathy; I87.2 Venous insufficiency (chronic) (peripheral); R60.0 Localized edema; B35.1 Tinea unguium | CPT/HCPCS: 11719; 11721 ==

== ENCOUNTER 2024-03-03 16:05 | Outpatient (REF) | payer MEDICARE, OTHER, SELFPAY ==
[2024-03-03 18:12] LABS: ALT 14 U/L (14-59); AST 17 U/L (15-37); Albumin 3.4 g/dL (3.4-5.0); Alkaline Phosphatase 58 U/L (46-116); Anion Gap 8.9 mmol/L (3-11); BUN 23 mg/dL (7-18); Bilirubin, Total 0.36 mg/dL (0.2-1.0); CO2 28.1 mmol/L (21.0-32.0); CREATININE 1.4 mg/dL (0.55-1.02); Calcium 9.4 mg/dL (8.5-10.1); Calculated LDL 123 mg/dL (<100); Chloride 105 mmol/L (98-107); Cholesterol 207 mg/dL (<200); Estimated GFR 36.41 (mL/min/1.73m2); Glucose 125 mg/dL (74-106); HDL Cholesterol 48 mg/dL (40-60); Potassium 3.9 mmol/L (3.5-5.1); Sodium 142 mmol/L (136-145); TSH (W/Ref FT4) 3.97 uIU/mL (0.36-3.74); Total Protein 6.9 g/dL (6.4-8.2); Triglyceride 180 mg/dL (<150)
[2024-03-03 18:29] LABS: FREE T4 0.99 ng/dL (0.76-1.46)
== END 2024-03-03 16:06 | disposition home or self-care (01) ==
LOC: LBN 16:05
PROVIDERS: PCP Nurse Practitioner Family; Visit Provider Nurse Practitioner Family
DX: I10 Essential (primary) hypertension (principal); E11.9 Type 2 diabetes mellitus without complications; N18.30 Chronic kidney disease, stage 3 unspecified; M19.90 Unspecified osteoarthritis, unspecified site; R26.89 Other abnormalities of gait and mobility
CPT/HCPCS: 80053; 80061; 83036; 84439; 84443

== ENCOUNTER 2024-04-13 15:51 | Outpatient (CLI) | payer MEDICARE, OTHER, SELFPAY ==
--- NOTE | 2024-04-13 10:45 | DI.RAD_ITS ---
Exam(s) XR KNEE LT 2V AP,LAT EXAM: XR KNEE LT 2V AP,LAT CLINICAL HISTORY: ANNUAL F/U L TKA. TECHNIQUE: 2D digital imaging was performed. Two images were obtained. And lateral views were obtai pepe. COMPARISON: CR XR KNEE LT 1V from 04/22/2023 CR XR STANDING ALIGNMENT from 04/22/2023 FINDINGS: BONES: There are stable post operative changes of a left total knee arthroplasty present. No fractur e or dislocation. JOINTS: The orthopedic hardware is in good position. No evidence of hardware loosening. SOFT TISSUE: Normal. IMPRESSION: Stable left total knee arthroplasty. DATA REPOSITORY: RADIATION DOSE DELIVERED:
== END 2024-04-13 15:52 | disposition home or self-care (01) ==
LOC: DIORS 15:51
PROVIDERS: PCP Nurse Practitioner Family; Visit Provider Student in an Organized Health Care Education/Training Program
DX: Z47.1 Aftercare following joint replacement surgery (principal); Z96.652 Presence of left artificial knee joint
CPT/HCPCS: 99213; 73560

== ENCOUNTER → 2024-07-01 08:56 | Outpatient (BNVA) | payer MEDICARE, OTHER, SELFPAY | PROVIDERS: PCP Nurse Practitioner Family; Referring Provider Nurse Practitioner Family; Visit Provider Podiatrist | DX: E11.42 Type 2 diabetes mellitus with diabetic polyneuropathy (principal); L60.3 Nail dystrophy; R60.0 Localized edema; I87.2 Venous insufficiency (chronic) (peripheral); B35.1 Tinea unguium; N18.30 Chronic kidney disease, stage 3 unspecified; R09.89 Other specified symptoms and signs involving the circulatory and respiratory systems; L65.9 Nonscarring hair loss, unspecified; R20.8 Other disturbances of skin sensation; L60.8 Other nail disorders; L60.2 Onychogryphosis | CPT/HCPCS: 11719 ==

== ENCOUNTER 2024-07-05 06:50 | Observation (INO) | payer MEDICARE, OTHER, SELFPAY ==
[2024-07-05] VITALS (47 sets, daily range): BP systolic 126–222; BP diastolic 61–184; PULSE 60–86; RESP 14–21; TEMP 36.1–36.7; O2SAT 84–98
--- NOTE | 2024-07-05 06:45 | RT.EKG_ITS ---
APPROVED REPORT Exam: Resting ECG Reason for Exam: dizzy, nausea Patient Location: E HR:78 bpm ECG Measurements Heart Rate 78 AXIS MD 224 P 30 QRSd 86 QRS -10 QT 395 T 30 QTc 450 Conclusion Sinus rhythm 78 1st degree a block no stemi
--- NOTE | 2024-07-05 07:00 | ED.GENADUL_ITS ---
Discharge Plan Disposition Patient Disposition: Admit to [facility] Condition: Stable Discharge Details Chief Complaint: Dizzy/Sync Clinical Impression: Essential hypertension, CKD (chronic kidney disease) stage 3, GFR 30-59 ml/min, Chronic vertigo, Dizziness, Hypokalemia, Hypomagnesemia Primary Care Provider: Allie Rodrigues ED Provider: Joseph Clark Home Meds and New Rx's Prescriptions: No Action (DME) lancets [OneTouch UltraSoft Lancets] Misc 1 ea Miscellaneous DAILY Qty: 90 3RF Rx Instructions: Daily magnesium oxide 400 mg (241.3 mg magnesium) tablet 400 mg PO DAILY prednisone 5 mg tablet 5 mg PO DAILY Qty: 49 0RF Rx Instructions: 40mg x 2 days, 30mg x 2 days, 20mg x 2 days, 15 mg x 2 days, 10 mg x 2 days, 5 mg x 2 days, 2.5 mg x 2 days. metformin 500 mg tablet 1,000 mg PO BID Qty: 360 3RF triamcinolone acetonide 0.1 % cream 1 applic topical BID Qty: 80 2RF Rx Instructions: Apply to arms, abdomen and neck for pruritic rash twice a day until mostly resolved. Stop after two weeks. (DME) blood-glucose meter [Funding OptionsTouch Verio Meter] 1 EACH misc Miscellaneous DAILY Qty: 1 cholecalciferol (vitamin D3) 5,000 UNIT capsule 5,000 unit PO DAILY omega 0-jqi-uvc-fish oil 1 EACH capsule 1 ea PO DAILY (DME) OneTouch Verio test strips Strip 1 ea Miscellaneous DAILY Qty: 90 3RF Rx Instructions: daily atenolol 50 mg tablet 50 mg PO DAILY Qty: 90 4RF hydrochlorothiazide 25 mg tablet 25 mg PO DAILY Qty: 90 4RF potassium citrate 5 mEq (540 mg) tablet extended release 5 meq PO DAILY Qty: 90 3RF lisinopril 30 mg tablet 30 mg PO DAILY Qty: 90 3RF acetaminophen 500 mg tablet 1,000 mg PO Q8H PRN Qty: 90 0RF Rx Instructions: Take two tablets up to every 8 hours as needed for pain ondansetron 4 mg tablet,disintegrating 4 mg PO Q6H PRNQty: 20 0RF meclizine 12.5 mg tablet 12.5 mg PO TID PRN (Reason: dizziness and nausea) Qty: 20 0RF loratadine 10 mg capsule 10 mg PO DAILY Qty: 60 0RF Rx Instructions: can increase to twice daily if needed. HPI General Date/Time Provider Initiated Documentation: 07/05/24 06:56 . Limitations to Documentation: no limitations . Information obtained by: patient and EMS . HPI Narrative: 88-year-old female with past medical history including hypertension, diabetes, CKD, vertigo presents for evaluation of dizziness. Patient reports that this morning she woke up feeling dizzy which caused vomiting. She reports several episodes of vomiting. She did not attempt to get out of bed or walk because of the dizziness. She denies any headache, ear ringing, visual change. She was given IV Zofran by EMS and reports some improvement in her symptoms. She denies any chest pain or abdominal pain. She reports that she has had the symptoms before. She did not try her medication this morning. She denies any numbness, tingling or weakness. Related Data Home Medications ?Medication ?Instructions ?Recorded ?Confirmed blood-glucose meter (Zenytimeuch ##1 10/03/16 07/01/24 Verio Meter) cholecalciferol (vitamin D3) 125 5,000 unit PO DAILY 06/03/17 07/01/24 mcg (5,000 unit) capsule omega 3-npi-ygi-fish oil 500 mg 1 ea PO DAILY 06/03/17 07/01/24 (200mg-300mg)-1,000 mg capsule lancets (Funding OptionsTouch UltraSoft #90 ea 12/11/19 07/01/24 Lancets) magnesium oxide 400 mg (241.3 mg 400 mg PO DAILY 06/16/20 07/01/24 magnesium) tablet acetaminophen 500 mg tablet 1,000 mg (2 x 500 mg) PO Q8H PRN 04/09/23 07/01/24 pain #90 tabs blood sugar diagnostic (Zenytimeuch #90 strips 04/12/23 07/01/24 Verio test strips) atenolol 50 mg tablet 50 mg PO DAILY #90 tab-caps 10/07/23 07/01/24 hydrochlorothiazide 25 mg tablet 25 mg PO DAILY #90 tab-caps 10/07/23 07/01/24 potassium citrate 5 mEq (540 mg) 5 meq PO DAILY #90 tabs 10/09/23 07/01/24 tablet,extended release meclizine 12.5 mg tablet 12.5 mg PO TID PRN dizziness and 11/09/23 07/01/24 nausea #20 tabs ondansetron 4 mg disintegrating 4 mg PO Q6H PRN #20 tabs 11/09/23 07/01/24 tablet loratadine 10 mg capsule 10 mg PO DAILY #60 caps 11/10/23 07/01/24 triamcinolone acetonide 0.1 % 1 applic topical BID Pruritis #80 11/12/23 07/01/24 topical cream grams prednisone 5 mg tablet 5 mg PO DAILY #49 tabs 11/14/23 07/01/24 lisinopril 30 mg tablet 30 mg PO DAILY #90 tabs 01/20/24 07/01/24 metformin 500 mg tablet 1,000 mg (2 x 500 mg) PO BID #360 03/03/24 07/01/24 tabs Previous Rx's ?Medication ?Instructions ?Recorded lancets (Funding OptionsTouch UltraSoft #90 ea 12/11/19 Lancets) acetaminophen 500 mg tablet 1,000 mg (2 x 500 mg) PO Q8H PRN 04/09/23 pain #90 tabs blood sugar diagnostic (OneTouch #90 strips 04/12/23 Verio test strips) atenolol 50 mg tablet 50 mg PO DAILY #90 tab-caps 10/07/23 hydrochlorothiazide 25 mg tablet 25 mg PO DAILY #90 tab-caps 10/07/23 potassium citrate 5 mEq (540 mg) 5 meq PO DAILY #90 tabs 10/09/23 tablet,extended release meclizine 12.5 mg tablet 12.5 mg PO TID PRN dizziness and 11/09/23 nausea #20 tabs ondansetron 4 mg disintegrating 4 mg PO Q6H PRN #20 tabs 11/09/23 tablet loratadine 10 mg capsule 10 mg PO DAILY #60 caps 11/10/23 triamcinolone acetonide 0.1 % 1 applic topical BID Pruritis #80 11/12/23 topical cream grams prednisone 5 mg tablet 5 mg PO DAILY #49 tabs 11/14/23 lisinopril 30 mg tablet 30 mg PO DAILY #90 tabs 01/20/24 metformin 500 mg tablet 1,000 mg (2 x 500 mg) PO BID #360 03/03/24 tabs Allergies Allergy/AdvReac Type Severity Reaction Status Date / Time No Known Allergies Allergy Verified 07/01/24 09:16 General Stated Complaint: Dizzy/Sync ELSA: 3 Exam Narrative Exam Narrative: Review of Systems: All systems reviewed & are unremarkable except as noted in HPI and below Well-developed, no acute distress NCAT PERRL, normal conjunctiva , no nystagmus RRR, no murmur Unlabored respiratory effort, clear bilaterally Nondistended abdomen , soft nontender no focal neurologic deficits, cranial nerves intact, GCS 15, good strength throughout Course Vital Signs Vital signs: Vital Signs Temperature 36.6 C 07/05/24 06:51 Pulse 81 07/05/24 06:51 Respiratory Rate 20 07/05/24 06:51 Blood Pressure 211/180 H 07/05/24 06:51 Pulse Oximetry 96 07/05/24 06:51 Temperature 36.6 C 07/05/24 06:51 Temperature Source Oral 07/05/24 06:51 Pulse 81 07/05/24 06:51 Respiratory Rate 20 07/05/24 06:51 Blood Pressure 211/180 H 07/05/24 06:51 Blood Pressure Position Supine 07/05/24 06:51 Pulse Oximetry 96 07/05/24 06:51 Oxygen Delivery Method Room Air 07/05/24 06:51 Oxygen Flow Rate 0 07/05/24 06:51 Medical Decision Making Emergent evaluation of dizziness. The patient has a history of vertigo, but did not try meclizine this morning. She did get relief with medication from EMS. I suspect this is persistent vertigo, I doubt an acute intracranial process as she has no signs of central neurologic change. Also consider viral illness, metabolic derangement, hyperglycemia. Will check lab work, EKG and give medications for symptom relief. Patient has noted to be slightly hypertensive, but has not taken her medication this morning. Will continue to monitor for sym ptom relief. 0730 The patient had return of vomiting. IV Valium was given which did result and some slight sedation. Will continue to monitor closely. 0915 On reevaluation reports improvement in her symptoms near resolution of the dizziness. She is sitting upright in bed and appears to be feeling much better. On review of her blood work, she has a slight elevation in white blood cell count of 11.5. She has some mild hypokalemia of 3.3 and hypomagnesemia at 1.7. These were both repleted IV. Her creatinine is at baseline, her urine does have positive nitrate, but no other signs of infection. Will give p.o. challenge and attempt a walking trial. 1030 With walking, the patient developed severe dizziness. Stated that the world was spinning. Daughter at bedside now and states that these episodes happen frequently and that the last time she had to be admitted to the hospital for a week. Will give an additional dose of meclizine and continue to monitor for symptom improvement. 1200 Attempted Ann-Marie's maneuver with some improvement. Will attempt walking again 1230 Recurrence of symptoms and dry heaving with standing and walking. At this point patient is unlikely to have significant resolution of symptoms or tolerate being able to be discharged. Will admit to the hospital for further management of intractable vomiting and persistent vertigo. Quality:SDOH Health Related Social Needs: No Data to Display PFSH All Active Problems (Updated 07/05/24 @ 12:36 by Joseph Clark MD) Hypomagnesemia (Acute) Hypokalemia (Acute) Urticaria (Acute) Dizziness (Acute) Right lower lobe pneumonia (Acute) 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) Intractable nausea and vomiting (Acute) Postoperative nausea and vomiting (Acute) Onychomycosis (Acute) Edema (Acute) Venous (peripheral) insufficiency (Acute) Toe pain, right (Acute) Toe pain, left (Acute) Type 2 diabetes mellitus with diabetic polyneuropathy (Chronic) Neuropathy (Acute) Nail dystrophy (Acute) CKD (chronic kidney disease) stage 3, GFR 30-59 ml/min (Chronic) Balance problem (Acute) Essential hypertension (Chronic) 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 Daughter No problems noted. Social History Smoking/Tobacco Use Status: Never Second Hand Exposure: Yes Smoking risk assessment performed?: Yes Alcohol Intake: never Drug use: Never Substance use type: does not use Adopted: No Caregiver/Support person: No Household members: none Housing: apartment Number of Children: 5 number of grandchildren: 12 Do you need help understanding health information?: Never Pets and animals: No Sexually active: No Do you think of yourself as: straight/heterosexual Current gender identity: female What is your relationship status?: How often do you talk on the phone with friends or family?: three or more times per week How often do you get together with friends or relatives?: three or more times per week How often do you attend orthodoxy or mormonism services?: 1-3 times per year Do you belong to any clubs or organized social groups?: no Panel score (0-1 are the most socially isolated patients): 1 What type of physical activity do you participate in: none Frequency: does not exercise Sue/Cheondoism: Mosque Special sue needs: No Seatbelt use: sometimes 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
[2024-07-05 07:13] LABS: Abs Immature Grans 0.05 10^3/uL (0.0-0.06); Absolute Basophil Count 0.05 10^3/uL (0.0-0.2); Absolute Eosinophil Count 0.21 10^3/uL (0.0-0.7); Absolute Lymphocyte Count 1.55 10^3/uL (1.2-3.4); Absolute Monocyte Count 0.55 10^3/uL (0.1-0.8); Basophils % 0.4 %; Eosinophils % 1.8 %; HCT 37.6 % (36.0-46.0); HGB 11.7 g/dL (11.2-15.7); Immature Grans % 0.4 %; Lymphocytes % 13.4 %; MCH 28.3 pg (27.0-33.0); MCHC 31.1 % (32.0-36.0); MCV 91 fL (80-95); MPV 9.3 fL (8.0-11.0); Monocytes % 4.8 %; Neutrophils % 79.2 %; Platelet Count 308 10^3/uL (130-400); RBC 4.13 10^6/uL (3.93-5.22); RDW 14.3 % (11.7-14.6); RDW-SD 47.4 fL; WBC 11.53 10^3/uL (4.4-10.8)
[2024-07-05 07:16] LABS: Absolute Neutrophil Count 9.13 10^3/uL (1.2-6.7)
[2024-07-05] MEDS: hydroCHLOROthiazide 25 MG TAB PO (07:19)
[2024-07-05] MEDS: Lisinopril 10 MG TAB 30 MG PO (07:19)
[2024-07-05] MEDS: Normal Saline Flush 10 ML SYR IVP ×4 (07:20→14:29)
[2024-07-05] MEDS: diazePAM 10 MG/2 ML SYR 5 MG IVP (07:25)
[2024-07-05 07:34] LABS: Bilirubin Negative (Negative); Blood Negative (Negative); Clarity Clear (Clear); Glucose Negative (Negative); Ketones Negative (Negative); Leukocyte Esterase Negative (Negative); Nitrite Positive (Negative); Urobilinogen 0.2 mg/dL (Up to 0.2)
[2024-07-05 07:37] LABS: ALT 14 U/L (14-59); AST 14 U/L (15-37); Albumin 3.3 g/dL (3.4-5.0); Alkaline Phosphatase 71 U/L (46-116); Anion Gap 8.3 mmol/L (3-11); BUN 17 mg/dL (7-18); Bilirubin, Total 0.5 mg/dL (0.2-1.0); CO2 27.7 mmol/L (21.0-32.0); CREATININE 1.2 mg/dL (0.55-1.02); Calcium 9.2 mg/dL (8.5-10.1); Chloride 105 mmol/L (98-107); Estimated GFR 43.81 (mL/min/1.73m2); Glucose 192 mg/dL (74-106); Magnesium 1.7 mg/dL (1.8-2.4); Potassium 3.3 mmol/L (3.5-5.1); Sodium 141 mmol/L (136-145); TSH 6.45 uIU/mL (0.36-3.74); Total Protein 7.3 g/dL (6.4-8.2); Troponin I 5 ng/L (<or=51)
[2024-07-05 07:45] LABS: Bacteria Many HPF (Negative); C & S Indicated? No; Casts Negative LPF (Negative); Crystals Negative HPF (Negative); Epithelial Cells Rare HPF (Negative); Mucus Negative (Negative); RBC 0-2 HPF (0-2)
[2024-07-05] MEDS: Meclizine 25 MG TAB PO ×2 (08:21→12:31)
[2024-07-05] MEDS: MAGNESIUM SULFATE 2 GM/50 ML BAG IVINF (08:22)
[2024-07-05] MEDS: POTASSIUM CHLORIDE 10 MEQ/100 ML BAG 100 MEQ IV_INF (08:23)
[2024-07-05] MEDS: Ondansetron 4 MG/2 ML VIAL IVP (10:47)
[2024-07-05] MEDS: Normal Saline 1,000 ML 75 ML IV (10:48)
--- NOTE | 2024-07-05 12:55 | HPE_ITS ---
Date of service: 07/05/24 Time of Service: 12:55 Assessment and Plan Assessment and plan (1) Intractable nausea and vomiting: Status: Acute Assessment and plan: PT following, for right anterior canal BPPV and weakness/gait training continue antiemetic IV fluids advance diet as tolerated add scopolamine and PT consult in am (2) Stenosis of left vertebral artery: Status: Acute Assessment and plan: Noted, MRI done in 11/08 reviewed and benign (3) Hypokalemia: Status: Inactive Assessment and plan: normalized, replete and follow replace with IVF 2/2 continued n/v (4) Hypomagnesemia: Status: Inactive Assessment and plan: IV repletion now with magnesium level of 2.4 Start replacing when tolerating PO (5) Chronic vertigo: Status: Chronic Assessment and plan: Patient has a history of chronic intermittent vertigo which is positional on this presentation as well. Continue scheduled meclizine add prn zofran and scopolamine (6) Essential hypertension: Status: Chronic Assessment and plan: Continue outpatient medical therapy with some permissive hypertension and adjustment of her medical therapy to accomplish this goal. Hydrochlorothiazide will be held for now. 07/05/24 Restart home meds when tolerating PO. Will not restart hctz 2/2 hypokalemia. Can reintroduce as outpatient (7) Type 2 diabetes mellitus with diabetic polyneuropathy: Status: Chronic Assessment and plan: Check before meals and at bedtime glucometers with sensitive sliding scale coverage with short acting insulin. Hold outpatient metformin. 07/05/24 hold metformin for now (8) CKD (chronic kidney disease) stage 3, GFR 30-59 ml/min: Status: Chronic Assessment and plan: GFR currently at 43 and stable. Will follow 2/2 recent n/v and possible dehydration History of Present Illness History of Present Illness Chief Complaint: vertigo Narrative: This is an 88-year-old female who has a known history of BPPV and was last admitted for vertigo in October 2023. At that time she was having significant vertigo as well as nausea and vomiting. Patient presents with vertigo as well as multiple episodes of nausea and vomiting starting the morning morning. Patient denies any chest pain or shortness of breath. Patient denies any changes in her medication or diet. While in the ED lab work was done which was indicative of hypokalemia and hypomagnesemia which is consistent with her episodes of vomiting. Due to the fact the patient cannot ambulate safely we will admit her to the inpatient service on status. EKG reviewed and shows some T wave inversion in inferior leads but this is not a new finding. Patient also complains of polyuria but no dysuria. UA shows possible UTI Review of Systems All systems reviewed & are unremarkable except as noted in HPI and below PFSH All Active Problems (Updated 07/05/24 @ 12:36 by Joseph Clark MD) Hypomagnesemia (Acute) Hypokalemia (Acute) Urticaria (Acute) Dizziness (Acute) Right lower lobe pneumonia (Acute) 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) Intractable nausea and vomiting (Acute) Postoperative nausea and vomiting (Acute) Onychomycosis (Acute) Edema (Acute) Venous (peripheral) insufficiency (Acute) Toe pain, right (Acute) Toe pain, left (Acute) Type 2 diabetes mellitus with diabetic polyneuropathy (Chronic) Neuropathy (Acute) Nail dystrophy (Acute) CKD (chronic kidney disease) stage 3, GFR 30-59 ml/min (Chronic) Balance problem (Acute) Essential hypertension (Chronic) 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 Daughter No problems noted. Social History Smoking/Tobacco Use Status: Never Second Hand Exposure: Yes Smoking risk assessment performed?: Yes Alcohol Intake: never Drug use: Never Substance use type: does not use Adopted: No Caregiver/Support person: No Household members: none Housing: apartment Number of Children: 5 number of grandchildren: 12 Do you need help understanding health information?: Never Pets and animals: No Sexually active: No Do you think of yourself as: straight/heterosexual Current gender identity: female What is your relationship status?: How often do you talk on the phone with friends or family?: three or more times per week How often do you get together with friends or relatives?: three or more times per week How often do you attend yarsani or scientology services?: 1-3 times per year Do you belong to any clubs or organized social groups?: no Panel score (0-1 are the most socially isolated patients): 1 What type of physical activity do you participate in: none Frequency: does not exercise Sue/Zoroastrianism: Orthodoxy Special sue needs: No Seatbelt use: sometimes 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 Firearms in home: No Do you feel safe at home: Yes Do you feel safe in your relationship?: No Victim of physical abuse: No Victim of emotional abuse: No Victim of sexual abuse: No Would you like helpful sources: No Meds Allergies and Home Medications Allergies Allergy/AdvReac Type Severity Reaction Status Date / Time No Known Allergies Allergy Verified 07/01/24 09:16 Home Medications ?Medication ?Instructions ?Recorded ?Confirmed ?Type blood-glucose meter (OneTouch ##1 10/03/16 07/01/24 History Verio Meter) cholecalciferol (vitamin D3) 125 5,000 unit PO DAILY 06/03/17 07/01/24 History mcg (5,000 unit) capsule omega 7-mdo-qei-fish oil 500 mg 1 ea PO DAILY 06/03/17 07/01/24 History (200mg-300mg)-1,000 mg capsule lancets (OneTouch UltraSoft #90 ea 12/11/19 07/01/24 Rx Lancets) magnesium oxide 400 mg (241.3 mg 400 mg PO DAILY 06/16/20 07/01/24 History magnesium) tablet acetaminophen 500 mg tablet 1,000 mg (2 x 500 mg) PO Q8H PRN 04/09/23 07/01/24 Rx pain #90 tabs blood sugar diagnostic (OneTouch #90 strips 04/12/23 07/01/24 Rx Verio test strips) atenolol 50 mg tablet 50 mg PO DAILY #90 tab-caps 10/07/23 07/01/24 Rx hydrochlorothiazide 25 mg tablet 25 mg PO DAILY #90 tab-caps 10/07/23 07/01/24 Rx potassium citrate 5 mEq (540 mg) 5 meq PO DAILY #90 tabs 10/09/23 07/01/24 Rx tablet,extended release meclizine 12.5 mg tablet 12.5 mg PO TID PRN dizziness and 11/09/23 07/01/24 Rx nausea #20 tabs ondansetron 4 mg disintegrating 4 mg PO Q6H PRN #20 tabs 11/09/23 07/01/24 Rx tablet loratadine 10 mg capsule 10 mg PO DAILY #60 caps 11/10/23 07/01/24 Rx triamcinolone acetonide 0.1 % 1 applic topical BID Pruritis #80 11/12/23 07/01/24 Rx topical cream grams prednisone 5 mg tablet 5 mg PO DAILY #49 tabs 11/14/23 07/01/24 Rx lisinopril 30 mg tablet 30 mg PO DAILY #90 tabs 01/20/24 07/01/24 Rx metformin 500 mg tablet 1,000 mg (2 x 500 mg) PO BID #360 03/03/24 07/01/24 Rx tabs Exam Narrative Exam Narrative: HEENT: Normocephalic atraumatic mucous membranes moist oropharynx is clear Neck: No lymphadenopathy no JVD no thyromegaly Cardiovascular: Regular rate and rhythm no murmurs or gallops Lungs: Clear to auscultation bilaterally with good air exchange Abdomen: Soft nontender nondistended Extremities: No cyanosis clubbing or edema bilaterally Neurologic: Cranial nerves II through XII intact as tested reflexes in upper extremity normal as tested Psych: Alert and oriented x 3 can get 1 year history Results Labs 07/05/24 07:05 07/05/24 07:05 Labs: Laboratory Results - last 24 hr 07/05/24 07/05/24 07:05 07:17 WBC 11.53 H RBC 4.13 Hgb 11.7 Hct 37.6 MCV 91 MCH 28.3 MCHC 31.1 L RDW 14.3 Plt Count 308 MPV 9.3 Immature Gran % 0.4 Neutrophils % 79.2 Lymphocytes % 13.4 Monocytes % 4.8 Eosinophils % 1.8 Basophils % 0.4 Nucleated RBC % 0.0 Absolute Neutrophils 9.13 H Absolute Lymphocytes 1.55 Absolute Monocytes 0.55 Absolute Eosinophils 0.21 Absolute Basophils 0.05 Sodium 141 Potassium 3.3 L Chloride 105 Carbon Dioxide 27.7 Anion Gap 8.3 BUN 17 Creatinine 1.2 H Est GFR (CKD-EPI 2020) 43.81 Glucose 192 H Calcium 9.2 Magnesium 1.7 L Total Bilirubin 0.5 AST 14 L ALT 14 Alkaline Phosphatase 71 Troponin I 5 Total Protein 7.3 Albumin 3.3 L TSH 6.45 H Urine Color Yellow Urine Clarity Clear Urine pH 8.0 Ur Specific [place] 1.020 Urine Protein 30 H Urine Ketones Negative Urine Blood Negative Urine Nitrite Positive H Urine Bilirubin Negative Urine Urobilinogen 0.2 Ur Leukocyte Esterase Negative Urine RBC 0-2 Urine WBC 3-5 Ur Epithelial Cells Rare Urine Crystals Negative Urine Bacteria Many Urine Casts Negative Urine Mucus Negative Ur Culture Indicated? No Urine Glucose Negative Last Vital Signs Temp 36.6 C 07/05/24 06:51 Pulse 65 07/05/24 12:20 Resp 18 07/05/24 09:50 BP 172/66 H 07/05/24 12:02 Pulse Ox 95 07/05/24 12:20 Time Spent Time spent with Patient: <40 minutes Time was spent: preparing to see the patient(eg.review tests), obtaining and/or reviewing separately otained hiistory, ordering medications,tests, procedures, referring, communicating with other health managed care liaison, indepentently interpreting results, counseling the patient and care coordination
--- NOTE | 2024-07-05 13:55 | W.PC.ACHO ---
Registration Status: Primary Language: Preferred Language: ED Information & Data Chief Complaint Dizzy/Sync 07/05/24 07:22 Chief Complaint Dizzy/Sync 07/05/24 07:03 Triage Note Pt arrives via ems for n/v, 07/05/24 06:51 vertigo, zofran given by ems w/ mild relief. BGL 169. Hypertensive. Unable to ambulate due to dizziness. 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) Hx laparoscopic cholecystectomy Hx of cataract extraction Most Recent Vital Signs Temperature 36.6 C 07/05/24 06:51 Temperature Source Oral 07/05/24 06:51 Pulse 60 07/05/24 13:40 Pulse 68 07/05/24 09:50 Respiratory Rate 18 07/05/24 09:50 Respiratory Effort Normal, Non-Labored 07/05/24 07:47 Respiratory Depth Normal 07/05/24 07:47 Respiratory Pattern Normal 07/05/24 07:47 Blood Pressure 172/66 H 07/05/24 12:02 Blood Pressure Mean 98 07/05/24 12:02 Blood Pressure Position Supine 07/05/24 06:51 Pulse Oximetry 93 07/05/24 13:40 Respiratory End-tidal CO2 43 07/05/24 09:00 Oxygen Delivery Method Nasal Cannula 07/05/24 07:57 Oxygen Flow Rate 4 07/05/24 07:57 Allergies No Known Allergies Allergy (Verified 07/01/24 09:16) Precautions Isolation Fall precaution 07/05/24 07:22 Active Medications Generic Name Dose Route Start Last Admin Trade Name Freq PRN Reason Stop Dose Admin Sodium Chloride 1,000 mls @ 75 mls/hr 07/05/24 10:45 07/05/24 10:48 Saline 1000ml Bag IV 75 mls/hr INFUSION ALIZA Administration Sodium Chloride 0 ml 07/05/24 06:56 07/05/24 08:22 Normal Saline Flush 10 Ml Syr IVP 10 ml PRN PRN Administration Sodium Chloride 0 ml 07/05/24 08:30 07/05/24 13:34 Normal Saline Flush 10 Ml Syr IVP Not Given BID ALIZA IV IV Catheter Type [Left Saline Lock Antecubital] IV Catheter Gauge [Left 18 Antecubital] Diet Orders Category Date Time Status Regular/Normal [DIET] Nutrition 07/05/24 Dinner Active Diagnostics 07/05/24 07/05/24 Range/Units 07:17 07:05 WBC 11.53 H (4.4-10.8) 10^3/uL RBC 4.13 (3.93-5.22) 10^6/uL Hgb 11.7 (11.2-15.7) g/dL Hct 37.6 (36.0-46.0) % MCV 91 (80-95) fL MCH 28.3 (27.0-33.0) pg MCHC 31.1 L (32.0-36.0) % RDW 14.3 (11.7-14.6) % Plt Count 308 (130-400) 10^3/uL MPV 9.3 (8.0-11.0) fL Immature Gran % 0.4 % Neutrophils % 79.2 % Lymphocytes % 13.4 % Monocytes % 4.8 % Eosinophils % 1.8 % Basophils % 0.4 % Nucleated RBC % 0.0 (0.0-0.3) % Absolute Neutrophils 9.13 H (1.2-6.7) 10^3/uL Absolute Lymphocytes 1.55 (1.2-3.4) 10^3/uL Absolute Monocytes 0.55 (0.1-0.8) 10^3/uL Absolute Eosinophils 0.21 (0.0-0.7) 10^3/uL Absolute Basophils 0.05 (0.0-0.2) 10^3/uL Sodium 141 (136-145) mmol/L Potassium 3.3 L (3.5-5.1) mmol/L Chloride 105 (98-107) mmol/L Carbon Dioxide 27.7 (21.0-32.0) mmol/L Anion Gap 8.3 (3-11) mmol/L BUN 17 (7-18) mg/dL Creatinine 1.2 H (0.55-1.02) mg/dL Est GFR (CKD-EPI 2020) 43.81 (mL/min/1.73m2) Glucose 192 H (74-106) mg/dL Calcium 9.2 (8.5-10.1) mg/dL Magnesium 1.7 L (1.8-2.4) mg/dL Total Bilirubin 0.5 (0.2-1.0) mg/dL AST 14 L (15-37) U/L ALT 14 (14-59) U/L Alkaline Phosphatase 71 (46-116) U/L Troponin I 5 (<or=51) ng/L Total Protein 7.3 (6.4-8.2) g/dL Albumin 3.3 L (3.4-5.0) g/dL TSH 6.45 H (0.36-3.74) uIU/mL Urine Color Yellow (Yellow) Urine Clarity Clear (Clear) Urine pH 8.0 (5-8) Ur Specific [place] 1.020 (1.005-1.025) Urine Protein 30 H (Neg-Trace) mg/dL Urine Ketones Negative (Negative) mg/dL Urine Blood Negative (Negative) Urine Nitrite Positive H (Negative) Urine Bilirubin Negative (Negative) Urine Urobilinogen 0.2 (Up to 0.2) mg/dL Ur Leukocyte Esterase Negative (Negative) Urine RBC 0-2 (0-2) HPF Urine WBC 3-5 (0-5) HPF Ur Epithelial Cells Rare (Negative) HPF Urine Crystals Negative (Negative) HPF Urine Bacteria Many (Negative) HPF Urine Casts Negative (Negative) LPF Urine Mucus Negative (Negative) Ur Culture Indicated? No Urine Glucose Negative (Negative) mg/dL 07/05/24 13:50 Urine Culture - Pending Urine - Clean Catch Intake and Output - 24 Hour Total 07/05/24 06:42 thru 07/05/24 13:03 Intake Total 160 Balance 160 Weight 81 kg Intake: IV 160 Falls Risk Assessment History of Falls No History 07/05/24 07:22 Contributing Factors Unstable,Impairments, 07/05/24 07:22 Medications Ambulatory Aids Uses ambulatory device + 07/05/24 07:22 Tubes/Lines With any additional score 07/05/24 07:22 Gait Evaluation W/any additional score 07/05/24 07:22 Cognition No cognitive impairment 07/05/24 07:22 Fall Total Score 79 07/05/24 07:22 Level of Risk Maximum Risk 07/05/24 07:22 Problems (Last Reviewed 07/01/24 @ 16:02 by Anneliese Arriaga DPM) Hypomagnesemia (Acute) Hypokalemia (Acute) Dizziness (Acute) 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) Intractable nausea and vomiting (Acute) Type 2 diabetes mellitus with diabetic polyneuropathy (Chronic) CKD (chronic kidney disease) stage 3, GFR 30-59 ml/min (Chronic) Essential hypertension (Chronic) v v v v v v v v v Sending and/or Receiving Nurses: Please use comment section below to note any information pertinent to the patient hand-off not included above. Information / Comments: Report received from: Micki Ochoa RN @ 13:45. Report given SBAR, all questions answered.
[2024-07-05] MEDS: POTASSIUM CHLORIDE/D5-0.45NACL 1,000 ML 75 MEQ IV (14:29)
[2024-07-05] MEDS: Enoxaparin 40 MG/0.4 ML SYR SC (16:19)
[2024-07-05] MEDS: Scopolamine 1 MG/3 DAYS PATCH TD (16:19)
[2024-07-06] MEDS: POTASSIUM CHLORIDE/D5-0.45NACL 1,000 ML 75 MEQ IV (02:46)
[2024-07-06 02:59] VITALS: BP 119/58; PULSE 63; RESP 15; TEMP 36.5; O2SAT 96
[2024-07-06 06:41] LABS: Abs Immature Grans 0.02 10^3/uL (0.0-0.06); Absolute Basophil Count 0.05 10^3/uL (0.0-0.2); Absolute Eosinophil Count 0.34 10^3/uL (0.0-0.7); Absolute Lymphocyte Count 1.97 10^3/uL (1.2-3.4); Absolute Monocyte Count 0.54 10^3/uL (0.1-0.8); Absolute Neutrophil Count 3.83 10^3/uL (1.2-6.7); Basophils % 0.7 %; HCT 32.7 % (36.0-46.0); HGB 10.4 g/dL (11.2-15.7); Immature Grans % 0.3 %; Lymphocytes % 29.2 %; MCH 28.4 pg (27.0-33.0); MCHC 31.8 % (32.0-36.0); MCV 89 fL (80-95); MPV 9.7 fL (8.0-11.0); Neutrophils % 56.8 %; Platelet Count 291 10^3/uL (130-400); RBC 3.66 10^6/uL (3.93-5.22); RDW 14.3 % (11.7-14.6); RDW-SD 46.8 fL; WBC 6.75 10^3/uL (4.4-10.8)
[2024-07-06 07:00] LABS: ALT 12 U/L (14-59); AST 11 U/L (15-37); Albumin 2.6 g/dL (3.4-5.0); Alkaline Phosphatase 58 U/L (46-116); BUN 23 mg/dL (7-18); Bilirubin, Total 0.3 mg/dL (0.2-1.0); CREATININE 1.5 mg/dL (0.55-1.02); Calcium 8.7 mg/dL (8.5-10.1); Chloride 106 mmol/L (98-107); Estimated GFR 33.52 (mL/min/1.73m2); Glucose 109 mg/dL (74-106); Potassium 3.7 mmol/L (3.5-5.1); Sodium 140 mmol/L (136-145)
[2024-07-06 07:22] VITALS: BP 149/69; PULSE 65; RESP 20; TEMP 36.1; O2SAT 92
[2024-07-06] MEDS: Cholecalciferol (Vitamin D3) 1,000 UNIT TAB 5000 UNITS PO (07:39)
[2024-07-06] MEDS: Loratidine 10 MG TAB PO (07:39)
[2024-07-06] MEDS: Magnesium Oxide 400 MG TAB PO (07:39)
[2024-07-06] MEDS: Atenolol 50 MG TAB PO (07:39)
--- NOTE | 2024-07-06 08:47 | PDOC.CMIN ---
Date of service: 07/06/24 Time of Service: 08:48 Care Management Initial Assmt Initial Assessment Reason for Hospitalization: vertigo with nausea and vomiting Functional Status/Living Situation Patient Presentation: Karine was sitting up visiting with her daughters when CM met with her. She appaeared to be in good spirits and was fiully dressed. She happily announced that she was going home. Karine lives alone in a single family home in [place]. She has 3 children who live locally and are supportive. Karine is independent at baseline and uses a walker for ambulatory assistance. She was admitted again with vertigo associated with nausea and vomiting. She received antiemetics and worked with PT and felt much better this morning. She will be discharged home with no new services. Town of Residence: [place] Resides with: Alone Significant Other/Family: Local (3 children - all local and supportive) Instrumental Activities of Daily Living (ADLs): Independent Medications Medication Management: No Issues/Barriers identified Physical Functioning/Mobility Assistive Device: walker Advance Directives Advance Directives: Do you have an Advance Directive: Y 03/17/20 13:33 AD On File at [facility]: Y 03/17/20 13:33 Date Asked 04/27/14 03/17/20 13:33 AD Date Reviewed 07/05/24 07/05/24 07:13 COLST On File at [facility] Yes 05/11/21 06:04 COLST Date Scanned 02/24/21 05/25/21 13:01 Code Status Resuscitation Status Full Code Portal Pt does not currently have a portal and education provided: Yes Insurance Coverage/Financial Issues Insurance: Medicare [employer] Care Team Visit Care Team Role Provider Type Allie Rodrigues NP Primary Care Provider NURSE PRACTITIONER Karin Cox Other Providers GRAIN ELEVATOR MOTOR STARTER Xochitl Olivo Other Providers GRAIN ELEVATOR MOTOR STARTER Ce Bowden Other Providers GRAIN ELEVATOR MOTOR STARTER Lisbet Alston Other Providers OTHER Aleida Temple RN Other Providers GRAIN ELEVATOR MOTOR STARTER Syeda Cisse Other Providers GRAIN ELEVATOR MOTOR STARTER Joseph Clark MD Emergency Provider [facility] STAFF PHYSICIAN Jerman Cisse MD Admit Provider [facility] STAFF PHYSICIAN Attending Provider Discharge Potential Discharge Needs: PCP F/U Appt Anticipated Barriers to Discharge: None Identified Patient/Family Education Needs: Review discharge instructions, discuss Ask Me Three Transportation: Private vehicle Plan: Anticipate Karine will be discharged home, possibly with new home health services for PT, when medically cleared. She will follow up with her community providers and plan of care and transport with family. CM will follow and continue to assess for discharge needs. Social Determinants of Health Screening Social Determinants of health last assessed in clinic: 07/05/24 Will the Patient Participate in the Screening?: Yes Do you worry about having a steady place to live?: no Problems where you live: no known problems In the past 12 months, have you had to go without electric, gas, oil or water in your home?: no Has lack of transportation kept you from medical appointments or from doing things needed for daily living?: no Has anyone in your life made you feel unsafe or unsupported?: no How hard is it for you to pay for the very basics like food, housing, medical care, and heating? Would you say it is:: Not hard at all Do you want help finding or keeping work or a job?: I do not need or want help If for any reason you need help with day-to-day activities such as bathing, preparing meals, shopping, managing finances, etc., do you get the help you need?: I get all the help I need How often do you feel lonely or isolated from those around you?: Never Do you speak a language other than Sammarinese at home?: No Does the patient want assistance with any of the above?: No PFSH All Active Problems (Updated 07/06/24 @ 11:55 by Jerman Cisse MD) Hypomagnesemia (Acute) Hypokalemia (Acute) Urticaria (Acute) Dizziness (Acute) Right lower lobe pneumonia (Acute) 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) Intractable nausea and vomiting (Acute) Postoperative nausea and vomiting (Acute) Onychomycosis (Acute) Edema (Acute) Venous (peripheral) insufficiency (Acute) Toe pain, right (Acute) Toe pain, left (Acute) Type 2 diabetes mellitus with diabetic polyneuropathy (Chronic) Neuropathy (Acute) Nail dystrophy (Acute) CKD (chronic kidney disease) stage 3, GFR 30-59 ml/min (Chronic) Balance problem (Acute) Essential hypertension (Chronic) 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 Daughter No problems noted. Social History Smoking/Tobacco Use Status: Never Second Hand Exposure: Yes Smoking risk assessment performed?: Yes Alcohol Intake: never Drug use: Never Substance use type: does not use Adopted: No Caregiver/Support person: No Household members: none Housing: apartment Number of Children: 5 number of grandchildren: 12 Do you need help understanding health information?: Never Pets and animals: No Sexually active: No Do you think of yourself as: straight/heterosexual Current gender identity: female What is your relationship status?: How often do you talk on the phone with friends or family?: three or more times per week How often do you get together with friends or relatives?: three or more times per week How often do you attend episcopalian or latter-day services?: 1-3 times per year Do you belong to any clubs or organized social groups?: no Panel score (0-1 are the most socially isolated patients): 1 What type of physical activity do you participate in: none Frequency: does not exercise Sue/Mormon: Hinduism Special sue needs: No Seatbelt use: sometimes Drive intox or ride w/intox grab driver: No Firearms in home: No Do you feel safe at home: Yes Do you feel safe in your relationship?: No Victim of physical abuse: No Victim of emotional abuse: No Victim of sexual abuse: No Would you like helpful sources: No
--- NOTE | 2024-07-06 10:22 | IN_ITS ---
PT Notes Visit Reasons: BPPV Referring Doctor: Dr Cisse PT Orders: PT CONSULT: Pt evaluation and treatment Precautions: fall risk Patient Profile/Admitting Diagnosis: Pt is 88 yo female presented to ED with nausea/ vomiting. Pt with chronic BPPV treated with meclizine. Pt ran out of her prescription therefore presented to ED. Pt with anterior canal BPPV. Ann-Marie maneuver performed in ED initially with (+) resolution of symptoms however with ambulation they returned. Pt admitted for observation PMHX: Social History/Home Situation: Patient resides at [facility] 6 steps with rail to enter. Patient independent without assistive device however does have a rolling walker and a cane. Daughter provides transportation and shopping otherwise patient independent with ADLs Equipment Owned/DME: FWW, cane Subjective: Patient reports she has not had any further symptoms of her BPPV since previous evening. She reports she ran out of her medication. Objective: [] General Observation: Female sitting in chair IV infusing and daughter visiting Mental Status: Alert and oriented x 4, cooperative, able to follow instructions, agreeable to participate in evaluation Pain: Denied Vital Signs: Monitored via telemetry ROM: Right Upper Extremity: WNL Left Upper Extremity: WNL Right Lower Extremity: WNL Left Lower Extremity: WNL Strength: Right Upper Extremity: 5/5 Left Upper Extremity: 5/5 Right Lower Extremity: Grossly hips 3+/5 knees 4/5 ankle 4/5 Left Lower Extremity: Grossly hips 3+/5 knees 4/5 ankle 4/5 Sensation: Intact Bed Mobility/Transfers: Independent bed mobility and transfer sit to stand Gait: Ambulate with FWW 150 feet x 2 with sit rest between supervision no loss of balance no symptoms of BPPV. Patient denied dizziness including with head turns and directional changes Stairs: 5 steps with rails contact-guard assist step to pattern Balance: [] Static Sitting: Normal Dynamic Sitting: Good Static Standing: Good Dynamic Standing: Fair plus Special Tests: Mobility Limitations Standardized Measure [facility] AM-PAC 6 clicks Basic Mobility Inpatient Short Form: Raw Score: 23 CMS Score: 11.20% Informed Consent/Education: Patient instructed in purpose of PT consult and plan of care. Treatment: Patient provided handout for self performance of Ann-Marie maneuver. Assessment: Patient is a 88year old female referred to physical therapy services with the diagnosis of BPPV. Patient presents with clinical signs and symptoms consistent with BPPV while in ED. Pt did not have any symptoms of BPPV throughout testing. No symptoms elicited with position changes , head rotations or mobility.Pt demonstrated impairment level findings: Generalized weakness BLE, decreased balance in standing requiring use of FWW related to weakness not BPPV and impaired functional activity tolerance. Impairments are contributing to the following functional limitations: AMPAC score, need for contact-guard on stairs, increased time to complete ADLs/mobility tasks and use of FWW for ambulation Patient is assessed as a Low [id number] complexity based on the following: History: pt is 88yo female presenting with past medical history as stated above Examination: demonstrates impairments in strength, balance and mobility level with underlying impairments and functional limitations as exhibited above. Presentation: stable Decision Making: low Goals: NA pt d/c to home Plan of Care/Treatment Plan: d/c to home after evaluation DISCHARGE RECOMMENDATIONS: [] [] Home with no services [] [X] Home with services PT [] Home with outpatient PT [] [] SNF for continued rehabilitation [] [] Detention Care [] [] SNF versus LTC based on ability to participate and progress [] TREATMENT CODE/TIME: [id number]/[id number]
[2024-07-06] MEDS: Normal Saline Flush 10 ML SYR IVP (11:38)
[2024-07-06 11:41] VITALS: BP 155/72; PULSE 62; RESP 20; TEMP 36.4; O2SAT 96
--- NOTE | 2024-07-06 11:56 | W.PM.DS.N ---
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 While in the ED she was noted to have hypokalemia and hypomagnesemia as well as continued balance issues. Patient was admitted for observation overnight. While she was here I did put on a scopolamine patch which improved her symptoms to the point where on the she has to be discharged home. Considering the fact that her hypokalemia had resolved and her renal function was stable I agreed to the discharge. Of note at the time of discharge the patient's latest TSH showed a value of 6.45 this will need to be evaluated in the outpatient setting. While she was here she was also diagnosed with UTI with E. coli over 100,000 CFU. Cultures pending but will d/c on bactrim ds po bid for 4 days Home Meds and New Rx's Prescriptions: New sulfamethoxazole-trimethoprim 400-80 mg Tablet 1 tab PO BID 4 Days Qty: 8 0RF scopolamine base 1 mg over 3 days Patch 3 Day 1 mg transdermal Q72H Qty: 4 0RF Continued (DME) lancets [OneTouch UltraSoft Lancets] Misc 1 ea Miscellaneous DAILY Qty: 90 3RF Rx Instructions: Daily magnesium oxide 400 mg (241.3 mg magnesium) tablet 400 mg PO DAILY metformin 500 mg tablet 1,000 mg PO BID Qty: 360 3RF (DME) blood-glucose meter [OneTouch Verio Meter] 1 EACH misc Miscellaneous DAILY Qty: 1 cholecalciferol (vitamin D3) 5,000 UNIT capsule 5,000 unit PO DAILY omega 9-bwr-fjl-fish oil 1 EACH capsule 1 ea PO DAILY (DME) OneTouch Verio test strips Strip 1 ea Miscellaneous DAILY Qty: 90 3RF Rx Instructions: daily atenolol 50 mg tablet 50 mg PO DAILY Qty: 90 4RF hydrochlorothiazide 25 mg tablet 25 mg PO DAILY Qty: 90 4RF potassium citrate 5 mEq (540 mg) tablet extended release 5 meq PO DAILY Qty: 90 3RF lisinopril 30 mg tablet 30 mg PO DAILY Qty: 90 3RF acetaminophen 500 mg tablet 1,000 mg PO Q8H PRN Qty: 90 0RF Rx Instructions: Take two tablets up to every 8 hours as needed for pain meclizine 12.5 mg tablet 12.5 mg PO TID PRN (Reason: dizziness and nausea) Qty: 20 0RF loratadine 10 mg capsule 10 mg PO DAILY Qty: 60 0RF Rx Instructions: can increase to twice daily if needed. No Action triamcinolone acetonide 0.1 % cream 1 applic topical BID Qty: 80 2RF Rx Instructions: Apply to arms, abdomen and neck for pruritic rash twice a day until mostly resolved. Stop after two weeks. Discharge Instructions Referrals: Allie Rodrigues FIRST AID ATTENDANT [Primary Care Provider] - (follow up with PCP in 5-7 days. Recommend cmp/cbc in 3-5 days) Activity:: Activity as Tolerated Equipment/Supplies:: No Equipment Needed Diet:: As Tolerated Discharge Orders Discharge Orders: Discharge Order (Routine); Ordered 07/06/24 Ordered By: Jerman Cisse DS: Summary Time Spent with Patient providing and/or coordinating discharge services: Greater than 30 minutes Status at Discharge Functional status at discharge: independent ambulation Overall status at discharge: patient is back to baseline Mental Status: mental status grossly normal Speech and Movement: speech and movement normal Mood: congruent mood Affect: normal affect Quality:SDOH Health Related Social Needs: No Data to Display Exam Narrative Exam Narrative: Review of Systems: All systems reviewed & are unremarkable except as noted in HPI and below Well-developed, no acute distress NCAT PERRL, normal conjunctiva , no nystagmus RRR, no murmur Unlabored respiratory effort, clear bilaterally Nondistended abdomen , soft nontender no focal neurologic deficits, cranial nerves intact, GCS 15, good strength throughout Psych Mental Status: mental status grossly normal Speech and Movement: speech and movement normal Mood: congruent mood Affect: normal affect DS: Data Vitals/I&O Vitals and I&O: Vital Signs Temperature 36.4 C L 07/06/24 11:41 Temperature Source Temporal Artery Scan 07/06/24 11:41 Pulse 62 07/06/24 11:41 Pulse Rhythm Regular 07/05/24 14:38 Pulse 68 07/05/24 09:50 Respiratory Rate 20 07/06/24 11:41 Respiratory Effort Normal, Non-Labored 07/05/24 14:38 Respiratory Depth Normal 07/05/24 14:38 Respiratory Pattern Normal 07/05/24 14:38 Blood Pressure 155/72 H 07/06/24 11:41 Blood Pressure Mean 98 07/05/24 12:02 Blood Pressure Position Supine 07/05/24 06:51 Pulse Oximetry 96 07/06/24 11:41 Respiratory End-tidal CO2 43 07/05/24 09:00 Oxygen Delivery Method Room Air 07/06/24 11:41 Oxygen Flow Rate 0 07/06/24 11:41 Pain Level 0 07/06/24 11:41 Comment RN notified 07/06/24 11:41 Intake & Output 07/05/24 07/05/24 07/06/24 11:59 23:59 11:59 Intake Total 160 / 556.25 396.25 / 556.25 1826.25 / 1826.25 Output Total 325 / 325 1000 / 1000 Balance 160 / 231.25 71.25 / 231.25 826.25 / 826.25 Weight 81 kg 77.6 kg 78.4 kg Intake: IV 160 / 436.25 276.25 / 436.25 1586.25 / 1586.25 Oral 120 / 120 240 / 240 Output: Urine 325 / 325 1000 / 1000 Other: Urine Color Yellow Pale Urine Appearance Cloudy Clear Sediment Urine Odor Strong Comment lightly cloudy Data Completed and Pending Labs on day of discharge: Labs from last 24 hours 07/06/24 06:00 WBC 6.75 RBC 3.66 L Hgb 10.4 L Hct 32.7 L MCV 89 MCH 28.4 MCHC 31.8 L RDW 14.3 Plt Count 291 MPV 9.7 Immature Gran % 0.3 Neutrophils % 56.8 Lymphocytes % 29.2 Monocytes % 8.0 Eosinophils % 5.0 Basophils % 0.7 Nucleated RBC % 0.0 Absolute Neutrophils 3.83 Absolute Lymphocytes 1.97 Absolute Monocytes 0.54 Absolute Eosinophils 0.34 Absolute Basophils 0.05 Sodium 140 Potassium 3.7 Chloride 106 Carbon Dioxide 32.0 Anion Gap 2.0 L BUN 23 H Creatinine 1.5 H Est GFR (CKD-EPI 2020) 33.52 Glucose 109 H Calcium 8.7 Total Bilirubin 0.3 AST 11 L ALT 12 L Alkaline Phosphatase 58 Total Protein 6.0 L Albumin 2.6 L Preliminary micro results at discharge 07/05/24 07:17 Urine Culture - Preliminary Urine - Clean Catch Escherichia coli PFSH All Active Problems (Updated 07/06/24 @ 11:55 by Jerman Cisse MD) Hypomagnesemia (Acute) Hypokalemia (Acute) Urticaria (Acute) Dizziness (Acute) Right lower lobe pneumonia (Acute) 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) Intractable nausea and vomiting (Acute) Postoperative nausea and vomiting (Acute) Onychomycosis (Acute) Edema (Acute) Venous (peripheral) insufficiency (Acute) Toe pain, right (Acute) Toe pain, left (Acute) Type 2 diabetes mellitus with diabetic polyneuropathy (Chronic) Neuropathy (Acute) Nail dystrophy (Acute) CKD (chronic kidney disease) stage 3, GFR 30-59 ml/min (Chronic) Balance problem (Acute) Essential hypertension (Chronic) 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 Daughter No problems noted. Social History Smoking/Tobacco Use Status: Never Second Hand Exposure: Yes Smoking risk assessment performed?: Yes Alcohol Intake: never Drug use: Never Substance use type: does not use Adopted: No Caregiver/Support person: No Household members: none Housing: apartment Number of Children: 5 number of grandchildren: 12 Do you need help understanding health information?: Never Pets and animals: No Sexually active: No Do you think of yourself as: straight/heterosexual Current gender identity: female What is your relationship status?: How often do you talk on the phone with friends or family?: three or more times per week How often do you get together with friends or relatives?: three or more times per week How often do you attend baptism or nondenominational services?: 1-3 times per year Do you belong to any clubs or organized social groups?: no Panel score (0-1 are the most socially isolated patients): 1 What type of physical activity do you participate in: none Frequency: does not exercise Sue/Synagogue: Pentec[employer] Special sue needs: No Seatbelt use: sometimes Drive intox or ride w/intox 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
== END 2024-07-06 13:07 | disposition home health service (06) ==
LOC: ER 13:03 → MS 14:15
PROVIDERS: Admitting Provider Hospitalist; Emergency Provider Emergency Medicine; PCP Nurse Practitioner Family; Responsible Provider Hospitalist; Visit Provider Hospitalist
DX: H81.11 Benign paroxysmal vertigo, right ear (principal); N39.0 Urinary tract infection, site not specified; E11.22 Type 2 diabetes mellitus with diabetic chronic kidney disease; I65.02 Occlusion and stenosis of left vertebral artery; B96.20 Unspecified Escherichia coli [E. coli] as the cause of diseases classified elsewhere; R11.2 Nausea with vomiting, unspecified; E87.6 Hypokalemia; E83.42 Hypomagnesemia; I12.9 Hypertensive chronic kidney disease with stage 1 through stage 4 chronic kidney disease, or unspecified chronic kidney disease; E11.42 Type 2 diabetes mellitus with diabetic polyneuropathy; N18.32 Chronic kidney disease, stage 3b; Z79.899 Other long term (current) drug therapy; R35.89 Other polyuria; B35.1 Tinea unguium; R60.0 Localized edema; I87.2 Venous insufficiency (chronic) (peripheral); Z96.652 Presence of left artificial knee joint; Z79.84 Long term (current) use of oral hypoglycemic drugs
CPT/HCPCS: 00123; 36415; 80053; 87077; 93005; 96365; 96372; 96375; 97161; 97530; 99285; J1650; 81003; 81015; 83735; 84443; 84484; 85025; 87086; 87186; 93010; 99222; 99239; G0378; J2405; J3360; J3475; J3480

== ENCOUNTER 2024-07-26 05:34 | Observation (INO) | payer MEDICARE, OTHER, SELFPAY ==
[2024-07-26] VITALS (38 sets, daily range): BP systolic 113–212; BP diastolic 57–90; PULSE 61–83; RESP 15–24; TEMP 35.1–36.4; O2SAT 91–99
--- NOTE | 2024-07-26 05:30 | DI.CT_ITS ---
Exam(s) CT HEAD WO EXAM: CT HEAD WO CLINICAL HISTORY: Dizzy, vomiting, vertiginous symptoms, eval stroke. TECHNIQUE: Imaging Protocol: Axial computed tomography images with coronal and sagittal reformatted images were created and reviewed COMPARISON: CT CT BRAIN NECK CTA from 11/07/2023 FINDINGS: There are no skull fractures. There is no fluid in the visualized paranasal sinuses. There is no evidence of intracranial hemorrhage, mass effect, or shift of midline structures. There are no extra-axial fluid collections. The ventricles are not enlarged or shifted and there is no blo od within the ventricular system nor within the basal cisterns. There is moderate bilateral periventricular hypodensity consistent with chronic small vessel disease. No obvious acute focal infarct evident. There is vascular calcification in both vertebral arteries at the skull base as well as within thexz bilateral internal carotid arteries in the skull base-cave rnous sinuses. IMPRESSION: No acute intracranial findings on this noninfused CT scan of the brain. Chronic small vessel white matter ischemic changes again noted. Vascular calcification noted. Please note that prior CT a study of October 2023 did apparently reveal a significant stenosis at the origin of the left vertebral artery off of the left subclavian artery. RADIATION DOSE DELIVERED: 814.8mGy.cm Total DLP DATA REPOSITORY: All CT scans at this facility are submitted to the National Radiology Data Registry (NRDR) Dose Index Registry (DIR) with the [employer] (ACR). RADIATION OPTIMIZATION: All CT scans at this facility use at least one of these dose optimization te chniques: automated exposure control; mA and/or kV adjustment per patient size (includes targeted exa ms where dose is matched to clinical indication); or iterative reconstruction.
--- NOTE | 2024-07-26 05:36 | ED.GENADUL_ITS ---
Discharge Plan Discharge Details Chief Complaint: Nausea/Vomit/Diar Clinical Impression: Peripheral vertigo Primary Care Provider: Allie Rodrigues ED Provider: Frandy Jacobson Home Meds and New Rx's Prescriptions: No Action (DME) lancets [OneTouch UltraSoft Lancets] Misc 1 ea Miscellaneous DAILY Qty: 90 3RF Rx Instructions: Daily magnesium oxide 400 mg (241.3 mg magnesium) tablet 400 mg PO DAILY meclizine 12.5 mg tablet 12.5 mg PO TID PRN (Reason: dizziness and nausea) Qty: 30 1RF metformin 500 mg tablet 1,000 mg PO BID Qty: 360 3RF triamcinolone acetonide 0.1 % cream 1 applic topical BID Qty: 80 2RF Rx Instructions: Apply to arms, abdomen and neck for pruritic rash twice a day until mostly resolved. Stop after two weeks. (DME) blood-glucose meter [OneTouch Verio Meter] 1 EACH misc Miscellaneous DAILY Qty: 1 cholecalciferol (vitamin D3) 5,000 UNIT capsule 5,000 unit PO DAILY omega 2-nfd-xgk-fish oil 1 EACH capsule 1 ea PO DAILY (DME) OneTouch Verio test strips Strip 1 ea Miscellaneous DAILY Qty: 90 3RF Rx Instructions: daily atenolol 50 mg tablet 50 mg PO DAILY Qty: 90 4RF hydrochlorothiazide 25 mg tablet 25 mg PO DAILY Qty: 90 4RF potassium citrate 5 mEq (540 mg) tablet extended release 5 meq PO DAILY Qty: 90 3RF lisinopril 30 mg tablet 30 mg PO DAILY Qty: 90 3RF scopolamine base 1 mg over 3 days Patch 3 Day 1 mg transdermal Q72H Qty: 4 0RF acetaminophen 500 mg tablet 1,000 mg PO Q8H PRN Qty: 90 0RF Rx Instructions: Take two tablets up to every 8 hours as needed for pain loratadine 10 mg capsule 10 mg PO DAILY Qty: 60 0RF Rx Instructions: can increase to twice daily if needed. HPI General Date/Time Provider Initiated Documentation: 07/26/24 05:36 . HPI Narrative: This is a very pleasant 88-year-old female with a past medical history of vertigo, type 2 diabetes mellitus, CKD, hypertension, who presents today for vertigo. Patient states that 1 hour prior to arrival she woke up with significant room spinning sensation vertigo. She denies any tinnitus. She denies any falls or trauma. She denies any headache or chest pain or shortness of breath. She tried to take her scopolamine but was not able to get it. EMS was called, she was given Zofran via EMS and brought to the ER for further assessment. She denies any other complaints at this time. She states that her symptoms feel identical to her previous vertigo episodes. Symptoms are made worse with movement of her head. Improved by nothing. She has had a few episodes of vomiting. Related Data Home Medications ?Medication ?Instructions ?Recorded ?Confirmed blood-glucose meter (ForsakeTouch ##1 10/03/16 07/26/24 Verio Meter) cholecalciferol (vitamin D3) 125 5,000 unit PO DAILY 06/03/17 07/26/24 mcg (5,000 unit) capsule omega 8-ygh-jcu-fish oil 500 mg 1 ea PO DAILY 06/03/17 07/26/24 (200mg-300mg)-1,000 mg capsule lancets (ForsakeTouch UltraSoft #90 ea 12/11/19 07/26/24 Lancets) magnesium oxide 400 mg (241.3 mg 400 mg PO DAILY 06/16/20 07/26/24 magnesium) tablet acetaminophen 500 mg tablet 1,000 mg (2 x 500 mg) PO Q8H PRN 04/09/23 07/26/24 pain #90 tabs blood sugar diagnostic (ForsakeTouch #90 strips 04/12/23 07/26/24 Verio test strips) atenolol 50 mg tablet 50 mg PO DAILY #90 tab-caps 10/07/23 07/26/24 hydrochlorothiazide 25 mg tablet 25 mg PO DAILY #90 tab-caps 10/07/23 07/26/24 potassium citrate 5 mEq (540 mg) 5 meq PO DAILY #90 tabs 10/09/23 07/26/24 tablet,extended release loratadine 10 mg capsule 10 mg PO DAILY #60 caps 11/10/23 07/26/24 triamcinolone acetonide 0.1 % 1 applic topical BID Pruritis #80 11/12/23 07/26/24 topical cream grams lisinopril 30 mg tablet 30 mg PO DAILY #90 tabs 01/20/24 07/26/24 metformin 500 mg tablet 1,000 mg (2 x 500 mg) PO BID #360 03/03/24 07/26/24 tabs scopolamine base 1 mg over 3 days 1 mg transdermal Q72H #4 ea 07/06/24 07/26/24 transdermal patch meclizine 12.5 mg tablet 12.5 mg PO TID PRN dizziness and 07/13/24 07/26/24 nausea #30 tabs Previous Rx's ?Medication ?Instructions ?Recorded lancets (OneTouch UltraSoft #90 ea 12/11/19 Lancets) acetaminophen 500 mg tablet 1,000 mg (2 x 500 mg) PO Q8H PRN 04/09/23 pain #90 tabs blood sugar diagnostic (OneTouch #90 strips 04/12/23 Verio test strips) atenolol 50 mg tablet 50 mg PO DAILY #90 tab-caps 10/07/23 hydrochlorothiazide 25 mg tablet 25 mg PO DAILY #90 tab-caps 10/07/23 potassium citrate 5 mEq (540 mg) 5 meq PO DAILY #90 tabs 10/09/23 tablet,extended release loratadine 10 mg capsule 10 mg PO DAILY #60 caps 11/10/23 triamcinolone acetonide 0.1 % 1 applic topical BID Pruritis #80 11/12/23 topical cream grams lisinopril 30 mg tablet 30 mg PO DAILY #90 tabs 01/20/24 metformin 500 mg tablet 1,000 mg (2 x 500 mg) PO BID #360 03/03/24 tabs scopolamine base 1 mg over 3 days 1 mg transdermal Q72H #4 ea 07/06/24 transdermal patch meclizine 12.5 mg tablet 12.5 mg PO TID PRN dizziness and 07/13/24 nausea #30 tabs Allergies Allergy/AdvReac Type Severity Reaction Status Date / Time No Known Allergies Allergy Verified 07/26/24 06:42 General ELSA: 3 Exam Narrative Exam Narrative: 1.Const: Well-nourished, Well-developed, appearing stated age 2.Eyes: PERRL, no conjunctival injection, and symmetrical lids. 3.ENT: Atraumatic external nose and ears. Dry MM. Neck: Symmetric, trachea midline, No thyromegaly. 4.CVS: +S1/S2, Peripheral pulses 2+ and equal in all extremities. Brisk capillary refill in all extremities. 5.RESP: Unlabored respiratory effort. Clear to auscultation bilaterally. No wheezes rales or rhonchi 6.GI: Soft, Nontender/Nondistended, No hepatosplenomegaly. No guarding or rebound. 7.MSK: Normocephalic/Atraumatic, Extremities w/o deformity or ttp No cyanosis or clubbing, Normal movement of all extremities 8.Skin: Warm, Dry. No rashes or lesions. 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 Sensation grossly intact, no focal neurologic deficits. All 6 cardinal planes of vision are fully intact. No evidence of rotatory or vertical nystagmus. The patient demonstrated a normal [id number]-szpv-fcufhu, good dexterity. There was no evidence of dysdiadochokinesia. Unable to ambulate patient secondary to current vomiting and vertiginous symptoms. Sensation was intact bilaterally as well as muscle strength bilaterally for all extremities. Patient was able to verbalize butter cup with no slurring, or miss pronunciation. Cerebellar function testing is normal. The patient demonstrates a normal hints exam with no findings concerning for a central event. No vertical nystagmus. Mild unilateral horizontal fatigable nystagmus. Normal test of skew. No suggestion of a central cerebellar event. 10.Psych: (AAO) x3. Appropriate mood and affect Medical Decision Making This is a very pleasant 88-year-old female with a past medical history of vertigo, type 2 diabetes mellitus, CKD, hypertension, who presents today for vertigo. Patient states that 1 hour prior to arrival she woke up with significant room spinning sensation vertigo. She denies any tinnitus. She denies any falls or trauma. She denies any headache or chest pain or shortness of breath. She tried to take her scopolamine but was not able to get it. EMS was called, she was given Zofran via EMS and brought to the ER for further assessment. She denies any other complaints at this time. She states that her symptoms feel identical to her previous vertigo episodes. Symptoms are made worse with movement of her head. Improved by nothing. She has had a few episodes of vomiting. Physical exam demonstrates a well-appearing female, actively nauseous and vomiting. No abdominal tenderness. Mild horizontal fatigable unidirectional nystagmus, no vertical or rotatory nystagmus to suggest central cerebellar event. Negative test of skew. Head impulse test and nystagmus testing worsens patient's symptoms. Symptoms appear consistent with peripheral vertigo. Will give meclizine, Reglan, gently rehydrate with 500 cc bolus, monitor closely and reassess. 7:[address] scan of the head is negative for acute process or stroke. On reassessment patient is feeling minimally better. She is still quite nauseous and gagging. She still has no abdominal pain Assessment. In the past when she has had the vertigo on her last visit she did require admission. Valium was slightly beneficial in the past. Family is requesting a trial of Valium but also admission. We will give a 5 mg dose of Valium and 250 bag slowly over 30 minutes. Patient will likely need admission if she does not have improvement of her symptoms after this. FINDINGS: Brain: No intracranial hemorrhage appreciated. No significant focal mass effect or significant midline shift. Generalized parenchymal volume loss. Chronic ischemic changes are noted. Cerebral ventricles: No disproportionate ventriculomegaly. Paranasal sinuses: Mucosal retention cyst versus polyp in the right maxillary sinus. Mastoid air cells: No mastoid effusion. Bones: No acute cranial vault fracture seen. Soft tissues: No acute findings. Vasculature: Arterial calcifications. IMPRESSION: 1. No acute intracranial abnormality appreciated. 2. Nonacute findings as outlined above. Thank you for allowing us to participate in the care of your patient. Dictated and Authenticated by: Najma Aguilar MD 07/26/2024 6:54 AM Eastern Time ([place] & [place]) Quality:SDOH Health Related Social Needs: No Data to Display PFSH All Active Problems (Updated 07/26/24 @ 07:04 by Frandy Jacobson DO) Peripheral vertigo (Acute) Urticaria (Acute) Right lower lobe pneumonia (Acute) 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) Postoperative nausea and vomiting (Acute) Onychomycosis (Acute) Edema (Acute) Venous (peripheral) insufficiency (Acute) Toe pain, right (Acute) Toe pain, left (Acute) Type 2 diabetes mellitus with diabetic polyneuropathy (Chronic) Neuropathy (Acute) Nail dystrophy (Acute) CKD (chronic kidney disease) stage 3, GFR 30-59 ml/min (Chronic) Balance problem (Acute) Essential hypertension (Chronic) 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 Daughter No problems noted. Social History Smoking/Tobacco Use Status: Never Second Hand Exposure: Yes Smoking risk assessment performed?: Yes Alcohol Intake: never Drug use: Never Substance use type: does not use Adopted: No Caregiver/Support person: No Household members: none Housing: apartment Number of Children: 5 number of grandchildren: 12 Do you need help understanding health information?: Never Pets and animals: No Sexually active: No Do you think of yourself as: straight/heterosexual Current gender identity: female What is your relationship status?: How often do you talk on the phone with friends or family?: three or more times per week How often do you get together with friends or relatives?: three or more times per week How often do you attend jainism or nondenominational services?: 1-3 times per year Do you belong to any clubs or organized social groups?: no Panel score (0-1 are the most socially isolated patients): 1 What type of physical activity do you participate in: none Frequency: does not exercise Sue/Holiness: Caodaism Special sue needs: No Seatbelt use: sometimes Drive intox or ride w/intox 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
[2024-07-26 05:41] LABS: Abs Immature Grans 0.02 10^3/uL (0.0-0.06); Absolute Basophil Count 0.07 10^3/uL (0.0-0.2); Absolute Eosinophil Count 0.61 10^3/uL (0.0-0.7); Absolute Lymphocyte Count 3.92 10^3/uL (1.2-3.4); Absolute Monocyte Count 0.52 10^3/uL (0.1-0.8); Absolute Neutrophil Count 4.52 10^3/uL (1.2-6.7); Basophils % 0.7 %; Eosinophils % 6.3 %; HCT 38.4 % (36.0-46.0); HGB 11.9 g/dL (11.2-15.7); Immature Grans % 0.2 %; Lymphocytes % 40.6 %; MCH 27.9 pg (27.0-33.0); MCV 90 fL (80-95); MPV 9.5 fL (8.0-11.0); Monocytes % 5.4 %; Neutrophils % 46.8 %; Platelet Count 335 10^3/uL (130-400); RBC 4.27 10^6/uL (3.93-5.22); RDW 14.6 % (11.7-14.6); WBC 9.66 10^3/uL (4.4-10.8)
[2024-07-26 05:53] LABS: Lipase 51 U/L (<78)
[2024-07-26] MEDS: Normal Saline 500 ML IV (05:56)
[2024-07-26] MEDS: Normal Saline 50 ML (05:57)
[2024-07-26] MEDS: Metoclopramide 10 MG/2 ML VIAL IVP (05:57)
[2024-07-26 05:58] LABS: ALT 11 U/L (14-59); AST 13 U/L (15-37); Albumin 3.3 g/dL (3.4-5.0); Alkaline Phosphatase 63 U/L (46-116); Anion Gap 8.1 mmol/L (3-11); BUN 25 mg/dL (7-18); Bilirubin, Total 0.3 mg/dL (0.2-1.0); CO2 26.9 mmol/L (21.0-32.0); CREATININE 1.4 mg/dL (0.55-1.02); Calcium 9.4 mg/dL (8.5-10.1); Chloride 107 mmol/L (98-107); Estimated GFR 36.41 (mL/min/1.73m2); Glucose 168 mg/dL (74-106); Potassium 3.5 mmol/L (3.5-5.1); Sodium 142 mmol/L (136-145); Total Protein 7.1 g/dL (6.4-8.2)
[2024-07-26] MEDS: Meclizine 25 MG TAB 50 MG PO (06:02)
--- NOTE | 2024-07-26 06:54 | DI.VRAD_ITS ---
PROCEDURE INFORMATION: Exam: CT Head Without Contrast Exam date and time: 07/26/2024 6:20 AM Age: 88 years old Clinical indication: Other: Dizzy, vomiting, vertiginous symptoms, eval stroke TECHNIQUE: Imaging protocol: Computed tomography of the head without contrast. COMPARISON: No relevant prior studies are available for comparison. FINDINGS: Brain: No intracranial hemorrhage appreciated. No significant focal mass effect or significant midline shift. Generalized parenchymal volume loss. Chronic ischemic changes are noted. Cerebral ventricles: No disproportionate ventriculomegaly. Paranasal sinuses: Mucosal retention cyst versus polyp in the right maxillary sinus. Mastoid air cells: No mastoid effusion. Bones: No acute cranial vault fracture seen. Soft tissues: No acute findings. Vasculature: Arterial calcifications. IMPRESSION: 1. No acute intracranial abnormality appreciated. 2. Nonacute findings as outlined above. Dictated and Authenticated by: Najma Aguilar MD. Orderin Indira Wise MD
[2024-07-26] MEDS: diazePAM 10 MG/2 ML SYR 5 MG IVP (07:12)
[2024-07-26] MEDS: Normal Saline 250 ML 500 ML IV (07:14)
[2024-07-26] MEDS: hydroCHLOROthiazide 25 MG TAB PO (08:01)
[2024-07-26] MEDS: Atenolol 25 MG TAB 50 MG PO (08:01)
[2024-07-26] MEDS: Lisinopril 10 MG TAB 30 MG PO (08:01)
--- NOTE | 2024-07-26 08:29 | W.EDPROG ---
Date of service: 07/26/24 Time of Service: 08:29 Medical Decision Making I received signout on this 88-year-old female history of vertigo and persistent symptoms of vertigo. She had a reassuring CT scan of her head. She received meclizine 50 mg, ondansetron 4 mg, metoclopramide 10 mg, and IV fluids given without improvement. Currently pending diazepam trial but may require admission. 8:30 AM Patient still feeling dizzy.Will reach out to the hospitalist to request hospitalization. Of note she was never visited by home PT nor nursing following her last hospitalization. 8:47 AM I was in touch with Dr. Kee who graciously agreed to accept patient for hospitalization. Quality:[facility] Health Related Social Needs: No Data to Display Discharge Plan Disposition Patient Disposition: Admit to [facility] Discharge Details Chief Complaint: Nausea/Vomit/Diar Clinical Impression: Peripheral vertigo Primary Care Provider: Allie Rodrigues ED Provider: Shravan Castillo [place] Meds and New Rx's Prescriptions: No Action (DME) lancets [OneTouch UltraSoft Lancets] Misc 1 ea Miscellaneous DAILY Qty: 90 3RF Rx Instructions: Daily magnesium oxide 400 mg (241.3 mg magnesium) tablet 400 mg PO DAILY meclizine 12.5 mg tablet 12.5 mg PO TID PRN (Reason: dizziness and nausea) Qty: 30 1RF metformin 500 mg tablet 1,000 mg PO BID Qty: 360 3RF triamcinolone acetonide 0.1 % cream 1 applic topical BID Qty: 80 2RF Rx Instructions: Apply to arms, abdomen and neck for pruritic rash twice a day until mostly resolved. Stop after two weeks. (DME) blood-glucose meter [OneTouch Verio Meter] 1 EACH misc Miscellaneous DAILY Qty: 1 cholecalciferol (vitamin D3) 5,000 UNIT capsule 5,000 unit PO DAILY omega 1-goc-dwr-fish oil 1 EACH capsule 1 ea PO DAILY (DME) OneTouch Verio test strips Strip 1 ea Miscellaneous DAILY Qty: 90 3RF Rx Instructions: daily atenolol 50 mg tablet 50 mg PO DAILY Qty: 90 4RF hydrochlorothiazide 25 mg tablet 25 mg PO DAILY Qty: 90 4RF potassium citrate 5 mEq (540 mg) tablet extended release 5 meq PO DAILY Qty: 90 3RF lisinopril 30 mg tablet 30 mg PO DAILY Qty: 90 3RF scopolamine base 1 mg over 3 days Patch 3 Day 1 mg transdermal Q72H Qty: 4 0RF acetaminophen 500 mg tablet 1,000 mg PO Q8H PRN Qty: 90 0RF Rx Instructions: Take two tablets up to every 8 hours as needed for pain loratadine 10 mg capsule 10 mg PO DAILY Qty: 60 0RF Rx Instructions: can increase to twice daily if needed.
--- NOTE | 2024-07-26 10:00 | W.PC.ACHO ---
Registration Status: Primary Language: Preferred Language: ED Information & Data Chief Complaint Nausea/Vomit/Diar 07/26/24 05:38 Chief Complaint Nausea/Vomit/Diar 07/26/24 05:35 Triage Note BIBA, dizzy and nauseated. 07/26/24 05:35 Has a hx of vertigo and was unable to get to her medications this morning. Started about 1 hour ago. 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) Hx laparoscopic cholecystectomy Hx of cataract extraction Most Recent Vital Signs Temperature 96.0 F L 07/26/24 05:35 Temperature Source Skin 07/26/24 05:35 Pulse 72 07/26/24 09:50 Pulse 72 07/26/24 09:50 Respiratory Rate 17 07/26/24 09:50 Blood Pressure 143/69 H 07/26/24 09:46 Blood Pressure Mean 93 07/26/24 09:46 Blood Pressure Position Sitting 07/26/24 05:35 Pulse Oximetry 94 07/26/24 09:50 Oxygen Delivery Method Room Air 07/26/24 06:19 Oxygen Flow Rate 0 07/26/24 06:19 Allergies No Known Allergies Allergy (Verified 07/26/24 06:42) Precautions Isolation Standard precaution 07/26/24 05:38 IV IV Catheter Type [Right Saline Lock Antecubital] IV Catheter Gauge [Right 20 Antecubital] Diet Orders Category Date Time Status Diabetes Consistent CHO/Heart Healthy [DIET] Nutrition 07/26/24 Lunch Active Diagnostics 07/26/24 Range/Units 05:34 WBC 9.66 (4.4-10.8) 10^3/uL RBC 4.27 (3.93-5.22) 10^6/uL Hgb 11.9 (11.2-15.7) g/dL Hct 38.4 (36.0-46.0) % MCV 90 (80-95) fL MCH 27.9 (27.0-33.0) pg MCHC 31.0 L (32.0-36.0) % RDW 14.6 (11.7-14.6) % Plt Count 335 (130-400) 10^3/uL MPV 9.5 (8.0-11.0) fL Immature Gran % 0.2 % Neutrophils % 46.8 % Lymphocytes % 40.6 % Monocytes % 5.4 % Eosinophils % 6.3 % Basophils % 0.7 % Nucleated RBC % 0.0 (0.0-0.3) % Absolute Neutrophils 4.52 (1.2-6.7) 10^3/uL Absolute Lymphocytes 3.92 H (1.2-3.4) 10^3/uL Absolute Monocytes 0.52 (0.1-0.8) 10^3/uL Absolute Eosinophils 0.61 (0.0-0.7) 10^3/uL Absolute Basophils 0.07 (0.0-0.2) 10^3/uL Sodium 142 (136-145) mmol/L Potassium 3.5 (3.5-5.1) mmol/L Chloride 107 (98-107) mmol/L Carbon Dioxide 26.9 (21.0-32.0) mmol/L Anion Gap 8.1 (3-11) mmol/L BUN 25 H (7-18) mg/dL Creatinine 1.4 H (0.55-1.02) mg/dL Est GFR (CKD-EPI 2020) 36.41 (mL/min/1.73m2) Glucose 168 H (74-106) mg/dL Calcium 9.4 (8.5-10.1) mg/dL Total Bilirubin 0.3 (0.2-1.0) mg/dL AST 13 L (15-37) U/L ALT 11 L (14-59) U/L Alkaline Phosphatase 63 (46-116) U/L Total Protein 7.1 (6.4-8.2) g/dL Albumin 3.3 L (3.4-5.0) g/dL Lipase 51 (<78) U/L Intake and Output - 24 Hour Total 07/26/24 05:16 thru 07/26/24 07:44 Intake Total 750 Balance 750 Weight 183 lb 6.793 oz Intake: IV 750 Other: Emesis Description Retching Falls Risk Assessment History of Falls Previous History 07/26/24 05:39 Contributing Factors Unstable 07/26/24 05:39 Ambulatory Aids Independent 07/26/24 05:39 Tubes/Lines None 05/11/25 05:39 Gait Evaluation No gait disturbance 07/26/24 05:39 Cognition No cognitive impairment 07/26/24 05:39 Fall Total Score 18 07/26/24 05:39 Level of Risk Standard/Low Risk 07/26/24 05:39 v v v v v v v v v Sending and/or Receiving Nurses: Please use comment section below to note any information pertinent to the patient hand-off not included above. Information / Comments: Report received from: Marielos Kuhn RN
--- NOTE | 2024-07-26 13:18 | W.PM.HP.N ---
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 discussed with DR Kee History of Present Illness History of Present Illness Chief Complaint: dizziness Review of Systems All systems reviewed & are unremarkable except as noted in HPI and below PFSH All Active Problems (Updated 07/26/24 @ 07:04 by Frandy Jacobson DO) Peripheral vertigo (Acute) Urticaria (Acute) Right lower lobe pneumonia (Acute) 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) Postoperative nausea and vomiting (Acute) Onychomycosis (Acute) Edema (Acute) Venous (peripheral) insufficiency (Acute) Toe pain, right (Acute) Toe pain, left (Acute) Type 2 diabetes mellitus with diabetic polyneuropathy (Chronic) Neuropathy (Acute) Nail dystrophy (Acute) CKD (chronic kidney disease) stage 3, GFR 30-59 ml/min (Chronic) Balance problem (Acute) Essential hypertension (Chronic) 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 Daughter No problems noted. Social History Smoking/Tobacco Use Status: Never Second Hand Exposure: Yes Smoking risk assessment performed?: Yes Alcohol Intake: never Drug use: Never Substance use type: does not use Adopted: No Caregiver/Support person: No Household members: none Housing: apartment Number of Children: 5 number of grandchildren: 12 Do you need help understanding health information?: Never Pets and animals: No Sexually active: No Do you think of yourself as: straight/heterosexual Current gender identity: female What is your relationship status?: How often do you talk on the phone with friends or family?: three or more times per week How often do you get together with friends or relatives?: three or more times per week How often do you attend muslim or yazidi services?: 1-3 times per year Do you belong to any clubs or organized social groups?: no Panel score (0-1 are the most socially isolated patients): 1 What type of physical activity do you participate in: none Frequency: does not exercise Sue/Yarsanism: Jainism Special sue needs: No Seatbelt use: sometimes Drive intox or ride w/intox full service vending driver: No Firearms in home: No Do you feel safe at home: Yes Do you feel safe in your relationship?: No Victim of physical abuse: No Victim of emotional abuse: No Victim of sexual abuse: No Would you like helpful sources: No Meds Allergies and Home Medications Allergies Allergy/AdvReac Type Severity Reaction Status Date / Time No Known Allergies Allergy Verified 07/26/24 06:42 Home Medications ?Medication ?Instructions ?Recorded ?Confirmed ?Type blood-glucose meter (FONU2uch ##1 10/03/16 07/26/24 History Verio Meter) cholecalciferol (vitamin D3) 125 5,000 unit PO DAILY 06/03/17 07/26/24 History mcg (5,000 unit) capsule omega 7-hrr-zfk-fish oil 500 mg 1 ea PO DAILY 06/03/17 07/26/24 History (200mg-300mg)-1,000 mg capsule lancets (Power FingerprintingTouch UltraSoft #90 ea 12/11/19 07/26/24 Rx Lancets) magnesium oxide 400 mg (241.3 mg 400 mg PO DAILY 06/16/20 07/26/24 History magnesium) tablet acetaminophen 500 mg tablet 1,000 mg (2 x 500 mg) PO Q8H PRN 04/09/23 07/26/24 Rx pain #90 tabs blood sugar diagnostic (OneTouch #90 strips 04/12/23 07/26/24 Rx Verio test strips) atenolol 50 mg tablet 50 mg PO DAILY #90 tab-caps 10/07/23 07/26/24 Rx hydrochlorothiazide 25 mg tablet 25 mg PO DAILY #90 tab-caps 10/07/23 07/26/24 Rx potassium citrate 5 mEq (540 mg) 5 meq PO DAILY #90 tabs 10/09/23 07/26/24 Rx tablet,extended release loratadine 10 mg capsule 10 mg PO DAILY #60 caps 11/10/23 07/26/24 Rx triamcinolone acetonide 0.1 % 1 applic topical BID Pruritis #80 11/12/23 07/26/24 Rx topical cream grams lisinopril 30 mg tablet 30 mg PO DAILY #90 tabs 01/20/24 07/26/24 Rx metformin 500 mg tablet 1,000 mg (2 x 500 mg) PO BID #360 03/03/24 07/26/24 Rx tabs scopolamine base 1 mg over 3 days 1 mg transdermal Q72H #4 ea 07/06/24 07/26/24 Rx transdermal patch meclizine 12.5 mg tablet 12.5 mg PO TID PRN dizziness and 07/13/24 07/26/24 Rx nausea #30 tabs Exam Const General: cooperative, comfortable, no acute distress and frail appearing Orientation: alert and awake [facility] Head: normal to inspection, normocephalic and atraumatic Ears: hearing grossly normal bilaterally General nose exam: external nose normal Face and sinus: normal facial exam Mouth: oral mucosae normal Neck Neck: normal visual inspection, full ROM and no JVD Resp Effort & Inspection: normal respiratory effort Cardio Rate: regular rate Rhythm: regular rhythm GI Inspection: normal to inspection Palpation: soft Auscultation: normal bowel sounds Skin General skin exam: no rashes or lesions noted Neuro General: patient alert and patient awake Extrem General: normal to inspection, full ROM and no pedal edema Results Labs 07/26/24 05:34 07/26/24 05:34 Labs: Laboratory Results - last 24 hr 07/26/24 05:34 WBC 9.66 RBC 4.27 Hgb 11.9 Hct 38.4 MCV 90 MCH 27.9 MCHC 31.0 L RDW 14.6 Plt Count 335 MPV 9.5 Immature Gran % 0.2 Neutrophils % 46.8 Lymphocytes % 40.6 Monocytes % 5.4 Eosinophils % 6.3 Basophils % 0.7 Nucleated RBC % 0.0 Absolute Neutrophils 4.52 Absolute Lymphocytes 3.92 H Absolute Monocytes 0.52 Absolute Eosinophils 0.61 Absolute Basophils 0.07 Sodium 142 Potassium 3.5 Chloride 107 Carbon Dioxide 26.9 Anion Gap 8.1 BUN 25 H Creatinine 1.4 H Est GFR (CKD-EPI 2020) 36.41 Glucose 168 H Calcium 9.4 Total Bilirubin 0.3 AST 13 L ALT 11 L Alkaline Phosphatase 63 Total Protein 7.1 Albumin 3.3 L Lipase 51 Last Vital Signs Temp 35.6 C L 07/26/24 10:19 Pulse 72 07/26/24 10:19 Resp 16 07/26/24 10:19 BP 113/90 07/26/24 10:19 Pulse Ox 96 07/26/24 10:19 Time Spent Time spent with Patient: 55-74 minutes Time was spent: preparing to see the patient(eg.review tests), obtaining and/or reviewing separately otained hiistory, ordering medications,tests, procedures, indepentently interpreting results and counseling the patient
--- NOTE | 2024-07-26 13:36 | PT.INIE ---
PT Notes Visit Reasons: Vertigo, Vomiting Inpatient Physical Therapy Evaluation Date: July 26, 2024 Referring Doctor: Dr. Shravan Solorzano PT Orders: PT CONSULT: Safety consult for DC, fall safety assessment Precautions: Standard, fall precautions, limited activity tolerance Patient Profile/Admitting Diagnosis: Patient is an 88-year-old female admitted to TNR H earlier this morning secondary to intractable vertigo. Daughter is present for evaluation. Daughter indicates Karine has been dealing with vertigo symptoms for the last 10+ years. Has to to 3 bouts of severe vertigo a year. States that she thinks it is becoming more frequent. Karine was up early in the morning around 4:00 to go to the restroom when she felt unable to stand secondary to vertigo symptoms. Pressed her life alert and came to the ED around 5 in the morning this morning. Prior to transitioning to MedSurg she was given Valium. Upon discussion with nurse Salvador it was advised to hold off on initial evaluation and walking at least until after lunch. Evaluation began 1:10 PM PMHX: PFSH All Active Problems (Updated 07/26/24 @ 07:04 by Frandy Jacobson DO) Peripheral vertigo (Acute) Urticaria (Acute) Right lower lobe pneumonia (Acute) 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) Postoperative nausea and vomiting (Acute) Onychomycosis (Acute) Edema (Acute) Venous (peripheral) insufficiency (Acute) Toe pain, right (Acute) Toe pain, left (Acute) Type 2 diabetes mellitus with diabetic polyneuropathy (Chronic) Neuropathy (Acute) Nail dystrophy (Acute) CKD (chronic kidney disease) stage 3, GFR 30-59 ml/min (Chronic) Balance problem (Acute) Essential hypertension (Chronic) Osteoarthritis (Chronic 01/23/13) right knee Diabetes mellitus (Chronic 01/23/13) Medical History Cholecystitis with gangrene of gallbladder Surgical History 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 Has 5-6 stairs with railing from parking lot to entrance of apartment. Has 2 supportive children living nearby who check on her regularly. Current Functional Limitations: Prolonged sit, stand, walking Equipment Owned/DME: Patient states she has a front wheel walker and cane but typically does not use them at baseline. She has support from her children to take her shopping. Subjective: Karine states she feels a little lightheaded. Notes a little unsteadiness when she rotates her cervical spine to the left. Does not feel hungry. Did not eat lunch. No significant nausea noted at start of evaluation. Objective: General Observation: IV port right upper extremity. Laying supine in bed with head of bed 40 degrees. Daughter present in room. Mental Status: Alert and oriented to person and place, not time. Pain: No complaints Vital Signs: Closely monitored via nursing ROM: Right Upper Extremity: Glenohumeral joint flexion 130 degrees, abduction 120 degrees, elbow flexion and extension within normal limits Left Upper Extremity: Glenohumeral joint flexion 140 degrees, abduction 130 degrees, elbow flexion and extension within normal limits. Right Lower Extremity: Hip flexion, abduction, knee flexion, knee extension, ankle plantar and dorsiflexion within normal limits Left Lower Extremity: Hip flexion, abduction, knee flexion, knee extension, ankle plantar and dorsiflexion within normal limits Strength: Right Upper Extremity: 4/5 Left Upper Extremity: 4/5 Right Lower Extremity: Grossly hips 4-/5 knees 4/5 ankle 4/5. Able to perform straight leg raise with 0 degree lag Left Lower Extremity: Grossly hips 4-/5 knees 4/5 ankle 4/5. Able to perform straight leg raise with 0 degree lag Sensation: Intact bilateral lower extremities Bed Mobility/Transfers: Bed mobility: Requires min assist x 1 for positioning lower extremities. Supine to sit: Head of bed 40 degrees with min assist x 1. No complaints of vertigo symptoms Sit to stand: To front wheel walker with min assist x 1 with complaints of vertigo symptoms that last approximately 1 minute Stand to sit: From front wheel walker with standby assist. Sit to supine: Min assist x 1 for leg positioning. No complaints of vertigo with transition from sit to supine. Gait: Ambulate with FWW 5 feet x 2 with front wheel walker contact-guard x 1. Slow-moving for rotation to her right with use of walker and verbal cues for walker placement. Patient indicated she had some dizziness with head turns to her left as well as changing directions with front wheel walker. This is more noted turning to her left versus turning to her right. Stairs: Not tested Balance: Static Sitting: Fair Dynamic Sitting: Fair Static Standing: Fair Dynamic Standing: Fair Positive Romberg Special Tests: Mobility Limitations Standardized Measure [facility] AM-PAC 6 clicks Basic Mobility Inpatient Short Form: Raw Score: 15 CMS Score: 57.70% Informed Consent/Education: Patient instructed in purpose of PT consult and plan of care. Assessment: Patient is an 88 year old female eferred to physical therapy services with the diagnosis of vertigo/vomiting. Patient presents with clinical signs and symptoms consistent with above diagnosis as demonstrated by the following impairment level findings: Motor function, muscle performance and range of motion associated with recurrent BPPV related symptoms. Impairments are contributing to the following functional limitations: [facility] score. Patient presents with clinical signs and symptoms consistent with current/admitting diagnoses that have resulted to mobility limitations, gait instability, generalized weakness, and overall ADL decline as demonstrated by the following impairment level findings: 1. Decreased strength to B LE major muscle groups 2. Impaired standing balance 3. Impaired activity tolerance Impairments are contributing to the following functional limitations: 1. Decline in bed mobility skills 2. Decline in transfer skills 3. Difficulty with ambulation without assistive device and physical assistance 4. Increased completion time for mobility ADL performance 5. Increased risk for falls 6. Difficulty with managing steps alone safely Patient is assessed as a 33510 moderate complexity based on the following: History: 88-year-old female with past medical history as indicated above Examination: Demonstrable impairment in strength, balance, and mobility level with underlying impairments and functional limitations as exhibited above as well as deficit score of 57.70% utilizing the [facility] Mobility Inpatient Short Form Presentation: Stable Decision Makin low complexity Goals: Goals X1 week 1. Supine-Sit independent 2. Sit-Supine independent 3. Sit-Stand independent 4. Stand-Sit independent with FWW 5. Bed-Chair independent with FWW 6. Chair-Bed independent with FWW 7. Independent gait on level surface with use of with SPC for at least 300 feet without report of pain nor dyspnea 8. Good static and dynamic standing balance/tolerance Plan of Care/Treatment Plan: 1-2x/day, 7 days/week x 1 week. Plan of care has been reviewed with the SOUND TESTER providing the service under Physical Therapy direction. Initiate Physical Therapy intervention for strengthening, bed mobility, transfers, gait, stairs, balance training, use of assistive device. DISCHARGE RECOMMENDATIONS: [] Home with no services [] X Home with services HHPT [] Home with outpatient PT [] [] SNF for continued rehabilitation [] [] Irrigation Equipment Remover Care [] [] SNF versus LTC based on ability to participate and progress [] TREATMENT CODE/TIME: 35732 30 minutes 110?140 Thank you for this consult. Huy Morales PT, DPT Disclaimer: This note was created using [employer] voice recognition software. It was reviewed for major content. However, there may be multiple small discrepancies and errors due to the voice recognition aspects of the software.
[2024-07-26] MEDS: POTASSIUM CHLORIDE/D5-0.45NACL 1,000 ML 80 MEQ IV (15:32)
[2024-07-26] MEDS: Enoxaparin 30 MG/0.3 ML SYR SC (18:02)
[2024-07-26] MEDS: Meclizine 12.5 MG TAB PO (18:02)
[2024-07-26] MEDS: Normal Saline Flush 10 ML SYR IVP (21:54)
[2024-07-27] MEDS: POTASSIUM CHLORIDE/D5-0.45NACL 1,000 ML 80 MEQ IV (03:33)
[2024-07-27 07:50] VITALS: BP 169/78; PULSE 62; RESP 20; TEMP 36.6; O2SAT 94
[2024-07-27] MEDS: Normal Saline Flush 10 ML SYR IVP ×2 (08:13→19:39)
[2024-07-27] MEDS: Magnesium Oxide 400 MG TAB PO (08:14)
[2024-07-27] MEDS: Loratidine 10 MG TAB PO (08:14)
[2024-07-27] MEDS: Lisinopril 10 MG TAB 30 MG PO (08:14)
[2024-07-27] MEDS: hydroCHLOROthiazide 25 MG TAB PO (08:14)
[2024-07-27] MEDS: Atenolol 50 MG TAB PO (08:14)
--- NOTE | 2024-07-27 09:29 | PDOC.CMIN ---
Date of service: 07/27/24 Time of Service: 09:29 Care Management Initial Assmt Initial Assessment Reason for Hospitalization: vertigo Functional Status/Living Situation Patient Presentation: Karine has a hx of vertigo. She presented to the ED early yesterday morning with c/o significant room spinning sensation vertigo. Karine has still be experiencing some dizziness, and when CM met with her this afternoon, she had just met with PT who performed the R Ann-Marie maneuver. PT is recommending PT for Karine, Karine is agreeable to both PT and RN through HH. Karine was very pleasant. She lives alone in elderly housing, and has no concerns. She enjoys her neighbors and their gossip sessions. Karine stated that she goes to the [email or web address] meal site at the [facility] 3x/week. Other than that, she does her own cooking. She is no longer driving, but her neighbors and her children help her out when needed. Town of Residence: [place] Significant Other/Family: Local (daughters Vanessa and Belle, son Lavon- all are supportive) Natural Supports: children and their families Instrumental Activities of Daily Living (ADLs): Independent Activities/Hobbies/SocialSupport: Enjoys the [facility] and gossiping with her neighbors. Medications Medication Management: No Issues/Barriers identified Physical Functioning/Mobility Assistive Device: walker Advance Directives Advance Directives: Do you have an Advance Directive: Y 03/17/20 13:33 AD On File at [facility]: Y 03/17/20 13:33 Date Asked 04/27/14 03/17/20 13:33 AD Date Reviewed 07/05/24 07/05/24 07:13 COLST On File at [facility] Yes 05/11/21 06:04 COLST Date Scanned 02/24/21 05/25/21 13:01 Code Status Resuscitation Status DNR/DNI Insurance Coverage/Financial Issues Insurance: Medicare [employer] Care Team Visit Care Team Role Provider Type Luzma Rogers APRN MD [facility] STAFF PHYSICIAN Allie Rodrigues, SHADOW GRAPH WEIGHT OPERATOR Primary Care Provider NURSE PRACTITIONER InPatient Ignacio Alston Other Providers OTHER Shravan Castillo MD Emergency Provider [facility] STAFF PHYSICIAN Shravan Kee Admit Provider [facility] STAFF PHYSICIAN Attending Provider Discharge Potential Discharge Needs: PCP F/U Appt Anticipated Barriers to Discharge: None Identified Patient/Family Education Needs: Review discharge instructions, discuss Ask Me Three Transportation: Private vehicle Plan: Anticipate Karine will be discharged home, possibly with new home health services for PT, when medically cleared. She will follow up with her community providers and plan of care and transport with family. CM will follow and continue to assess for discharge needs. Social Determinants of Health Screening Social Determinants of health last assessed in clinic: 07/27/24 Will the Patient Participate in the Screening?: Yes Do you worry about having a steady place to live?: no Problems where you live: no known problems In the past 12 months, have you had to go without electric, gas, oil or water in your home?: no 1. Within the past 12 months, we worried whether our food would run out before we got money to buy more.: Never true 2. Within the past 12 months, the food we bought just didn't last and we didn't have money to get more.: Never true Has lack of transportation kept you from medical appointments or from doing things needed for daily living?: no Has anyone in your life made you feel unsafe or unsupported?: no How hard is it for you to pay for the very basics like food, housing, medical care, and heating? Would you say it is:: Not hard at all Do you want help finding or keeping work or a job?: I do not need or want help If for any reason you need help with day-to-day activities such as bathing, preparing meals, shopping, managing finances, etc., do you get the help you need?: I don?t need any help How often do you feel lonely or isolated from those around you?: Never Do you speak a language other than British at home?: No Does the patient want assistance with any of the above?: No PFSH All Active Problems (Updated 07/26/24 @ 07:04 by Frandy Jacobson DO) Peripheral vertigo (Acute) Urticaria (Acute) Right lower lobe pneumonia (Acute) 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) Postoperative nausea and vomiting (Acute) Onychomycosis (Acute) Edema (Acute) Venous (peripheral) insufficiency (Acute) Toe pain, right (Acute) Toe pain, left (Acute) Type 2 diabetes mellitus with diabetic polyneuropathy (Chronic) Neuropathy (Acute) Nail dystrophy (Acute) CKD (chronic kidney disease) stage 3, GFR 30-59 ml/min (Chronic) Balance problem (Acute) Essential hypertension (Chronic) 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 Daughter No problems noted. Social History Smoking/Tobacco Use Status: Never Second Hand Exposure: Yes Smoking risk assessment performed?: Yes Alcohol Intake: never Drug use: Never Substance use type: does not use Adopted: No Caregiver/Support person: No Household members: none Housing: apartment Number of Children: 5 number of grandchildren: 12 Do you need help understanding health information?: Never Pets and animals: No Sexually active: No Do you think of yourself as: straight/heterosexual Current gender identity: female What is your relationship status?: How often do you talk on the phone with friends or family?: three or more times per week How often do you get together with friends or relatives?: three or more times per week How often do you attend voodoo or catholic services?: 1-3 times per year Do you belong to any clubs or organized social groups?: no Panel score (0-1 are the most socially isolated patients): 1 What type of physical activity do you participate in: none Frequency: does not exercise Sue/Jainism: Temple Special sue needs: No Seatbelt use: sometimes Drive intox or ride w/intox emergency detail driver: No Firearms in home: No Do you feel safe at home: Yes Do you feel safe in your relationship?: No Victim of physical abuse: No Victim of emotional abuse: No Victim of sexual abuse: No Would you like helpful sources: No Readmission Within the Past 30 Days Yes or No: Yes Date of First Admission Date of 1st Admission: 07/05/24 Date of this Admission Date of Admission: 07/26/24 This admission was: Through ED Office Visit Since 1st Admission Have you seen your PCP in the office since discharge?: Yes Date of PCP Appointment: 07/13/24 I. Interview patient and/or Family Difficulty reaching your doctor or getting an office appt?: No Have you had trouble purchasing/ or taking medication?: No Did you feel ready for discharge when you left the last time: Yes Did you call your physician beore you came to the ED?: No If the patient had a VNA ordered Did the patient have a VNA order?: No ED visits How many ED visits in the past 12 months: 3 Assessment for Readmission Summary of readmission circumstances, based upon interviews: Karine has a long hx of vertigo. Both admissions are for same diagnosis. Anticipated HH Services Anticipated HH Services at Discharge [facility] Needed, PT and RN Anticipated Date of Discharge: 07/28/24. Following Provider: Lilia.
[2024-07-27] MEDS: Insulin Aspart 300 UNITS/3 ML PEN SC (12:08)
--- NOTE | 2024-07-27 14:20 | INPN_ITS ---
PT Notes Visit Reasons: Vertigo, Vomiting Physical Therapy Inpatient Supplemental BPPV Evaluation Date: 07/27/2024 Referring Doctor: Luzma Rogers NP PT Orders: PT CONSULT: Vertigo Precautions: Activity as tolerated. Fall risk. Standard precaution. 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 She was admitted for continued monitoring of her symptoms for peripheral vertigo, type II DM, CKD, and heypertension. HEAD CT MPRESSION: --No acute intracranial findings on this noninfused CT scan of the brain. Chronic small vessel white matter ischemic changes again noted. --Vascular calcification noted. Please note that prior CT a study of October 2023 did apparently reveal a significant stenosis at the origin of the left vertebral artery off of the left subclavian artery. SUBJECTIVE: Onset: On and off since Saturday with exacerbation on 07/26/2024 early mornng upin waking up Quality: Room-spinning dizziness Duration: On and off since Saturday morning same intensity Previous Episodes: 2 weeks ago but intermittently Exacerbating Factors: Head positinal change Headache: None Neck ache: None Nausea/Vomitting: Nauseous since onset, vomiting x 3 since onset; no vomiting uring this session Hearing Loss: None Tinnitus: Some, unable to distinguish whic ear Fullness in Ear: None Very cautious whne she moved out of bed Red Flags: Visual changes: None Dysphagia or Dysarthria: None Facial Weakness: None Incoordination: None Previous Treatment: Seen for vestibular rehab back in 11/2022 for L anterior canal canalithiasis with good response OBJECTIVE: Posture: Mildly kyphotic Observation: very guarded movements, with limited head motions during sidestepping out of bed Mental Status: A and O x 4 Vital Signs: Closely monitored by nursing staff ROM: Cervical ROM: WFL with no discomfort at end of range Strength: Cervical muscle strength: 4/5 Bed Mobility/Transfers: Minimal cueing provided for use of B hands as needed for support, movement sequence, AD management, and posture to reduce fall risk and minimize pain report Rolling minimal assist Supine to sit minimal assist using handrail for support Sit to supine minimal assist using handrail for support Sit to stand minimal assist using FWW Stand to sit minimal assist using FWW Gait: 5 small sidesteps from foot of bed to head of bed using FWW with minimal assist. Woodman nauseous but did not vomit. Special Tests: Rhomberg: Minimal mediolateral sway but no LOB Coordination: Intact Fine Motor: Intact Visual Tracking: Decrased smooth pursuit, no corrective saccad es seen Head Thrust: Negative Chano-Halpike: L downbeating torsional nystagmus with R [place]- hallpike maneuver <2 minutes Supine Roll Test: Negative Balance: Static Sitting: Fair Dynamic Sitting: Fair Static Standing: Fair Dynamic Standing: Fair Informed Consent/Education: Explained rationale of diagnostic maneuver [place]-Hallpike to test for laterality of peripheral vertigo cause. Patient and daughterwere agreeable to performing corrective R Ann-Marie maneuver after diagnostic test was done. NEURO RE-ED: -R Ann-Marie maneuver performance and patient education/training with mild symptom provocation. Patient however was able to tolerate standing up at edge of bed and walking about 5 sidesteps to position herself more comfortably onto bed. ASSESSMENT: Left upbeating/torsional nystagmus and increased symptom of spinning <2 minutes with R [place]-Hallpike maneuver signifying posterior canal BPPV and will benefit from outpatient PT vestibular rehab. Patient was immediately assisted with performance of R Ann-Marie maneuver to correct symptoms. She was also instrcuted on safe transfer and sidestepping to head of bed so she can comfortably be positi oned in bed to rest Goals: Patient will report no nausea and spinning sensation with performance of mobility ADL tasks with initiation of vestibular rehabilitation prior to discharge. Patient/family member will demosntrate 100% mastery of R Ann-Marie maneuver for home treatment as well as gaze stabilization exercises to minimize BPPV symptoms. Plan of Care/Treatment Plan: Vestibular rehab while on admission. DISCHARGE RECOMMENDATIONS: [] Home with no services [] [X] Home with services. PT for continued subacute vestibular rehabilitation. [] Home with outpatient PT [] SNF for continued rehabilitation [] [] Senior Living Care [] [] SNF versus LTC based on ability to participate and progress [] PLAN: Continue with vestibular rehabilitation and patient/family education prior to tomorrow's discharge. TREATMENT CODE/TIME: 37382 x 41 minutes for 3 units (14:20-15:01) Thank you for the opportunity to participate in the care of this patient. Aubree Zhong PT, DPT, CLT [facility] [place], [place]
[2024-07-27 16:14] VITALS: BP 133/87; PULSE 64; RESP 24; TEMP 37; O2SAT 93
--- NOTE | 2024-07-27 17:09 | PGE_ITS ---
Date of Service Date of service: 07/27/24 Time of Service: 11:30 Assessment and Plan Assessment and plan (1) Peripheral vertigo: Status: Acute Assessment and plan: received valium in the ED no further dosing in today Ongoing PT consulted with recommendation for home health PT for subacute vestibular rehabilitation Will continue meclizine low-dose scheduled Maintain fall precautions Both family and patient do not feeling that discharge would be unsafe at this time and would like to spent a second night observation for improvement of symtoms (2) Type 2 diabetes mellitus with diabetic polyneuropathy: Status: Chronic Assessment and plan: Ongoing diabetic diet with sliding scale coverage AC and at bedtime Metformin at discharge Last hemoglobin A1c 6.0 in February 2024 (3) CKD (chronic kidney disease) stage 3, GFR 30-59 ml/min: Status: Chronic Assessment and plan: Remains stable and at baseline Continue to avoid nephrotoxic drugs renally dose as needed Routine monitoring IV hydration completed BMP in the morning (4) Essential hypertension: Status: Chronic Assessment and plan: Ongoing lisinopril, hctz, and atenolol hemodynamically stable routine monitoring, adjust meds as needed. discussed with Dr Kee Subjective Subjective Patient reports: feels better (but still unable to complete ADL w/o help), tolerating liquids well, tolerating a regular diet and voiding w/o difficulty; denies still having pain, diarrhea, vomiting, shortness of breath or fever Exam Narrative Exam Narrative: Constitutional 88-year-old female looking of stated age without acute distress, alert and oriented x 4, ongoing dizziness/mild weakness, nonfocal, unlabored respiration clear lungs bilaterally, abdomen is soft nontender nondistended no skin lesion moves all 4 extremities congruent mood and affect Objective Last Vital Signs Temp 37.0 C 07/27/24 16:14 Pulse 64 07/27/24 16:14 Resp 24 07/27/24 16:14 BP 133/87 07/27/24 16:14 Pulse Ox 93 07/27/24 16:14 Time Spent with Patient Time Spent with Patient: >50 minutes Time was spent: preparing to see the patient(eg.review tests), obtaining and/or reviewing separately otained hiistory, ordering medications,tests, procedures, referring, communicating with other health acute care physical therapist, indepentently interpreting results, counseling the patient and care coordination
[2024-07-27] MEDS: Enoxaparin 30 MG/0.3 ML SYR SC (17:47)
[2024-07-27] MEDS: Meclizine 25 MG TAB 12.5 MG PO (19:40)
[2024-07-27 19:46] VITALS: BP 173/82; PULSE 65; RESP 17; TEMP 36.4; O2SAT 97
[2024-07-28 08:12] VITALS: BP 176/75; PULSE 58; RESP 17; TEMP 36; O2SAT 96
--- NOTE | 2024-07-28 08:40 | PTTR_ITS ---
PT Notes Visit Reasons: Vertigo, Vomiting Physical Therapy Inpatient Treatment Note Date: 07/28/2024 Precautions: Activity as tolerated. Fall risk. Standard precaution. SUBJECTIVE: Still nauseous but of much less intensity than yesterday, now being able to do and move more. OBJECTIVE: Posture: Mildly kyphotic Observation: Guarded movements, with limited head motions during sidestepping out of bed Mental Status: A and O x 4 Vital Signs: Closely monitored by nursing staff Bed Mobility/Transfers: Minimal cueing provided for use of B hands as needed for support, movement sequence, AD management, and posture to reduce fall risk and minimize pain report Rolling minimal assist Supine to sit stand by assist using handrail for support Sit to supine stand by assist using handrail for support Sit to stand stand by assist using FWW Stand to sit stand by assist using FWW Gait: 150 feet + 150 feet using FWW with contact guard assist only using her FWW. Brittni slowed and remaied cautious but no LOB nor vomiting. Balance: Static Sitting: Fair Dynamic Sitting: Fair Static Standing: Fair Dynamic Standing: Fair NEURO RE-ED: -R Ann-Marie maneuver performance and patient education/training with mild symptom provocation. Patient however was able to tolerate standing up at edge of bed and walking about 5 sidesteps to position herself more comfortably onto bed. -Gaze stabilization exercises ASSESSMENT: Left upbeating/torsional nystagmus and increased symptom of spinning <2 minutes with R [place]-Hallpike maneuver signifying posterior canal BPPV and will benefit from HH/ outpatient PT vestibular rehab. Patient was immediately assisted with performance of R Ann-Marie maneuver to correct symptoms. She was also instrcuted on safe transfer and sidestepping to head of bed so she can comfortably be positioned in bed to rest Goals: Patient will report no nausea and spinning sensation with performance of mobili ty ADL tasks with initiation of vestibular rehabilitation prior to discharge. Patient/family member will demosntrate 100% mastery of R Ann-Marie maneuver for home treatment as well as gaze stabilization exercises to minimize BPPV symptoms. DISCHARGE RECOMMENDATIONS: [] Home with no services [] [X] Home with services. HH PT for continued subacute vestibular rehabilitation. [] Home with outpatient PT [] SNF for continued rehabilitation [] [] [facility] [] [] SNF versus LTC based on ability to participate and progress [] PLAN: Continue with vestibular rehabilitation and patient/family education prior to tomorrow's discharge. TREATMENT CODE/TIME: Session 1--13758 x 40 minutes for 3 units (08:40-09:20) Session 2--[id number] x 31 minutes for 2 units (14:33-15:04).
[2024-07-28] MEDS: Normal Saline Flush 10 ML SYR IVP (08:44)
[2024-07-28] MEDS: hydroCHLOROthiazide 25 MG TAB PO (08:44)
[2024-07-28] MEDS: Lisinopril 10 MG TAB 30 MG PO (08:44)
[2024-07-28] MEDS: Meclizine 25 MG TAB 12.5 MG PO (08:44)
[2024-07-28] MEDS: Magnesium Oxide 400 MG TAB PO (08:44)
[2024-07-28] MEDS: Atenolol 50 MG TAB PO (08:44)
[2024-07-28 13:13] VITALS: BP 168/58; PULSE 60; RESP 18; TEMP 36.7; O2SAT 97
--- NOTE | 2024-07-28 14:33 | DSE_ITS ---
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 (3) CKD (chronic kidney disease) stage 3, GFR 30-59 ml/min: Status: Chronic (4) Essential hypertension: Status: Chronic Discharge Plan Disposition Patient Disposition: Home W/Home Health Services Condition: Improving Discharge Details Reason For Visit: Vertigo, Vomiting Admit Date/Time: 07/26/24 09:04 Admit Provider: Shravan Kee Attending Provider: Shravan Kee Primary Care Provider: [facility] Hospital Course Hospital Course: This 88-year-old female with a past medical history of vertigo on meclizine and scopolamine s/p discharge on 06/24/24, type 2 diabetes mellitus, CKD, hypertension, who presented to the ED on 07/26/24 for evaluation of vertigo, nausea. Reported that she was unable to take her scopolamine at home. Head CT was negative and blood work was unremarkable. The patient was treated with ondansetron, meclizine, diazepam, IVF but remained symptomatic. The patient was admitted to the medical surgical floor for further management. The patient was negative for orthostasis. The patient continued to receive meclizine and scopolamine was resumed with improvement of symptoms and no further emesis, ambulating with walker, tolerating oral intake. The patient will be discharged home with home health physical therapy, occupational therapy and nursing to assist in new medicine management. follow- up with PCP within 7 days of discharge, please. Recommended follow-up for PCP: BMP results Meclizine dosing adjustment Scopolamine Need for further physical therapy Discussed with Dr. Kee Home Meds and New Rx's Prescriptions: New scopolamine base 1 mg over 3 days Patch 3 Day 1 mg transdermal Q72H Qty: 4 0RF meclizine 12.5 mg Tablet 12.5 mg PO BID Qty: 30 0RF meclizine 12.5 mg tablet 12.5 mg PO HS PRN PRNQty: 14 0RF Continued (DME) lancets [OneTouch UltraSoft Lancets] Misc 1 ea Miscellaneous DAILY Qty: 90 3RF Rx Instructions: Daily magnesium oxide 400 mg (241.3 mg magnesium) tablet 400 mg PO DAILY meclizine 12.5 mg tablet 12.5 mg PO TID PRN (Reason: dizziness and nausea) Qty: 30 1RF metformin 500 mg tablet 1,000 mg PO BID Qty: 360 3RF triamcinolone acetonide 0.1 % cream 1 applic topical BID Qty: 80 2RF Rx Instructions: Apply to arms, abdomen and neck for pruritic rash twice a day until mostly resolved. Stop after two weeks. (DME) blood-glucose meter [OneTouch Verio Meter] 1 EACH misc Miscellaneous DAILY Qty: 1 cholecalciferol (vitamin D3) 5,000 UNIT capsule 5,000 unit PO DAILY omega 2-iid-tlf-fish oil 1 EACH capsule 1 ea PO DAILY (DME) OneTouch Verio test strips Strip 1 ea Miscellaneous DAILY Qty: 90 3RF Rx Instructions: daily atenolol 50 mg tablet 50 mg PO DAILY Qty: 90 4RF hydrochlorothiazide 25 mg tablet 25 mg PO DAILY Qty: 90 4RF potassium citrate 5 mEq (540 mg) tablet extended release 5 meq PO DAILY Qty: 90 3RF lisinopril 30 mg tablet 30 mg PO DAILY Qty: 90 3RF acetaminophen 500 mg tablet 1,000 mg PO Q8H PRN Qty: 90 0RF Rx Instructions: Take two tablets up to every 8 hours as needed for pain loratadine 10 mg capsule 10 mg PO DAILY Qty: 60 0RF Rx Instructions: can increase to twice daily if needed. Discontinued scopolamine base 1 mg over 3 days Patch 3 Day 1 mg transdermal Q72H Qty: 4 0RF Discharge Instructions Stand Alone Forms: Nursing Discharge Form Referrals: Allie Rodrigues NP [Primary Care Provider] - 08/11/24 10:00 am Activity:: Activity as Tolerated Equipment/Supplies:: Walker Diet:: heart healthy Discharge Orders Other Ambulatory Orders: Basic Metabolic Panel (Routine) Timeframe: 20240730 Facility: [facility] - Location: Laboratory Outpatient - [facility] Ordered By: Luzma Rogers DS: Summary Time Spent with Patient providing and/or coordinating discharge services: Greater than 30 minutes Status at Discharge Functional status at discharge: uses cane/walker Overall status at discharge: patient is progressing back to baseline Mental Status: mental status grossly normal Speech and Movement: speech and movement normal Mood: congruent mood Affect: normal affect Quality:SDOH Health Related Social Needs: No Data to Display Exam Narrative Exam Narrative: Constitutional 88-year-old female looking of stated age without acute distress, alert and oriented x 4, ongoing dizziness/mild weakness, nonfocal, unlabored respiration clear lungs bilaterally, abdomen is soft nontender nondistended no skin lesion moves all 4 extremities congruent mood and affect Psych Mental Status: mental status grossly normal Speech and Movement: speech and movement normal Mood: congruent mood Affect: normal affect DS: Data Vitals/I&O Vitals and I&O: Vital Signs Temperature 36.7 C 07/28/24 13:13 Temperature Source Temporal Artery Scan 07/28/24 13:13 Pulse 60 07/28/24 13:13 Pulse Rhythm Regular 07/26/24 10:19 Pulse 72 07/26/24 09:50 Respiratory Rate 18 07/28/24 13:13 Respiratory Effort Normal, Non-Labored 07/26/24 10:19 Respiratory Depth Normal 07/26/24 10:19 Respiratory Pattern Normal 07/26/24 10:19 Blood Pressure 168/58 H 07/28/24 13:13 Blood Pressure Mean 94 07/28/24 13:13 Blood Pressure Position Sitting 07/26/24 05:35 Pulse Oximetry 97 07/28/24 13:13 Oxygen Delivery Method Room Air 07/28/24 13:13 Oxygen Flow Rate 0 07/28/24 13:13 Pain Level 0 07/28/24 11:03 Comment Notifying RN 07/28/24 13:13 Intake & Output 07/27/24 07/28/24 07/28/24 23:59 11:59 23:59 Intake Total 1300 / 2300 Output Total 1250 / 2175 750 / 1050 300 / 1050 Balance 50 / 125 -740 / -1040 -300 / -1040 Weight 77 kg Intake: IV 1000 / 1999 Oral 300 / 300 Output: Urine 1250 / 2175 750 / 1050 300 / 1050 Other: Urine Color Pale Pale Yellow Urine Appearance Clear Clear Urine Odor None Normal PFSH All Active Problems (Updated 07/26/24 @ 07:04 by Frandy Jacobson DO) Peripheral vertigo (Acute) Urticaria (Acute) Right lower lobe pneumonia (Acute) 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) Postoperative nausea and vomiting (Acute) Onychomycosis (Acute) Edema (Acute) Venous (peripheral) insufficiency (Acute) Toe pain, right (Acute) Toe pain, left (Acute) Type 2 diabetes mellitus with diabetic polyneuropathy (Chronic) Neuropathy (Acute) Nail dystrophy (Acute) CKD (chronic kidney disease) stage 3, GFR 30-59 ml/min (Chronic) Balance problem (Acute) Essential hypertension (Chronic) 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 Daughter No problems noted. Social History Smoking/Tobacco Use Status: Never Second Hand Exposure: Yes Smoking risk assessment performed?: Yes Alcohol Intake: never Drug use: Never Substance use type: does not use Adopted: No Caregiver/Support person: No Household members: none Housing: apartment Number of Children: 5 number of grandchildren: 12 Do you need help understanding health information?: Never Pets and animals: No Sexually active: No Do you think of yourself as: straight/heterosexual Current gender identity: female What is your relationship status?: How often do you talk on the phone with friends or family?: three or more times per week How often do you get together with friends or relatives?: three or more times per week How often do you attend shinto or uatsdin services?: 1-3 times per year Do you belong to any clubs or organized social groups?: no Panel score (0-1 are the most socially isolated patients): 1 What type of physical activity do you participate in: none Frequency: does not exercise Sue/Protestant: Latter-Day Special sue needs: No Seatbelt use: sometimes Drive intox or ride w/intox stock car driver: No Firearms in home: No Do you feel safe at home: Yes Do you feel safe in your relationship?: No Victim of physical abuse: No Victim of emotional abuse: No Victim of sexual abuse: No Would you like helpful sources: No Time Spent with Patient Time Spent with Patient: 70-84 minutes4 Time was spent: preparing to see the patient(eg.review tests), obtaining and/or reviewing separately otained hiistory, ordering medications,tests, procedures, referring, communicating with other health hearing care professional, indepentently interpreting results, counseling the patient and care coordination
[2024-07-28] MEDS: Scopolamine 1 MG/3 DAYS PATCH TD (15:06)
--- NOTE | 2024-07-28 15:34 | PDOC.HHF2F ---
Home Health Referral Home Health Orders Clinical synopsis of why skilled professionals are needed: This 88-year-old female with a past medical history of vertigo on meclizine and scopolamine s/p discharge on 06/24/24, type 2 diabetes mellitus, CKD, hypertension, who presented to the ED on 07/26/24 for evaluation of vertigo, nausea. Reported that she was unable to take her scopolamine at home. Head CT was negative and blood work was unremarkable. The patient was treated with ondansetron, meclizine, diazepam, IVF but remained symptomatic. The patient was admitted to the medical surgical floor for further management. The patient was negative for orthostasis. The patient continued to receive meclizine and scopolamine was resumed with improvement of symptoms and no further emesis, ambulating with walker, tolerating oral intake. The patient will be discharged home with home health physical therapy, occupational therapy and nursing to assist in new medicine management. follow- up with PCP within 7 days of discharge, please. Recommended follow-up for PCP: BMP Meclizine dosing adjustment Scopolamine Need for further physical therapy Discussed with Dr. Kee Registered Nurse: Check all that apply Instruct on new or changed medication(s)/assess compliance: Ordered Assess for exacerbation of medical condition, instruct patient/caregivers on signs and symptoms to report for early detection: Ordered Physical Therapist: Check all that apply Increase strength & endurance for safe mobility at home: Ordered To design/establish home maintenance program: Ordered Fall reduction therapy program for patient with history of frequent falls: Ordered Home safety evaluation and teaching/gait training including stair management (if applicable): Ordered Other: BPPV Occupational Therapist: Evaluate and treat for patient unable to perform ADL/IADL/self-care: Ordered Home Bound Status Requires the aid of supportive device (check all that apply): Walker Describe why leaving home would require a considerable and taxing effort: Requires frequent rest periods Encounter Date and Reason: I certify that a FTF encounter for this patient was performed on July 28, 2024 and that such encounter was related to the primary reason the patient requires home health services. The encounter was conducted in the following manner: By me as the certifying physician, BLISTER PACKAGING MACHINE OPERATOR, PA or By an inpatient physician, BLISTER PACKAGING MACHINE OPERATOR or PA during an inpatient stay who communicated findings to me, Certification And Authentication I certify that I composed the above information based on my clinical judgment relating to this patient's medical condition and, if applicable, clinical findings communicated to me by the NPP or inpatient physician who performed the FTF encounter. Name of Provider that will be monitoring home health services: Allie Rodrigues
--- NOTE | 2024-07-28 15:48 | PDOC.CMDIS ---
Date of service: 07/28/24 Time of Service: 15:48 LACE Index Scoring Tool Questions: Length of Stay (in days): 2 Was the patient admitted via the E.D.?: Yes Comorbidities: Diabetes w/o Complication and Liver or Renal Disease E.D. Visits: 1 Answers: Total Score: 11 Risk of Readmission: High Risk Care Management Discharge Plan Reason for Hospitalization: vertigo Discharge Plan: Karine will return home with new RN, PT, and OT. CM informed of her discharge today with new services. Her daughter will drive her home via private vehicle. She will follow up with her PCP and discharge plan of care. Patient/Family Education Needs: Review discharge instructions and limitations, discussion of self care needs including ask me three. Services Needed at Discharge: Home Health Care Services (new HH RN, PT, OT) SDOH Health Related Social Needs: No Data to Display
--- NOTE | 2024-07-28 16:24 | CHAPLAIN ---
Karine was in bed when I visited. She was pleasant and easily engaged in conversation with me. She has two visitors who had stepped while nursing was providing care, and they returned while I was there. Karine lives in [place] and is dealing with vertigo-like symptoms that are making her dizzy.
== END 2024-07-28 16:35 | disposition home health service (06) ==
LOC: ER 09:11 → MS 10:13
PROVIDERS: Student in an Organized Health Care Education/Training Program; Admitting Provider Family Medicine; Emergency Provider Emergency Medicine; PCP Nurse Practitioner Family; Responsible Provider Nurse Practitioner Acute Care; Visit Provider Family Medicine
DX: H81.399 Other peripheral vertigo, unspecified ear (principal); E11.42 Type 2 diabetes mellitus with diabetic polyneuropathy; R11.0 Nausea; I12.9 Hypertensive chronic kidney disease with stage 1 through stage 4 chronic kidney disease, or unspecified chronic kidney disease; N18.32 Chronic kidney disease, stage 3b; E11.22 Type 2 diabetes mellitus with diabetic chronic kidney disease; Z79.84 Long term (current) use of oral hypoglycemic drugs; Z79.899 Other long term (current) drug therapy; Z96.652 Presence of left artificial knee joint; M17.11 Unilateral primary osteoarthritis, right knee; I87.2 Venous insufficiency (chronic) (peripheral); I65.02 Occlusion and stenosis of left vertebral artery
CPT/HCPCS: 00123; 80053; 83690; 96361; 96372; 96374; 96375; 97112; 97161; 97530; 99285; 70450; 85025; 99223; 99233; 99239; G0378; J1650; J1815; J2765; J3360

== ENCOUNTER 2024-07-30 16:30 | Outpatient (REF) | payer MEDICARE, OTHER, SELFPAY ==
[2024-07-30 20:09] LABS: Hemoglobin A1C 5.7 % (<5.7)
[2024-07-30 20:18] LABS: Anion Gap 11.7 mmol/L (3-11); BUN 25 mg/dL (7-18); CO2 25.3 mmol/L (21.0-32.0); CREATININE 1.4 mg/dL (0.55-1.02); Calcium 9.2 mg/dL (8.5-10.1); Chloride 106 mmol/L (98-107); Estimated GFR 36.41 (mL/min/1.73m2); Glucose 128 mg/dL (74-106); Potassium 3.8 mmol/L (3.5-5.1); Sodium 143 mmol/L (136-145)
== END 2024-07-30 16:31 | disposition home or self-care (01) ==
LOC: LBN 16:30
PROVIDERS: PCP Nurse Practitioner Family; Visit Provider Nurse Practitioner Acute Care
DX: N18.30 Chronic kidney disease, stage 3 unspecified (principal); E11.9 Type 2 diabetes mellitus without complications; R79.89 Other specified abnormal findings of blood chemistry
CPT/HCPCS: 80048; 83036; 84443

== ENCOUNTER 2024-08-02 08:12 | Emergency (ER) | payer MEDICARE, OTHER, SELFPAY ==
[2024-08-02] VITALS (14 sets, daily range): BP systolic 135–169; BP diastolic 63–96; PULSE 52–71; RESP 14–25; TEMP 36.5; O2SAT 93–98
--- NOTE | 2024-08-02 08:15 | DI.RAD_ITS ---
Exam(s) XR ANKLE RT COMPLETE EXAM: XR ANKLE RT COMPLETE CLINICAL HISTORY: Fall, ankle pain. TECHNIQUE: 2D digital imaging was performed of the right ankle. Three images were obtained. AP, la teral and oblique views were obtained. COMPARISON: CR XR STANDING ALIGNMENT from 04/22/2023 FINDINGS: BONES: No acute fracture is present. No bony destructive lesion is seen. There is a plantar calcanea l spur. JOINTS: The ankle mortise is normally aligned. Degenerative changes are seen in the midfoot. SOFT TISSUE: Atherosclerotic calcification is present. IMPRESSION: No acute fracture or dislocation is present. DATA REPOSITORY: RADIATION DOSE DELIVERED:
--- NOTE | 2024-08-02 08:35 | W.ED.GENAD ---
Discharge Plan Disposition Patient Disposition: Home Condition: Stable Discharge Details Clinical Impression: Balance problem, Fall Primary Care Provider: Allie Rodrigues ED Provider: Kimi Florence Home Meds and New Rx's Prescriptions: Continued (DME) lancets [OneTouch UltraSoft Lancets] Misc 1 ea Miscellaneous DAILY Qty: 90 3RF Rx Instructions: Daily magnesium oxide 400 mg (241.3 mg magnesium) tablet 400 mg PO DAILY meclizine 12.5 mg tablet 12.5 mg PO TID PRN (Reason: dizziness and nausea) Qty: 30 1RF Patient Comments: 0500 metformin 500 mg tablet 1,000 mg PO BID Qty: 360 3RF triamcinolone acetonide 0.1 % cream 1 applic topical BID Qty: 80 2RF Rx Instructions: Apply to arms, abdomen and neck for pruritic rash twice a day until mostly resolved. Stop after two weeks. (DME) blood-glucose meter [AttributorTouch Verio Meter] 1 EACH misc Miscellaneous DAILY Qty: 1 cholecalciferol (vitamin D3) 5,000 UNIT capsule 5,000 unit PO DAILY omega 9-rkl-dyv-fish oil 1 EACH capsule 1 ea PO DAILY (DME) OneTouch Verio test strips Strip 1 ea Miscellaneous DAILY Qty: 90 3RF Rx Instructions: daily atenolol 50 mg tablet 50 mg PO DAILY Qty: 90 4RF hydrochlorothiazide 25 mg tablet 25 mg PO DAILY Qty: 90 4RF potassium citrate 5 mEq (540 mg) tablet extended release 5 meq PO DAILY Qty: 90 3RF lisinopril 30 mg tablet 30 mg PO DAILY Qty: 90 3RF scopolamine base 1 mg over 3 days patch 3 day 1 mg transdermal Q72H Qty: 4 0RF Patient Comments: under right ear acetaminophen 500 mg tablet 1,000 mg PO Q8H PRN Qty: 90 0RF Rx Instructions: Take two tablets up to every 8 hours as needed for pain loratadine 10 mg capsule 10 mg PO DAILY Qty: 60 0RF Rx Instructions: can increase to twice daily if needed. meclizine 12.5 mg Tablet 12.5 mg PO BID Qty: 30 0RF meclizine 12.5 mg tablet 12.5 mg PO HS PRN PRNQty: 14 0RF Discharge Instructions Instructions: Ankle Sprain ED, Preventing Falls ED Additional Instructions: X-ray is negative for any broken bones. There is some degenerative changes or osteoarthritis noted. You may ice it and elevate it when sitting or lying down. Follow up with primary care provider in 3-5 days. Return to ED sooner if any worsening or concerns. Please take Tylenol with food every 4-6 hours as needed for pain and swelling. Thank you for allowing us to care for you today. Referrals: Allie Rodrigues NP [Primary Care Provider] - 5 days Discharge Data Discharge Date/Time-TO BE ENTERED AT DEPARTURE: 08/02/24 09:45 HPI General Mode of arrival: wheelchair. Date/Time Provider Initiated Documentation: 08/02/24 08:14. Limitations to Documentation: no limitations. Information obtained by: patient, family, RN notes reviewed and old records reviewed. HPI Narrative: 88-year-old female presents to the ER after a fall around 4 AM this morning. Patient reports she was getting up to the bathroom and then found herself on the floor. She denies hitting her head denies any neck or back pain. She initially reports that her right ankle was bothering her however upon examination she has no pain with palpation no deformity no swelling denies any pain with weightbearing. She presents with her family. She was recently discharged from the hospital for vertigo approximately 5 days ago. Family reports that she is probably still dizzy. She did take meclizine prior to arrival which seems to help the dizziness. She does have a history of chronic kidney disease stage III, chronic vertigo, diabetes mellitus, osteoarthritis. Related Data Home Medications ?Medication ?Instructions ?Recorded ?Confirmed blood-glucose meter ([employer] ##1 10/03/16 08/02/24 Verio Meter) cholecalciferol (vitamin D3) 125 5,000 unit PO DAILY 06/03/17 08/02/24 mcg (5,000 unit) capsule omega 9-msg-mpi-fish oil 500 mg 1 ea PO DAILY 06/03/17 08/02/24 (200mg-300mg)-1,000 mg capsule lancets ([employer] UltraSoft #90 ea 12/11/19 08/02/24 Lancets) magnesium oxide 400 mg (241.3 mg 400 mg PO DAILY 06/16/20 08/02/24 magnesium) tablet acetaminophen 500 mg tablet 1,000 mg (2 x 500 mg) PO Q8H PRN 04/09/23 08/02/24 pain #90 tabs blood sugar diagnostic (OneTouch #90 strips 04/12/23 08/02/24 Verio test strips) atenolol 50 mg tablet 50 mg PO DAILY #90 tab-caps 10/07/23 08/02/24 hydrochlorothiazide 25 mg tablet 25 mg PO DAILY #90 tab-caps 10/07/23 08/02/24 potassium citrate 5 mEq (540 mg) 5 meq PO DAILY #90 tabs 10/09/23 08/02/24 tablet,extended release loratadine 10 mg capsule 10 mg PO DAILY #60 caps 11/10/23 08/02/24 triamcinolone acetonide 0.1 % 1 applic topical BID Pruritis #80 11/12/23 08/02/24 topical cream grams lisinopril 30 mg tablet 30 mg PO DAILY #90 tabs 01/20/24 08/02/24 metformin 500 mg tablet 1,000 mg (2 x 500 mg) PO BID #360 03/03/24 08/02/24 tabs meclizine 12.5 mg tablet 12.5 mg PO TID PRN dizziness and 07/13/24 08/02/24 nausea #30 tabs meclizine 12.5 mg tablet 12.5 mg PO BID #30 tabs 07/28/24 08/02/24 meclizine 12.5 mg tablet 12.5 mg PO HS PRN PRN #14 tabs 07/28/24 08/02/24 scopolamine base 1 mg over 3 days 1 mg transdermal Q72H #4 ea 07/29/24 08/02/24 transdermal patch Previous Rx's ?Medication ?Instructions ?Recorded lancets (OneTouch UltraSoft #90 ea 12/11/19 Lancets) acetaminophen 500 mg tablet 1,000 mg (2 x 500 mg) PO Q8H PRN 04/09/23 pain #90 tabs blood sugar diagnostic (OneTouch #90 strips 04/12/23 Verio test strips) atenolol 50 mg tablet 50 mg PO DAILY #90 tab-caps 10/07/23 hydrochlorothiazide 25 mg tablet 25 mg PO DAILY #90 tab-caps 10/07/23 potassium citrate 5 mEq (540 mg) 5 meq PO DAILY #90 tabs 10/09/23 tablet,extended release loratadine 10 mg capsule 10 mg PO DAILY #60 caps 11/10/23 triamcinolone acetonide 0.1 % 1 applic topical BID Pruritis #80 11/12/23 topical cream grams lisinopril 30 mg tablet 30 mg PO DAILY #90 tabs 01/20/24 metformin 500 mg tablet 1,000 mg (2 x 500 mg) PO BID #360 03/03/24 tabs meclizine 12.5 mg tablet 12.5 mg PO TID PRN dizziness and 07/13/24 nausea #30 tabs meclizine 12.5 mg tablet 12.5 mg PO BID #30 tabs 07/28/24 meclizine 12.5 mg tablet 12.5 mg PO HS PRN PRN #14 tabs 07/28/24 scopolamine base 1 mg over 3 days 1 mg transdermal Q72H #4 ea 07/29/24 transdermal patch Allergies Allergy/AdvReac Type Severity Reaction Status Date / Time No Known Allergies Allergy Verified 07/26/24 06:42 General Stated Complaint: Orthopedic ELSA: 4 Review of Systems All systems reviewed & are unremarkable except as noted in HPI and below Constitutional Constitutional: Reports system reviewed and no additional complaints, except as documented and Reports frequent falls ENT Ears, Nose, Mouth, and Throat: Reports vertigo and Reports dizziness Musculoskeletal Musculoskeletal: Reports as per HPI and Denies deformity Neurologic Neurologic: Reports vertigo, Reports dizziness and Reports frequent falls Exam Narrative Exam Narrative: General: Well Developed, Awake and Alert, conversant. Skin: Warm and Dry HEENT: Head: No palpable deformities, Normocephalic Eyes: Pupils PERRLA, EOM's intact. No periorbital eccymosis or step off Ears: Canal patent. Tympanic membranes are clear . No alas's sign, no hemptympanum. Nose/Face: Atraumatic. Facial bones nontender to palpation and stable with manipulation. Mouth/Throat: No intraoral trauma. Teeth and mandible are intact. Neck: No midline tenderness, no step off, no deformity to palpation of C-spine. Trachea midline. Chest: No surface trauma. Nontender without crepitus or deformity. Lungs clear to ausculatation bilaterally. Heart: RRR, no rubs, murmurs or gallop. Abdomen: No abrasions, ecchymosis, or surface trauma. Nondistended. Nontender to palpation no guarding, rebound, or rigidity. Pelvis: Nontender to palpation and stable to compression. Femoral pulses strong and equal Extremities: no surface trauma. Sensation intact. Peripheral pulses intact and equal. Neuro: ANO x4, GCS 15, cranial nerves II through XII intact. Motor and sensory exam nonfocal. Reflexes are symmetric. Course Vital Signs Vital signs: Vital Signs Temperature 36.5 C 08/02/24 08:22 Pulse 62 08/02/24 08:22 Respiratory Rate 20 08/02/24 08:22 Blood Pressure 169/83 H 08/02/24 08:22 Pulse Oximetry 97 08/02/24 08:22 Temperature 36.5 C 08/02/24 08:22 Temperature Source Oral 08/02/24 08:22 Pulse 62 08/02/24 08:22 Respiratory Rate 20 08/02/24 08:22 Blood Pressure 169/83 H 08/02/24 08:22 Blood Pressure Position Sitting 08/02/24 08:22 Pulse Oximetry 97 08/02/24 08:22 Oxygen Delivery Method Room Air 08/02/24 08:22 Oxygen Flow Rate 0 08/02/24 08:22 Pain Level 0 08/02/24 08:26 Medical Decision Making 88-year-old female presents to the ER after a fall around 4 AM this morning. Patient reports she was getting up to the bathroom and then found herself on the floor. She denies hitting her head denies any neck or back pain. She initially reports that her right ankle was bothering her however upon examination she has no pain with palpation no deformity no swelling denies any pain with weightbearing. She presents with her family. She was recently discharged from the hospital for vertigo approximately 5 days ago. Family reports that she is probably still dizzy. She did take meclizine prior to arrival which seems to help the dizziness. She does have a history of chronic kidney disease stage III, chronic vertigo, diabetes mellitus, osteoarthritis. Patient has no complaints, no midline CT or L-spine tenderness, crepitus step-off with palpation. No obvious deformity, she is alert and oriented x 4. She is pleasant and conversant. X-ray right ankle ordered. X-ray negative except for some generative changes. Will discharge patient home. [facility] procedures. Discussed x-ray results with family, follow-up care all their questions were answered to the best of my ability. They are concerned because she is still complaining of dizziness since her discharge from the hospital 5 days ago and shakiness. I did encourage them to keep their follow-up appointment with her primary care provider, watch her closely, go slowly from sitting to standing and use her walker. She does have home health ordered from her hospital visit. They verbalized understanding. Patient remained hemodynamically stable alert and oriented throughout the remainder of her stay. This text was generated using [employer] system, please disregard any oddities of phrase or misspellings. Medical Records Medical records reviewed: Yes I reviewed the patient's medical records. Quality:SDOH Health Related Social Needs: No Data to Display PFSH All Active Problems (Updated 08/02/24 @ 09:01 by Kimi Florence NP) Fall (Acute) Peripheral vertigo (Acute) Urticaria (Acute) Right lower lobe pneumonia (Acute) 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) Postoperative nausea and vomiting (Acute) Onychomycosis (Acute) Edema (Acute) Venous (peripheral) insufficiency (Acute) Toe pain, right (Acute) Toe pain, left (Acute) Type 2 diabetes mellitus with diabetic polyneuropathy (Chronic) Neuropathy (Acute) Nail dystrophy (Acute) CKD (chronic kidney disease) stage 3, GFR 30-59 ml/min (Chronic) Balance problem (Acute) Essential hypertension (Chronic) 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 Daughter No problems noted. Social History (Reviewed 08/02/24 @ 08:36 by MARIO Pérez Smoking/Tobacco Use Status: Never Second Hand Exposure: Yes Smoking risk assessment performed?: Yes Alcohol Intake: never Drug use: Never Substance use type: does not use Adopted: No Caregiver/Support person: No Household members: none Housing: apartment Number of Children: 5 number of grandchildren: 12 Do you need help understanding health information?: Never Pets and animals: No Sexually active: No Do you think of yourself as: straight/heterosexual Current gender identity: female What is your relationship status?: How often do you talk on the phone with friends or family?: three or more times per week How often do you get together with friends or relatives?: three or more times per week How often do you attend gnosticism or congregation services?: 1-3 times per year Do you belong to any clubs or organized social groups?: no Panel score (0-1 are the most socially isolated patients): 1 What type of physical activity do you participate in: none Frequency: does not exercise 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
--- NOTE | 2024-08-02 09:38 | NUR.NOTE ---
pt ready for d/c but family at side concerned that pt remains shaky, provider to reassess and see what other options are available, pt with home health and medical alert.
== END 2024-08-02 09:45 | disposition home or self-care (01) ==
PROVIDERS: Emergency Provider Registered Nurse Emergency; PCP Nurse Practitioner Family
DX: R42 Dizziness and giddiness (principal); E11.22 Type 2 diabetes mellitus with diabetic chronic kidney disease; I12.9 Hypertensive chronic kidney disease with stage 1 through stage 4 chronic kidney disease, or unspecified chronic kidney disease; N18.30 Chronic kidney disease, stage 3 unspecified; E11.40 Type 2 diabetes mellitus with diabetic neuropathy, unspecified; Z79.84 Long term (current) use of oral hypoglycemic drugs
CPT/HCPCS: 99283; 73610

== ENCOUNTER → 2024-10-27 09:24 | Outpatient (BNVA) | payer MEDICARE, OTHER, SELFPAY | PROVIDERS: PCP Nurse Practitioner Family; Referring Provider Nurse Practitioner Family; Visit Provider Podiatrist | DX: E11.42 Type 2 diabetes mellitus with diabetic polyneuropathy (principal); L60.3 Nail dystrophy; I87.2 Venous insufficiency (chronic) (peripheral); R60.0 Localized edema; B35.1 Tinea unguium; R09.89 Other specified symptoms and signs involving the circulatory and respiratory systems; L65.9 Nonscarring hair loss, unspecified; R20.8 Other disturbances of skin sensation; R23.8 Other skin changes; L60.2 Onychogryphosis; L60.8 Other nail disorders | CPT/HCPCS: 11719; 11720 ==

== ENCOUNTER 2024-11-10 06:50 | Inpatient (IN) | payer MEDICARE, OTHER, SELFPAY ==
[2024-11-10] VITALS (36 sets, daily range): BP systolic 139–187; BP diastolic 56–107; PULSE 37–89; RESP 11–30; TEMP 35.8–37.1; O2SAT 88–98
--- NOTE | 2024-11-10 | DI.US_ITS ---
APPROVED REPORT EXAM: Comprehensive 2D, Doppler, and color-flow Echocardiogram Patient Location: In-Patient Room/Bed: [facility] Facilities Surveyor: Clover Harrington RDCS (AE) Indications: New CHF, Dilated RV on pocus Other Information Study Quality: Fair. Technically limited study due to body habitus, arrhythmia, exam done bedisde supine.. Conclusion Normal left ventricular wall thickness and chamber size. Ejection fraction is 60%. Wall motion is normal Normal right ventricular size and function Both atria are normal in size Aortic valve is trileaflet and mildly sclerotic with trace regurgitation Mild mitral annular calcification. Mild mitral regurgitation Estimated right ventricular systolic pressure is 22 mmHg Borderline dilated ascending aorta 3.42 cm Wall motion Left Ventricle The left ventricle is normal size. The overall left ventricular systolic function appears normal. Arrhythmia throughout exam. Beat to beat variation. There is normal left ventricular wall thickness. Regional wall motion is grossly normal. There is no ventricular septal defect visualized. LVEF is 60%. Right Ventricle The right ventricle is normal size. The right ventricular systolic function is normal. Atria The left atrium size is normal. The right atrium size is normal. The interatrial septum is intact with no evidence for an atrial septal defect. Aortic Valve The Aortic valve is mildly sclerotic. Aortic valve is trileaflet. There is no aortic valvular stenosis. Trace aortic regurgitation. Mitral Valve Mild mitral annular calcification. No evidence of mitral valve stenosis. Mild mitral regurgitation. Tricuspid Valve The tricuspid valve is normal in structure. There is no tricuspid valve stenosis. Trace tricuspid regurgitation. The RVSP is 22.4mmHg. Pulmonic Valve The pulmonary valve is normal in structure. There is no pulmonic valvular stenosis. There is no pulmonic valvular regurgitation. Great Vessels The aortic root is normal in size. The ascending aorta is mildly dilated. Aortic arch is not well visualized. IVC is normal in size and collapses >50% with inspiration. Pericardium There is no pericardial effusion. 2D Dimensions IVSD d PLAX 1.00 cm F: 0.6-1.0 Ao Root d 3.12 cm F: 2.7 - 3.3 LVPW d PLAX 1.05 cm F: 0.6 - 1.0 Ao Asc Diam d 3.42 cm F: 2.3 - 3.1 LVID d PLAX 4.51 cm F: 3.8 - 5.2 LVDs 3.18 cm F: 2.2 - 3.5 LV EF Teichholz 56.6 % FS 29.50 % LV EDV (Teich) 92.8 mL LV ESV (Teich) 40.2 mL M-Mode TAPSE 2.00 cm (M/F) >1.7 Auto EF LV EDV A4C 70.3 mL LV EDV A2C 83.1 mL LV EDV BP 77.1 mL LV ESV A4C 30.3 mL LV ESV A2C 35.8 mL LV ESV BP 32.4 mL LVEF(%) A4C 56.9 % LVEF(%) A2C 56.9 % LVEF(%) BP 58.0 % LV SV A4C 40.0 ml LV SV A2C 47.3 ml LV SV BP 44.7 ml LV CO A4C 2.0 L/min LV CO A2C 2.5 L/min LV CO BP 2.2 L/min HR A4C 49.52 BPM HR A2C 52.03 BPM LV EDV Index (BP) LA Volume LA Length A4C 5.4 cm LA Length A2C 5.5 cm LA Area A4C s 19.15 cm2 LA Area A2C s 20.05 cm2 LA Vol A4C A-L 58.04 mL LA Vol A2C A-L 62.45 mL LA Vol Biplane A-L 60.8 mL LA Vol/BSA A4C A-L LA Vol/BSA A2C A-L LA Vol/BSA BP A-L 34.7 mL/m2 LA Vol A4C MOD 54.7 mL LA Vol A2C MOD 59.3 mL LA Vol BP MOD 56.7 mL RA Volume RA Area A4C 13.8 cm2 RA ESV A4C (A-L) 30.7mL RA Vol/BSA A4C A-L RA Length A4C 5.2 cm RA ESV A4C (MOD) 28.3mL LV Diastology MV E' medial 0.071 (>0.07 m/s) MV E Vmax 1.00 (0.4-1.3 m/s) MV E/E' MED 14.02 (<14) MV A Vmax 0.75 (0.4-1.3 m/s) MV E' lateral 0.092 (>0.1 m/s) E/A Ratio 1.3 MV E/E' LAT 10.89 (<14) MV E' Average 0.082 m/s MV E/E'(average) 12.26 Aortic Valve AoV Vmax 1.50 m/s LVOT Vmax 1.09 m/s AoV Peak Grad 9.0 mmHg LVOT Peak Grad 4.8 mmHg AoV Area (Vmax) 2.17 cm2 LVOT VTI 0.208 m AoV VTI 0.336 m LVOT Mean Bon. 0.75 m/s AoV Mean Bon. 1.09 m/s LVOT Mean Grad 2.6 mmHg AoV Mean Grad 5.2 mmHg LVOT SV 62.20 mL AoV Area (VTI) 1.85 cm2 LVOT Diam s 1.95 cm Velocity Ratio 0.73 AV Regurg Peak Gr. 8.97 mmHg Mitral Valve MV DT 290 (160-240 msec) MV Vmax TIPS 0.99 m/s MV Mean Grad 0.9 (<2mmHg) MV VTI 0.383 m Pulmonary Valve PV Vmax 0.77 (0.5-1.5 m/s) RVOT Vmax 0.59 m/s PV Peak Grad 2.4 mmHg RVOT Peak Gr. 1.4 mmHg PV Mean Bon 0.57 m/s RVOT VTI 0.140 m PV Mean Grad 1.5 mmHg RVOT Mean Gr. 0.9 mmHg Tricuspid Valve RA Pressure 3.00 mmHg TR Vmax 2.20 m/s TV S' 0.14 m/s TR Peak Grad 19.4 mmHg RVSP (TR) 22.4 mmHg
--- NOTE | 2024-11-10 06:45 | RT.EKG_ITS ---
APPROVED REPORT Exam: Resting ECG Reason for Exam: sob Patient Location: E HR:79 bpm ECG Measurements Heart Rate 79 AXIS OK [id number] P [id number] QRSd 83 QRS -22 QT 409 T 31 QTc 470 Conclusion Accelerated junctional rhythm...absent P waves, accele'd V-rate Ventricular bigeminy...bigeminy string>4 w/ V complexes Inferior infarct, old...Q >35mS, II III aVF No STEMI
--- NOTE | 2024-11-10 07:00 | DI.RAD_ITS ---
Exam(s) XR PORTABLE CHEST AP EXAM: XR PORTABLE CHEST AP CLINICAL HISTORY: SOB TECHNIQUE: 2D digital imaging was performed of the chest. One image was obtained. An AP view was obtained. COMPARISON: CR,XR XR PORTABLE CHEST AP from 11/07/2023 FINDINGS: There is poor inspiration. MEDIASTINUM: Normal. HEART: Normal. PULMONARY VASCULATURE: There is tortuosity of the thoracic aorta. There is mild pulmonary venous congestion. LUNGS: There are no focal consolidating infiltrates present. PLEURAL SPACE: No pleural effusion or pneumothorax. BONE:Within normal limits for the patient's age. OTHER FINDINGS:Normal. IMPRESSION: 1. There is mild pulmonary venous congestion. 2. There are no focal consolidating infiltrates present. 3. There are low lung volumes. 4. The preliminary [facility] report was reviewed. DATA REPOSITORY: RADIATION DOSE DELIVERED:
--- NOTE | 2024-11-10 07:21 | ED.GENADUL_ITS ---
Discharge Plan Disposition Patient Disposition: Admit to [facility] Discharge Details Clinical Impression: Heart failure Primary Care Provider: Allie Rodrigues ED Provider: Marco Frye Home Meds and New Rx's Prescriptions: No Action (DME) lancets [OneTouch UltraSoft Lancets] Misc 1 ea Miscellaneous DAILY Qty: 90 3RF Rx Instructions: Daily magnesium oxide 400 mg (241.3 mg magnesium) tablet 400 mg PO DAILY meclizine 12.5 mg tablet 12.5 mg PO BID Qty: 30 0RF triamcinolone acetonide 0.1 % cream 1 applic topical BID Qty: 80 2RF Rx Instructions: Apply to arms, abdomen and neck for pruritic rash twice a day until mostly resolved. Stop after two weeks. (DME) blood-glucose meter [[employer] ([employer]Touch Verio Meter] 1 EACH misc Miscellaneous DAILY Qty: 1 cholecalciferol (vitamin D3) 5,000 UNIT capsule 5,000 unit PO DAILY omega 2-cdp-zhg-fish oil 1 EACH capsule 1 ea PO DAILY (DME) [employer] ([employer])Touch Verio test strips Strip 1 ea Miscellaneous DAILY Qty: 90 3RF Rx Instructions: daily lisinopril 30 mg tablet 30 mg PO DAILY Qty: 90 3RF scopolamine base 1 mg over 3 days patch 3 day 1 mg transdermal Q72H Qty: 4 0RF Patient Comments: under right ear potassium citrate 5 mEq (540 mg) tablet extended release 5 meq PO DAILY Qty: 90 3RF loratadine 10 mg capsule 10 mg PO DAILY Qty: 60 0RF Rx Instructions: can increase to twice daily if needed. atenolol 50 mg tablet 50 mg PO DAILY Qty: 90 4RF hydrochlorothiazide 25 mg tablet 25 mg PO DAILY Qty: 90 4RF metformin 500 mg tablet 1,000 mg PO BID Qty: 360 3RF acetaminophen 500 mg tablet 1,000 mg PO Q8H PRN Qty: 90 0RF Rx Instructions: Take two tablets up to every 8 hours as needed for pain HPI General Date/Time Provider Initiated Documentation: 11/10/24 07:00 . HPI Narrative: MDM/Narrative: Initial Assessment: Chest/upper abdomen pressure started evening of 11/09/2024, constant since. No associated chest pain, cough, fever, chills, or illness exposure. History of chronic kidney disease, no dialysis. No history of heart attacks, atrial fibrillation, or heart failure. Not on blood thinners. Recent dizziness without typical vertigo nausea. Last dizziness episode on 11/06/2024. Using cane and walker for balance. Diabetes managed with metformin. Differential Diagnosis: - Cardiac issues: Considered ACS due to chest pressure. Blood work/EKG ordered. Follow-up with primary care if blood work normal and no severe dizziness. Cardiology consult if severe dizziness or fails physiological criteria. - Vertigo/dizziness: History of vertigo, recent dizziness without nausea. Denies current symptoms, making acute CVA/intracranial pathology unlikely. Physical therapy referral for balance assessment. ED Course: Disposition: Discharge: Home. Follow-up with primary care if blood work normal and no severe dizziness. Cardiology consult if severe dizziness or fails physiological criteria. Follow-Up: Physical therapy referral for balance assessment. 10:15 AM Results reviewed, notable for elevated BNP significantly above patient's previously documented baseline. Otherwise laboratory workup is unremarkable. Bedside ultrasound shows signs of potential right-sided heart failure. PT worked to the patient and found she had no acute requirements at this time. Given elevated BNP, peripheral edema and reported orthopnea will start patient on IV Lasix, case was discussed with Dr. Kee (Hospitalist) who will admit the patient for further management. This document was created with assistance from [employer] Verification Clerk. The patient consented to its use. Disposition: Admission HPI: The patient, a female with a history of diabetes mellitus, presents with complaints of chest discomfort and dizziness. The chest discomfort, which exacerbates upon sitting up or lying down, commenced on the evening of 11/09/2024 and has persisted since. She denies experiencing similar symptoms in the past and reports no chest pain, cough, fever, chills, or exposure to individuals with infectious illnesses. Her appetite and hydration status are normal, although she consumed less food the previous night. She reports no urinary symptoms, diarrhea, or hematochezia. The patient has not taken any medications today and has no history of cardiac evaluations. She has not been informed of a low resting heart rate. The dizziness is described as an intoxicated sensation, distinct from her usual vertigo accompanied by nausea. She has experienced three episodes in the past three weeks, with the last occurrence on 11/06/2024. She is not currently experiencing dizziness. The patient utilizes a cane and walker for balance, which she previously refused. She completed physical therapy and home health care two months ago. Her current medications include Valium for vertigo and electrolytes due to decreased food intake. Her diabetes mellitus is managed with metformin, and she is not on insulin therapy. ROS: Negative besides as mentioned above Exam: Vital signs: Reviewed. General Appearance: Alert and oriented. No acute distress. HEENT: NCAT, EOMI, not icteric. External ears normal. No rhinorrhea. Moist mucous membranes. Neck: Supple, full range of motion, no observable masses, No meningeal sign. Respiratory: No Respiratory distress. No tachypnea. Cardiovascular: Irregular heart rhythm, bigeminy, with adequate pulse rate, radial pulses 2+ bilaterally Gastrointestinal: No abdominal tenderness. Back: No midline tenderness to palpation or palpable step-offs of the C/T/L spine. Musculoskeletal: Strength and range of motion intact in upper and lower extremities. Skin: Warm and dry, no rash. Neurological: Alert and oriented. Cranial nerves II-XII intact. No focal deficits. Normal coordination during xpzxgd-bnpp-jfpume and bhmj-he-cjax, no nystagmus on examination. normal sensation bilaterally. Psychiatric: Appropriate for situation. Rhythm: Sinus bradycardia with ventricular bigeminy Rate: 79 bpm Maybell: Leftward axis axis Intervals: Normal intervals Other findings: No acute ST segment or T wave changes to suggest acute ischemia. As compared to recent EKG from July 05, 2024, ventricular bigeminy is new. Labs: Laboratory Tests Range/Units 11/10/24 11/10/24 11/10/24 07:20 07:54 08:58 WBC (4.4-10.8) 10^3/uL 8.33 RBC (3.93-5.22) 10^6/uL 4.41 Hgb (11.2-15.7) g/dL 12.2 Hct (36.0-46.0) % 38.7 MCV (80-95) fL 88 MCH (27.0-33.0) pg 27.7 MCHC (32.0-36.0) % 31.5 L RDW (11.7-14.6) % 14.0 Plt Count (130-400) 10^3/uL 328 MPV (8.0-11.0) fL 9.5 Immature Gran % % 0.2 Neutrophils % % 60.3 Lymphocytes % % 28.2 Monocytes % % 7.3 Eosinophils % % 3.4 Basophils % % 0.6 Nucleated RBC % (0.0-0.3) % 0.0 Absolute Neutrophils (1.2-6.7) 10^3/uL 5.02 Absolute Lymphocytes (1.2-3.4) 10^3/uL 2.35 Absolute Monocytes (0.1-0.8) 10^3/uL 0.61 Absolute Eosinophils (0.0-0.7) 10^3/uL 0.28 Absolute Basophils (0.0-0.2) 10^3/uL 0.05 PT (9.1-11.1) sec 10.8 INR (0.9-1.1) 1.1 APTT (20.6-30.2) sec 24.1 Sodium (136-145) mmol/L 140 Potassium (3.5-5.1) mmol/L 3.7 Chloride (98-107) mmol/L 103 Carbon Dioxide (21.0-32.0) mmol/L 26.9 Anion Gap (3-11) mmol/L 10.1 BUN (7-18) mg/dL 23 H Creatinine (0.55-1.02) mg/dL 1.3 H Est GFR (CKD-EPI 2020) (mL/min/1.73m2) 39.80 Glucose (74-106) mg/dL 129 H Calcium (8.5-10.1) mg/dL 9.7 Magnesium (1.8-2.4) mg/dL 1.9 Total Bilirubin (0.2-1.0) mg/dL 0.5 AST (15-37) U/L 11 L ALT (14-59) U/L 13 L Alkaline Phosphatase (46-116) U/L 62 Troponin I (<or=51) ng/L 6 7 NT-Pro-B Natriuret Pep (<300) pg/mL 2871 H Total Protein (6.4-8.2) g/dL 7.5 Albumin (3.4-5.0) g/dL 3.5 Urine Color (Yellow) Yellow Urine Clarity (Clear) Clear Urine pH (5-8) 7.0 Ur Specific Tok (1.005-1.025) 1.015 Urine Protein (Neg-Trace) mg/dL Negative Urine Ketones (Negative) mg/dL Negative Urine Blood (Negative) Negative Urine Nitrite (Negative) Negative Urine Bilirubin (Negative) Negative Urine Urobilinogen (Up to 0.2) mg/dL 0.2 Ur Leukocyte Esterase (Negative) Negative Urine Glucose (Negative) mg/dL Negative Radiology: Exam(s) CT CHEST PE CTA EXAM: CT CHEST PE CTA CLINICAL HISTORY: Acute onset SOB. TECHNIQUE: Imaging Protocol: Axial CT angiography was performed with multi- slice acquisition and multi-planar and/or 3D reconstructions. Lung Computer Aided Detection (CAD) was utilized. CONTRAST MATERIAL: Intravenous: Omnipaque 350 contrast volume:75 mL COMPARISON: CT CT ABDOMEN PELVIS WO from 05/11/2021 CR,XR XR PORTABLE CHEST AP from 11/10/2024 FINDINGS: Tracheobronchial tree: There is mild mucous plugging in the lower lobes. No bronchiectasis. Pulmonary parenchyma: There is poor inspiration. There are areas of atelectasis present in the dependent portions of the lungs. There is a 4 mm nodule in the left lingula (series 12, image 67). There is a small infiltrate seen in the right lower lobe. This may represent atelectasis or pneumonia. Pulmonary Arteries: No evidence of filling defect to suggest pulmonary emboli. Mediastinum and Lorena: No dominant adenopathy or fluid collection. The esophagus is unremarkable. Visualized thyroid gland: Unremarkable. Pleura: There is a small right pleural effusion. No left pleural effusion is pr esent. There is no pneumothorax. Heart: Mild cardiomegaly. Moderate 2 vessel coronary artery calcification is present. No pericardial effusion. Aorta: Thoracic aorta non-dilated. Atherosclerotic calcification is present. Due to the timing of the bolus, the thoracic aorta is not well opacified. Upper abdomen: The patient is status post cholecystectomy. Soft tissues: Unremarkable. Bones: Within normal limits for the patient's age. IMPRESSION: 1. There is no evidence of a pulmonary embolism or thoracic aortic aneurysm. 2. Small infiltrate in the right lower lobe and a small pleural effusion. This may represent atelectasis or pneumonia. Please correlate clinically. 3. 4 mm nodule in the left lingula. Solid nodules smaller than 6 mm do not require routine follow-up in all patients with high clinical risk; however, some nodules smaller than 6 mm with suspicious morphology, upper lobe location, or both may warrant follow-up at 12 months (grade 2A; weak recommendation, high-quality evidence). (Yolanda et al., 2017) Single solid noncalcified nodules. ?Solid nodules smaller than 6 mm (those 5 mm or smaller) do not require routine follow-up in patients at low risk (grade 1C; strong recommendation, low- or jbrz-ftm-wlhlalm evidence). (Yolanda et al., 2017) Unexpected findings RADIATION DOSE DELIVERED: 100.34mGy.cm Total DLP DATA REPOSITORY: All CT scans at this facility are submitted to the National Radiology Data Registry (NRDR) Dose Index Registry (DIR) with the [employer] (ACR). RADIATION OPTIMIZATION: All CT scans at this facility use at least one of these dose optimization techniques: automated exposure control; mA and/or kV adjustment per patient size (includes targeted exams where dose is matched to clinical indication); or iterative reconstruction. Related Data Home Medications ?Medication ?Instructions ?Recorded ?Confirmed blood-glucose meter ([employer] ([employer]Touch ##1 10/03/16 11/10/24 Verio Meter) cholecalciferol (vitamin D3) 125 5,000 unit PO DAILY 0 06/03/17 11/10/24 mcg (5,000 unit) capsule omega 6-udx-gdb-fish oil 500 mg 1 ea PO DAILY 06/03/17 11/10/24 (200mg-300mg)-1,000 mg capsule lancets ([employer] ([employer]Touch UltraSoft #90 ea 12/11/19 11/10/24 Lancets) magnesium oxide 400 mg (241.3 mg 400 mg PO DAILY 06/1611/10/24 magnesium) tablet acetaminophen 500 mg tablet 1,000 mg (2 x 500 mg) PO Q 8H PRN 04/09/23 11/10/24 pain #90 tabs blood sugar diagnostic ([employer]cluch #90 strips 04/12/23 0 11/10/24 Verio test strips) triamcinolone acetonide 0.1 % 1 applic topical BID Pru ritis #80 11/12/23 11/10/24 topical cream grams lisinopril 30 mg tablet 30 mg PO DAILY #90 tabs 110 07/0911/10/24 scopolamine base 1 mg over 3 days 1 mg transdermal Q72 H #4 ea 07/29/24 11/10/24 transdermal patch meclizine 12.5 mg tablet 12.5 mg PO BID #30 tabs 08/1711/10/24 potassium citrate 5 mEq (540 mg) 5 meq PO DAILY #90 ta bs 09/08/24 11/10/24 tablet,extended release loratadine 10 mg capsule 10 mg PO DAILY #60 caps 10/1611/10/24 atenolol 50 mg tablet 50 mg PO DAILY #90 tab-caps 10/30/24 11/10/24 hydrochlorothiazide 25 mg tablet 25 mg PO DAILY #90 ta b-caps 10/30/24 11/10/24 metformin 500 mg tablet 1,000 mg (2 x 500 mg) PO BID #360 10/30/24 11/10/24 tabs Previous Rx's ?Medication ?Instructions ?Recorded lancets (OneTouch UltraSoft #90 ea 12/11/19 Lancets) acetaminophen 500 mg tablet 1,000 mg (2 x 500 mg) PO Q 8H PRN 04/09/23 pain #90 tabs blood sugar diagnostic (OneTouch #90 strips 04/12/23 Verio test strips) triamcinolone acetonide 0.1 % 1 applic topical BID Pru ritis #80 11/12/23 topical cream grams lisinopril 30 mg tablet 30 mg PO DAILY #90 tabs 110 07/09 scopolamine base 1 mg over 3 days 1 mg transdermal Q72 H #4 ea 07/29/24 transdermal patch meclizine 12.5 mg tablet 12.5 mg PO BID #30 tabs 08/17 07/10 potassium citrate 5 mEq (540 mg) 5 meq PO DAILY #90 ta bs 09/08/24 tablet,extended release loratadine 10 mg capsule 10 mg PO DAILY #60 caps 10/16 05/12 atenolol 50 mg tablet 50 mg PO DAILY #90 tab-caps 10/30/24 hydrochlorothiazide 25 mg tablet 25 mg PO DAILY #90 ta b-caps 10/30/24 metformin 500 mg tablet 1,000 mg (2 x 500 mg) PO BID #360 10/30/24 tabs Allergies Allergy/AdvReac Type Severity Reaction Status Date / Time No Known Allergies Allergy Verified 11/10/24 07:01 General Stated Complaint: SOB ELSA: 3 Course Vital Signs Vital signs: Vital Signs Temperature 37.1 C 11/10/24 06:50 Pulse 75 11/10/24 06:50 Respiratory Rate 22 11/10/24 06:50 Blood Pressure 178/66 H 11/10/24 06:50 Pulse Oximetry 94 11/10/24 06:50 Temperature 37.1 C 11/10/24 06:50 Temperature Source Oral 11/10/24 06:50 Pulse 75 11/10/24 06:50 Respiratory Rate 16 11/10/24 06:58 Respiratory Effort Normal, Non-Labored 11/10/24 06:58 Respiratory Depth Normal 11/10/24 06:58 Respiratory Pattern Normal 11/10/24 06:58 Blood Pressure 178/66 H 11/10/24 06:50 Blood Pressure Position Sitting 11/10/24 06:50 Pulse Oximetry 94 11/10/24 06:50 Oxygen Delivery Method Room Air 11/10/24 06:50 Oxygen Flow Rate 0 11/10/24 06:50 PFSH All Active Problems (Updated 11/10/24 @ 10:19 by Marco Frye MD) Heart failure (Acute) Peripheral vertigo (Acute) Urticaria (Acute) Right lower lobe pneumonia (Acute) 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) Postoperative nausea and vomiting (Acute) Onychomycosis (Acute) Edema (Acute) Venous (peripheral) insufficiency (Acute) Toe pain, right (Acute) Toe pain, left (Acute) Type 2 diabetes mellitus with diabetic polyneuropathy (Chronic) Neuropathy (Acute) Nail dystrophy (Acute) CKD (chronic kidney disease) stage 3, GFR 30-59 ml/min (Chronic) Balance problem (Acute) Essential hypertension (Chronic) 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 Daughter No problems noted. Social History Smoking/Tobacco Use Status: Never Second Hand Exposure: Yes Smoking risk assessment performed?: Yes Alcohol Intake: never Drug use: Never Substance use type: does not use Adopted: No Caregiver/Support person: No Household members: none Housing: apartment Number of Children: 5 number of grandchildren: 12 Communication Needs: Hard of Hearing Do you need help understanding health information?: Never Pets and animals: No Sexually active: No Do you think of yourself as: straight/heterosexual Current gender identity: female What is your relationship status?: How often do you talk on the phone with friends or family?: three or more times per week How often do you get together with friends or relatives?: three or more times per week How often do you attend advent or christianity services?: decline to answer Do you belong to any clubs or organized social groups?: no Panel score (0-1 are the most socially isolated patients): 1 What type of physical activity do you participate in: none Frequency: decline to answer Sue/Taoism: Yazidi Special sue needs: No Seatbelt use: always Drive intox or ride w/intox food service driver: No Working smoke detector in home: Yes Carbon monox detector in home: Yes Firearms in home: No Do you feel safe at home: Yes Do you feel safe in your relationship?: Yes Victim of physical abuse: No Victim of emotional abuse: No Victim of sexual abuse: No Would you like helpful sources: No POCUS Exam (ED) Limited Cardiac Exam DATE OF EXAM: 11/10/24 TIME OF EXAM: 08:27 PROVIDER THAT PERFORMED THE STUDY: Marco Frye IS THIS A REPEAT EXAM DURING THIS ENCOUNTER: no REASON FOR EXAM: Dyspnea VISUALIZED STRUCTURES: Four Chambers, Left atrium, Left ventricle, LVOT, Right atrium, Right ventricle and Interventricular septum VIEW OBTAINED: Apical 4-Chamber, Parasternal long-axis, Parasternal short-axis and Subxiphoid PERTINENT FINDINGS/IMPRESSION: RV dilation and Other (No pericardial effusion, no B-lines noted in overlying lung argueta, limited exam due to poor sonographic windows, however no obvious regional wall abnormality. Questionable right ventricular dilation and hypertrophy) Limited exam due to poor cardiac windows. No pericardial effusion. Questionable right ventricular dilation hypertrophy. ; No LV dysfunction, No pericardial effusion and No RV dysfunction Exam complete
[2024-11-10 07:23] LABS: Abs Immature Grans 0.02 10^3/uL (0.0-0.06); HCT 38.7 % (36.0-46.0); HGB 12.2 g/dL (11.2-15.7); Immature Grans % 0.2 %; MCH 27.7 pg (27.0-33.0); MCHC 31.5 % (32.0-36.0); MCV 88 fL (80-95); MPV 9.5 fL (8.0-11.0); Platelet Count 328 10^3/uL (130-400); RBC 4.41 10^6/uL (3.93-5.22); RDW 14.0 % (11.7-14.6); RDW-SD 45.1 fL; WBC 8.33 10^3/uL (4.4-10.8)
[2024-11-10 07:43] LABS: INR 1.1 (0.9-1.1); PTT Activated 24.1 sec (20.6-30.2); Prothrombin Time 10.8 sec (9.1-11.1)
[2024-11-10 07:59] LABS: ALT 13 U/L (14-59); AST 11 U/L (15-37); Albumin 3.5 g/dL (3.4-5.0); Alkaline Phosphatase 62 U/L (46-116); Anion Gap 10.1 mmol/L (3-11); BUN 23 mg/dL (7-18); Bilirubin, Total 0.5 mg/dL (0.2-1.0); CO2 26.9 mmol/L (21.0-32.0); Calcium 9.7 mg/dL (8.5-10.1); Chloride 103 mmol/L (98-107); Estimated GFR 39.80 (mL/min/1.73m2); Glucose 129 mg/dL (74-106); Magnesium 1.9 mg/dL (1.8-2.4); NT-proBNP 2871 pg/mL (<300); Potassium 3.7 mmol/L (3.5-5.1); Sodium 140 mmol/L (136-145); Total Protein 7.5 g/dL (6.4-8.2); Troponin I 6 ng/L (<or=51)
--- NOTE | 2024-11-10 08:00 | DI.CT_ITS ---
Exam(s) CT CHEST PE CTA EXAM: CT CHEST PE CTA CLINICAL HISTORY: Acute onset SOB. TECHNIQUE: Imaging Protocol: Axial CT angiography was performed with multi- slice acquisition and multi-planar and/or 3D reconstructions. Lung Computer Aided Detection (CAD) was utilized. CONTRAST MATERIAL: Intravenous: Omnipaque 350 contrast volume:75 mL COMPARISON: CT CT ABDOMEN PELVIS WO from 05/11/2021 CR,XR XR PORTABLE CHEST AP from 11/10/2024 FINDINGS: Tracheobronchial tree: There is mild mucous plugging in the lower lobes. No bronchiectasis. Pulmonary parenchyma: There is poor inspiration. There are areas of atelectasis present in the dependent portions of the lungs. There is a 4 mm nodule in the left lingula (series 12, image 67). There is a small infiltrate seen in the right lower lobe. This may represent atelectasis or pneumonia. Pulmonary Arteries: No evidence of filling defect to suggest pulmonary emboli. Mediastinum and Lorena: No dominant adenopathy or fluid collection. The esophagus is unremarkable. Visualized thyroid gland: Unremarkable. Pleura: There is a small right pleural effusion. No left pleural effusion is present. There is no pneumothorax. Heart: Mild cardiomegaly. Moderate 2 vessel coronary artery calcification is present. No pericardial effusion. Aorta: Thoracic aorta non-dilated. Atherosclerotic calcification is present. Due to the timing of the bolus, the thoracic aorta is not well opacified. Upper abdomen: The patient is status post cholecystectomy. Soft tissues: Unremarkable. Bones: Within normal limits for the patient's age. IMPRESSION: 1. There is no evidence of a pulmonary embolism or thoracic aortic aneurysm. 2. Small infiltrate in the right lower lobe and a small pleural effusion. This may represent atelectasis or pneumonia. Please correlate clinically. 3. 4 mm nodule in the left lingula. Solid nodules smaller than 6 mm do not require routine follow-up in all patients with high clinical risk; however, some nodules smaller than 6 mm with suspicious morphology, upper lobe location, or both may warrant follow-up at 12 months (grade 2A; weak recommendation, high-quality evidence). (Yolanda et al., 2017) Single solid noncalcified nodules. ???Solid nodules smaller than 6 mm (those 5 mm or smaller) do not require routine follow-up in patients at low risk (grade 1C; strong recommendation, low- or dyxl-jea-ppnlrxi evidence). (Yolanda et al., 2017) Unexpected findings RADIATION DOSE DELIVERED: 100.34mGy.cm Total DLP DATA REPOSITORY: All CT scans at this facility are submitted to the National Radiology Data Registry (NRDR) Dose Index Registry (DIR) with the [employer] (ACR). RADIATION OPTIMIZATION: All CT scans at this facility use at least one of these dose optimization techniques: automated exposure control; mA and/or kV adjustment per patient size (includes targeted exams where dose is matched to clinical indication); or iterative reconstruction.
[2024-11-10] MEDS: Atenolol 50 MG TAB PO (08:12)
[2024-11-10] MEDS: hydroCHLOROthiazide 25 MG TAB PO (08:13)
[2024-11-10] MEDS: Lisinopril 10 MG TAB 30 MG PO (08:13)
[2024-11-10] MEDS: metFORMIN 500 MG TAB 1000 MG PO (08:13)
--- NOTE | 2024-11-10 08:16 | DI.VRAD_ITS ---
PROCEDURE INFORMATION: Exam: XR Chest Exam date and time: 11/10/2024 7:45 AM Age: 88 years old Clinical indication: Shortness of breath TECHNIQUE: Imaging protocol: Radiologic exam of the chest. Views: 1 view. COMPARISON: CR XR CHEST 2V PA LATERAL 11/14/2023 6:09 PM FINDINGS: Tubes, catheters and devices: Surgical clips overlie the right upper quadrant. Lungs: The pulmonary vasculature is congested. There is mild streaky bibasilar atelectasis. The lungs are otherwise clear. Pleural spaces: Unremarkable. No pleural effusion. No pneumothorax. Heart/Mediastinum: The cardiomediastinal silhouette is fairly stable in appearance, allowing for differences in technique. Bones/joints: Degenerative changes again involve the spine and shoulders. IMPRESSION: Mild pulmonary vascular congestion. Dictated and Authenticated by: Huy Lancaster MD. Orderin Melva Lara MD
[2024-11-10 08:23] LABS: Glucose Negative (Negative)
[2024-11-10] MEDS: Omnipaque 350 MG/ML 100 ML BTL IJ (08:53)
[2024-11-10 09:36] LABS: Troponin I 7 ng/L (<or=51)
--- NOTE | 2024-11-10 10:11 | PT.INIE ---
PT Notes Visit Reasons: JACQUES / sob Physical Therapy Inpatient Initial Evaluation Date: 11/10/2024 Referring Doctor: Dr Frye PT Orders: PT CONSULT: PT Evaluation Precautions: Standard Patient Profile/Admitting Diagnosis: Pt is an 88 yo female who presented to the ED from home with Chest/upper abdomen pressure since 11/09/2024. Work up in the ED included CXR, Chest CT, Troponin levels and bed side US. CHest CT : IMPRESSION: 1. There is no evidence of a pulmonary embolism or thoracic aortic aneurysm. 2. Small infiltrate in the right lower lobe and a small pleural effusion. This may represent atelectasis or pneumonia. Please correlate clinically. 3. 4 mm nodule in the left lingula. Solid nodules smaller than 6 mm do not require routine follow-up in all patients with high clinical risk; however, some nodules smaller than 6 mm with suspicious morphology, upper lobe location, or both may warrant follow-up at 12 months (grade 2A; weak recommendation, high-quality evidence). (Yolanda et al., 2017) Pt labs: notable for elevated BNP significantly above patient's previously documented baseline. Otherwise laboratory workup is unremarkable. Bedside ultrasound shows signs of potential right-sided heart failure. PT worked to the patient and found she had no acute requirements at this time. Given elevated BNP, peripheral edema and reported orthopnea she was started on IV Lasix and admitted to MEd Surg unit PMHX: Social History/Home Situation: Patient lives alone in single level dwelling at [facility]. Has 5-6 stairs with railing from parking lot to entrance of apartment. Has 2 supportive children living nearby who check on her regularly. Current Functional Limitations: Prolonged sit, stand, walking Equipment Owned/DME: Patient states she has a front wheel walker and cane but typically does not use them at baseline. She has support from her children to take her shopping. Subjective: Pt reports she has not had any of her vertigo symptoms yet but is concerned she will start to feel them since she has not had her medication yet today. She denies chest pain or SOB Objective: [] General Observation: elderly female semireclined on stretcher with telemetry in place and her 2 daughters present. Mental Status:A+Ox4 cooperative , able to follow instructions when she hears the instruction ([employer] [place]), agreeable to participate Pain: denied ROM: [] Right Upper Extremity: Glenohumeral joint flexion 130 degrees, abduction 120 degrees, elbow flexion and extension within normal limits Left Upper Extremity: Glenohumeral joint flexion 140 degrees, abduction 130 degrees, elbow flexion and extension within normal limits. Right Lower Extremity: Hip flexion, abduction, knee flexion, knee extension, ankle plantar within normal limits, DF to neutral with knee extension Left Lower Extremity: Hip flexion, abduction, knee flexion, knee extension, ankle plantar within normal limits, DF to neutral with knee extension Strength: Right Upper Extremity: 4/5 Left Upper Extremity: 4/5 Right Lower Extremity: Grossly hips 4-/5 knees 4/5 ankle 4/5. Able to perform straight leg raise with 0 degree lag Left Lower Extremity: Grossly hips 4-/5 knees 4/5 ankle 4/5. Able to perform straight leg raise with 0 degree lag Sensation: intact Bed Mobility/Transfers: [] Supine to sit Independent sit to supine Independent Sit to stand SBA Stand to sit SBA Bed to chair SBA with FWW Gait: ambulated 50 feet x 2 with FWW and sneakers on SBA with no LOB reciprocal pattern, mild SOB/YIN. Pt demonstrates turns and door management without assistance. Balance: [] Static Sitting: Normal Dynamic Sitting:Good Static Standing: Good with UE support Dynamic Standing: Fair + with 1 UE support Special Tests: [] Mobility Limitations Standardized Measure [] [facility] AM-PAC 6 clicks Basic Mobility Inpatient Short Form: [] Raw Score: 22 CMS Score: 20.91% Informed Consent/Education: Patient instructed in purpose of PT consult. Discussed with pt and family use of solid footwear indoors to provide stability for indoor ambulation . Pt also recommended to utilize walker for all mobility Assessment: Patient is an 88 yo female who presents with clinical signs and symptoms consistent with current/admitting diagnoses that have resulted to mobility limitations, gait instability, generalized weakness, and impairment of motor control as demonstrated by the following impairment level findings: 1. Decreased strength to left knee major muscle groups 2. Impaired standing balance 3. impaired functional activity tolerance 4. swelling BLE 5. slight dyspnea on exertion 6. poor judgement/ safety awareness/ impaired insight into need for AD Impairments are contributing to the following functional limitations: 1. Inability to safely ambulate without assistive device 2. Increase completion time for mobility ADL performance 3. Increased fall risk Patient is assessed as a moderate complexity based on the following: History:88-year-old female with impairment level findings, functional limitations, and past medical history as indicated above Examination: Demonstrable impairment in strength, balance, and mobility level with underlying impairments and functional limitations as documented above Presentation:evolving Decision Making: moderate Goals: 1. independent transfers with LRD 2. Independent ambulation with LRD 300 feet level surfaces 3. independent HEP Plan of Care/Treatment Plan: 1-2x/day, 7 days/week x 1 week. Plan of care has been reviewed with the FIRST AID INSTRUCTOR providing the service under Physical Therapy direction. Initiate Physical Therapy intervention for strengthening, bed mobility, transfers, gait, stairs, balance training, use of assistive device. DISCHARGE RECOMMENDATIONS:Home outpatient PT VS admission with PT while in hospital TREATMENT CODE/TIME: 19187/ [id number] Thank you for the opportunity to participate in the care of this patient. Sofia Gregg, PT [facility]
[2024-11-10] MEDS: Furosemide 20 MG/2 ML VIAL 100 MG IVP (10:38)
[2024-11-10 10:53] LABS: Troponin I 8 ng/L (<or=51)
--- NOTE | 2024-11-10 12:44 | W.PC.ACHO ---
Registration Status: ADM IN Primary Language: Preferred Language: Divehi ED Information & Data Chief Complaint SOB 11/10/24 07:28 Triage Note patient pushed lifeline 11/10/24 06:50 secondary to SOB which has since resolved. Denies any CP. 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) Hx laparoscopic cholecystectomy Hx of cataract extraction Most Recent Vital Signs Temperature 36.1 C L 11/10/24 12:14 Temperature Source Oral 11/10/24 06:50 Pulse 38 L 11/10/24 12:14 Pulse 80 11/10/24 11:30 Respiratory Rate 14 11/10/24 12:14 Respiratory Effort Normal, Non-Labored 11/10/24 12:14 Respiratory Depth Normal 11/10/24 12:14 Respiratory Pattern Normal 11/10/24 12:14 Blood Pressure 186/87 H 11/10/24 12:14 Blood Pressure Mean 104 11/10/24 10:45 Blood Pressure Position Sitting 11/10/24 06:50 Pulse Oximetry 96 11/10/24 12:14 Oxygen Delivery Method Room Air 11/10/24 12:14 Oxygen Flow Rate 0 11/10/24 12:14 Pain Level 0 11/10/24 12:14 Allergies No Known Allergies Allergy (Verified 11/10/24 07:01) Precautions Isolation Standard precaution 11/10/24 06:58 Active Medications Generic Name Dose Route Start Last Admin Trade Name Diane PRN Reason Stop Dose Admin Atenolol 50 mg 11/10/24 08:30 11/10/24 08:12 Atenolol 50 Mg Tab PO 50 mg DAILY ALIZA Administration Iohexol 100 ml 11/10/24 09:00 11/10/24 08:53 Omnipaque 350 Mg/Ml 100 Ml Btl IJ 12/10/24 23:59 75 ml DIRECTED ALIZA Administration IV IV Catheter Type [Right Saline Lock Antecubital] IV Catheter Gauge [Right 18 Antecubital] Diet Orders Category Date Time Status Diabetes Consistent CHO/Heart Healthy [DIET] Nutrition 11/10/24 Lunch Active Diagnostics 08/26/25 08/26/25 08/26/25 Range/Units 10:27 08:58 07:54 WBC (4.4-10.8) 10^3/uL RBC (3.93-5.22) 10^6/uL Hgb (11.2-15.7) g/dL Hct (36.0-46.0) % MCV (80-95) fL MCH (27.0-33.0) pg MCHC (32.0-36.0) % RDW (11.7-14.6) % Plt Count (130-400) 10^3/uL MPV (8.0-11.0) fL Immature Gran % % Neutrophils % % Lymphocytes % % Monocytes % % Eosinophils % % Basophils % % Nucleated RBC % (0.0-0.3) % Absolute Neutrophils (1.2-6.7) 10^3/uL Absolute Lymphocytes (1.2-3.4) 10^3/uL Absolute Monocytes (0.1-0.8) 10^3/uL Absolute Eosinophils (0.0-0.7) 10^3/uL Absolute Basophils (0.0-0.2) 10^3/uL PT (9.1-11.1) sec INR (0.9-1.1) APTT (20.6-30.2) sec Sodium (136-145) mmol/L Potassium (3.5-5.1) mmol/L Chloride (98-107) mmol/L Carbon Dioxide (21.0-32.0) mmol/L Anion Gap (3-11) mmol/L BUN (7-18) mg/dL Creatinine (0.55-1.02) mg/dL Est GFR (CKD-EPI 2020) (mL/min/1.73m2) Glucose (74-106) mg/dL Calcium (8.5-10.1) mg/dL Magnesium (1.8-2.4) mg/dL Total Bilirubin (0.2-1.0) mg/dL AST (15-37) U/L ALT (14-59) U/L Alkaline Phosphatase (46-116) U/L Troponin I 8 7 (<or=51) ng/L NT-Pro-B Natriuret Pep (<300) pg/mL Total Protein (6.4-8.2) g/dL Albumin (3.4-5.0) g/dL Urine Color Yellow (Yellow) Urine Clarity Clear (Clear) Urine pH 7.0 (5-8) Ur Specific [place] 1.015 (1.005-1.025) Urine Protein Negative (Neg-Trace) mg/dL Urine Ketones Negative (Negative) mg/dL Urine Blood Negative (Negative) Urine Nitrite Negative (Negative) Urine Bilirubin Negative (Negative) Urine Urobilinogen 0.2 (Up to 0.2) mg/dL Ur Leukocyte Esterase Negative (Negative) Urine Glucose Negative (Negative) mg/dL 11/10/24 Range/Units 07:20 WBC 8.33 (4.4-10.8) 10^3/uL RBC 4.41 (3.93-5.22) 10^6/uL Hgb 12.2 (11.2-15.7) g/dL Hct 38.7 (36.0-46.0) % MCV 88 (80-95) fL MCH 27.7 (27.0-33.0) pg MCHC 31.5 L (32.0-36.0) % RDW 14.0 (11.7-14.6) % Plt Count 328 (130-400) 10^3/uL MPV 9.5 (8.0-11.0) fL Immature Gran % 0.2 % Neutrophils % 60.3 % Lymphocytes % 28.2 % Monocytes % 7.3 % Eosinophils % 3.4 % Basophils % 0.6 % Nucleated RBC % 0.0 (0.0-0.3) % Absolute Neutrophils 5.02 (1.2-6.7) 10^3/uL Absolute Lymphocytes 2.35 (1.2-3.4) 10^3/uL Absolute Monocytes 0.61 (0.1-0.8) 10^3/uL Absolute Eosinophils 0.28 (0.0-0.7) 10^3/uL Absolute Basophils 0.05 (0.0-0.2) 10^3/uL PT 10.8 (9.1-11.1) sec INR 1.1 (0.9-1.1) APTT 24.1 (20.6-30.2) sec Sodium 140 (136-145) mmol/L Potassium 3.7 (3.5-5.1) mmol/L Chloride 103 (98-107) mmol/L Carbon Dioxide 26.9 (21.0-32.0) mmol/L Anion Gap 10.1 (3-11) mmol/L BUN 23 H (7-18) mg/dL Creatinine 1.3 H (0.55-1.02) mg/dL Est GFR (CKD-EPI 2020) 39.80 (mL/min/1.73m2) Glucose 129 H (74-106) mg/dL Calcium 9.7 (8.5-10.1) mg/dL Magnesium 1.9 (1.8-2.4) mg/dL Total Bilirubin 0.5 (0.2-1.0) mg/dL AST 11 L (15-37) U/L ALT 13 L (14-59) U/L Alkaline Phosphatase 62 (46-116) U/L Troponin I 6 (<or=51) ng/L NT-Pro-B Natriuret Pep 2871 H (<300) pg/mL Total Protein 7.5 (6.4-8.2) g/dL Albumin 3.5 (3.4-5.0) g/dL Urine Color (Yellow) Urine Clarity (Clear) Urine pH (5-8) Ur Specific [place] (1.005-1.025) Urine Protein (Neg-Trace) mg/dL Urine Ketones (Negative) mg/dL Urine Blood (Negative) Urine Nitrite (Negative) Urine Bilirubin (Negative) Urine Urobilinogen (Up to 0.2) mg/dL Ur Leukocyte Esterase (Negative) Urine Glucose (Negative) mg/dL [id number] Documentation Fingerstick Glucose Start: 11/10/24 10:28 Freq: .AC Status: Active Protocol: Activity Type Activity Date Activity User E-sign Co-sign Detail Recorded Client Recorded Date Recorded By Document 11/10/24 12:14 BKG DAEMON(3) [id number] 11/10/24 12:16 BKG DAEMON(4) Intake and Output - 24 Hour Total 11/10/24 06:41 thru 11/10/24 12:14 Weight 73.6 kg Other: Urine Appearance Clear Falls Risk Assessment History of Falls No History 11/10/24 12:14 Contributing Factors Medications 11/10/24 12:14 Ambulatory Aids Uses ambulatory device 11/10/24 12:14 Tubes/Lines W/no contributing factors 11/10/24 12:14 Gait Evaluation W/no contributing factors 11/10/24 12:14 Cognition No cognitive impairment 11/10/24 06:58 Fall Total Score 38 11/10/24 12:14 Level of Risk Moderate Risk 11/10/24 12:14 Problems (Last Reviewed 11/02/24 @ 10:22 by Anneliese Arriaga DPM) Heart failure (Acute) v v v v v v v v v Sending and/or Receiving Nurses: Please use comment section below to note any information pertinent to the patient hand-off not included above. Information / Comments: 88 year old female admitted with chf and weakness. Familiy at bedside and updated. Patient is alert and oriented as well as ambulatory with assistance. Report received from:
[2024-11-10] MEDS: Scopolamine 1 MG/3 DAYS PATCH TD (13:12)
--- NOTE | 2024-11-10 16:10 | HPE_ITS ---
Date of service: 11/10/24 Time of Service: 16:10 Assessment and Plan Assessment and plan (1) Heart failure: Status: Acute Assessment and plan: Exam, symptoms, and elevated BNaP c/w CHF Recent fair food and new bigeminy could be triggers. Concern for right sided failure on POCUS, but reassuring echocardiogram. Preserved LVEF. Given this, this appears to be HFpEF. H2FPEF score is 72.4% Responding to furosemide 100mg IV, continue at 40mg BID. Add empagliflozin. (2) Ventricular bigeminy: Status: Acute Assessment and plan: This is new and does seem to be related to her symptoms. Electrolytes okay. Get TSH. Troponins not c/w ischemia. Echocardiogram without significant structural abnormalities. Related to recent medications for vertigo. Continue on telemetry. (3) Diabetes mellitus: Status: Chronic Assessment and plan: Well controlled with A1c 5.7%. Okay to add low dose SGLT2i to metformin as they dose cause low sugar. Holding metformin after CTA, ISS prn. (4) CKD (chronic kidney disease) stage 3, GFR 30-59 ml/min: Status: Chronic Assessment and plan: At baseline GFR adding SGLT2i as above (5) DVT prophylaxis: Status: Acute Assessment and plan: enoxaparin History of Present Illness History of Present Illness Chief Complaint: chest discomfort Narrative: 88 yo F with history of well controlled type 2 DM, HTN, CKD 3, and peripheral vertigo who presented with acute chest discomfort and shortness of breath. This started last night. She went to bed at about 8pm, woke up around 10-11pm short of breath with discomfort in her mid/lower substernal area. Discomfort was pressure feeling, moderate. She had recently had an episode of vertigo, but that had resolved and she didn't feel dizzy or nauseous. She was not diaphoretic or lightheaded. There was no radiation. When the pressure continued, she came into the ED. She does feel better after getting 100mg furosemide in the ED and urinating a lot, no longer feels significant pressure in her chest and her breathing feels better. She never had cough or fever or sputum production. No URI symptoms. She does get GERD at times with heartburn feeling, but this is different. She did go to the fair and eat at [employer] over the weekend. No medication changes. She had not noticed weight gain. She has leg swelling but this is chronic. 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) Postoperative nausea and vomiting (Acute) Onychomycosis (Acute) Edema (Acute) Venous (peripheral) insufficiency (Acute) Toe pain, right (Acute) Toe pain, left (Acute) Type 2 diabetes mellitus with diabetic polyneuropathy (Chronic) Neuropathy (Acute) Nail dystrophy (Acute) CKD (chronic kidney disease) stage 3, GFR 30-59 ml/min (Chronic) Balance problem (Acute) Essential hypertension (Chronic) 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 Daughter No problems noted. Social History (Updated 11/10/24 @ 17:39 by Shravan Kee) Smoking/Tobacco Use Status: Never Second Hand Exposure: Yes Smoking risk assessment performed?: Yes Alcohol Intake: never Drug use: Never Substance use type: does not use Adopted: No Caregiver/Support person: No Household members: none Housing: house Number of Children: 5 number of grandchildren: 12 Communication Needs: Hard of Hearing Do you need help understanding health information?: Never Pets and animals: No Sexually active: No Do you think of yourself as: straight/heterosexual Current gender identity: female What is your relationship status?: How often do you talk on the phone with friends or family?: three or more times per week How often do you get together with friends or relatives?: three or more times per week How often do you attend latter-day or methodist services?: decline to answer Do you belong to any clubs or organized social groups?: no Panel score (0-1 are the most socially isolated patients): 1 What type of physical activity do you participate in: none Frequency: decline to answer Sue/Religious: Tenriism Special sue needs: No Seatbelt use: always Drive intox or ride w/intox dedicated regional driver: No Working smoke detector in home: Yes Carbon monox detector in home: Yes Firearms in home: No Do you feel safe at home: Yes Do you feel safe in your relationship?: Yes Victim of physical abuse: No Victim of emotional abuse: No Victim of sexual abuse: No Would you like helpful sources: No Additional Social history: Lives alone in [place]. Daughter is close Meds Allergies and Home Medications Allergies Allergy/AdvReac Type Severity Reaction Status Date / Time No Known Allergies Allergy Verified 11/10/24 07:01 Home Medications ?Medication ?Instructions ?Recorded ?Confirmed ?Type blood-glucose meter ([employer]Touch ##1 10/03/16 11/10/24 Hi story Verio Meter) cholecalciferol (vitamin D3) 125 5,000 unit PO DAILY 0 06/03/17 11/10/24 History mcg (5,000 unit) capsule omega [id number]-fish oil 500 mg 1 ea PO DAILY 06/03/17 11/10/24 History (200mg-300mg)-1,000 mg capsule lancets ([employer] UltraSoft #90 ea 12/11/19 11/10/24 R x Lancets) magnesium oxide 400 mg (241.3 mg 400 mg PO DAILY 06/1611/10/24 History magnesium) tablet acetaminophen 500 mg tablet 1,000 mg (2 x 500 mg) PO Q 8H PRN 04/09/23 11/10/24 Rx pain #90 tabs blood sugar diagnostic ([employer] #90 strips 04/12/23 0 11/10/24 Rx Verio test strips) triamcinolone acetonide 0.1 % 1 applic topical BID Pru ritis #80 11/12/23 11/10/24 Rx topical cream grams lisinopril 30 mg tablet 30 mg PO DAILY #90 tabs 11/0 07/0911/10/24 Rx scopolamine base 1 mg over 3 days 1 mg transdermal Q72 H #4 ea 07/29/24 11/10/24 Rx transdermal patch meclizine 12.5 mg tablet 12.5 mg PO BID #30 tabs 08/1711/10/24 Rx potassium citrate 5 mEq (540 mg) 5 meq PO DAILY #90 ta bs 09/08/24 11/10/24 Rx tablet,extended release loratadine 10 mg capsule 10 mg PO DAILY #60 caps 10/1611/10/24 Rx atenolol 50 mg tablet 50 mg PO DAILY #90 tab-caps 10/30/24 11/10/24 Rx hydrochlorothiazide 25 mg tablet 25 mg PO DAILY #90 ta b-caps 10/30/24 11/10/24 Rx metformin 500 mg tablet 1,000 mg (2 x 500 mg) PO BID #360 10/30/24 11/10/24 Rx tabs Exam Narrative Exam Narrative: GEN: Alert and oriented x 4, pleasant and cooperative, gives linear history. No acute distress at rest. HEENT: Head atraumatic. Conjunctiva clear, no icterus. PEERL, EOMI. no rhinorrhea. MMM, OP benign. Neck is supple with no masses or lymphadenopathy, trachea midline. No overt JVP LUNGS: Normal effort, bibasilar rales, otherwise clear. CV: Regular, bigeminy, with no murmurs, gallops, or rubs. ABD: active bowel sounds, soft, nontender and nondistended. No masses. EXT: no cyanosis, clubbing. 1-2+ pitting edema in ankles MSK: No joint redness or swelling NEURO: CN 2-12 grossly intact. Normal movement of 4 extremities. Normal speech and coordination. No tremor SKIN: No rashes or open wounds. PSYCH: normal mood and affect, normal thought process Results Imaging Chest x-ray: report reviewed (Mild pulmonary vascular congestion.) and image reviewed CT scan - chest: report reviewed (1. There is no evidence of a pulmonary embolism or thoracic aortic aneurysm. 2. Small infiltrate in the right lower lobe and a small pleural effusion. This may represent atelectasis or pneumonia. Please correlate clinically. 3. 4 mm nodule in the left lingula. ) Additional studies: Echocardiogram: Normal left ventricular wall thickness and chamber size. Ejection fraction is 60%. Wall motion is normal Normal right ventricular size and function Both atria are normal in size Aortic valve is trileaflet and mildly sclerotic with trace regurgitation Mild mitral annular calcification. Mild mitral regurgitation Estimated right ventricular systolic pressure is 22 mmHg Borderline dilated ascending aorta 3.42 cm EKG: report reviewed and image reviewed (bigeminy with PVCs, rate 79 nl axis, no STEMI) Labs 11/10/24 07:20 11/10/24 07:20 Labs: Laboratory Results - last 24 hr 11/10/24 11/10/24 11/10/24 07:20 07:54 08:58 WBC 8.33 RBC 4.41 Hgb 12.2 Hct 38.7 MCV 88 MCH 27.7 MCHC 31.5 L RDW 14.0 Plt Count 328 MPV 9.5 Immature Gran % 0.2 Neutrophils % 60.3 Lymphocytes % 28.2 Monocytes % 7.3 Eosinophils % 3.4 Basophils % 0.6 Nucleated RBC % 0.0 Absolute Neutrophils 5.02 Absolute Lymphocytes 2.35 Absolute Monocytes 0.61 Absolute Eosinophils 0.28 Absolute Basophils 0.05 PT 10.8 INR 1.1 APTT 24.1 Sodium 140 Potassium 3.7 Chloride 103 Carbon Dioxide 26.9 Anion Gap 10.1 BUN 23 H Creatinine 1.3 H Est GFR (CKD-EPI 2020) 39.80 Glucose 129 H Calcium 9.7 Magnesium 1.9 Total Bilirubin 0.5 AST 11 L ALT 13 L Alkaline Phosphatase 62 Troponin I 6 7 NT-Pro-B Natriuret Pep 2871 H Total Protein 7.5 Albumin 3.5 Urine Color Yellow Urine Clarity Clear Urine pH 7.0 Ur Specific [place] 1.015 Urine Protein Negative Urine Ketones Negative Urine Blood Negative Urine Nitrite Negative Urine Bilirubin Negative Urine Urobilinogen 0.2 Ur Leukocyte Esterase Negative Urine Glucose Negative 11/10/24 10:27 WBC RBC Hgb Hct MCV MCH MCHC RDW Plt Count MPV Immature Gran % Neutrophils % Lymphocytes % Monocytes % Eosinophils % Basophils % Nucleated RBC % Absolute Neutrophils Absolute Lymphocytes Absolute Monocytes Absolute Eosinophils Absolute Basophils PT INR APTT Sodium Potassium Chloride Carbon Dioxide Anion Gap BUN Creatinine Est GFR (CKD-EPI 2020) Glucose Calcium Magnesium Total Bilirubin AST ALT Alkaline Phosphatase Troponin I 8 NT-Pro-B Natriuret Pep Total Protein Albumin Urine Color Urine Clarity Urine pH Ur Specific [place] Urine Protein Urine Ketones Urine Blood Urine Nitrite Urine Bilirubin Urine Urobilinogen Ur Leukocyte Esterase Urine Glucose Last Vital Signs Temp 36.3 C L 11/10/24 15:44 Pulse 46 L 11/10/24 15:44 Resp 16 11/10/24 15:44 BP 139/66 11/10/24 15:44 Pulse Ox 92 11/10/24 15:44 Time Spent Time spent with Patient: 55-74 minutes Time was spent: preparing to see the patient(eg.review tests), obtaining and/or reviewing separately otained hiistory, ordering medications,tests, procedures, referring, communicating with other health foster care social worker, indepentently interpreting results, counseling the patient and care coordination
[2024-11-10] MEDS: Furosemide 40 MG/4 ML VIAL IVP (17:32)
[2024-11-10] MEDS: Normal Saline Flush 10 ML SYR IVP (20:32)
[2024-11-10] MEDS: Triamcinolone 0.1% CR 15 GM TUBE TP (20:32)
[2024-11-11 03:56] VITALS: BP 149/63; PULSE 75; RESP 18; TEMP 36.1; O2SAT 98
[2024-11-11 07:14] LABS: Anion Gap 9.2 mmol/L (3-11); BUN 35 mg/dL (7-18); CO2 30.8 mmol/L (21.0-32.0); Calcium 10.2 mg/dL (8.5-10.1); Chloride 100 mmol/L (98-107); Estimated GFR 28.84 (mL/min/1.73m2); Glucose 133 mg/dL (74-106); Magnesium 1.9 mg/dL (1.8-2.4); Potassium 3.3 mmol/L (3.5-5.1); Sodium 140 mmol/L (136-145)
[2024-11-11 07:25] LABS: TSH (W/Ref FT4) 4.04 uIU/mL (0.36-3.74)
[2024-11-11 07:31] VITALS: BP 158/77; PULSE 58; RESP 12; TEMP 35.9; O2SAT 95
[2024-11-11] MEDS: Enoxaparin 40 MG/0.4 ML SYR SC (08:21)
[2024-11-11] MEDS: Magnesium Oxide 400 MG TAB PO (08:22)
[2024-11-11] MEDS: POTASSIUM CHLORIDE 20 MEQ, POTASSIUM CHLORIDE 10 MEQ 30 MEQ PO (08:22)
[2024-11-11] MEDS: Empaglifozin 10 MG TAB PO (08:22)
[2024-11-11] MEDS: Atenolol 50 MG TAB PO (08:24)
[2024-11-11] MEDS: Omega-3 Fatty Acids 1000 MG CAP PO (08:24)
[2024-11-11] MEDS: Lisinopril 20 MG TAB 30 MG PO (08:24)
[2024-11-11] MEDS: Cholecalciferol (Vitamin D3) 1,000 UNIT TAB 5000 UNITS PO (08:24)
[2024-11-11] MEDS: Triamcinolone 0.1% CR 15 GM TUBE TP (08:25)
[2024-11-11] MEDS: hydroCHLOROthiazide 25 MG TAB PO (08:25)
[2024-11-11] MEDS: Normal Saline Flush 10 ML SYR IVP (08:28)
--- NOTE | 2024-11-11 08:59 | PDOC.CMIN ---
Date of service: 11/11/24 Time of Service: 08:59 Care Management Initial Assmt Initial Assessment Reason for Hospitalization: CHF Functional Status/Living Situation Patient Presentation: Karine was sitting on the side of the bed visiting with her daughter when CM met with her. She was pleasant in manner and easily engaged with CM. Karine informed CM that she was going to be discharged later today. She worked with PT and they recommended PT which Karine agrees to. She is also willing to have nursing. Karine lives alone in an apartment in [place]. She has been there for about 7 years and reported that she has a nice group of friends there who help and support each other. Karine had 5 children but 2 of her sons are . One of her daughters and her son live together in [place] and her other daughter is in [facility]. She has 9 grandchildren and 6 great grandchildren. 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 She uses a walker for ambulatory assistance and is independnet with ADLs. Town of Residence: [place] Resides with: Alone Significant Other/Family: Local ([facility]) Employment Status: Unemployed Instrumental Activities of Daily Living (ADLs): Independent Medications Medication Management: No Issues/Barriers identified Physical Functioning/Mobility Assistive Device: walker Advance Directives Advance Directives: Do you have an Advance Directive: Y 03/17/20, 13:33 AD On File at [facility]: Y 03/17/20, 13:33 Date Asked 05/20/21 11/10/24, 07:14 AD Date Reviewed 11/10/24 11/10/24, 07:14 COLST On File at [facility] Yes 05/11/21, 06:04 COLST Date Scanned 02/24/21 05/25/21, 13:01 Code Status Resuscitation Status DNR/DNI Portal Pt does not currently have a portal and education provided: Yes Insurance Coverage/Financial Issues Insurance: Medicare [employer] Care Team Visit Care Team Role Provider Type Allie Rodrigues NP Primary Care Provider NURSE PRACTITIONER InPatient Ignacio Alston Other Providers OTHER Marco Frye MD Emergency Provider [facility] STAFF PHYSICIAN Shravan Kee Admit Provider [facility] STAFF PHYSICIAN Attending Provider Discharge Potential Discharge Needs: PCP F/U Appt Anticipated Barriers to Discharge: None Identified Patient/Family Education Needs: Review discharge instructions, discuss Ask Me Three Transportation: Private vehicle Plan: Anticipate Karine will be discharged home with new home health services for PT and RN. She will follow up with her community providers and plan of care and transport with family. CM will follow and continue to assess for discharge needs. Social Determinants of Health Screening Social Determinants of health last assessed in clinic: 11/11/24 Will the Patient Participate in the Screening?: Yes Do you worry about having a steady place to live?: no Problems where you live: no known problems In the past 12 months, have you had to go without electric, gas, oil or water in your home?: no 1. Within the past 12 months, we worried whether our food would run out before we got money to buy more.: Never true 2. Within the past 12 months, the food we bought just didn't last and we didn't have money to get more.: Never true Has lack of transportation kept you from medical appointments or from doing things needed for daily living?: no Has anyone in your life made you feel unsafe or unsupported?: no How hard is it for you to pay for the very basics like food, housing, medical care, and heating? Would you say it is:: Not hard at all Do you want help finding or keeping work or a job?: I do not need or want help If for any reason you need help with day-to-day activities such as bathing, preparing meals, shopping, managing finances, etc., do you get the help you need?: I don?t need any help How often do you feel lonely or isolated from those around you?: Never Do you speak a language other than [place]ian at home?: No Does the patient want assistance with any of the above?: No PFSH All Active Problems (Updated 11/10/24 @ 17:28 by Shravan Kee) Ventricular bigeminy (Acute) DVT prophylaxis (Acute) Heart failure (Acute) Peripheral vertigo (Acute) Urticaria (Acute) Right lower lobe pneumonia (Acute) 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) Postoperative nausea and vomiting (Acute) Onychomycosis (Acute) Edema (Acute) Venous (peripheral) insufficiency (Acute) Toe pain, right (Acute) Toe pain, left (Acute) Type 2 diabetes mellitus with diabetic polyneuropathy (Chronic) Neuropathy (Acute) Nail dystrophy (Acute) CKD (chronic kidney disease) stage 3, GFR 30-59 ml/min (Chronic) Balance problem (Acute) Essential hypertension (Chronic) 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 Daughter No problems noted. Social History (Updated 11/10/24 @ 17:39 by Shravan Kee) Smoking/Tobacco Use Status: Never Second Hand Exposure: Yes Smoking risk assessment performed?: Yes Alcohol Intake: never Drug use: Never Substance use type: does not use Adopted: No Caregiver/Support person: No Household members: none Housing: house Number of Children: 5 number of grandchildren: 12 Communication Needs: Hard of Hearing Do you need help understanding health information?: Never Pets and animals: No Sexually active: No Do you think of yourself as: straight/heterosexual Current gender identity: female What is your relationship status?: How often do you talk on the phone with friends or family?: three or more times per week How often do you get together with friends or relatives?: three or more times per week How often do you attend taoist or druze services?: decline to answer Do you belong to any clubs or organized social groups?: no Panel score (0-1 are the most socially isolated patients): 1 What type of physical activity do you participate in: none Frequency: decline to answer Sue/Mormon: Baptist Special sue needs: No Seatbelt use: always Drive intox or ride w/intox ambulance driver: No Working smoke detector in home: Yes Carbon monox detector in home: Yes Firearms in home: No Do you feel safe at home: Yes Do you feel safe in your relationship?: Yes Victim of physical abuse: No Victim of emotional abuse: No Victim of sexual abuse: No Would you like helpful sources: No Additional Social history: Lives alone in [place]. Daughter is close
--- NOTE | 2024-11-11 11:11 | PTTR_ITS ---
PT Notes Visit Reasons: Congestive heart failure Physical Therapy Inpatient Treatment Note Date: 11/11/2024 Precautions: Activity as tolerated. Fall risk. Standard precaution. SUBJECTIVE: pt reports she is having muscle cramps. She states she got potassium just prior to PT entering room, OBJECTIVE: Posture: Mildly kyphotic Observation: Guarded movements, with limited head motions during sidestepping out of bed Mental Status: A and O x 4 Vital Signs: Closely monitored by nursing staff Bed Mobility/Transfers: Minimal cueing provided for use of B hands as needed for support, movement sequence, AD management, and posture to reduce fall risk and minimize pain report Rolling minimal assist Supine to sit stand by assist using handrail for support Sit to supine stand by assist using handrail for support Sit to stand stand by assist using FWW Stand to sit stand by assist using FWW Gait: 150 feet + 150 feet using FWW with contact guard assist only using her FWW. Brittni slowed and remained cautious but no LOB Pt with intermittent kicking of rear leg of FWW on the right . Balance: Static Sitting: Normal Dynamic Sitting: Good Static Standing: good with UE support Dynamic Standing: Fair + with UE support ASSESSMENT: Pt demonstrates decline in stability with ambulation with FWW as noted by pt kic anabel rear leg of FWW on the right intermittently . Pt's dtr present and pt instructed to utilize FWW at home . Both in agreement. RN aware and feels this is related to low K+ which likely will resolve as K level increases. Anticipate pt to be d/c to home this pm. DISCHARGE RECOMMENDATIONS: [X] Home with services. PT for continued subacute vestibular rehabilitation. PLAN: Continue with vestibular rehabilitation and patient/family education prior to tomorrow's discharge. TREATMENT CODE/TIME: Session 1--[id number]/ [id number]
[2024-11-11 11:13] VITALS: BP 121/67; PULSE 42; RESP 16; TEMP 36.1; O2SAT 93
[2024-11-11] MEDS: Insulin Aspart 300 UNITS/3 ML PEN SC (12:23)
--- NOTE | 2024-11-11 13:53 | CHAPLAIN ---
Karine was sitting up in the chair when I visited and one of her daughters was with her. She said she is anticipating that she'll be discharged later today. Karine seems to be well supported by her children.
--- NOTE | 2024-11-11 14:09 | PHA.REVIEW2 ---
Pharmacy Admission Review Admission Clinical Review Admission Pharmacy Review: Ventricular bigeminy (Acute) DVT prophylaxis (Acute) Heart failure (Acute) No Known Allergies Allergy (Verified 11/10/24 07:01) Resuscitation Status DNR/DNI Height 5 ft 1 in Weight 70.7 kg Pharmacy Admission Review Renal Dosing Renal Dosing: BUN 35 mg/dL (7-18) H 11/11/24 06:10 Creatinine 1.7 mg/dL (0.55-1.02) H 11/11/24 06:10 Medications needing adjustments: Intervened (CrCl 20.91 mL/min, BUN increased from 23 and SCr increased from 1.3) List of meds needing interventions: Changed loratadine from 10mg daily to 10mg q48h, changed enoxaparin from 40mg daily to 30mg daily Anticoagulation Anticoagulation: Hgb 12.2 g/dL (11.2-15.7) 11/10/24 07:20 Hct 38.7 % (36.0-46.0) 11/10/24 07:20 Plt Count 328 10^3/uL (130-400) 11/10/24 07:20 INR 1.1 (0.9-1.1) 11/10/24 07:20 Creatinine 1.7 mg/dL (0.55-1.02) H 11/11/24 06:10 DVT Prophylaxis: Intervened (changed from 40mg daily to 30mg daily) Medications: Enoxaparin (30mg daily) Relevant Labs Relevant Labs: Sodium 140 mmol/L (136-145) 11/11/24 06:10 Potassium 3.3 mmol/L (3.5-5.1) L 11/11/24 06:10 Chloride 100 mmol/L (98-107) 11/11/24 06:10 Magnesium 1.9 mg/dL (1.8-2.4) 11/11/24 06:10 Electrolytes, C-Reactive P, ESR: Reviewed DM Control DM Control: Glucose 133 mg/dL (74-106) H 11/11/24 06:10 Finger Stick Blood Glucose 190 1223 Finger Stick Blood Glucose 190 1153 Finger Stick Blood Glucose 190 1153 Finger Stick Blood Glucose 133 0800 Finger Stick Blood Glucose 134 0714 Finger Stick Blood Glucose 134 0714 DM Control: Reviewed Insulin Dosing, Diabetic Medication: Has orders for SS insulin and Jardiance 10mg daily Cardiac Review Cardiac Review: Troponin I 8 ng/L (<or=51) 11/10/24 10:27 NT-Pro-B Natriuret Pep 2871 pg/mL (<300) H 11/10/24 07:20 BP, HR, EF%: Reviewed (BP WNL, HR 42) List meds needing interventions: Has orders for atenolol 50mg daily, HCTZ 25mg daily and lisinopril 30mg daily QTc Review QTc: Reviewed (470 from 11/10/24) IV to PO Switch IV Medications: Reviewed Home Meds Home Med List reviewed: Intervened Relevent Home Meds Not ordered & why?: metformin (on hold) and meclizine Verified patients own potassium ER 5mEq tablet and sent to floor Current Meds Current Medication Order Review: Intervened Comments: Discontinued patch removal order - was put in for scopolamine patch but order is q72h scheduled - do not need removal order
--- NOTE | 2024-11-11 14:12 | TELEFU_ITS ---
Date of service: 11/11/24 Time of Service: 12:55 Nutrition Note NOTE: Karine sitting in chair on my visit with visitor (daughter?) in room. Being treated for heart failure, vetricular bigeminy, DVT prophylaxis. Chronically has daibetes, CKD3. Weight loss noted with diuresis with furosemide and jardiance added this morning. A1C of 5.7% last july - pt denies lows. does not check glucose at home unless she feels like she needs to. Takes metformin at home (1000mg BID) which is being held (GFR 28 today). Pt on sliding scale for glucose corrections Labs: K at 3.3 today, BUN/CR 35/1.7, FPG 133 today with capillaries of 134 and 190 at breakfast and lunch respectively. Pt declined NFPE Estimated energy needs: 1750kcals (25kcal/kg), 70-84g protein (1-1.2g/kg) and 1750mL fluid (25mL/kg) Lives alone and eats for 1 - makes her own meals but relies on senior meals for lunches 3 days per week which she will eat half of at lunch and bring the leftovers home for dinner. Breakfast is not consistent - usually wake by 4am but not eating until later morning/early afternoon. Estimated protein intake most days of <60grams. Nutrition Dx: inadequate protein intake most days related to inconsistent meals and stretching her lunch 3 days per week into a dinner meal as well, as eviden stephanie by info gathered in interview today. Intervention: higher protein ONS offered at meals currently and pt given education on importance of meeting protein needs. Monitoring: will monitor intake, toleration/acceptance of ONS, glucose/nutrition-related labs, weight Time Spent in Nutritional Counseling and Treatment: 10 min
--- NOTE | 2024-11-11 15:15 | PDOC.HHF2F_ITS ---
Home Health Referral Home Health Orders Clinical synopsis of why skilled professionals are needed: 88 yo F with history of well controlled type 2 DM, HTN, CKD 3, and peripheral vertigo who presented with acute chest discomfort and shortness of breath that started the night before admission. ED evaluation was significant for BNaP of 2871 and new ventricular ectopy with bigeminy. Troponins were negative. CTA was negative for PE. CT did show incidental 4mm nodule, and a small infiltrate vs atelectasis in the RLL, but she had no symptoms of infection. She was treated with 100mg IV furosemide in the ED and diuresed well and felt better by later in the day of admission. Her creatinine was at baseline of 1.3 on admission and did go up to 1.7 after diuresis overnight so IV diuresis was stopped. Echocardiogram showed normal LVEF with MV E/E' of 12.26, in the intermediate range. It was felt she liekly had HFpEF. She was started on empagliflozin 10mg. After a discussion, her atenolol was replaced with spironolactone for blood pressure control with possible benefit in HFpEF. It was recommended she stop her daily potassium with this change. Educaiton on CHF done including meeting with cardiac clinical rehabilitation coordinator. PT evaluation was done and recommended home health PT along with RN for monitoring. TSH was slightly elevated, but FT4 was normal, so no change was made. Resumption of beta cindi could be considered on follow up for the atrial ectopy, but metoprolol succinate would be preferred to atenolol. Registered Nurse: Check all that apply Instruct on new or changed medication(s)/assess compliance: Ordered Assess for exacerbation of medical condition, instruct patient/caregivers on signs and symptoms to report for early detection: Ordered Physical Therapist: Check all that apply Increase strength & endurance for safe mobility at home: Ordered To design/establish home maintenance program: Ordered Fall reduction therapy program for patient with history of frequent falls: Ordered Home safety evaluation and teaching/gait training including stair management (if applicable): Ordered Other: BPPV Occupational Therapist: Evaluate and treat for patient unable to perform ADL/IADL/self-care: Ordered Home Bound Status Requires the aid of supportive device (check all that apply): Walker Describe why leaving home would require a considerable and taxing effort: Requires frequent rest periods Encounter Date and Reason: I certify that a FTF encounter for this patient was performed on November 11, 2024 and that such encounter was related to the primary reason the patient requires home health services. The encounter was conducted in the following manner: * By me as the certifying physician, RELOCATION COMMISSIONER, PA or * By an inpatient physician, RELOCATION COMMISSIONER or PA during an inpatient stay who communicated findings to me, Certification And Authentication I certify that I composed the above information based on my clinical judgment relating to this patient's medical condition and, if applicable, clinical findings communicated to me by the NPP or inpatient physician who performed the FTF encounter. Name of Provider that will be monitoring home health services: Allie Rodrigues
--- NOTE | 2024-11-11 15:19 | W.PM.DS.N ---
Date of service: 11/11/24 Time of Service: 15:20 DS: Diagnosis Discharge Diagnosis (1) Heart failure: Status: Acute (2) Ventricular bigeminy: Status: Acute (3) Diabetes mellitus: Status: Chronic (4) CKD (chronic kidney disease) stage 3, GFR 30-59 ml/min: Status: Chronic (5) DVT prophylaxis: Status: Acute Discharge Plan Disposition Patient Disposition: Home W/Home Health Services Condition: Stable Discharge Details Reason For Visit: CHF Admit Date/Time: 11/10/24 10:26 Admit Provider: Shravan Kee Attending Provider: Shravan Kee Primary Care Provider: [facility] Hospital Course Hospital Course: 88 yo F with history of well controlled type 2 DM, HTN, CKD 3, and peripheral vertigo who presented with acute chest discomfort and shortness of breath that started the night before admission. ED evaluation was significant for BNaP of 2871 and new ventricular ectopy with bigeminy. Troponins were negative. CTA was negative for PE. CT did show incidental 4mm nodule, and a small infiltrate vs atelectasis in the RLL, but she had no symptoms of infection. She was treated with 100mg IV furosemide in the ED and diuresed well and felt better by later in the day of admission. Her creatinine was at baseline of 1.3 on admission and did go up to 1.7 after diuresis overnight so IV diuresis was stopped. Echocardiogram showed normal LVEF with MV E/E' of 12.26, in the intermediate range. It was felt she liekly had HFpEF. She was started on empagliflozin 10mg. After a discussion, her atenolol was replaced with spironolactone for blood pressure control with possible benefit in HFpEF. It was recommended she stop her daily potassium with this change. Educaiton on CHF done including meeting with cardiac rehabilitation construction specialist. PT evaluation was done and recommended home health PT along with RN for monitoring. TSH was slightly elevated, but FT4 was normal, so no change was made. Resumption of beta cindi could be considered on follow up for the atrial ectopy, but metoprolol succinate would be preferred to atenolol. Recommendations for Follow Up Recommended tests to be ordered by follow up provider: BMP in 5 days, f/u PCP 1 week Home Meds and New Rx's Prescriptions: New Jardiance 10 mg Tablet 10 mg PO QAM Qty: 90 1RF spironolactone 25 mg tablet 25 mg PO DAILY Qty: 30 1RF Continued (DME) lancets [Med-TekTouch UltraSoft Lancets] Misc 1 ea Miscellaneous DAILY Qty: 90 3RF Rx Instructions: Daily magnesium oxide 400 mg (241.3 mg magnesium) tablet 400 mg PO DAILY triamcinolone acetonide 0.1 % cream 1 applic topical BID Qty: 80 2RF Rx Instructions: Apply to arms, abdomen and neck for pruritic rash twice a day until mostly resolved. Stop after two weeks. (DME) blood-glucose meter [Ramamiauch Verio Meter] 1 EACH misc Miscellaneous DAILY Qty: 1 cholecalciferol (vitamin D3) 5,000 UNIT capsule 5,000 unit PO DAILY (DME) Med-TekTouch Verio test strips Strip 1 ea Miscellaneous DAILY Qty: 90 3RF Rx Instructions: daily lisinopril 30 mg tablet 30 mg PO DAILY Qty: 90 3RF loratadine 10 mg capsule 10 mg PO DAILY Qty: 60 0RF Rx Instructions: can increase to twice daily if needed. hydrochlorothiazide 25 mg tablet 25 mg PO DAILY Qty: 90 4RF acetaminophen 500 mg tablet 1,000 mg PO Q8H PRN Qty: 90 0RF Rx Instructions: Take two tablets up to every 8 hours as needed for pain Changed meclizine 12.5 mg tablet 12.5 mg PO BID PRN (Reason: Vertigo) Qty: 30 0RF scopolamine base 1 mg over 3 days patch 3 day 1 mg transdermal Q72H PRN (Reason: Vertigo) Qty: 4 0RF Patient Comments: under right ear Held metformin 500 mg tablet 1,000 mg PO BID Qty: 360 3RF Hold Instructions: Resume on 11/19/24. don't resume until labs confirm kidney function okay Discontinued potassium citrate 5 mEq (540 mg) tablet extended release 5 meq PO DAILY Qty: 90 3RF atenolol 50 mg tablet 50 mg PO DAILY Qty: 90 4RF No Action omega 5-muq-ojm-fish oil 1 EACH capsule 1 ea PO DAILY Discharge Instructions Instructions: Heart Failure, Adult (DC) Additional Instructions: You have a new medication empagliflozin (Jardiance). This helps the heart and the kidneys work better, and also can lower blood sugar some. We changed one of your blood pressure medications, atenolol, to spironolactone. This medication helps with fluid and increases your potassium, so you shouldn't need to take additional potassium every day. You should stop the potassium for now. You should only take the vertigo medications including the patch if you have symptoms. These can have side effects including to your heart. You should monitor your weight daily. Call the office if your weight goes up by more than 3 pounds in a day or 5 lbs in a week, or if your swelling or breathing gets worse. Don't take the metformin until you see your regular doctor and have the labs done. Stand Alone Forms: Nursing Discharge Form Referrals: Allie Rodrigues NP [Primary Care Provider, Medicine] Referral Note: Please call your PCP office to set up a follow up appointment for within 1 to 2 weeks. Activity:: Activity as Tolerated Equipment/Supplies:: No Equipment Needed Diet:: Carb Counting Discharge Orders Discharge Orders: Discharge Order (Routine); Ordered 11/11/24 Ordered By: Shravan Kee DS: Summary Time Spent with Patient providing and/or coordinating discharge services: Greater than 30 minutes Status at Discharge Functional status at discharge: uses cane/walker Overall status at discharge: patient is back to baseline Mental Status: mental status grossly normal Speech and Movement: speech and movement normal Mood: congruent mood Affect: normal affect Exam Narrative Exam Narrative: GEN: Alert and oriented x 4, pleasant and cooperative, gives linear history. No acute distress at rest. HEENT: No overt JVP LUNGS: Normal effort, CTAB. CV: Regular, bigeminy, with no murmurs, gallops, or rubs. ABD: active bowel sounds, soft, nontender and nondistended. No masses. EXT: no cyanosis, clubbing. trace pitting edema in kadeem ankles Psych Mental Status: mental status grossly normal Speech and Movement: speech and movement normal Mood: congruent mood Affect: normal affect DS: Data Vitals/I&O Vitals and I&O: Vital Signs Temperature 36.1 C L 11/11/24 11:13 Temperature Source Temporal Artery Scan 11/11/24 11:13 Pulse 42 L 11/11/24 11:13 Pulse 80 11/10/24 11:30 Respiratory Rate 16 11/11/24 11:13 Respiratory Effort Normal, Non-Labored 11/10/24 12:14 Respiratory Depth Normal 11/10/24 12:14 Respiratory Pattern Normal 11/10/24 12:14 Blood Pressure 121/67 11/11/24 11:13 Blood Pressure Mean 85 11/11/24 11:13 Blood Pressure Position Sitting 11/10/24 06:50 Pulse Oximetry 93 11/11/24 11:13 Oxygen Delivery Method Room Air 11/11/24 11:13 Oxygen Flow Rate 0 11/11/24 11:13 Pain Level 8 11/11/24 03:56 Comment said they've have 3-4 Noah horses this morning 11/11/24 07:31 Intake & Output 11/10/24 11/11/24 11/11/24 23:59 11:59 23:59 Intake Total 220 / 220 Output Total 2800 / 2800 800 / 800 Balance -2580 / -2580 -800 / -800 Weight 73.6 kg 70.7 kg Intake: Oral 220 / 220 Output: Urine 2800 / 2800 800 / 800 Other: Urine Color Pale Yellow Yellow Urine Appearance Clear Clear Urine Odor Normal Normal Stool Size Moderate Stool Characteristics Soft Data Completed and Pending Labs on day of discharge: Labs from last 24 hours 11/11/24 06:10 Sodium 140 Potassium 3.3 L Chloride 100 Carbon Dioxide 30.8 Anion Gap 9.2 BUN 35 H Creatinine 1.7 H Est GFR (CKD-EPI 2020) 28.84 Glucose 133 H Calcium 10.2 H Magnesium 1.9 TSH 4.04 H Free T4 1.22 PFSH All Active Problems (Updated 11/10/24 @ 17:28 by Shrvaan Kee) Ventricular bigeminy (Acute) DVT prophylaxis (Acute) Heart failure (Acute) Peripheral vertigo (Acute) Urticaria (Acute) Right lower lobe pneumonia (Acute) 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) Postoperative nausea and vomiting (Acute) Onychomycosis (Acute) Edema (Acute) Venous (peripheral) insufficiency (Acute) Toe pain, right (Acute) Toe pain, left (Acute) Type 2 diabetes mellitus with diabetic polyneuropathy (Chronic) Neuropathy (Acute) Nail dystrophy (Acute) CKD (chronic kidney disease) stage 3, GFR 30-59 ml/min (Chronic) Balance problem (Acute) Essential hypertension (Chronic) 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 Daughter No problems noted. Social History (Updated 11/10/24 @ 17:39 by Shravan Kee) Smoking/Tobacco Use Status: Never Second Hand Exposure: Yes Smoking risk assessment performed?: Yes Alcohol Intake: never Drug use: Never Substance use type: does not use Adopted: No Caregiver/Support person: No Household members: none Housing: house Number of Children: 5 number of grandchildren: 12 Communication Needs: Hard of Hearing Do you need help understanding health information?: Never Pets and animals: No Sexually active: No Do you think of yourself as: straight/heterosexual Current gender identity: female What is your relationship status?: How often do you talk on the phone with friends or family?: three or more times per week How often do you get together with friends or relatives?: three or more times per week How often do you attend evangelical or confucianist services?: decline to answer Do you belong to any clubs or organized social groups?: no Panel score (0-1 are the most socially isolated patients): 1 What type of physical activity do you participate in: none Frequency: decline to answer Sue/Yazdanism: Jain Special sue needs: No Seatbelt use: always Drive intox or ride w/intox school bus driver: No Working smoke detector in home: Yes Carbon monox detector in home: Yes Firearms in home: No Do you feel safe at home: Yes Do you feel safe in your relationship?: Yes Victim of physical abuse: No Victim of emotional abuse: No Victim of sexual abuse: No Would you like helpful sources: No Additional Social history: Lives alone in [place]. Daughter is close Time Spent with Patient Time Spent with Patient: <45 minutes Time was spent: preparing to see the patient(eg.review tests), obtaining and/or reviewing separately otained hiistory, ordering medications,tests, procedures, referring, communicating with other health acute care occupational therapist, indepentently interpreting results, counseling the patient and care coordination
[2024-11-11 15:35] VITALS: BP 101/89; PULSE 40; RESP 16; TEMP 35.9; O2SAT 97
--- NOTE | 2024-11-11 15:46 | PDOC.CMDIS ---
Date of service: 11/11/24 Time of Service: 15:46 LACE Index Scoring Tool Questions: Length of Stay (in days): 1 Was the patient admitted via the E.D.?: Yes Comorbidities: PVD, Diabetes w/o Complication, Congestive Heart Failure and Liver or Renal Disease E.D. Visits: 4 Answers: Total Score: 13 Risk of Readmission: High Risk Care Management Discharge Plan Reason for Hospitalization: CHF Discharge Plan: Karine will be discharged home with new home health services for PT and RN. She will follow up with her community providers and plan of care and will transport with her daughter. Patient/Family Education Needs: Review of discharge instructions, limitations, follow up plan and discuss Ask Me Three. Services Needed at Discharge: Home Health Care Services
== END 2024-11-11 17:38 | disposition home health service (06) | DRG 291 ==
LOC: ER 10:19 → MS 11:36
PROVIDERS: Admitting Provider Family Medicine; Emergency Provider General Practice; PCP Nurse Practitioner Family; Responsible Provider Family Medicine; Visit Provider Family Medicine
DX: I13.0 Hypertensive heart and chronic kidney disease with heart failure and stage 1 through stage 4 chronic kidney disease, or unspecified chronic kidney disease (principal); N18.32 Chronic kidney disease, stage 3b; I50.33 Acute on chronic diastolic (congestive) heart failure; E11.22 Type 2 diabetes mellitus with diabetic chronic kidney disease; R00.8 Other abnormalities of heart beat; H81.399 Other peripheral vertigo, unspecified ear; I65.02 Occlusion and stenosis of left vertebral artery; B35.1 Tinea unguium; I87.2 Venous insufficiency (chronic) (peripheral); E11.42 Type 2 diabetes mellitus with diabetic polyneuropathy; M17.11 Unilateral primary osteoarthritis, right knee; Z79.84 Long term (current) use of oral hypoglycemic drugs
CPT/HCPCS: 00123; 36415; 71275; 80048; 80053; 93005; 93306; 93308; 96374; 97162; 97530; 99285; J1650; 71045; 81003; 83735; 83880; 84439; 84443; 84484; 85025; 85610; 85730; 93010; 99222; 99238; J1815; J1938; J3490

== ENCOUNTER 2024-11-16 17:57 | Outpatient (REF) | payer MEDICARE, OTHER, SELFPAY ==
[2024-11-16 17:22] LABS: Anion Gap 6.5 mmol/L (3-11); BUN 49 mg/dL (7-18); CO2 31.5 mmol/L (21.0-32.0); Calcium 9.8 mg/dL (8.5-10.1); Chloride 96 mmol/L (98-107); Estimated GFR 19.07 (mL/min/1.73m2); Glucose 138 mg/dL (74-106); Potassium 4.2 mmol/L (3.5-5.1); Sodium 134 mmol/L (136-145)
== END 2024-11-16 17:58 | disposition home or self-care (01) ==
LOC: LBN 17:57
PROVIDERS: PCP Nurse Practitioner Family; Visit Provider Nurse Practitioner Family
DX: I50.9 Heart failure, unspecified (principal); I49.8 Other specified cardiac arrhythmias
CPT/HCPCS: 80048

== ENCOUNTER 2024-11-19 16:33 | Inpatient (IN) | payer MEDICARE, OTHER, SELFPAY ==
[2024-11-19] VITALS (41 sets, daily range): BP systolic 112–165; BP diastolic 63–110; PULSE 68–136; RESP 15–33; TEMP 36.2–37; O2SAT 92–100
--- NOTE | 2024-11-19 16:30 | RT.EKG_ITS ---
APPROVED REPORT Exam: Resting ECG Reason for Exam: weakness Patient Location: E HR:124 bpm ECG Measurements Heart Rate 124 AXIS MA [id number] P [id number] QRSd 78 QRS -2 QT 276 T 198 QTc 397 Conclusion Atrial fibrillation...? atrial activity Repolarization abnormality, prob rate related...ST dep, T neg, tachycardia no ST segment or T wave abnormalities to suggest occluisve [place]
[2024-11-19 17:01] LABS: Abs Immature Grans 0.03 10^3/uL (0.0-0.06); HCT 43.6 % (36.0-46.0); HGB 14.1 g/dL (11.2-15.7); Immature Grans % 0.3 %; MCH 27.8 pg (27.0-33.0); MCHC 32.3 % (32.0-36.0); MCV 86 fL (80-95); MPV 9.6 fL (8.0-11.0); Platelet Count 390 10^3/uL (130-400); RBC 5.07 10^6/uL (3.93-5.22); RDW 13.8 % (11.7-14.6); RDW-SD 43.2 fL; WBC 9.91 10^3/uL (4.4-10.8)
[2024-11-19 17:31] LABS: ALT 19 U/L (14-59); AST 16 U/L (15-37); Albumin 3.6 g/dL (3.4-5.0); Alkaline Phosphatase 65 U/L (46-116); Anion Gap 11.8 mmol/L (3-11); BUN 42 mg/dL (7-18); Bilirubin, Total 0.4 mg/dL (0.2-1.0); CO2 26.2 mmol/L (21.0-32.0); Calcium 9.7 mg/dL (8.5-10.1); Chloride 98 mmol/L (98-107); Estimated GFR 23.73 (mL/min/1.73m2); Glucose 155 mg/dL (74-106); Lipase 74 U/L (<78); Magnesium 2.5 mg/dL (1.8-2.4); Potassium 4.6 mmol/L (3.5-5.1); Sodium 136 mmol/L (136-145); TSH (W/Ref FT4) 4.33 uIU/mL (0.36-3.74); Total Protein 7.8 g/dL (6.4-8.2); Troponin I 8 ng/L (<or=51)
[2024-11-19] MEDS: Normal Saline Flush 10 ML SYR IVP (17:45)
[2024-11-19] MEDS: Omnipaque 350 MG/ML 100 ML BTL IJ (17:46)
[2024-11-19] MEDS: Normal Saline - Diluent 50 ML VIAL IJ (17:46)
[2024-11-19 18:01] LABS: NT-proBNP 4767 pg/mL (<300)
[2024-11-19] MEDS: dilTIAZem 25 MG/5 ML VIAL 15 MG IVP (18:06)
[2024-11-19 18:27] LABS: D-Dimer 1323 ng/mlFEU (<500)
--- NOTE | 2024-11-19 19:26 | W.ED.GENAD ---
Discharge Plan Disposition Patient Disposition: Admit to [facility] Condition: Stable Discharge Details Clinical Impression: Atrial fibrillation with rapid ventricular response Primary Care Provider: Allie Rodrigues ED Provider: Frandy Moncada Home Meds and New Rx's Prescriptions: No Action (DME) lancets [OneTouch UltraSoft Lancets] Misc 1 ea Miscellaneous DAILY Qty: 90 3RF Rx Instructions: Daily magnesium oxide 400 mg (241.3 mg magnesium) tablet 400 mg PO DAILY triamcinolone acetonide 0.1 % cream 1 applic topical BID Qty: 80 2RF Rx Instructions: Apply to arms, abdomen and neck for pruritic rash twice a day until mostly resolved. Stop after two weeks. loratadine 10 mg capsule 10 mg PO DAILY Qty: 60 0RF Rx Instructions: can increase to twice daily if needed. (DME) blood-glucose meter [[employer]Touch Verio Meter] 1 EACH misc Miscellaneous DAILY Qty: 1 cholecalciferol (vitamin D3) 5,000 UNIT capsule 5,000 unit PO DAILY omega 5-ocx-alu-fish oil 1 EACH capsule 1 ea PO DAILY (DME) OneTouch Verio test strips Strip 1 ea Miscellaneous DAILY Qty: 90 3RF Rx Instructions: daily lisinopril 30 mg tablet 30 mg PO DAILY Qty: 90 3RF hydrochlorothiazide 25 mg tablet 25 mg PO DAILY Qty: 90 4RF Jardiance 10 mg Tablet 10 mg PO QAM Qty: 90 1RF spironolactone 25 mg tablet 25 mg PO DAILY Qty: 30 1RF meclizine 12.5 mg tablet 12.5 mg PO BID PRN (Reason: Vertigo) Qty: 30 0RF scopolamine base 1 mg over 3 days patch 3 day 1 mg transdermal Q72H PRN (Reason: Vertigo) Qty: 4 0RF Patient Comments: under right ear acetaminophen 500 mg tablet 1,000 mg PO Q8H PRN Qty: 90 0RF Rx Instructions: Take two tablets up to every 8 hours as needed for pain HPI General Date/Time Provider Initiated Documentation: 11/19/24 16:43. HPI Narrative: 88 year-old female presents to ED today by EMS with a chief complaint of weakness, fatigue, shortness of breath, dizziness with onset around 0630 this morning. Quality described as profund fatigue, near syncope, no radiation to crushing chest pain, sweating, fever, nausea/vomiting. Severity is described as severe for fatigue. Palliating factors include nothing specific attempted. Provoking factors include nothing specific. Events leading up to the incident/Associated Symptoms: Patient had a recent admission with discharge from [facility] on 11/11 for congestive heart failure. Patient not anticoagulated. Related Data Home Medications ?Medication ?Instructions ?Recorded ?Confirmed blood-glucose meter (OneTouch ##1 10/03/16 11/19/24 Verio Meter) cholecalciferol (vitamin D3) 125 5,000 unit PO DAILY 06/03/17 11/19/24 mcg (5,000 unit) capsule omega 1-zbk-rgm-fish oil 500 mg 1 ea PO DAILY 06/03/17 11/19/24 (200mg-300mg)-1,000 mg capsule lancets ([employer]Touch UltraSoft #90 ea 12/11/19 11/19/24 Lancets) magnesium oxide 400 mg (241.3 mg 400 mg PO DAILY 06/16/20 11/19/24 magnesium) tablet acetaminophen 500 mg tablet 1,000 mg (2 x 500 mg) PO Q8H PRN 04/09/23 11/19/24 pain #90 tabs blood sugar diagnostic (OneTouch #90 strips 04/12/23 11/19/24 Verio test strips) lisinopril 30 mg tablet 30 mg PO DAILY #90 tabs 01/20/24 11/19/24 hydrochlorothiazide 25 mg tablet 25 mg PO DAILY #90 tab-caps 10/30/24 11/19/24 empagliflozin 10 mg tablet 10 mg PO QAM #90 tabs 11/11/24 11/19/24 (Jardiance) meclizine 12.5 mg tablet 12.5 mg PO BID PRN Vertigo #30 tabs 11/11/24 11/19/24 scopolamine base 1 mg over 3 days 1 mg transdermal Q72H PRN Vertigo 11/11/24 11/19/24 transdermal patch #4 ea spironolactone 25 mg tablet 25 mg PO DAILY #30 tabs 11/11/24 11/19/24 loratadine 10 mg capsule 10 mg PO DAILY #60 caps 11/17/24 11/19/24 triamcinolone acetonide 0.1 % 1 applic topical BID Pruritis #80 11/17/24 11/19/24 topical cream grams Previous Rx's ?Medication ?Instructions ?Recorded lancets (OneTouch UltraSoft #90 ea 12/11/19 Lancets) acetaminophen 500 mg tablet 1,000 mg (2 x 500 mg) PO Q8H PRN 04/09/23 pain #90 tabs blood sugar diagnostic (OneTouch #90 strips 04/12/23 Verio test strips) lisinopril 30 mg tablet 30 mg PO DAILY #90 tabs 01/20/24 hydrochlorothiazide 25 mg tablet 25 mg PO DAILY #90 tab-caps 10/30/24 empagliflozin 10 mg tablet 10 mg PO QAM #90 tabs 11/11/24 (Jardiance) meclizine 12.5 mg tablet 12.5 mg PO BID PRN Vertigo #30 tabs 11/11/24 scopolamine base 1 mg over 3 days 1 mg transdermal Q72H PRN Vertigo 11/11/24 transdermal patch #4 ea spironolactone 25 mg tablet 25 mg PO DAILY #30 tabs 11/11/24 loratadine 10 mg capsule 10 mg PO DAILY #60 caps 11/17/24 triamcinolone acetonide 0.1 % 1 applic topical BID Pruritis #80 11/17/24 topical cream grams Allergies Allergy/AdvReac Type Severity Reaction Status Date / Time No Known Allergies Allergy Verified 11/19/24 15:23 General Stated Complaint: Dizzy/Sync ELSA: 3 Review of Systems All systems reviewed & are unremarkable except as noted in HPI and below Exam Narrative Exam Narrative: GENERAL APPEARANCE: Well-nourished, non-toxic, awake and alert, atraumatic, moderate acute distress. SKIN: Warm, pale, dry, intact, without rashes/lesions/ulcerations. HEAD: Normocephalic, atraumatic, normal hair distribution for gender/age. EYES: Normal conjunctiva, no exudates on lids/lashes. ENT: Nares patent, no circumoral cyanosis, no facial swelling NECK: Supple, trachea midline, painless cervical ROM. LUNGS/CHEST: Lungs CTA bilaterally-fine rales at bases, non-labored respirations, normal A/P diameter, symmetrical expansion, no chest wall deformity HEART (CV/PV): irregular rate and rhythm, tachycardic without murmur, no peripheral edema, no JVD. ABDOMEN: Soft, non-distended, no guarding, no tenderness MSK: Normal ROM, no swelling/deformity to bilateral UEs or LEs, moving all extremities without weakness, no cyanosis, spine midline without tenderness, normal curvature. NEURO: Mental Status AAOx4 - alert to person, place, time, events No facial droop, no forehead involvement. Motor: No focal weakness - strength 5/5 in bilateral UEs and LEs, proximal and distal, symmetric. Sensory: sensation intact to light touch globally. Gait NT. PSYCH: euthymic, cooperative, pleasant, appropriate speech Course Vital Signs Vital signs: Vital Signs Temperature 36.2 C L 11/19/24 16:38 Pulse 120 H 11/19/24 16:38 Respiratory Rate 18 11/19/24 16:38 Blood Pressure 120/73 11/19/24 16:38 Pulse Oximetry 98 11/19/24 16:38 Temperature 36.2 C L 11/19/24 16:38 Pulse 89 11/19/24 19:15 Pulse 86 11/19/24 19:15 Respiratory Rate 21 11/19/24 19:15 Respiratory Effort Normal, Non-Labored 11/19/24 18:53 Blood Pressure 135/110 H 11/19/24 19:15 Blood Pressure Mean 116 11/19/24 19:15 Pulse Oximetry 97 11/19/24 19:15 Oxygen Delivery Method Room Air 11/19/24 16:38 Oxygen Flow Rate 0 11/19/24 16:38 Lab/Test Results Lab/Test Results: Laboratory Tests Range/Units 11/19/24 16:55 WBC (4.4-10.8) 10^3/uL 9.91 RBC (3.93-5.22) 10^6/uL 5.07 Hgb (11.2-15.7) g/dL 14.1 Hct (36.0-46.0) % 43.6 MCV (80-95) fL 86 MCH (27.0-33.0) pg 27.8 MCHC (32.0-36.0) % 32.3 RDW (11.7-14.6) % 13.8 Plt Count (130-400) 10^3/uL 390 MPV (8.0-11.0) fL 9.6 Immature Gran % % 0.3 Neutrophils % % 62.6 Lymphocytes % % 23.6 Monocytes % % 6.3 Eosinophils % % 6.5 Basophils % % 0.7 Nucleated RBC % (0.0-0.3) % 0.0 Absolute Neutrophils (1.2-6.7) 10^3/uL 6.21 Absolute Lymphocytes (1.2-3.4) 10^3/uL 2.34 Absolute Monocytes (0.1-0.8) 10^3/uL 0.62 Absolute Eosinophils (0.0-0.7) 10^3/uL 0.64 Absolute Basophils (0.0-0.2) 10^3/uL 0.07 D-Dimer (<500) ng/mlFEU 1323 H VBG Lactate (<or=2.0) mmol/L 1.9 Sodium (136-145) mmol/L 136 Potassium (3.5-5.1) mmol/L 4.6 Chloride (98-107) mmol/L 98 Carbon Dioxide (21.0-32.0) mmol/L 26.2 Anion Gap (3-11) mmol/L 11.8 H BUN (7-18) mg/dL 42 H Creatinine (0.55-1.02) mg/dL 2.0 H Est GFR (CKD-EPI 2020) (mL/min/1.73m2) 23.73 Glucose (74-106) mg/dL 155 H Calcium (8.5-10.1) mg/dL 9.7 Magnesium (1.8-2.4) mg/dL 2.5 H Total Bilirubin (0.2-1.0) mg/dL 0.4 AST (15-37) U/L 16 ALT (14-59) U/L 19 Alkaline Phosphatase (46-116) U/L 65 Troponin I (<or=51) ng/L 8 NT-Pro-B Natriuret Pep (<300) pg/mL 4767 H Total Protein (6.4-8.2) g/dL 7.8 Albumin (3.4-5.0) g/dL 3.6 Lipase (<78) U/L 74 TSH (0.36-3.74) uIU/mL 4.33 H Free T4 (0.76-1.46) ng/dL 1.03 Medical Decision Making This dictation utilizes [id number] dictation software and may contain unedited grammatical errors. 88 year-old female presents to ED today by EMS with a chief complaint of weakness, fatigue, shortness of breath, dizziness with onset around 0630 this morning. Quality described as profund fatigue, near syncope, no radiation to crushing chest pain, sweating, fever, nausea/vomiting. Severity is described as severe for fatigue. Palliating factors include nothing specific attempted. Provoking factors include nothing specific. Events leading up to the incident/Associated Symptoms: Patient had a recent admission with discharge from [facility] on 11/11 for congestive heart failure. Patients' medical history: Vertigo, heart failure, edema, CKD, hypertension, diabetes mellitus. Family and social history: Noncontributory. Pertinent exam findings / vital signs include no pitting edema in lower extremities, question mild fine rales at bases, neuro intact, tachycardic and irregular. Differential / pathologies of concern include A-fib with RVR, congestive heart failure, ACS, PE. Diagnostic studies of: - CBC, CMP, lactate, D-dimer, troponin, BNP, lipase, TSH, EKG, CTA chest with contrast PE study. - CBC shows no leukocytosis or other abnormality - CMP shows no actionable abnormality has slightly increased creatinine from baseline 1.3-2.0 - Magnesium 2.5 likely in the setting of mild dehydration consistent with her HERNANDEZ - Lipase within normal limits - D-dimer is 1300 - TSH elevated with a normal T4 - EKG shows A-fib with rapid ventricular response - CTA chest PE study shows no PE Interventions of: - 15 mg IVP diltiazem with good response and prolonged control spending most of her time between 100 bpm and 115 bpm, consulted with hospitalist Dr. Cisse who accepted for admission at 2215 as the patient likely needs careful consideration of whether to start anticoagulation, possible need for updated echo or stress, and slow fluids to rehydrate her mild HERNANDEZ. Findings not consistent with ACS, PE. Disposition of Atrial Fibrillation with Rapid Ventricular Response. Patient verbalized understanding of the plan and return to ED criteria and engaged in shared decision making. Medical Records Medical records reviewed: Yes I reviewed the patient's medical records. Imaging Data Radiologic Study: Attestation: I personally reviewed and interpreted this imaging study as follows: Imaging: CT Scan Radiologist's impression: Exam: CTA Chest With Contrast Exam date and time: 11/19/2024 7:25 PM Age: 88 years old Clinical indication: Shortness of breath and other: New a fib, tachy; New a fib, SOB, tachy TECHNIQUE: Imaging protocol: Computed tomographic angiography of the chest with contrast. Exam focused on the arteries. 3D rendering (Not supervised by radiologist): MIP and/or 3D reconstructed images were created by the technologist. Radiation optimization: All CT scans at this facility use at least one of these dose optimization techniques: automated exposure control; mA and/or kV adjustment per patient size (includes targeted exams where dose is matched to clinical indication); or iterative reconstruction. Contrast material: [id number]; Contrast volume: 70 ml; Contrast route: INTRAVENOUS (IV); COMPARISON: CT CHEST PE CTA 11/10/2024 8:33 AM FINDINGS: Pulmonary arteries: Normal. No pulmonary emboli. Aorta: Unremarkable. No aortic aneurysm. No aortic dissection. Lungs: Bilateral lower lobe subsegmental atelectatic changes. Pleural spaces: Unremarkable. No pneumothorax. No pleural effusion. Heart: Unremarkable. No cardiomegaly. No pericardial effusion. Lymph nodes: Unremarkable. No enlarged lymph nodes. Bones/joints: Unremarkable. No acute fracture. Soft tissues: Unremarkable. IMPRESSION: Normal CTA examination of the chest. There is no evidence for pulmonary embolism. Dictated and Authenticated by: Rocco Kim MD. Lab Data Lab results reviewed: Yes I reviewed the patient's lab results. Labs: Laboratory Tests Range/Units 11/19/24 16:55 WBC (4.4-10.8) 10^3/uL 9.91 RBC (3.93-5.22) 10^6/uL 5.07 Hgb (11.2-15.7) g/dL 14.1 Hct (36.0-46.0) % 43.6 MCV (80-95) fL 86 MCH (27.0-33.0) pg 27.8 MCHC (32.0-36.0) % 32.3 RDW (11.7-14.6) % 13.8 Plt Count (130-400) 10^3/uL 390 MPV (8.0-11.0) fL 9.6 Immature Gran % % 0.3 Neutrophils % % 62.6 Lymphocytes % % 23.6 Monocytes % % 6.3 Eosinophils % % 6.5 Basophils % % 0.7 Nucleated RBC % (0.0-0.3) % 0.0 Absolute Neutrophils (1.2-6.7) 10^3/uL 6.21 Absolute Lymphocytes (1.2-3.4) 10^3/uL 2.34 Absolute Monocytes (0.1-0.8) 10^3/uL 0.62 Absolute Eosinophils (0.0-0.7) 10^3/uL 0.64 Absolute Basophils (0.0-0.2) 10^3/uL 0.07 D-Dimer (<500) ng/mlFEU 1323 H VBG Lactate (<or=2.0) mmol/L 1.9 Sodium (136-145) mmol/L 136 Potassium (3.5-5.1) mmol/L 4.6 Chloride (98-107) mmol/L 98 Carbon Dioxide (21.0-32.0) mmol/L 26.2 Anion Gap (3-11) mmol/L 11.8 H BUN (7-18) mg/dL 42 H Creatinine (0.55-1.02) mg/dL 2.0 H Est GFR (CKD-EPI 2020) (mL/min/1.73m2) 23.73 Glucose (74-106) mg/dL 155 H Calcium (8.5-10.1) mg/dL 9.7 Magnesium (1.8-2.4) mg/dL 2.5 H Total Bilirubin (0.2-1.0) mg/dL 0.4 AST (15-37) U/L 16 ALT (14-59) U/L 19 Alkaline Phosphatase (46-116) U/L 65 Troponin I (<or=51) ng/L 8 NT-Pro-B Natriuret Pep (<300) pg/mL 4767 H Total Protein (6.4-8.2) g/dL 7.8 Albumin (3.4-5.0) g/dL 3.6 Lipase (<78) U/L 74 TSH (0.36-3.74) uIU/mL 4.33 H Free T4 (0.76-1.46) ng/dL 1.03 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) Postoperative nausea and vomiting (Acute) Onychomycosis (Acute) Edema (Acute) Venous (peripheral) insufficiency (Acute) Toe pain, right (Acute) Toe pain, left (Acute) Type 2 diabetes mellitus with diabetic polyneuropathy (Chronic) Neuropathy (Acute) Nail dystrophy (Acute) CKD (chronic kidney disease) stage 3, GFR 30-59 ml/min (Chronic) Balance problem (Acute) Essential hypertension (Chronic) 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 Daughter No problems noted. Social History (Updated 11/10/24 @ 17:39 by Shravan Kee) Smoking/Tobacco Use Status: Never Second Hand Exposure: Yes Smoking risk assessment performed?: Yes Alcohol Intake: never Drug use: Never Substance use type: does not use Adopted: No Caregiver/Support person: No Household members: none Housing: house Number of Children: 5 number of grandchildren: 12 Communication Needs: Hard of Hearing Do you need help understanding health information?: Never Pets and animals: No Sexually active: No Do you think of yourself as: straight/heterosexual Current gender identity: female What is your relationship status?: How often do you talk on the phone with friends or family?: three or more times per week How often do you get together with friends or relatives?: three or more times per week How often do you attend temple or baptist services?: decline to answer Do you belong to any clubs or organized social groups?: no Panel score (0-1 are the most socially isolated patients): 1 What type of physical activity do you participate in: none Frequency: decline to answer Sue/Baptist: Druze Special sue needs: No Seatbelt use: always Drive intox or ride w/intox driver/guide: No Working smoke detector in home: Yes Carbon monox detector in home: Yes Firearms in home: No Do you feel safe at home: Yes Do you feel safe in your relationship?: Yes Victim of physical abuse: No Victim of emotional abuse: No Victim of sexual abuse: No Would you like helpful sources: No Additional Social history: Lives alone in [place]. Daughter is close
--- NOTE | 2024-11-19 19:45 | DI.CT_ITS ---
Exam(s) CT CHEST PE CTA EXAM: CT CHEST PE CTA CLINICAL HISTORY: new a fib, SOB, tachy. TECHNIQUE: Imaging Protocol: Axial CT angiography was performed with multi- slice acquisition and multi-planar reconstructions as well as axial, coronal and sagittal MIP reconstructions. Computer aided detection (CAD) was utilized. CONTRAST MATERIAL: Intravenous: Omnipaque 350 Contrast volume:70 ml COMPARISON: CT CT CHEST PE CTA from 11/10/2024 FINDINGS: Pulmonary Arteries: No evidence of filling defect to suggest pulmonary emboli. Mediastinum and [place]: No dominant adenopathy or fluid collection. Pulmonary parenchyma: No consolidation or dominant measurable mass. 4 millimeter nodule in the lingula. Mild respiratory motion. Mild basilar atelectasis. Single solid noncalcified nodules. ???Solid nodules smaller than 6 mm (those 5 mm or smaller) do not require routine follow-up in patients at low risk (grade 1C; strong recommendation, low- or [id number] evidence). (Yolanda et al., 2017) Pleura: No effusion or pneumothorax. Heart: The heart is mildly dilated. Moderate coronary artery calcifications are seen. Aorta: Thoracic aorta non-dilated. No dissection. Atherosclerotic calcification. Upper abdomen: No acute findings. Cholecystectomy. Bones: Unremarkable for age. Tubes, Catheters, and Lines: None Soft tissues: Unremarkable. IMPRESSION: No evidence of pulmonary embolism or other acute abnormality. The preliminary [facility] report was reviewed. RADIATION DOSE DELIVERED: 115.02mGy.cm Total DLP DATA REPOSITORY: All CT scans at this facility are submitted to the National Radiology Data Registry (NRDR) Dose Index Registry (DIR) with the [employer] (ACR). RADIATION OPTIMIZATION: All CT scans at this facility use at least one of these dose optimization techniques: automated exposure control; mA and/or kV adjustment per patient size (includes targeted exams where dose is matched to clinical indication); or iterative reconstruction.
--- NOTE | 2024-11-19 20:56 | DI.[facility]_ITS ---
PROCEDURE INFORMATION: Exam: CTA Chest With Contrast Exam date and time: 11/19/2024 7:25 PM Age: 88 years old Clinical indication: Shortness of breath and other: New a fib, tachy; New a fib, SOB, tachy TECHNIQUE: Imaging protocol: Computed tomographic angiography of the chest with contrast. Exam focused on the arteries. 3D rendering (Not supervised by radiologist): MIP and/or 3D reconstructed images were created by the technologist. Radiation optimization: All CT scans at this facility use at least one of these dose optimization techniques: automated exposure control; mA and/or kV adjustment per patient size (includes targeted exams where dose is matched to clinical indication); or iterative reconstruction. Contrast material: [id number]; Contrast volume: 70 ml; Contrast route: INTRAVENOUS (IV); COMPARISON: CT CHEST PE CTA 11/10/2024 8:33 AM FINDINGS: Pulmonary arteries: Normal. No pulmonary emboli. Aorta: Unremarkable. No aortic aneurysm. No aortic dissection. Lungs: Bilateral lower lobe subsegmental atelectatic changes. Pleural spaces: Unremarkable. No pneumothorax. No pleural effusion. Heart: Unremarkable. No cardiomegaly. No pericardial effusion. Lymph nodes: Unremarkable. No enlarged lymph nodes. Bones/joints: Unremarkable. No acute fracture. Soft tissues: Unremarkable. IMPRESSION: Normal CTA examination of the chest. There is no evidence for pulmonary embolism. Dictated and Authenticated by: Rocco Kim MD. Orderin Coral Wise MD
--- NOTE | 2024-11-19 23:10 | HPE_ITS ---
Date of service: 11/19/24 Time of Service: 23:11 Assessment and Plan Assessment and plan (1) Atrial fibrillation with rapid ventricular response: Status: Acute Assessment and plan: Patient does have what appears to be atrial fibrillation paroxysmal. I will start her on Cardizem as well as Eliquis. Her CHADS2 score is 5 and there has been score is 2. Consider consult to cardiology in AM. She does have an elevated TS free T4 is within normal limits. (2) Heart failure: Status: Acute Assessment and plan: echo 11/10/24 Pt with HFpEF. Continue medical manage Conclusion Normal left ventricular wall thickness and chamber size. Ejection fraction is 60%. Wall motion is normal Normal right ventricular size and function Both atria are normal in size Aortic valve is trileaflet and mildly sclerotic with trace regurgitation Mild mitral annular calcification. Mild mitral regurgitation Estimated right ventricular systolic pressure is 22 mmHg Borderline dilated ascending aorta 3.42 cm (3) Ventricular bigeminy: Status: Acute Assessment and plan: resolved for now (4) Diabetes mellitus: Status: Chronic Assessment and plan: Well controlled with A1c 5.7%. Okay to add low dose SGLT2i to metformin as they dose cause low sugar. Holding metformin after CTA, ISS prn. (5) CKD (chronic kidney disease) stage 3, GFR 30-59 ml/min: Status: Chronic Assessment and plan: At baseline GFR adding SGLT2i as above (6) DVT prophylaxis: Status: Deleted Assessment and plan: started eliquis History of Present Illness History of Present Illness Chief Complaint: weakness Narrative: Ms Castaneda is a 88-year-old lady who presents today for significant weakness, fatigue, shortness of breath. Patient was actually seen by home health who contacted their medical observer who recommended she come to the ED for evaluation. While she was in the ED she was noted to have atrial fibrillation with RVR. Patient was given Cardizem in the ED with improvement at first but she then started having worsening tachycardia request was made to admit her for follow-up and further evaluation and treatment. Discussion with the daughters were in the room states that she has had about a week of worsening fatigue. They also state that she was to follow-up with Dr. Angelo our quartz miner. Patient's last admission was between 11/10/2024 and 11/11/2024. At that time she was admitted for congestive heart failure. The patient did have her beta- cindi stopped and replaced with spironolactone. At that time the patient was not having atrial fibrillation. In reviewing her old EKGs though she did have some ectopy. Review of today's EKG there does appear to be times when she does have P waves most likely she has paroxysmal atrial fibrillation Review of Systems All systems reviewed & are unremarkable except as noted in HPI and below 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) Postoperative nausea and vomiting (Acute) Onychomycosis (Acute) Edema (Acute) Venous (peripheral) insufficiency (Acute) Toe pain, right (Acute) Toe pain, left (Acute) Type 2 diabetes mellitus with diabetic polyneuropathy (Chronic) Neuropathy (Acute) Nail dystrophy (Acute) CKD (chronic kidney disease) stage 3, GFR 30-59 ml/min (Chronic) Balance problem (Acute) Essential hypertension (Chronic) 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 Daughter No problems noted. Social History (Updated 11/10/24 @ 17:39 by Shravan Kee) Smoking/Tobacco Use Status: Never Second Hand Exposure: Yes Smoking risk assessment performed?: Yes Alcohol Intake: never Drug use: Never Substance use type: does not use Adopted: No Caregiver/Support person: No Household members: none Housing: house Number of Children: 5 number of grandchildren: 12 Communication Needs: Hard of Hearing Do you need help understanding health information?: Never Pets and animals: No Sexually active: No Do you think of yourself as: straight/heterosexual Current gender identity: female What is your relationship status?: How often do you talk on the phone with friends or family?: three or more times per week How often do you get together with friends or relatives?: three or more times per week How often do you attend congregational or restoration services?: decline to answer Do you belong to any clubs or organized social groups?: no Panel score (0-1 are the most socially isolated patients): 1 What type of physical activity do you participate in: none Frequency: decline to answer Sue/Mandaeism: Roman Catholic Special sue needs: No Seatbelt use: always Drive intox or ride w/intox transfer driver: No Working smoke detector in home: Yes Carbon monox detector in home: Yes Firearms in home: No Do you feel safe at home: Yes Do you feel safe in your relationship?: Yes Victim of physical abuse: No Victim of emotional abuse: No Victim of sexual abuse: No Would you like helpful sources: No Additional Social history: Lives alone in [place]. Daughter is close Meds Allergies and Home Medications Allergies Allergy/AdvReac Type Severity Reaction Status Date / Time No Known Allergies Allergy Verified 11/19/24 15:23 Home Medications ?Medication ?Instructions ?Recorded ?Confirmed ?Type blood-glucose meter (OneTouch ##1 10/03/16 11/19/24 Hi story Verio Meter) cholecalciferol (vitamin D3) 125 5,000 unit PO DAILY 0 06/03/17 11/19/24 History mcg (5,000 unit) capsule omega 4-jjb-apt-fish oil 500 mg 1 ea PO DAILY 06/03/17 11/19/24 History (200mg-300mg)-1,000 mg capsule lancets (OneTouch UltraSoft #90 ea 12/11/19 11/19/24 R x Lancets) magnesium oxide 400 mg (241.3 mg 400 mg PO DAILY 06/1611/19/24 History magnesium) tablet acetaminophen 500 mg tablet 1,000 mg (2 x 500 mg) PO Q 8H PRN 04/09/23 11/19/24 Rx pain #90 tabs blood sugar diagnostic (OneTouch #90 strips 04/12/23 0 11/19/24 Rx Verio test strips) lisinopril 30 mg tablet 30 mg PO DAILY #90 tabs 11/0 07/0911/19/24 Rx hydrochlorothiazide 25 mg tablet 25 mg PO DAILY #90 ta b-caps 10/30/24 11/19/24 Rx empagliflozin 10 mg tablet 10 mg PO QAM #90 tabs 11/1111/19/24 Rx (Jardiance) meclizine 12.5 mg tablet 12.5 mg PO BID PRN Vertigo # 30 tabs 11/11/24 11/19/24 Rx scopolamine base 1 mg over 3 days 1 mg transdermal Q72 H PRN Vertigo 11/11/24 11/19/24 Rx transdermal patch #4 ea spironolactone 25 mg tablet 25 mg PO DAILY #30 tabs 11/19/24 Rx loratadine 10 mg capsule 10 mg PO DAILY #60 caps 05/1211/19/24 Rx triamcinolone acetonide 0.1 % 1 applic topical BID Pru ritis #80 11/17/24 11/19/24 Rx topical cream grams Exam Narrative Exam Narrative: HEENT-normocephalic atraumatic mucous membranes moist oropharynx clear intact Neck-no lymphadenopathy mild JVD is present Cardiovascular-irregularly irregular rhythm I do not appreciate any murmurs or gallops Lungs-clear to auscultation bilaterally with good air exchange Abdomen-soft nontender nondistended Extremities-no sinus clubbing or edema dorsalis pedis are palpable Neuro-nonfocal Psych-alert and oriented x 3 Results Labs 11/19/24 16:55 11/19/24 16:55 Labs: Laboratory Results - last 24 hr 11/19/24 16:55 WBC 9.91 RBC 5.07 Hgb 14.1 Hct 43.6 MCV 86 MCH 27.8 MCHC 32.3 RDW 13.8 Plt Count 390 MPV 9.6 Immature Gran % 0.3 Neutrophils % 62.6 Lymphocytes % 23.6 Monocytes % 6.3 Eosinophils % 6.5 Basophils % 0.7 Nucleated RBC % 0.0 Absolute Neutrophils 6.21 Absolute Lymphocytes 2.34 Absolute Monocytes 0.62 Absolute Eosinophils 0.64 Absolute Basophils 0.07 D-Dimer 1323 H VBG Lactate 1.9 Sodium 136 Potassium 4.6 Chloride 98 Carbon Dioxide 26.2 Anion Gap 11.8 H BUN 42 H Creatinine 2.0 H Est GFR (CKD-EPI 2020) 23.73 Glucose 155 H Calcium 9.7 Magnesium 2.5 H Total Bilirubin 0.4 AST 16 ALT 19 Alkaline Phosphatase 65 Troponin I 8 NT-Pro-B Natriuret Pep 4767 H Total Protein 7.8 Albumin 3.6 Lipase 74 TSH 4.33 H Free T4 1.03 Last Vital Signs Temp 37.0 C 11/19/24 20:50 Pulse 101 H 11/19/24 21:50 Resp 15 11/19/24 21:50 BP 133/83 11/19/24 21:46 Pulse Ox 96 11/19/24 21:50 Time Spent Time spent with Patient: <40 minutes Time was spent: preparing to see the patient(eg.review tests), obtaining and/or reviewing separately otained hiistory, ordering medications,tests, procedures, referring, communicating with other health animal caretaker, indepentently interpreting results, counseling the patient and care coordination
--- NOTE | 2024-11-20 00:04 | NUR.NOTE ---
PT started having rash. inpatient MD notified. Nursing Note:
[2024-11-20] MEDS: predniSONE 20 MG TAB 40 MG PO (00:09)
[2024-11-20] MEDS: diphenhydrAMINE 25 MG CAP PO (00:09)
[2024-11-20] MEDS: dilTIAZem 60 MG TAB PO ×3 (00:13→11:54)
[2024-11-20 00:59] VITALS: BP 128/108; PULSE 109; RESP 18; O2SAT 96
--- NOTE | 2024-11-20 01:06 | W.PC.ACHO ---
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) Hx laparoscopic cholecystectomy Hx of cataract extraction Most Recent Vital Signs Temperature 37.0 C 11/19/24 20:50 Pulse 101 H 11/19/24 21:50 Pulse 105 H 11/19/24 21:50 Respiratory Rate 15 11/19/24 21:50 Respiratory Effort Normal, Non-Labored 11/19/24 18:53 Blood Pressure 133/83 11/19/24 21:46 Blood Pressure Mean 96 11/19/24 21:46 Pulse Oximetry 96 11/19/24 21:50 Oxygen Delivery Method Room Air 11/19/24 16:38 Oxygen Flow Rate 0 11/19/24 16:38 Allergies No Known Allergies Allergy (Verified 11/19/24 15:23) Precautions Isolation Standard precaution 11/19/24 16:45 Active Medications Generic Name Dose Route Start Last Admin Trade Name Nikq PRN Reason Stop Dose Admin Diltiazem HCl 60 mg 11/20/24 00:05 11/20/24 00:13 Diltiazem 60 Mg Tab PO 60 mg TID ALIZA Administration Iohexol 100 ml 11/19/24 17:45 11/19/24 17:46 Omnipaque 350 Mg/Ml 100 Ml Btl IJ 12/19/24 23:59 70 ml DIRECTED ALIZA Administration Sodium Chloride 0 ml 11/19/24 17:40 11/19/24 17:45 Normal Saline Flush 10 Ml Syr IVP 10 ml PRN PRN Administration Sodium Chloride 50 ml 11/19/24 17:45 11/19/24 17:46 Normal Saline - Diluent 50 Ml Vial IJ 50 ml DIRECTED ALIZA Administration IV IV Catheter Type [Right Diffusics Antecubital] Diet Orders Category Date Time Status Regular/Normal [DIET] Nutrition 11/20/24 Breakfast Active Diagnostics 11/19/24 Range/Units 16:55 WBC 9.91 (4.4-10.8) 10^3/uL RBC 5.07 (3.93-5.22) 10^6/uL Hgb 14.1 (11.2-15.7) g/dL Hct 43.6 (36.0-46.0) % MCV 86 (80-95) fL MCH 27.8 (27.0-33.0) pg MCHC 32.3 (32.0-36.0) % RDW 13.8 (11.7-14.6) % Plt Count 390 (130-400) 10^3/uL MPV 9.6 (8.0-11.0) fL Immature Gran % 0.3 % Neutrophils % 62.6 % Lymphocytes % 23.6 % Monocytes % 6.3 % Eosinophils % 6.5 % Basophils % 0.7 % Nucleated RBC % 0.0 (0.0-0.3) % Absolute Neutrophils 6.21 (1.2-6.7) 10^3/uL Absolute Lymphocytes 2.34 (1.2-3.4) 10^3/uL Absolute Monocytes 0.62 (0.1-0.8) 10^3/uL Absolute Eosinophils 0.64 (0.0-0.7) 10^3/uL Absolute Basophils 0.07 (0.0-0.2) 10^3/uL D-Dimer 1323 H (<500) ng/mlFEU VBG Lactate 1.9 (<or=2.0) mmol/L Sodium 136 (136-145) mmol/L Potassium 4.6 (3.5-5.1) mmol/L Chloride 98 (98-107) mmol/L Carbon Dioxide 26.2 (21.0-32.0) mmol/L Anion Gap 11.8 H (3-11) mmol/L BUN 42 H (7-18) mg/dL Creatinine 2.0 H (0.55-1.02) mg/dL Est GFR (CKD-EPI 2020) 23.73 (mL/min/1.73m2) Glucose 155 H (74-106) mg/dL Calcium 9.7 (8.5-10.1) mg/dL Magnesium 2.5 H (1.8-2.4) mg/dL Total Bilirubin 0.4 (0.2-1.0) mg/dL AST 16 (15-37) U/L ALT 19 (14-59) U/L Alkaline Phosphatase 65 (46-116) U/L Troponin I 8 (<or=51) ng/L NT-Pro-B Natriuret Pep 4767 H (<300) pg/mL Total Protein 7.8 (6.4-8.2) g/dL Albumin 3.6 (3.4-5.0) g/dL Lipase 74 (<78) U/L TSH 4.33 H (0.36-3.74) uIU/mL Free T4 1.03 (0.76-1.46) ng/dL Intake and Output - 24 Hour Total 11/19/24 16:26 thru 11/19/24 17:36 Intake Total 10 Balance 10 Weight 74.2 kg Intake: IV 10 Falls Risk Assessment History of Falls No History 11/19/24 16:44 Contributing Factors Unstable 11/19/24 16:44 Ambulatory Aids Independent 11/19/24 16:44 Tubes/Lines None 11/19/24 16:44 Gait Evaluation No gait disturbance 11/19/24 16:44 Cognition No cognitive impairment 11/19/24 16:44 Fall Total Score 3 11/19/24 16:44 Level of Risk Standard/Low Risk 11/19/24 16:44 Problems (Last Reviewed 11/10/24 @ 16:19 by Shravan Kee) Atrial fibrillation with rapid ventricular response (Acute) Ventricular bigeminy (Acute) Heart failure (Acute) CKD (chronic kidney disease) stage 3, GFR 30-59 ml/min (Chronic) Diabetes mellitus (Chronic 01/23/13) Notes 11/20/24 00:04 Nursing Notes by Abdoulaye Crystal PT started having rash. inpatient MD notified. Nursing Note: Initialized on 11/20/24 00:04 - END OF NOTE v v v v v v v v v Sending and/or Receiving Nurses: Please use comment section below to note any information pertinent to the patient hand-off not included above. Information / Comments: pt. from ED transfer to room 214 , Pt. Alert & Oriented . heart weigh Elevated with Afib with rapid response telemonitor . pt denied chest pain ,denied SOB , RA ABD pain N/V Report received from:Abdoulaye
[2024-11-20 01:16] VITALS: BP 116/96; PULSE 109; RESP 18; TEMP 36; O2SAT 94
[2024-11-20 01:25] VITALS: BP 116/96; PULSE 109; RESP 18; TEMP 36; O2SAT 95
[2024-11-20] MEDS: Apixaban 5 MG TAB PO (02:00)
[2024-11-20] MEDS: Triamcinolone 0.1% CR 15 GM TUBE TP ×2 (02:00→06:51)
[2024-11-20 05:15] VITALS: BP 127/86; PULSE 100; RESP 18; TEMP 35.8; O2SAT 95
[2024-11-20 07:06] VITALS: BP 122/74; PULSE 114; RESP 16; TEMP 36; O2SAT 96
--- NOTE | 2024-11-20 08:22 | PDOC.CMIN ---
Date of service: 11/20/24 Time of Service: 08:22 Care Management Initial Assmt Initial Assessment Reason for Hospitalization: atrial fibrillation Functional Status/Living Situation Patient Presentation: Karine lives alone in an apartment in [place]. She has been there for about 7 years and reported that she has a nice group of friends there who help and support each other. Karine had 5 children but 2 of her sons are . One of her daughters and her son live together in [place] and her other daughter is in [facility]. She has 9 grandchildren and 6 great grandchildren. 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 She uses a walker for ambulatory assistance and is independent with AD. This is a readmission for Karine. She was just discharged on 11/11/24 with CHF. She has seen her PCP twice and has had some medication adjustments. Karine's HR has ranhed from 110-170 or more but today has stayed below 110. Town of Residence: [place] Resides with: Alone Significant Other/Family: Local Employment Status: Unemployed Instrumental Activities of Daily Living (ADLs): Independent Medications Medication Management: No Issues/Barriers identified Advance Directives Advance Directives: Do you have an Advance Directive: Y 03/17/20, 13:33 AD On File at [facility]: Y 03/17/20, 13:33 Date Asked 11/19/24 11/19/24, 16:56 AD Date Reviewed 11/10/24 11/10/24, 07:14 COLST On File at [facility] Yes 05/11/21, 06:04 COLST Date Scanned 02/24/21 05/25/21, 13:01 Code Status Resuscitation Status DNR/DNI Portal Pt does not currently have a portal and education provided: Yes Insurance Coverage/Financial Issues Insurance: Medicare [employer] Care Team Visit Care Team Role Provider Type Yoel Oneal MD MD [facility] STAFF PHYSICIAN Allie Rodrigues NP Primary Care Provider NURSE PRACTITIONER MACHO Rocha Emergency Provider PHYSICIANS DESULPHURING OPERATOR Jerman Cisse MD Admit Provider [facility] STAFF PHYSICIAN Attending Provider Discharge Potential Discharge Needs: PCP F/U Appt Anticipated Barriers to Discharge: None Identified Patient/Family Education Needs: Review discharge instructions, discuss Ask Me Three Transportation: Private vehicle Plan: Anticipate Karine will be discharged home with a renewal of home health services for PT, OT and RN. She will follow up with her community providers and plan of care and transport with family. CM will follow and continue to assess for discharge needs. Social Determinants of Health Screening Social Determinants of health last assessed in clinic: 11/20/24 Will the Patient Participate in the Screening?: Yes Do you worry about having a steady place to live?: no Problems where you live: no known problems In the past 12 months, have you had to go without electric, gas, oil or water in your home?: no 1. Within the past 12 months, we worried whether our food would run out before we got money to buy more.: Never true 2. Within the past 12 months, the food we bought just didn't last and we didn't have money to get more.: Never true Has lack of transportation kept you from medical appointments or from doing things needed for daily living?: no Has anyone in your life made you feel unsafe or unsupported?: no How hard is it for you to pay for the very basics like food, housing, medical care, and heating? Would you say it is:: Not hard at all Do you want help finding or keeping work or a job?: I do not need or want help If for any reason you need help with day-to-day activities such as bathing, preparing meals, shopping, managing finances, etc., do you get the help you need?: I don?t need any help How often do you feel lonely or isolated from those around you?: Never Do you speak a language other than Japanese at home?: No Does the patient want assistance with any of the above?: No 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) Postoperative nausea and vomiting (Acute) Onychomycosis (Acute) Edema (Acute) Venous (peripheral) insufficiency (Acute) Toe pain, right (Acute) Toe pain, left (Acute) Type 2 diabetes mellitus with diabetic polyneuropathy (Chronic) Neuropathy (Acute) Nail dystrophy (Acute) CKD (chronic kidney disease) stage 3, GFR 30-59 ml/min (Chronic) Balance problem (Acute) Essential hypertension (Chronic) 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 Daughter No problems noted. Social History (Updated 11/10/24 @ 17:39 by Shravan Kee) Smoking/Tobacco Use Status: Never Second Hand Exposure: Yes Smoking risk assessment performed?: Yes Alcohol Intake: never Drug use: Never Substance use type: does not use Adopted: No Caregiver/Support person: No Household members: none Housing: apartment Number of Children: 5 number of grandchildren: 12 Communication Needs: Hard of Hearing Do you need help understanding health information?: Never Pets and animals: No Sexually active: No Do you think of yourself as: straight/heterosexual Current gender identity: female What is your relationship status?: How often do you talk on the phone with friends or family?: three or more times per week How often do you get together with friends or relatives?: three or more times per week How often do you attend scientology or mandaen services?: decline to answer Do you belong to any clubs or organized social groups?: no Panel score (0-1 are the most socially isolated patients): 1 What type of physical activity do you participate in: none Frequency: decline to answer Sue/Methodist: Shinto Special sue needs: No Seatbelt use: always Drive intox or ride w/intox tower truck driver: No Working smoke detector in home: Yes Carbon monox detector in home: Yes Firearms in home: No Do you feel safe at home: Yes Do you feel safe in your relationship?: Yes Victim of physical abuse: No Victim of emotional abuse: No Victim of sexual abuse: No Would you like helpful sources: No Additional Social history: Lives alone in [place]. Daughter is close Readmission Within the Past 30 Days Yes or No: Yes Date of First Admission Date of 1st Admission: 11/10/24 Date of this Admission Date of Admission: 11/19/24 This admission was: Through ED Office Visit Since 1st Admission Have you seen your PCP in the office since discharge?: Yes Date of PCP Appointment: twice I. Interview patient and/or Family Difficulty reaching your doctor or getting an office appt?: No Have you had trouble purchasing/ or taking medication?: No Have you had trouble with getting meals at home?: No Did you feel ready for discharge when you left the last time: Yes Were services received that you thought were set up on disch: Yes What services were received?: home health Did you call your physician beore you came to the ED?: Yes (at MD office and EMS called ) Did your physician tell you to come in?: Yes Assessment for Readmission Summary of readmission circumstances, based upon interviews: Karine was doing well after her last admission until a few days ago when she developed fatigue and SOB. She was found to be in afib in the ED (new) with RVR thought to be paroxysmal. Anticipated HH Services Anticipated HH Services at Discharge [facility] OT, PT and RN Anticipated Date of Discharge: 11/23/24. Following Provider: Allie Rodrigues MD.
[2024-11-20] MEDS: Spironolactone 25 MG TAB PO (08:35)
[2024-11-20] MEDS: Loratidine 10 MG TAB PO (08:36)
[2024-11-20] MEDS: Lisinopril 10 MG TAB 30 MG PO (08:36)
[2024-11-20] MEDS: Cholecalciferol (Vitamin D3) 1,000 UNIT TAB 5000 UNITS PO (08:37)
[2024-11-20] MEDS: Empaglifozin 10 MG TAB PO (08:37)
[2024-11-20] MEDS: Omega-3 Fatty Acids 1000 MG CAP PO (08:38)
[2024-11-20] MEDS: hydroCHLOROthiazide 25 MG TAB PO (08:39)
[2024-11-20] MEDS: Normal Saline Flush 10 ML SYR IVP (09:24)
--- NOTE | 2024-11-20 11:56 | PGE_ITS ---
Date of Service Date of service: 11/20/24 Time of Service: 11:56 Assessment and Plan Assessment and plan (1) Atrial fibrillation with rapid ventricular response: Status: Acute Assessment and plan: -new diagnosis of a-fib with RVR -s/p IV dilt in ED with improvment in HR -started on po dilt 60mg TID, changed to 120mg PO BID late morning 11/20 -monitor HR and adjust rate control medications as needed -started on Eliquis, CHADS2 score is 5 and there HASBLED score is 2 (2) Heart failure: Status: Acute Assessment and plan: -history of, without acute exacerbation, HRpEF -Continue medical manage (3) Diabetes mellitus: Status: Chronic Assessment and plan: -Well controlled with A1c 5.7%. -holding metforming s/p IV contrast (4) CKD (chronic kidney disease) stage 3, GFR 30-59 ml/min: Status: Chronic Assessment and plan: -At baseline GFR (5) DVT prophylaxis: Status: Deleted Assessment and plan: -started eliquis Subjective Subjective Interval history since last seen: Patient states that she is doing well today. She understands the plan to improve her heart rate control, otherwise she has no other complaints or concerns at this time. Exam Narrative Exam Narrative: Well-appearing older female laying in bed in no acute distress, ANO x 4, heart irregularly irregular with rates in the 100s to 130s, lungs clear to auscultation bilaterally, abdomen soft, nontender, nondistended Objective Last Vital Signs Temp 96.8 F L 11/20/24 07:06 Pulse 114 H 11/20/24 07:06 Resp 16 11/20/24 07:06 BP 122/74 11/20/24 07:06 Pulse Ox 96 11/20/24 07:06 Laboratory Results - last 24 hr 11/19/24 16:55 WBC 9.91 RBC 5.07 Hgb 14.1 Hct 43.6 MCV 86 MCH 27.8 MCHC 32.3 RDW 13.8 Plt Count 390 MPV 9.6 Immature Gran % 0.3 Neutrophils % 62.6 Lymphocytes % 23.6 Monocytes % 6.3 Eosinophils % 6.5 Basophils % 0.7 Nucleated RBC % 0.0 Absolute Neutrophils 6.21 Absolute Lymphocytes 2.34 Absolute Monocytes 0.62 Absolute Eosinophils 0.64 Absolute Basophils 0.07 D-Dimer 1323 H VBG Lactate 1.9 Sodium 136 Potassium 4.6 Chloride 98 Carbon Dioxide 26.2 Anion Gap 11.8 H BUN 42 H Creatinine 2.0 H Est GFR (CKD-EPI 2020) 23.73 Glucose 155 H Calcium 9.7 Magnesium 2.5 H Total Bilirubin 0.4 AST 16 ALT 19 Alkaline Phosphatase 65 Troponin I 8 NT-Pro-B Natriuret Pep 4767 H Total Protein 7.8 Albumin 3.6 Lipase 74 TSH 4.33 H Free T4 1.03 Time Spent with Patient Time Spent with Patient: >50 minutes Time was spent: preparing to see the patient(eg.review tests), obtaining and/or reviewing separately otained hiistory, ordering medications,tests, procedures, referring, communicating with other health outdoor emergency care technician, indepentently interpreting results, counseling the patient and care coordination
[2024-11-20] MEDS: Triamcinolone 0.1% CR 80 GM TUBE TP ×2 (13:06→20:48)
--- NOTE | 2024-11-20 13:25 | NUR.NOTE ---
Nursing Note:Reviewed documentation by Jeremy Trejo, PN student.
--- NOTE | 2024-11-20 14:40 | CHAPLAIN ---
Karine was resting in bed when I visited this morning. She was admitted through the ED late last night, so didn't get much sleep. Her daughters were with her. They stayed until about 2 a.m. I'll try to visit again when Karine is more rested. She was here recently and discharged on 11/11.
[2024-11-20 19:50] VITALS: BP 105/63; PULSE 97; RESP 24; TEMP 36.7; O2SAT 94
[2024-11-20] MEDS: dilTIAZem 60 MG TAB 120 MG PO (20:47)
[2024-11-20] MEDS: Apixaban 2.5 MG TAB PO (20:48)
[2024-11-21] VITALS (7 sets, daily range): BP systolic 77–124; BP diastolic 44–96; PULSE 69–102; RESP 16–20; TEMP 36.4–36.6; O2SAT 94–98
--- NOTE | 2024-11-21 | DI.CT_ITS ---
Exam(s) CT HEAD WO EXAM: CT HEAD WO CLINICAL HISTORY: fam worry slurred speech, vasovegal earlier. TECHNIQUE: Imaging Protocol: Axial computed tomography images with coronal and sagittal reformatted images were created and reviewed COMPARISON: CT CT HEAD WO from 07/26/2024 FINDINGS: Ventricles and Extra axial spaces: Normal in size and morphology for the patient's age. Hemorrhage: None. Cerebral parenchyma: No evidence of acute infarct or mass. Stable white matter changes consistent with microvascular disease. Midline shift: None. Brainstem/Cerebellum: Normal. Bones: No skull or facial fractures. Hyperostosis frontalis interna. Visualized Paranasal sinuses:Clear. Mastoids: Clear. Soft Tissues: Unremarkable. ORBITS: Unremarkable. PITUITARY: Not enlarged. IMPRESSION: No acute intracranial process. The preliminary [facility] report was reviewed. RADIATION DOSE DELIVERED: Total DLP DATA REPOSITORY: All CT scans at this facility are submitted to the National Radiology Data Registry (NRDR) Dose Index Registry (DIR) with the [employer] (A[employer]). RADIATION OPTIMIZATION: All CT scans at this facility use at least one of these dose optimization techniques: automated exposure control; mA and/or kV adjustment per patient size (includes targeted exams where dose is matched to clinical indication); or iterative reconstruction.
[2024-11-21] MEDS: Empaglifozin 10 MG TAB PO (08:03)
[2024-11-21] MEDS: dilTIAZem 60 MG TAB 120 MG PO ×2 (08:03→19:57)
[2024-11-21] MEDS: Apixaban 2.5 MG TAB PO ×2 (08:03→19:57)
[2024-11-21] MEDS: hydroCHLOROthiazide 25 MG TAB PO (08:03)
[2024-11-21] MEDS: Omega-3 Fatty Acids 1000 MG CAP PO (08:03)
[2024-11-21] MEDS: Cholecalciferol (Vitamin D3) 1,000 UNIT TAB 5000 UNITS PO (08:04)
[2024-11-21] MEDS: Triamcinolone 0.1% CR 80 GM TUBE TP ×3 (08:04→19:58)
[2024-11-21] MEDS: Lisinopril 10 MG TAB 30 MG PO (08:04)
[2024-11-21] MEDS: Magnesium Oxide 400 MG TAB PO (08:05)
[2024-11-21] MEDS: Normal Saline 500 ML 1000 ML IV (11:12)
[2024-11-21] MEDS: Ondansetron 4 MG/2 ML VIAL IVP (11:12)
[2024-11-21] MEDS: Scopolamine 1 MG/3 DAYS PATCH TD (11:52)
--- NOTE | 2024-11-21 12:00 | W.PM.PROGNOT ---
Date of Service Date of service: 11/21/24 Time of Service: 12:00 Assessment and Plan Assessment and plan (1) Atrial fibrillation with rapid ventricular response: Status: Acute Assessment and plan: -new diagnosis of a-fib with RVR -s/p IV dilt in ED with improvment in HR -started on po dilt 60mg TID, changed to 120mg PO BID late morning 11/20 -monitor HR and adjust rate control medications as needed -started on Eliquis, CHADS2 score is 5 and there HASBLED score is 2 - Patient experienced syncope secondary to vasovagal episode while on the commode, blood pressure improved after time however she was also given 500 mL bolus and Zofran for nausea - Will monitor blood pressure, check orthostatics, and give additional IV fluids as needed (2) Heart failure: Status: Acute Assessment and plan: -history of, without acute exacerbation, HRpEF -Continue medical manage (3) Diabetes mellitus: Status: Chronic Assessment and plan: -Well controlled with A1c 5.7%. -holding metforming s/p IV contrast (4) CKD (chronic kidney disease) stage 3, GFR 30-59 ml/min: Status: Chronic Assessment and plan: -At baseline GFR (5) DVT prophylaxis: Status: Deleted Assessment and plan: -started eliquis Subjective Subjective Interval history since last seen: Patient originally stated that she was doing well is good to be ready for discharge, however she had a syncopal episode while on the commode likely secondary to vasovagal. Exam Narrative Exam Narrative: Well-appearing older female laying in bed in no acute distress, ANO x 4, heart irregularly irregular with rates in the 100s to 130s, lungs clear to auscultation bilaterally, abdomen soft, nontender, nondistended Objective Last Vital Signs Temp 97.7 F 11/21/24 08:26 Pulse 102 H 11/21/24 10:58 Resp 16 11/21/24 08:26 BP 77/44 L 11/21/24 10:58 Pulse Ox 94 11/21/24 10:58 Time Spent with Patient Time Spent with Patient: >50 minutes Time was spent: preparing to see the patient(eg.review tests), obtaining and/or reviewing separately otained hiistory, ordering medications,tests, procedures, referring, communicating with other health family day care provider, indepentently interpreting results, counseling the patient and care coordination
[2024-11-21] MEDS: Meclizine 12.5 MG TAB PO (17:46)
--- NOTE | 2024-11-21 18:29 | DI.[facility]AD_ITS ---
PROCEDURE INFORMATION: Exam: CT Head Without Contrast Exam date and time: 11/21/2024 6:05 PM Age: 88 years old Clinical indication: Speech disturbance; Fam worry slurred speech, vasovagal earlier TECHNIQUE: Imaging protocol: Computed tomography of the head without contrast. COMPARISON: CT HEAD WO 07/26/2024 6:20 AM FINDINGS: Brain: Cerebral volume loss noted. Scattered areas of decreased attenuation in the deep periventricular white matter consistent with small vessel ischemic change. No evidence for acute intracranial hemorrhage. Cerebral ventricles: No ventriculomegaly. Paranasal sinuses: Visualized sinuses are unremarkable. No fluid levels. Mastoid air cells: Visualized mastoid air cells are well aerated. Bones: Unremarkable. No acute fracture. Soft tissues: Unremarkable. IMPRESSION: Senescent changes noted. No acute intracranial abnormality. Dictated and Authenticated by: Felisha Mae MD. Orderin Kimmy Diallo MD
[2024-11-22] MEDS: Cholecalciferol (Vitamin D3) 1,000 UNIT TAB 5000 UNITS PO (09:23)
[2024-11-22] MEDS: Omega-3 Fatty Acids 1000 MG CAP PO (09:23)
[2024-11-22] MEDS: dilTIAZem 60 MG TAB 120 MG PO (09:23)
[2024-11-22] MEDS: Loratidine 10 MG TAB PO (09:24)
[2024-11-22] MEDS: Lisinopril 10 MG TAB 30 MG PO (09:24)
[2024-11-22] MEDS: Apixaban 2.5 MG TAB PO (09:24)
[2024-11-22] MEDS: Magnesium Oxide 400 MG TAB PO (09:24)
[2024-11-22] MEDS: hydroCHLOROthiazide 25 MG TAB PO (09:24)
[2024-11-22] MEDS: Empaglifozin 10 MG TAB PO (09:24)
[2024-11-22] MEDS: Triamcinolone 0.1% CR 80 GM TUBE TP (10:15)
[2024-11-22] MEDS: Acetaminophen 325 MG TAB PO (10:18)
--- NOTE | 2024-11-22 11:49 | PDOC.HHF2F_ITS ---
Home Health Referral Home Health Orders Clinical synopsis of why skilled professionals are needed: new a-fib, DM, weakness Registered Nurse: Check all that apply Instruct on new or changed medication(s)/assess compliance: Ordered Assess for exacerbation of medical condition, instruct patient/caregivers on signs and symptoms to report for early detection: Ordered Physical Therapist: Check all that apply Increase strength & endurance for safe mobility at home: Ordered To design/establish home maintenance program: Ordered Fall reduction therapy program for patient with history of frequent falls: Ordered Home safety evaluation and teaching/gait training including stair management (if applicable): Ordered Other: BPPV Occupational Therapist: Evaluate and treat for patient unable to perform ADL/IADL/self-care: Ordered Home Bound Status Requires the aid of supportive device (check all that apply): Walker Encounter Date and Reason: I certify that a FTF encounter for this patient was performed on November 22, 2024 and that such encounter was related to the primary reason the patient requires home health services. The encounter was conducted in the following manner: * By me as the certifying physician, TRANSFORMER REPAIRER, PA or * By an inpatient physician, TRANSFORMER REPAIRER or PA during an inpatient stay who communicated findings to me, Certification And Authentication I certify that I composed the above information based on my clinical judgment relating to this patient's medical condition and, if applicable, clinical fi ndings communicated to me by the NPP or inpatient physician who performed the FTF encounter. Name of Provider that will be monitoring home health services: Allie Rodrigues
--- NOTE | 2024-11-22 11:50 | DSE_ITS ---
Date of service: 11/22/24 Time of Service: 11:50 DS: Diagnosis Discharge Diagnosis (1) Atrial fibrillation with rapid ventricular response: Status: Acute (2) Heart failure: Status: Acute (3) Diabetes mellitus: Status: Chronic (4) CKD (chronic kidney disease) stage 3, GFR 30-59 ml/min: Status: Chronic (5) DVT prophylaxis: Status: Deleted Discharge Plan Disposition Patient Disposition: Home W/Home Health Services Condition: Good Discharge Details Reason For Visit: afib w/rvr Admit Date/Time: 11/20/24 00:18 Admit Provider: Jerman Cisse Attending Provider: Jerman Cisse Primary Care Provider: [facility] Course Hospital Course: Patient initially presented to the hospital was found to be in A-fib RVR which was a new diagnosis. She was well rate controlled ultimately on 128 mg of p.o. diltiazem twice daily and was also started on 2.5 mg of Eliquis (age-based dose). On the morning of 11/21/2024 the patient had a vagal episode that caused her to very briefly lose consciousness that then led into an episode of vertigo requiring placement of scopolamine patch and as needed Zofran throughout the day. However, on the morning of 11/22/2024 patient returned back to her baseline. She was able to use the commode without having vasovagal episode, and ambulated around the unit without difficulty. Ultimately, it was determined that she was able for discharge home with continuation of home health services. Home Meds and New Rx's Prescriptions: New Eliquis 2.5 mg Tablet 2.5 mg PO BID Qty: 90 0RF diltiazem HCl [Cardizem] 60 mg Tablet 120 mg PO BID Qty: 180 0RF diltiazem HCl [Cardizem] 30 mg tablet 120 mg PO BID Qty: 24 0RF Continued magnesium oxide 400 mg (241.3 mg magnesium) tablet 400 mg PO DAILY triamcinolone acetonide 0.1 % cream 1 applic topical BID Qty: 80 2RF Rx Instructions: Apply to arms, abdomen and neck for pruritic rash twice a day until mostly resolved. Stop after two weeks. loratadine 10 mg capsule 10 mg PO DAILY Qty: 60 0RF Rx Instructions: can increase to twice daily if needed. cholecalciferol (vitamin D3) 5,000 UNIT capsule 5,000 unit PO DAILY omega 9-ymf-fix-fish oil 1 EACH capsule 1 ea PO DAILY lisinopril 30 mg tablet 30 mg PO DAILY Qty: 90 3RF hydrochlorothiazide 25 mg tablet 25 mg PO DAILY Qty: 90 4RF Jardiance 10 mg Tablet 10 mg PO QAM Qty: 90 1RF spironolactone 25 mg tablet 25 mg PO DAILY Qty: 30 1RF meclizine 12.5 mg tablet 12.5 mg PO BID PRN (Reason: Vertigo) Qty: 30 0RF scopolamine base 1 mg over 3 days patch 3 day 1 mg transdermal Q72H PRN (Reason: Vertigo) Qty: 4 0RF Patient Comments: under right ear acetaminophen 500 mg tablet 1,000 mg PO Q8H PRN Qty: 90 0RF Rx Instructions: Take two tablets up to every 8 hours as needed for pain No Action (DME) lancets [OneTouch UltraSoft Lancets] Misc 1 ea Miscellaneous DAILY Qty: 90 3RF Rx Instructions: Daily (DME) blood-glucose meter [OneTouch Verio Meter] 1 EACH misc Miscellaneous DAILY Qty: 1 (DME) OneTouch Verio test strips Strip 1 ea Miscellaneous DAILY Qty: 90 3RF Rx Instructions: daily Discharge Instructions Stand Alone Forms: Nursing Discharge Form Referrals: Allie Rodrigues NP [Primary Care Provider, Medicine] Referral Note: Please call primary care to schedule a follow up appointment. DC paperwork faxed to home health. Activity:: Activity as Tolerated Equipment/Supplies:: No Equipment Needed Diet:: As Tolerated Discharge Orders Discharge Orders: Discharge Order (Routine); Ordered 11/22/24 Ordered By: Yoel Oneal Discharge Data Discharge Date/Time-TO BE ENTERED AT DEPARTURE: 11/22/24 13:15 DS: Summary Time Spent with Patient providing and/or coordinating discharge services: Greater than 30 minutes Status at Discharge Functional status at discharge: independent ambulation Overall status at discharge: patient is back to baseline Mental Status: mental status grossly normal Speech and Movement: speech and movement normal Mood: congruent mood Affect: normal affect Exam Narrative Exam Narrative: Well-appearing older female laying in bed in no acute distress, ANO x 4, heart irregularly irregular with rates in the 70's, lungs clear to auscultation bilaterally, abdomen soft, nontender, nondistended Psych Mental Status: mental status grossly normal Speech and Movement: speech and movement normal Mood: congruent mood Affect: normal affect DS: Data Vitals/I&O Vitals and I&O: Vital Signs Temperature 97.5 F L 11/21/24 20:14 Temperature Source Temporal Artery Scan 11/21/24 20:14 Pulse 69 11/21/24 20:14 Pulse Rhythm Irregular 11/20/24 01:25 Pulse 105 H 11/19/24 21:50 Respiratory Rate 18 11/21/24 20:14 Respiratory Effort Drooling 11/21/24 10:58 Respiratory Depth Normal 11/20/24 01:25 Respiratory Pattern Irregular 11/20/24 01:25 Blood Pressure 116/73 11/21/24 20:14 Blood Pressure Mean 87 11/21/24 20:14 Pulse Oximetry 95 11/21/24 20:14 Oxygen Delivery Method Room Air 11/21/24 20:14 Oxygen Flow Rate 0 11/21/24 20:14 Pain Level 0 11/21/24 20:14 Comment Pt recovering from vaso-vagal response, lethargic, dry heaving, receiving 500ml bolus at present 11/21/24 11:15 Intake & Output 11/21/24 11/22/24 11/22/24 17:59 05:59 17:59 Intake Total 820 / 820 1600 / 2420 Output Total 150 / 150 400 / 550 Balance 670 / 670 1200 / 1870 Weight 155 lb 10.342 oz Intake: IV 500 / 500 1500 / 2000 Oral 320 / 320 100 / 420 Output: Urine 150 / 150 400 / 550 Other: Urine Color Yellow Light Yamilet Urine Appearance Clear Clear Urine Odor Normal Strong Comment not measured amount. Pt voids ind. in commode with stand by assist. 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) Postoperative nausea and vomiting (Acute) Onychomycosis (Acute) Edema (Acute) Venous (peripheral) insufficiency (Acute) Toe pain, right (Acute) Toe pain, left (Acute) Type 2 diabetes mellitus with diabetic polyneuropathy (Chronic) Neuropathy (Acute) Nail dystrophy (Acute) CKD (chronic kidney disease) stage 3, GFR 30-59 ml/min (Chronic) Balance problem (Acute) Essential hypertension (Chronic) 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 Daughter No problems noted. Social History (Updated 11/10/24 @ 17:39 by Shravan Kee) Smoking/Tobacco Use Status: Never Second Hand Exposure: Yes Smoking risk assessment performed?: Yes Alcohol Intake: never Drug use: Never Substance use type: does not use Adopted: No Caregiver/Support person: No Household members: none Housing: apartment Number of Children: 5 number of grandchildren: 12 Communication Needs: Hard of Hearing Do you need help understanding health information?: Never Pets and animals: No Sexually active: No Do you think of yourself as: straight/heterosexual Current gender identity: female What is your relationship status?: How often do you talk on the phone with friends or family?: three or more times per week How often do you get together with friends or relatives?: three or more times per week How often do you attend advent or hindu services?: decline to answer Do you belong to any clubs or organized social groups?: no Panel score (0-1 are the most socially isolated patients): 1 What type of physical activity do you participate in: none Frequency: decline to answer Sue/Sikh: Sikhism Special sue needs: No Seatbelt use: always Drive intox or ride w/intox helper/driver: No Working smoke detector in home: Yes Carbon monox detector in home: Yes Firearms in home: No Do you feel safe at home: Yes Do you feel safe in your relationship?: Yes Victim of physical abuse: No Victim of emotional abuse: No Victim of sexual abuse: No Would you like helpful sources: No Additional Social history: Lives alone in [place]. Daughter is close Time Spent with Patient Time Spent with Patient: <45 minutes Time was spent: preparing to see the patient(eg.review tests), obtaining and/or reviewing separately otained hiistory, ordering medications,tests, procedures, referring, communicating with other health hemodialysis patient care specialist, indepentently interpreting results, counseling the patient and care coordination
--- NOTE | 2024-11-22 16:01 | PDOC.CMDIS ---
Date of service: 11/22/24 Time of Service: 16:01 LACE Index Scoring Tool Questions: Length of Stay (in days): 2 Was the patient admitted via the E.D.?: Yes Comorbidities: Diabetes w/o Complication, Congestive Heart Failure and Liver or Renal Disease E.D. Visits: 4 Answers: Total Score: 14 Risk of Readmission: High Risk Care Management Discharge Plan Reason for Hospitalization: Afib with RVR Discharge Plan: Karine returned home today with a resumption of [facility] RN, PT and OT. She had a new prescription for Eliquis, and her copay was $12/mo. Her daughter drove her home via private vehicle. Once at the pharmacy, they were informed that they do not have the diltiazem in stock; CM reached out to several local pharmacies, and [facility] was the only pharmacy with that medication in stock. The provider wrote a short script and sent it to [facility] in [place], and informed her daughter, Vanessa, who will fish bait picker the medication. [facility] in [place] should have her full prescription in by tomorrow at noon. Karine will follow up with her PCP and her discharge plan of care. She was happy to be going home. Patient/Family Education Needs: Review discharge instructions and limitations, discussion of self care needs including ask me three. Services Needed at Discharge: Home Health Care Services (resume HH RN, PT, OT)
== END 2024-11-22 13:15 | disposition home health service (06) | DRG 309 ==
LOC: ER 23:46 → MS 11-20 01:16
PROVIDERS: Admitting Provider Hospitalist; Emergency Provider Physician Assistant; PCP Nurse Practitioner Family; Responsible Provider Family Medicine; Visit Provider Hospitalist
DX: E11.22 Type 2 diabetes mellitus with diabetic chronic kidney disease; I65.02 Occlusion and stenosis of left vertebral artery; B35.1 Tinea unguium; I87.2 Venous insufficiency (chronic) (peripheral); E11.42 Type 2 diabetes mellitus with diabetic polyneuropathy; N18.30 Chronic kidney disease, stage 3 unspecified; M17.11 Unilateral primary osteoarthritis, right knee; I48.0 Paroxysmal atrial fibrillation; I50.30 Unspecified diastolic (congestive) heart failure; Z96.652 Presence of left artificial knee joint; L50.0 Allergic urticaria; T46.1X5A Adverse effect of calcium-channel blockers, initial encounter; R00.8 Other abnormalities of heart beat; H81.399 Other peripheral vertigo, unspecified ear; R55 Syncope and collapse; I13.0 Hypertensive heart and chronic kidney disease with heart failure and stage 1 through stage 4 chronic kidney disease, or unspecified chronic kidney disease
CPT/HCPCS: 00123; 71275; 80053; 83690; 93005; 96374; 99285; 70450; 83605; 83735; 83880; 84439; 84443; 84484; 85025; 85379; 93010; 99222; 99233; 99238; J2405; J3490; J7512

== ENCOUNTER 2024-12-06 19:42 | Emergency (ER) | payer MEDICARE, OTHER, SELFPAY ==
[2024-12-06] VITALS (14 sets, daily range): BP systolic 125–169; BP diastolic 69–83; PULSE 85–101; RESP 16–22; TEMP 36.8; O2SAT 92–96
--- NOTE | 2024-12-06 19:45 | RT.EKG_ITS ---
APPROVED REPORT Exam: Resting ECG Reason for Exam: dizziness Patient Location: E HR:89 bpm ECG Measurements Heart Rate 89 AXIS NC 204 P 34 QRSd 81 QRS -26 QT 349 T 42 QTc 424 Conclusion Sinus rhythm, rate 89 No interval abnormalities No STEMI Q wave III, aVF new from prior Compared to prior, A-fib has resolved
--- NOTE | 2024-12-06 20:20 | W.ED.GENAD ---
Discharge Plan Disposition Patient Disposition: Home Condition: Stable Discharge Details Clinical Impression: Lightheadedness, CKD (chronic kidney disease) stage 3, GFR 30-59 ml/min Primary Care Provider: Allie Rodrigues ED Provider: Philly Dunbar Home Meds and New Rx's Prescriptions: No Action (DME) lancets [OneTouch UltraSoft Lancets] Misc 1 ea Miscellaneous DAILY Qty: 90 3RF Rx Instructions: Daily magnesium oxide 400 mg (241.3 mg magnesium) tablet 400 mg PO DAILY triamcinolone acetonide 0.1 % cream 1 applic topical BID Qty: 80 2RF Rx Instructions: Apply to arms, abdomen and neck for pruritic rash twice a day until mostly resolved. Stop after two weeks. loratadine 10 mg capsule 10 mg PO DAILY Qty: 60 0RF Rx Instructions: can increase to twice daily if needed. (DME) blood-glucose meter [OneTouch Verio Meter] 1 EACH misc Miscellaneous DAILY Qty: 1 cholecalciferol (vitamin D3) 5,000 UNIT capsule 5,000 unit PO DAILY omega 4-aai-hoo-fish oil 1 EACH capsule 1 ea PO DAILY (DME) OneTouch Verio test strips Strip 1 ea Miscellaneous DAILY Qty: 90 3RF Rx Instructions: daily hydrochlorothiazide 25 mg tablet 25 mg PO DAILY Qty: 90 4RF naproxen sodium [Aleve] 220 mg tablet 220 mg PO Q8H Rx Instructions: 11/24/2024: Per HH pt is taking Aleve. -hb spironolactone 25 mg tablet 25 mg PO DAILY Qty: 30 1RF clobetasol 0.05 % solution 1 applic topical BID 14 Days Qty: 50 3RF Rx Instructions: Apply to body twice daily, leave on for 5 minutes and then rinse off twice daily for two weeks lisinopril 40 mg tablet 40 mg PO DAILY Qty: 90 3RF Jardiance 10 mg Tablet 10 mg PO QAM Qty: 90 1RF meclizine 12.5 mg tablet 12.5 mg PO BID PRN (Reason: Vertigo) Qty: 30 0RF scopolamine base 1 mg over 3 days patch 3 day 1 mg transdermal Q72H PRN (Reason: Vertigo) Qty: 4 0RF Patient Comments: under right ear Eliquis 2.5 mg Tablet 2.5 mg PO BID Qty: 90 0RF diltiazem HCl [Cardizem] 60 mg Tablet 120 mg PO BID Qty: 180 0RF diltiazem HCl [Cardizem] 30 mg tablet 120 mg PO BID Qty: 24 0RF Discharge Instructions Instructions: Dizziness, Nonvertigo, (DC) Additional Instructions: You were seen in the emergency department today for evaluation of lightheadedness. In our department you had a full physical examination performed, had laboratory studies that were reassuring including negative cardiac enzymes. Your EKG shows that you are back in a normal sinus rhythm, though you still need to take your Eliquis and medications for your atrial fibrillation at home. You received fluids for rehydration, and should maintain good hydration at home. Unfortunately, sometimes we are unable to determine the exact cause of symptoms in the emergency department setting. It is certainly possible that you are experiencing symptoms because you were recently initiated on medications for atrial fibrillation, that can cause lightheadedness especially with position changes. You should follow-up with your primary care provider in the next few days to discuss this visit, any symptoms that change, worsen, or persist, and to discuss next steps in workup and management of this episode. Please follow-up with your primary care provider in the next few days to discuss this visit and any symptoms that change, worsen, or persist. Thank you for allowing us to be part of your care. HPI General Mode of arrival: ambulatory. Date/Time Provider Initiated Documentation: 12/06/24 19:57. Limitations to Documentation: no limitations. Information obtained by: patient, family and old records reviewed. HPI Narrative: This is an 89-year-old female patient with a past medical history significant for atrial fibrillation, heart failure, peripheral vertigo, diabetes, CKD and hypertension, presenting for evaluation of lightheadedness. The patient reports that she was sitting in her chair, she had just woken up from a nap and she felt lightheaded. This was around 3 PM, the lightheadedness has improved but not resolved. She reports that this feels different than her typical vertigo, she states she did not lose consciousness, fall or strike her head. She has not had chest pain, and denies recent injury or illness, fever, nausea or vomiting, change in bowel or bladder habits. She has been taking all of her medications as prescribed including the Eliquis, though she did miss her Umair night doses. The patient has no numbness, weakness, or tingling. Family members noted that her blood pressure at home was 135/125. Related Data Home Medications ?Medication ?Instructions ?Recorded ?Confirmed blood-glucose meter (OneTouch ##1 10/03/16 12/06/24 Verio Meter) cholecalciferol (vitamin D3) 125 5,000 unit PO DAILY 06/03/17 12/06/24 mcg (5,000 unit) capsule omega 2-tpi-dld-fish oil 500 mg 1 ea PO DAILY 06/03/17 12/06/24 (200mg-300mg)-1,000 mg capsule lancets (OneTouch UltraSoft #90 ea 12/11/19 12/06/24 Lancets) magnesium oxide 400 mg (241.3 mg 400 mg PO DAILY 06/16/20 12/06/24 magnesium) tablet blood sugar diagnostic (OneTouch #90 strips 04/12/23 12/06/24 Verio test strips) hydrochlorothiazide 25 mg tablet 25 mg PO DAILY #90 tab-caps 10/30/24 12/06/24 empagliflozin 10 mg tablet 10 mg PO QAM #90 tabs 11/11/24 12/06/24 (Jardiance) meclizine 12.5 mg tablet 12.5 mg PO BID PRN Vertigo #30 tabs 11/11/24 12/06/24 scopolamine base 1 mg over 3 days 1 mg transdermal Q72H PRN Vertigo 11/11/24 12/06/24 transdermal patch #4 ea loratadine 10 mg capsule 10 mg PO DAILY #60 caps 11/17/24 12/06/24 triamcinolone acetonide 0.1 % 1 applic topical BID Pruritis #80 11/17/24 12/06/24 topical cream grams apixaban 2.5 mg tablet (Eliquis) 2.5 mg PO BID #90 tabs 11/21/24 12/06/24 diltiazem HCl 30 mg tablet 120 mg (4 x 30 mg) PO BID #24 tabs 11/22/24 12/06/24 (Cardizem) diltiazem HCl 60 mg tablet 120 mg (2 x 60 mg) PO BID #180 tabs 11/22/24 12/06/24 (Cardizem) naproxen sodium 220 mg tablet 220 mg PO Q8H 11/24/24 12/06/24 (Aleve) spironolactone 25 mg tablet 25 mg PO DAILY #30 tabs 11/30/24 12/06/24 clobetasol 0.05 % scalp solution 1 applic topical BID pruritis 2 12/01/24 12/06/24 weeks #50 mL lisinopril 40 mg tablet 40 mg PO DAILY #90 tabs 12/03/24 12/06/24 Previous Rx's ?Medication ?Instructions ?Recorded lancets (OneTouch UltraSoft #90 ea 12/11/19 Lancets) blood sugar diagnostic (OneTouch #90 strips 04/12/23 Verio test strips) hydrochlorothiazide 25 mg tablet 25 mg PO DAILY #90 tab-caps 10/30/24 empagliflozin 10 mg tablet 10 mg PO QAM #90 tabs 11/11/24 (Jardiance) meclizine 12.5 mg tablet 12.5 mg PO BID PRN Vertigo #30 tabs 11/11/24 scopolamine base 1 mg over 3 days 1 mg transdermal Q72H PRN Vertigo 11/11/24 transdermal patch #4 ea loratadine 10 mg capsule 10 mg PO DAILY #60 caps 11/17/24 triamcinolone acetonide 0.1 % 1 applic topical BID Pruritis #80 11/17/24 topical cream grams apixaban 2.5 mg tablet (Eliquis) 2.5 mg PO BID #90 tabs 11/21/24 diltiazem HCl 30 mg tablet 120 mg (4 x 30 mg) PO BID #24 tabs 11/22/24 (Cardizem) diltiazem HCl 60 mg tablet 120 mg (2 x 60 mg) PO BID #180 tabs 11/22/24 (Cardizem) spironolactone 25 mg tablet 25 mg PO DAILY #30 tabs 11/30/24 clobetasol 0.05 % scalp solution 1 applic topical BID pruritis 2 12/01/24 weeks #50 mL lisinopril 40 mg tablet 40 mg PO DAILY #90 tabs 12/03/24 Allergies Allergy/AdvReac Type Severity Reaction Status Date / Time No Known Allergies Allergy Verified 12/06/24 19:51 General Stated Complaint: Dizzy/Sync ELSA: 3 Exam Narrative Exam Narrative: Gen: awake and alert, in no apparent distress. Appears well nourished. HEENT: PERRL, EOMs full and without nystagmus. External ears and nose normal, mucous membranes moist. Neck: Supple, full range of motion, no observable masses Lungs: No increased work of breathing, lung sounds clear and equal bilaterally without wheezes, rhonchi, or rales. CV: Heart with regular rate and rhythm, no murmurs auscultated. Strong and symmetrical radial pulses. Abdomen: Soft, nondistended, non-tender to palpation. No rigidity, rebound tenderness, or guarding. MSK: No joint swelling, no redness. Full ROM without limitation, no external traumatic findings. Skin: No rashes or lesions to visualized skin. Normal color, warm, and dry. Neuro: Cranial nerves II-XII intact and symmetrical bilaterally. 5/5 strength in all muscle groups x4 extremities. No sensory deficits. Ambulates with steady gait. Psych: Appropriate for situation. Course Vital Signs Vital signs: Vital Signs Temperature 36.8 C 12/06/24 19:44 Pulse 101 H 12/06/24 19:44 Respiratory Rate 20 12/06/24 19:44 Blood Pressure 162/83 H 12/06/24 19:44 Pulse Oximetry 96 12/06/24 19:44 Temperature 36.8 C 12/06/24 19:44 Temperature Source Oral 12/06/24 19:44 Pulse 101 H 12/06/24 19:44 Respiratory Rate 20 12/06/24 19:44 Blood Pressure 162/83 H 12/06/24 19:44 Pulse Oximetry 96 12/06/24 19:44 Oxygen Delivery Method Room Air 12/06/24 19:44 Oxygen Flow Rate 0 12/06/24 19:44 Pain Level 0 12/06/24 19:44 Medical Decision Making This is an 89-year-old female patient presenting for evaluation of lightheadedness. Differential includes but is not limited to arrhythmia, ACS, orthostasis, vasovagal syndrome, anemia, dehydration and kidney injury, metabolic derangement, liver injury. The patient has no vertigo or focal neuro examinations to increase my concern for stroke, intracranial mass effect, and no trauma to suggest intracranial hemorrhage. No urinary symptoms to suggest UTI. Certainly considered medication effect as the patient was recently initiated on atrial fibrillation management medications. We will obtain an EKG, labs to include CBC, CMP, magnesium, troponin, BNP, and urinalysis. Given the history of heart failure and kidney injury I will hold on empiric large-volume fluid resuscitation. Given the lack of neurodeficits I do not see indication to proceed with advanced imaging. - I independently interpreted the laboratory studies, which show no significant leukocytosis, anemia, or thrombocytopenia. The chemistry panel is without evidence of electrolyte abnormality, new or worsening kidney dysfunction, or liver injury. Troponin is negative and without interval increase in 1 hour delta recheck. BNP is low and urinalysis is noninfectious. Given the reassuring labs, I did provide the patient with a small fluid bolus, and oral hydration. The patient reports that her lightheadedness has since resolved. She was able to ambulate about the emergency department with very minimal lightheadedness, which resolved entirely upon sitting. I am suspicious for medication effect and she has a an appointment with her outpatient providers and to discuss whether the doses of her new medications need to be changed or the medications themselves altered. I discussed the lack of diagnostic clarity during this ED visit, but the overall reassuring evaluation. I counseled the patient on good hydration and nutrition, slow transitions from laying down to sitting and sitting to standing, and at this time, the patient has had a full medical evaluation and is safe for discharge to home. They are hemodynamically stable, ambulatory, and tolerating PO. They are understanding of the follow-up plan and return precautions. They left our facility without incident. 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) Postoperative nausea and vomiting (Acute) Onychomycosis (Acute) Edema (Acute) Venous (peripheral) insufficiency (Acute) Toe pain, right (Acute) Toe pain, left (Acute) Type 2 diabetes mellitus with diabetic polyneuropathy (Chronic) Neuropathy (Acute) Nail dystrophy (Acute) CKD (chronic kidney disease) stage 3, GFR 30-59 ml/min (Chronic) Balance problem (Acute) Essential hypertension (Chronic) 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 Daughter No problems noted. Social History (Updated 11/10/24 @ 17:39 by Shravan Kee) Smoking/Tobacco Use Status: Never Second Hand Exposure: Yes Smoking risk assessment performed?: Yes Alcohol Intake: never Drug use: Never Substance use type: does not use Adopted: No Caregiver/Support person: No Household members: none Housing: apartment Number of Children: 5 number of grandchildren: 12 Communication Needs: Hard of Hearing Do you need help understanding health information?: Never Pets and animals: No Sexually active: No Do you think of yourself as: straight/heterosexual Current gender identity: female What is your relationship status?: How often do you talk on the phone with friends or family?: three or more times per week How often do you get together with friends or relatives?: three or more times per week How often do you attend jain or amish services?: decline to answer Do you belong to any clubs or organized social groups?: no Panel score (0-1 are the most socially isolated patients): 1 What type of physical activity do you participate in: none Frequency: decline to answer Sue/Jain: Bahai Special sue needs: No Seatbelt use: always Drive intox or ride w/intox driver starting gate: No Working smoke detector in home: Yes Carbon monox detector in home: Yes Firearms in home: No Do you feel safe at home: Yes Do you feel safe in your relationship?: Yes Victim of physical abuse: No Victim of emotional abuse: No Victim of sexual abuse: No Would you like helpful sources: No Additional Social history: Lives alone in [place]. Daughter is close
[2024-12-06 20:48] LABS: Abs Immature Grans 0.02 10^3/uL (0.0-0.06); HCT 39.6 % (36.0-46.0); HGB 12.6 g/dL (11.2-15.7); Immature Grans % 0.3 %; MCH 28.1 pg (27.0-33.0); MCHC 31.8 % (32.0-36.0); MCV 88 fL (80-95); MPV 9.0 fL (8.0-11.0); Platelet Count 340 10^3/uL (130-400); RBC 4.49 10^6/uL (3.93-5.22); RDW 14.0 % (11.7-14.6); RDW-SD 45.0 fL; WBC 7.73 10^3/uL (4.4-10.8)
[2024-12-06 20:50] LABS: Glucose 500 mg/dL (Negative)
[2024-12-06 20:56] LABS: C & S Indicated? No; RBC 0-2 HPF (0-2); WBC 0-2 HPF (0-5)
[2024-12-06 21:10] LABS: ALT 16 U/L (14-59); AST 16 U/L (15-37); Albumin 3.6 g/dL (3.4-5.0); Alkaline Phosphatase 73 U/L (46-116); Anion Gap 7.5 mmol/L (3-11); BUN 33 mg/dL (7-18); Bilirubin, Total 0.3 mg/dL (0.2-1.0); CO2 28.5 mmol/L (21.0-32.0); Calcium 10.0 mg/dL (8.5-10.1); Chloride 102 mmol/L (98-107); Estimated GFR 25.08 (mL/min/1.73m2); Glucose 134 mg/dL (74-106); Magnesium 2.2 mg/dL (1.8-2.4); NT-proBNP 218 pg/mL (<300); Potassium 4.4 mmol/L (3.5-5.1); Sodium 138 mmol/L (136-145); Total Protein 8.0 g/dL (6.4-8.2); Troponin I 6 ng/L (<or=51)
[2024-12-06] MEDS: Lactated Ringers 1,000 ML 1000 ML IV (21:45)
[2024-12-06 22:27] LABS: Troponin I 6 ng/L (<or=51)
== END 2024-12-06 23:14 | disposition home or self-care (01) ==
PROVIDERS: Emergency Provider Emergency Medicine; PCP Nurse Practitioner Family
DX: R42 Dizziness and giddiness (principal); I12.9 Hypertensive chronic kidney disease with stage 1 through stage 4 chronic kidney disease, or unspecified chronic kidney disease; N18.30 Chronic kidney disease, stage 3 unspecified; I48.91 Unspecified atrial fibrillation; I50.9 Heart failure, unspecified
CPT/HCPCS: 99284 ×2; 36415; 36416; 82962; 80053; 93005; 96360; 81003; 81015; 83735; 83880; 84484; 85025; 93010

== ENCOUNTER 2024-12-18 10:25 | Outpatient (CLI) | payer MEDICARE, OTHER, SELFPAY ==
[2024-12-18 11:30] LABS: Anion Gap 9.9 mmol/L (3-11); BUN 40 mg/dL (7-18); CO2 27.1 mmol/L (21.0-32.0); Calcium 9.8 mg/dL (8.5-10.1); Chloride 101 mmol/L (98-107); Estimated GFR 22.25 (mL/min/1.73m2); Glucose 134 mg/dL (74-106); Potassium 4.2 mmol/L (3.5-5.1); Sodium 138 mmol/L (136-145)
== END 2024-12-18 10:26 | disposition home or self-care (01) ==
PROVIDERS: PCP Nurse Practitioner Family; Visit Provider Nurse Practitioner Family
DX: I50.9 Heart failure, unspecified (principal); N18.32 Chronic kidney disease, stage 3b; E11.9 Type 2 diabetes mellitus without complications
CPT/HCPCS: 36415; 80048

== ENCOUNTER 2024-12-18 11:18 | Outpatient (CLI) | payer MEDICARE, OTHER, SELFPAY ==
--- NOTE | 2024-12-18 11:15 | RT.EKG_ITS ---
APPROVED REPORT Exam: Resting ECG Reason for Exam: NPW Patient Location: O HR:88 bpm ECG Measurements Heart Rate 88 AXIS MO 210 P 166 QRSd 83 QRS -20 QT 339 T 42 QTc 410 Conclusion Sinus or ectopic atrial rhythm...P axis (-45,135) Late transition
== END 2024-12-18 11:19 | disposition home or self-care (01) ==
LOC: DI.CARD 11:19
PROVIDERS: PCP Nurse Practitioner Family; Visit Provider Internal Medicine Cardiovascular Disease
DX: R42 Dizziness and giddiness (principal); I48.91 Unspecified atrial fibrillation; I50.9 Heart failure, unspecified
CPT/HCPCS: 93010

== ENCOUNTER 2025-01-01 04:13 | Outpatient (CLI) | payer MEDICARE, OTHER, SELFPAY ==
[2025-01-01 07:33] LABS: Anion Gap 10.1 mmol/L (3-11); BUN 30 mg/dL (7-18); CO2 25.9 mmol/L (21.0-32.0); Calcium 9.5 mg/dL (8.5-10.1); Chloride 102 mmol/L (98-107); Estimated GFR 25.08 (mL/min/1.73m2); Glucose 118 mg/dL (74-106); Potassium 4.4 mmol/L (3.5-5.1); Sodium 138 mmol/L (136-145)
== END 2025-01-01 04:14 | disposition home or self-care (01) ==
LOC: LBO 04:13
PROVIDERS: PCP Nurse Practitioner Family; Visit Provider Nurse Practitioner Family
DX: R79.9 Abnormal finding of blood chemistry, unspecified (principal); R79.89 Other specified abnormal findings of blood chemistry
CPT/HCPCS: 36415; 80048

== ENCOUNTER → 2025-01-25 09:19 | Outpatient (BNVA) | payer MEDICARE, OTHER, SELFPAY | PROVIDERS: PCP Nurse Practitioner Family; Referring Provider Nurse Practitioner Family; Visit Provider Podiatrist | DX: L60.3 Nail dystrophy (principal); B35.1 Tinea unguium; E11.42 Type 2 diabetes mellitus with diabetic polyneuropathy; R60.0 Localized edema; I73.89 Other specified peripheral vascular diseases; R09.89 Other specified symptoms and signs involving the circulatory and respiratory systems; L65.9 Nonscarring hair loss, unspecified; R20.8 Other disturbances of skin sensation; R23.4 Changes in skin texture; L60.2 Onychogryphosis; L60.8 Other nail disorders | CPT/HCPCS: 11720; 11719 ==